=== PATIENT | male | born 1965 | race Caucasian/White ===

== ENCOUNTER 2022-08-02 16:12 | Emergency (ER) | payer OTHER, SELFPAY ==
[2022-08-02 16:13] VITALS: BP 148/88; PULSE 64; RESP 18; TEMP 36.4; O2SAT 100; BMI 26.6
--- NOTE | 2022-08-02 16:31 | EKG12_ITS ---
Test Reason : AB LABS Blood Pressure : / mmHG Vent. Rate : 057 BPM Atrial Rate : 057 BPM P-R Int : 202 ms QRS Dur : 094 ms QT Int : 408 ms P-R-T Axes : 052 023 029 degrees QTc Int : 397 ms Sinus bradycardia Otherwise normal ECG Confirmed by ARELY AZAR, BRYCE ([id number]), general expeditor CLAIRE VIVAR ([id number]) on 08/03/2022 9:40:42 AM Referred By: Confirmed By:BRYCE MCGEE MD
--- NOTE | 2022-08-02 16:35 | NURSING ---
NO OLD EKGS
--- NOTE | 2022-08-02 17:17 | ED.RN ---
PT AKTERIN DUBOSE AT THIS RN B/C THE HAS NOT BEEN IN THE ROOM YET. PT YANI.
[2022-08-02 17:31] LABS: Absolute Lymphocyte Count 0.95 X10^3/uL (0.83-4.51); Absolute Neutrophil Count 2.4 X10^3/uL (2.0-7.7); Basophil# 0.02 X10^3/uL; Basophil% 0.5 % (0-1); Eosinophil# 0.22 X10^3/uL; Eosinophils% 5.4 % (0-5); Hematocrit 37.1 % (40-54); Hemoglobin 13.4 g/dL (13.0-16.5); Lymphocyte # 0.95 X10^3/ul (0.83-4.51); Lymphocyte % 23.3 % (19-41); Mean Corp Hgb Conc 36.1 g/dL (32-36); Mean Corpuscular Hgb 31.7 pg (27.0-32.0); Mean Corpuscular Volume 87.7 fL (80-94); Mean Platelet Vol. 9.2 fl (6.2-12.0); Monocyte# 0.47 X10^3/uL; Monocyte% 11.5 % (0-10); NRBC Flagged by Analyzer 0 % (0-5); Neutrophil # 2.41 X10^3/uL (2.7-7.7); Neutrophil % 59.1 % (47-70); Platelet Count 168 K/mm3 (150-450); RBC Distribution Width CV 11.3 % (11.6-14.6); RBC Distribution Width SD 36.3 fl (35.1-43.9); Red Blood Count 4.23 M/mm3 (4.6-6.2); White Blood Count 4.1 K/mm3 (4.4-11.0)
--- NOTE | 2022-08-02 17:32 | ED.RN ---
PT RUDE TO REGISTRATION GIRL, GIVING HER A HARD TIME AND BEING SHORT WITH HER WHEN SHE ASKED HIM QUESTIONS.
[2022-08-02 17:55] LABS: ALB/GLOB Ratio 1.1 RATIO (0.9-2.4); AST(SGOT) 21 U/L (15-37); Alanine Aminotransfer ALT/SGPT 24 U/L (16-61); Albumin, Serum 3.8 g/dL (3.2-5.0); Alkaline Phosphatase 98 U/L (45-117); Anion Gap 8 (5-15); BUN 12 mg/dL (7-18); BUN/Creat Ratio 14.2 RATIO (10-20); Calcium,Total 9.2 mg/dL (8.5-10.1); Chloride 89 mmol/L (98-107); Creatinine, Serum 0.85 mg/dL (0.70-1.30); EST Glomerular Filtration Rate 100 mL/min (>60); Est Glom Filt Rate - Afr Amer 121 mL/min (>60); Estimated Creatinine Clearance 98.19 ml/min; Globulin 3.5 g/dL (2.2-4.2); Glucose 92 mg/dL (74-106); Potassium 3.8 mmol/L (3.5-5.1); Protein, Total 7.3 g/dL (6.4-8.2); Sodium Level 123 mmol/L (136-145); Troponin-I HS 5 pg/mL (3.0-78.0)
--- NOTE | 2022-08-02 18:01 | EDS_ITS ---
HPI History of Present Illness Chief Complaint: Abn Labs Narrative Narrative: 56-year-old male presenting with low sodium. He states he does not have any symptoms of low sodium. He states he feels well. Reportedly had blood work on an outpatient basis that showed his sodium was 118. He reports that he does not eat a lot of salt. He also states he eats pretty healthy. 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 The patient states his equilibrium has been off for years because he had a tumor at 1 point but there is nothing new today. He is not lightheaded or vertiginous. He is ambulatory. He states he feels well PFSH PFSH Medical History no medical history Allergy/AdvReac Type Severity Reaction Status Date / Time No Known Allergies Allergy Verified 08/02/22 16:14 Social History Smoking Status: Current every day smoker tobacco type: cigarettes ROS ROS ED Constitutional Constitutional ED: Denies chills, fever(s) or sweats Eyes Eyes: Denies blurry vision or change in vision ENT ENT ED: Denies ear pain or sore throat Cardiovascular Cardiovascular: Denies chest pain, palpitations or racing heartbeat Respiratory/Chest Respiratory/Chest: Denies cough, dyspnea or sputum Gastrointestinal Gastrointestinal: Denies abdominal pain, constipation, diarrhea, nausea or vomiting Genitourinary Genitourinary ED: Denies dysuria, hematuria or urinary frequency Musculoskeletal Musculoskeletal: Denies arthralgias, myalgias or neck pain Integumentary Denies abscess, Abrasions or rash Neurologic Neurologic: Denies headache(s), paresthesias or weakness Psychiatric Psychiatric: Denies anxiety, depression, suicidal ideation or suicidal thoughts Endocrine Endocrinology: Denies polydipsia or polyuria EXAM Physical Exam Const Vital Signs: 08/02/22 16:13 08/02/22 16:30 08/02/22 18:49 Temperature 97.6 F L Temperature Source Temporal Pulse Rate 64 59 L Respiratory Rate 18 14 Respiratory Effort Normal Non-Labored Respiratory Pattern Normal Blood Pressure 148/88 H 155/90 H Blood Pressure Mean 108 Pulse Ox 100 97 Oxygen Delivery Method Room Air Positive well nourished General Appearance ED: NAD; Negative for pallor HEENT Reports moist mucous membranes Eyes PERRL and EOMs intact bilaterally General Eye ED: Negative for pale conjunctiva or scleral icterus Chest Wall inspection of chest normal Resp normal respiratory effort and clear to auscultation bilaterally Auscultation: Negative for rales, rhonchi or wheezes Cardio regular rate and regular rhythm GI normal to inspection, nondistended, normoactive bowel sounds Back/Spine no CVA tenderness Neuro oriented x3 and CN's II-XII intact bilaterally Sensorium / Orientation: alert Psych mental status grossly normal Skin no rashes or lesions noted and no wounds General Skin Exam: Negative for jaundice or pallor MDM MDM MDM Narrative Medical decision making narrative: Patient presenting with a sodium of 118. Today's lab work was repeated and his CBC shows a low white blood cell count of 4.1. Hemoglobin 13.4, hematocrit 37.1, platelets 168. Liver function testing is normal. EKG shows a normal sinus rhythm with a ventricular rate of 57 bpm without sign of ischemic change on my interpretation. High-sensitivity troponin is 5. Unction appears to be normal. His sodium is low at 123 but increased since his previous blood work. He tells me he does not have any symptoms and states he does not want to stay in the hospital. Discussed with Dr. Huizar who is on-call for Dr. Alvarez. He said he would have the patient follow-up as an outpatient for repeat lab work. He recommended increasing his salt in his diet. Patient was amenable to this. He is discharged home in stable condition. Impression: 1. Hyponatremia Lab Data Labs: Laboratory Results - last 24 hr 08/02/22 08/02/22 08/02/22 17:20 17:20 18:10 WBC 4.1 L RBC 4.23 L Hgb 13.4 Hct 37.1 L MCV 87.7 MCH 31.7 MCHC 36.1 H RDW Std Deviation 36.3 RDW Coeff of Yocasta 11.3 L Plt Count 168 MPV 9.2 Immature Gran % (Auto) 0.200 Neut % (Auto) 59.1 Lymph % (Auto) 23.3 [place] % (Auto) 11.5 H Eos % (Auto) 5.4 H Baso % (Auto) 0.5 Absolute Neuts (auto) 2.4 Absolute Lymphs (auto) 0.95 Nucleated RBC % 0 Sodium 123 L Potassium 3.8 Chloride 89 L Carbon Dioxide 26.0 Anion Gap 8 BUN 12 Creatinine 0.85 Estim Creat Clear Calc 98.19 Est GFR (MDRD) Af Amer 121 Est GFR (MDRD) Non-Af 100 BUN/Creatinine Ratio 14.2 Glucose 92 Calcium 9.2 Total Bilirubin 0.90 AST 21 ALT 24 Alkaline Phosphatase 98 Troponin I High Sens 5 Total Protein 7.3 Albumin 3.8 Globulin 3.5 Albumin/Globulin Ratio 1.1 Urine Color Yellow Urine Clarity Clear Urine pH 7.0 Ur Specific [place] 1.010 Urine Protein Negative Urine Glucose (UA) Normal Urine Ketones Negative Urine Occult Blood Negative Urine Nitrite Negative Urine Bilirubin Negative Urine Urobilinogen Normal Ur Leukocyte Esterase Negative Urine RBC 0 SEEN Urine WBC 0 SEEN Ur Squamous Epith Cells 0 SEEN Urine Bacteria 0 SEEN Urine Mucus 0 SEEN Discharge Plan Triage Chief Complaint: Abn Labs ED Provider: Adonis Zee Dx/Rx/DC Orders Clinical Impression: Cerebral salt-wasting syndrome, Chronic hyponatremia Instructions: ED Hyponatremia Primary Care Provider: Yanick Alvarez Referrals: Yanick Alvarez MD [Primary Care Provider] - Disposition Disposition: Home, Self Care
[2022-08-02 18:17] LABS: Bacteria 0 SEEN /hpf (None Seen); Mucous, Urine 0 SEEN /hpf (<or=2+); Red Blood Cells-Urine 0 SEEN /hpf (0-5); Squamous Epithelial Cells - UA 0 SEEN /hpf (0-5); White Blood Cells 0 SEEN /hpf (0-5)
[2022-08-02 18:21] LABS: Color, Urine Yellow (Yellow); Glucose, Dipstick Normal (Normal); Ketone-Dipstick Negative (Negative); Leukocyte Esterase-Dipstick Negative /ul (Negative); Nitrite-Dipstick Negative (Negative); Occult Blood-Urine Negative /ul (Negative); Protein-Dipstick Negative (Negative); Urine Bilirubin Dipstick Negative (Negative); Urine Clarity Clear (Clear); Urine Urobilinogen Normal (Normal)
--- NOTE | 2022-08-02 18:21 | ED.RN ---
PT CALLED OUT STATING HE HAD TO GO TO THE RESTROOM. MEDIC WENT IN AND INFORMED PT THAT WE NEEDED A URINE SAMPLE. PT GAVE THE MEDIC A HARD WHY DO YOU NEED THAT KNOW, WHY DIDNT YOU TELL ME THAT WHEN I GOT HERE?
[2022-08-02 18:49] VITALS: BP 155/90; PULSE 59; RESP 14; O2SAT 97
== END 2022-08-02 18:54 | disposition home or self-care (01) ==
PROVIDERS: Emergency Provider Student in an Organized Health Care Education/Training Program; PCP Family Medicine; Visit Provider Student in an Organized Health Care Education/Training Program
DX: E87.1 Hypo-osmolality and hyponatremia (principal); F17.210 Nicotine dependence, cigarettes, uncomplicated
CPT/HCPCS: 80053; 81001; 84484; 85025; 93005; 99284; A4216

== ENCOUNTER 2024-07-22 14:02 | Emergency (ER) | payer OTHER, SELFPAY ==
[2024-07-22 14:02] VITALS: BP 133/82; PULSE 72; RESP 16; TEMP 36.3; O2SAT 99; BMI 25.9
--- NOTE | 2024-07-22 14:14 | EDS_ITS ---
HPI History of Present Illness Chief Complaint: Headache Informant: patient Onset/Context/Timing Onset: Days (4) Context: Gradual Timing: Continuous Quality -Headache: Positive for Similar Prior Headaches Location: Diffuse Worsened by: Nothing Relieved by: Nothing Associated Symptoms/Injury Associated Symptoms: Positive for Nausea, Vomiting, Blurred Vision and Photophobia; Negative for Fever, Sore Throat, Sinus Pressure, Numbness, Tingling, Preceding Aura or Visual Loss Narrative Narrative: Patient presents with migraine headache that has been constant for the past 4 days. Patient states that it is gradually gotten worse. Patient states it is sharp. Patient states it is diffuse across his entire head. Patient states nothing makes it worse and nothing makes it better. Patient admits to some blurry vision and photophobia. Patient also admits to some dizziness. Patient states he had an episode of nausea and vomiting a couple days ago. Patient denies any fevers or chills. Prior similar symptoms: Yes PFSH PFSH Medical History (Updated 07/22/24 @ 17:[address] Julian Garcia DO) Migraine headache Hypertension Allergy/AdvReac Type Severity Reaction Status Date / Time No Known Allergies Allergy Verified 07/22/24 14:02 Surgical History (Updated 07/22/24 @ 15:[address] Julian Garcia DO) History of facial surgery Social History Smoking Status: Current every day smoker tobacco type: cigarettes ROS ROS ED Constitutional Constitutional ED: Denies chills or fever(s) Eyes Eyes: Reports blurry vision; Denies change in vision ENT ENT ED: Denies rhinorrhea or sore throat Cardiovascular Cardiovascular: Denies chest pain or palpitations Respiratory/Chest Respiratory/Chest: Denies cough or dyspnea Gastrointestinal Gastrointestinal: Reports nausea and vomiting Genitourinary Genitourinary ED: Denies dysuria or hematuria Musculoskeletal Musculoskeletal: Denies back pain or neck pain Integumentary Denies abscess or rash Neurologic Neurologic: Reports headache(s); Denies weakness Allergic/Immunologic Allergic/Immunologic ED: Denies mouth swelling or urticaria EXAM Physical Exam Const Vital Signs: 07/22/24 14:02 07/22/24 16:02 Temperature 97.4 F L Temperature Source Temporal Pulse Rate 72 78 Respiratory Rate 16 19 H Blood Pressure 133/82 H 108/92 H Blood Pressure Mean 99 97 Pulse Ox 99 98 Oxygen Delivery Method Room Air Room Air Positive well nourished and well developed General Appearance ED: well developed and NAD HEENT Reports moist mucous membranes atraumatic Neck supple and no JVD Resp normal respiratory effort and clear to auscultation bilaterally Cardio regular rate and regular rhythm GI non-tender and non-distended Palpation: soft Extremity normal to inspection and full ROM Neuro oriented x3 and no sensory deficits noted Neuro Narrative: There is right facial weakness that includes the forehead. (Patient states that this is due to his cholesteatoma surgery and is chronic.) Conrado Coma Scale: document GCS findings Spontaneous Obeys Commands Oriented 15 Sensorium / Orientation: awake and alert Speech: speech normal Motor Exam: strength 5/5 throughout Psych mental status grossly normal MDM MDM MDM Narrative Medical decision making narrative: Differential diagnose includes migraine headache, tension headache, and intracranial bleeding. CT scan of the brain will be obtained to assess for intracranial bleeding. History & Record Review Additional record(s) reviewed:: Prior labs Radiography Diagnostic Testing: Clinical Impression(s) from Imaging Studies Brain CT 07/22/24 15:04 IMPRESSION: No acute intracranial finding. Reading Location: [facility] CT scan of the brain was obtained. There is no acute intracranial abnormality. This was interpreted by the radiologist and was also independently reviewed by myself. Treatment and Re-Evaluation Narrative: Patient was given IV fluids, Reglan, and Benadryl. Patient was feeling better on reevaluation. Patient was given injection of Toradol. Patient was advised of his findings. Patient was instructed to rest in a dark quiet room. Patient was instructed to follow-up with his primary care physician in 5 to 7 days. Patient understood and was agreeable with the plan. All questions were answered. Discharge Plan Triage Chief Complaint: Headache ED Provider: Julian Garcia Dx/Rx/DC Orders Clinical Impression: Migraine headache, Tobacco use Instructions: ED, Migraine (Classical) Primary Care Provider: Yanick Alvarez Referrals: Yanick Alvarez MD [Primary Care Provider] - 3-5 Days Print Language: Bulgarian Disposition Disposition: Home, Self Care
--- NOTE | 2024-07-22 15:04 | CT_ITS ---
EXAM: BRAIN/HEAD WITHOUT CONTRAST CLINICAL HISTORY: 58 y/o M with PAIN. COMPARISON: None. TECHNIQUE: Routine CT imaging of the head without IV contrast. Additional multiplanar reformats were obtained. Dose reduction techniques were used including intermediate exposure control (AEC),iterative reconstruction technique, and/or mA and/or KV dose adjustments based on patient's size. FINDINGS: Visualization is significantly limited by streak artifact from right eyelid weight. Prior right pterional craniotomy and surgical resection of the right skull base. The ventricles and subarachnoid spaces are normal for patient age. 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 Patchy supratentorial white matter hypodensities. The parsons-white matter interfaces are otherwise grossly maintained. No large intracranial hemorrhage or herniation. Prior FESS. Mild mucosal thickening of the right maxillary sinus. The visualized paranasal sinuses and mastoids are otherwise unremarkable. No depressed skull fractures are identified. CT/Brain/Head without Contrast IMPRESSION: No acute intracranial finding. Reading Location: [id number]
[2024-07-22] MEDS: 0.9% Normal Saline (1000mL) 1,000 ML 999 ML IV (15:12)
[2024-07-22] MEDS: Metoclopramide 10 MG/2 ML Vial IV (15:12)
[2024-07-22] MEDS: DiphenhydrAMINE 50 MG/ML Syringe 25 MG IV (15:12)
[2024-07-22 16:02] VITALS: BP 108/92; PULSE 78; RESP 19; O2SAT 98
[2024-07-22] MEDS: Ketorolac 15 MG/ML Vial IV (17:05)
[2024-07-22 17:12] VITALS: BP 140/71; PULSE 77; RESP 19; TEMP 36.6; O2SAT 97
== END 2024-07-22 17:30 | disposition home or self-care (01) ==
PROVIDERS: Emergency Provider Emergency Medicine; PCP Family Medicine; Visit Provider Emergency Medicine
DX: G43.909 Migraine, unspecified, not intractable, without status migrainosus (principal); I10 Essential (primary) hypertension; F17.210 Nicotine dependence, cigarettes, uncomplicated
CPT/HCPCS: 70450; 96361; 96374; 96375; 99282; A4216

== ENCOUNTER 2024-08-10 20:05 | Emergency (ER) | payer SELFPAY ==
[2024-08-10 20:06] VITALS: BP 166/79; PULSE 136; RESP 20; TEMP 37.8; O2SAT 97; BMI 23.9
--- NOTE | 2024-08-10 20:27 | CT_ITS ---
EXAM: BRAIN/HEAD WITHOUT CONTRAST CLINICAL HISTORY: 58 y/o M with ALOC W/ BRAIN TUMOR HX. COMPARISON: CT head 07/22/2024. TECHNIQUE: Routine CT imaging of the head without IV contrast. Additional multiplanar reformats were obtained. Dose reduction techniques were used including intermediate exposure control (AEC),iterative reconstruction technique, and/or mA and/or KV dose adjustments based on patient's size. FINDINGS: Visualization is significantly limited by streak artifact from right eyelid weight. Prior right pterional craniotomy and surgical resection of the right skull base. Since prior examination, there is increased size/conspicuity of a low-density lesion within the right temporal lobe subjacent to the prior craniotomy site. Additional increased size/conspicuity of a low-density lesion within the right cerebellar hemisphere. The ventricles and subarachnoid spaces are normal for patient age. 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 Moderate patchy supratentorial white matter hypodensities. The parsons-white matter interfaces are otherwise grossly maintained. No large intracranial hemorrhage or herniation. Prior FESS. Mild mucosal thickening of the right maxillary sinus. The visualized paranasal sinuses and mastoids are otherwise well-aerated. No acute calvarial fracture or scalp hematoma. CT/Brain/Head without Contrast IMPRESSION: 1. No acute intracranial hemorrhage or herniation. 2. Increased size/conspicuity of low-density lesions within the right temporal lobe and right cerebellar hemisphere, most compatible with gliosis/postoperative changes. 3. Prior right pterional craniotomy and surgical resection of the right skull b ase. Reading Location: [id number]
--- NOTE | 2024-08-10 20:28 | EKG12_ITS ---
Test Reason : DYSRHYTHMIA Blood Pressure : */* mmHG Vent. Rate : 106 BPM Atrial Rate : 106 BPM P-R Int : 188 ms QRS Dur : 100 ms QT Int : 348 ms P-R-T Axes : 17 32 57 degrees QTcB Int : 462 ms Sinus tachycardia Otherwise normal ECG Confirmed by ARELY AZAR, BRYCE ([id number]), associate editor CLAIRE VIVAR ([id number]) on 08/13/2024 7:39:41 AM Referred By: Confirmed By: BRYCE MCGEE MD
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
[2024-08-10 20:50] LABS: Absolute Lymphocyte Count 0.72 X10^3/uL (0.83-4.51); Absolute Neutrophil Count 9.8 X10^3/uL (2.0-7.7); Basophil# 0.01 X10^3/uL; Basophil% 0.1 % (0-1); Eosinophil# 0.02 X10^3/uL; Eosinophils% 0.2 % (0-5); Hematocrit 33.5 % (40-54); Hemoglobin 11.9 g/dL (13.0-16.5); Lymphocyte # 0.72 X10^3/ul (0.83-4.51); Lymphocyte % 6.4 % (19-41); Mean Corp Hgb Conc 35.5 g/dL (32-36); Mean Corpuscular Hgb 31.8 pg (27.0-32.0); Mean Corpuscular Volume 89.6 fL (80-94); Mean Platelet Vol. 8.9 fl (6.2-12.0); Monocyte# 0.62 X10^3/uL; Monocyte% 5.5 % (0-10); NRBC Flagged by Analyzer 0 % (0-5); Neutrophil # 9.78 X10^3/uL (2.7-7.7); Neutrophil % 87.4 % (47-70); Platelet Count 203 K/mm3 (150-450); RBC Distribution Width CV 11.3 % (11.6-14.6); RBC Distribution Width SD 36.5 fl (35.1-43.9); Red Blood Count 3.74 M/mm3 (4.6-6.2); White Blood Count 11.2 K/mm3 (4.4-11.0)
[2024-08-10] MEDS: 0.9% Normal Saline (1000mL) 1,000 ML 999 ML IV (20:56)
[2024-08-10] MEDS: Acetaminophen 650 MG Suppository RC (20:56)
[2024-08-10] MEDS: Lorazepam 2 MG/ML WCH Syringe 1 MG IV ×2 (21:04→22:40)
--- NOTE | 2024-08-10 21:05 | RAD_ITS ---
PROCEDURE: CHEST 1 VIEW (PORTABLE) 08/10/2024 REASON FOR EXAM: FEVER TECHNIQUE: Frontal view of the chest. COMPARISON: None. FINDINGS: Hardware: None. Heart: The heart size is normal. Lungs: No focal consolidation, pleural effusion or pneumothorax. Bones: The bones are unremarkable. RAD/Chest 1 View (Portable) IMPRESSION: Negative Chest. Reading Location: [id number]
[2024-08-10 21:09] VITALS: BP 179/95; PULSE 106; RESP 30; O2SAT 98
[2024-08-10 21:10] LABS: International Normalized Ratio 1.2; Partial Thromboplast Time 23.4 Seconds (24.1-36.2); Prothrombin Time (Protime)PT. 14.9 SECONDS (11.7-14.9)
[2024-08-10 21:15] LABS: AST(SGOT) 21 U/L (<=37); Alanine Aminotransfer ALT/SGPT 20 U/L (<=46); Albumin, Serum 3.6 g/dL (3.5-5.0); Alkaline Phosphatase 82 U/L (40-129); Anion Gap 16 (5-15); BUN 14 mg/dL (4-19); BUN/Creat Ratio 16.2 RATIO (10-20); Calcium,Total 9.5 mg/dL (7.6-11.0); Carbon Dioxide 17.6 mmol/L (21.0-32.0); Chloride 88 mmol/L (98-108); Creatinine, Serum 0.84 mg/dL (0.70-1.20); EST Glomerular Filtration Rate 102 (>60); Estimated Creatinine Clearance 97.03 ml/min (50-250); Globulin 3.6 g/dL (2.2-4.2); Glucose 124 mg/dL (70-99); Potassium 4.4 mmol/L (3.3-5.1); Protein, Total 7.2 g/dL (5.9-8.4); Sodium Level 122 mmol/L (133-145); Total Bilirubin 0.65 mg/dL (0.00-1.30)
--- OUTSIDE RECORDS SUMMARY | 2024-08-10 21:49 | XMS RPT_ITS | CCD ---
Author Organization [facility] Care Team Providers Care Spd Tech Name Role Phone Yanick Sky MD Primary Care Provider [phone] Yanick Sky MD Primary Care Provider [phone] Bertha SAHU.Sobia RODRIGUEZ Unavailable Tosha De Leon PA-C Unavailable Dr. Yanick Sky MD Primary Care Provider Dr. Julian Garcia DO Emergency Provider Yanick Sky MD Primary Care Provider [phone] Julian Garcia Attending Unavailable Yanick Sky Primary Care Unavailable YANICK SKY Primary Care Unavailable YANICK SKY Referring Unavailable YANICK SKY Primary Care Unavailable YANICK SKY Referring Unavailable YANICK SKY Primary Care Unavailable SELF Referring Unavailable YANICK SKY Attending Unavailable YANICK SKY Primary Care Unavailable MECHE ZHAO Referring Unavailable YANICK SKY Primary Care Unavailable YANICK SKY Primary Care Unavailable GAIL CORONADO Attending Unavailable Bertha SAHU.Sobia RODRIGUEZ Unavailable Tosha De Leon PA-C Unavailable [phone] TIKI VERDUZCO Admitting Unavailable STEVE MCLEOD Attending Unavailable YANICK SKY Primary Care Unavailable PARIS DALTON Consulting Unavailable GAIL CORONADO Referring Unavailable Allergies Allergy Classification Reported Allergen(s) Allergy Type Date of Onset Reaction(s) Facility (20 sources) hydroCHLOROthiazide / Triamterene; Translations: [TRIAMTERENE-HYDROCHLOR OTHIAZID] Drug Allergy 08-09-19 23 Other: See Comments Work Phone: Medications Current Medications Medication Drug Class(es) Dates Sig (Normalized) Sig (Original) acetaminophen 325 mg / HYDROcodone bitartrate 5 mg oral tablet (1 source) Opioid Agonist Start: 09-17-2021 End: 09-22-2021 take 1 tablet by mouth every eight hours as needed for pain HYDROcodone-acetami nophen (NORCO) 5-325 mg per tablet Indications: Postoperative pain Take 1 tablet by mouth every 8 hours as needed for pain for up to 5 days. 15 tablet 0 09/17/2021 09/22/2021 Active Comment on above: Take 1 tablet by david th every 8 hours as needed for pain for up to 5 days. atorvastatin 20 mg oral tablet (20 sources) HMG-CoA Reductase Inhibitor Start: 07-06-2021 End: 05-01-2024 take 1 tablet by mouth once daily at bedtime for hyperlipidemia atorvastatin (LIPITOR) 20 mg tablet Take 1 tablet by mouth daily at bedtime. For cholesterol. 30 tablet 5 05/02/2024 Active Comment on above: Take 1 tablet by david th daily at bedtime. For cholesterol. methocarbamol 500 mg oral tablet (1 source) Muscle Relaxant Start: 03-12-2024 End: 03-15-2024 take 1 tablet by mouth every six hours as needed methocarbamol (ROBAXIN) 500 mg tablet Take 1 tablet by mouth every 6 hours as needed (Pain) for up to 3 days. 12 tablet 03/12/2024 03/15/2024 Active omeprazole 20 mg delayed release oral tablet (6 sources) Proton Pump Inhibitor Start: 05-01-2024 take 1 tablet by mouth every other day as needed Omeprazole Magnesium (PRILOSEC OTC) 20 mg tablet Take 1 tablet by mouth every other day. As needed 05/01/2024 Active predniSONE 10 mg oral tablet (1 source) Start: 03-12-2024 End: 03-21-2024 predniSONE (DELTASONE) 10 mg tablet Take 4 tabs daily for 3 days, then 2 tabs daily for 3 days, then 1 tab daily for 3 days with food. 21 tablet 03/12/2024 03/21/2024 Active Completed/Discontinued Medications Medication Drug Class(es) Dates Sig (Normalized) Sig (Original) amLODIPine 10 mg oral tablet (17 sources) Dihydropyridine Calcium Channel Saundra Start: 1 End: 2 take 1 tablet by mouth once daily amLODIPine (NORVASC) 10 mg tablet Take 1 tablet by mouth once daily. 30 tablet 5 12/03/2021 Active Comment on above: Take 1 tablet by david th once daily. doxazosin 1 mg oral tablet (19 sources) alpha-Adrenergic Saundra Start: 3 End: 5 take 1 tablet by mouth once daily, then take 1 tablet by mouth once daily doxazosin (CARDURA) 1 mg tablet Take 1 tablet by mouth once daily. Take one tab a day 05/01/2024 08/08/2024 Discontinued Comment on above: Take one tab a day f or a week then go to taking two a day. hydroCHLOROthiazide 25 mg / triamterene 37.5 mg oral tablet (10 sources) Potassium-sparing Diuretic, Thiazide Diuretic Start: 2 End: 3 take 1 tablet by mouth once daily triamterene-hydro CHLOROthiazide (MAXZIDE-25MG) 37.5-25 mg per tablet Indications: Essential hypertension Take 1 tablet by mouth once daily. 30 tablet 5 05/11/2022 08/08/2022 Discontinued (Changing Therapy/Dosage Form) Comment on above: Take 1 tablet by david th once daily. iv contrast (will be provided with radiology test) (1 source) Start: 3 End: 3 inject 1 dose intravenously once iv contrast (will be provided with radiology test) Indications: Cerebral salt-wasting syndrome , Cholesteatoma of right middle ear , Balance problems MRI Brain Inject, intravenously, once for 1 dose.No IV access, insert saline lock prior to beginning of sedation, infusion, injection of imaging exam.Discontinue saline lock post exam. If Pt. has a central line or IVAD, may access for administration according to line specific nursing protocol.Once exam is complete flush line and de-access according to line specific nursing protocol in the MR contrast administration guidelines link 1 Each 0 09/06/2022 09/07/2022 Comment on above: MRI Brain Inject, in travenously, once for 1 dose.No IV access, insert saline lock prior to beginning of sedation, infusion, injection of imaging exam.Discontinue saline lock post exam. If Pt. has a central line or IVAD, may access for administration according to line specific nursing protocol.Once exam is complete flush line and de-access according to line specific nursing protocol in the MR contrast administration guidelines link lisinopril 40 mg oral tablet (20 sources) Angiotensin Converting Enzyme Inhibitor Start: End: take 1 tablet by mouth twice daily lisinopril (ZESTRIL) 40 mg tablet Take 1 tablet by mouth two times a day. 180 tablet 1 05/01/2024 08/08/2024 Discontinued Start: 08-17-2021 take 1 tablet by david th twice daily lisinopril (ZESTRIL, PRINIVIL) 40 mg tablet Indications: Essential hypertension Take 1 tablet by mouth twice daily. 180 tablet 1 08/17/2021 Active Start: 11-17-2020 End: 06-02-2021 take 1 tablet by mouth twice daily lisinopril (ZESTRIL, PRINIVIL) 40 mg tablet Indications: Essential hypertension Take 1 tablet by mouth twice daily. 180 tablet 1 06/02/2021 Active Comment on above: Take 1 tablet by david th twice daily. Take 1 tablet by david th two times a day. metoprolol tartrate 100 mg oral tablet (20 sources) beta-Adrenergic Saundra Start: 01-12-2022 End: 08-08-2024 take 2 tablets by mouth twice daily metoprolol tartrate, short acting, (LOPRESSOR) 100 mg tablet Indications: Essential hypertension Take 2 tablets by mouth two times a day. 360 tablet 1 05/17/2024 08/08/2024 Discontinued Start: 11-17-2020 End: 07-27-2021 take 2 tablets by mouth twice daily metoprolol tartrate, short acting, (LOPRESSOR) 100 mg tablet Indications: Essential hypertension Take 2 tablets by mouth twice daily. 360 tablet 1 07/28/2021 Active Comment on above: Take 2 tablets by mo uth twice daily. Take 2 tablets by mo uth two times a day. sildenafil 100 mg oral tablet (20 sources) Phosphodiesterase 5 Inhibitor Start: 021 End: 025 sildenafil (VIAGRA) 100 mg tablet Indications: Erectile dysfunction, unspecified erectile dysfunction type Take 1/2 to 1 tab as need. Max of 100 mg in 24 hrs. 12 tablet 3 05/17/2024 9123-9, 2777-1, 70297-1, 3084-1, 45500-6 ####[facility]ORATORYCLIA [id number] [place] [address] [place] PHOSPHATIDYLETHANOL (PETH)on 08-02-2024 EER PETH See Note Normal [facility] Comment on above: Order Comment: Speci men Type: BLOOD SPECIMENOrdering Facility: [facility] Address: [address] [place] [address] Result Comment: Auth orized individuals can access the [employer] Enhanced Reportwith an [employer] Connect account using the following link.Your local lab can assist you in obtaining the patientreport if you don't have a Connect account.[email or web address] Performed By: #### P ETH ####[facility]OR[facility]IESCLIA [id number] [place] [address] PETH 16:0/18.2 (PLPETH) 17 ng/mL Normal [facility] Comment on above: Order Comment: Speci men Type: BLOOD SPECIMENOrdering Facility: [facility] Address: [address] [place] [address] Result Comment: Refe rence ranges are not well established. Performed By: #### P ETH ####[facility]ORATORIESCLIA [id number] [place] [address] PETH 16:0/18:1 (POPETH) 62 ng/mL Normal [facility] Comment on above: Order Comment: Speci men Type: BLOOD SPECIMENOrdering Facility: [facility] Address: [address] [place] [address] Result Comment: PEth 16:0/18:1 (POPEth)Less than 10 ng/mL............Not detectedLess than 20 ng/mL............Abstinence or light chxjbdfmlfyheigycx20 - 200 ng/mL................Moderate alcohol consumptionGreater than 200 ng/mL........Heavy alcohol consumption or chronicalcohol use(Reference: Michelle Shields and Emil Lozano 2018 J. Forensic Sci) Performed By: #### P ETH ####[facility] [employer]IA [id number] [place] [address] PETH INTERPRETATION See Comment Normal [facility] Comment on above: Order Comment: Speci men Type: BLOOD SPECIMENOrdering Facility: [facility] Address: [address] [place] [address] [place] [address] Result Comment: Phos phatidylethanol (PEth) is a group of phospholipids formed inthe presence of ethanol, phospholipase D and phosphatidylcholine.PEth is known to be a direct alcohol biomarker. The predominantPEth homologues are PEth 16:0/18:1 (POPEth) and PEth 16:0/18:2(PLPEth), which account for 37-46% and 26-28% of the total PEthhomologues, respectively. PEth is incorporated into thephospholipid membrane of red blood cells and has a generalhalf-life of 4-10 days and a window of detection of 2-4 weeks.However, the window of detection is longer in individuals whochronically or excessively consume alcohol. The limit ofquantification is 10 ng/mL. Serial monitoring of PEth may behelpful in monitoring alcohol abstinence over time. PEth resultsshould be interpreted in the context of the patient's clinical andbehavioral history.Patients with advanced liver disease may have falsely elevatedPEth concentrations (Fidelina CLAROS et al 2018, Alcoholism Clinical &Experimental Research).This test was developed and its performance characteristicsdetermined by [employer]. It has not been cleared orapproved by the U.S. Food and Drug Administration. This test wasperformed in a CLIA-certified laboratory and is intended forclinical purposes.Performed By: [facility] [place], [place] [address]Pmhowhfutf Director: Rodríguez Pride MD, PhDCLIA Number: [id number] Performed By: #### P ETH ####MOTetrageneticsIA [id number] [place] [address] Phosphate SerPl-mCncon 08-02 Phosphate [Mass/Vol] 3.7 mg/dL Normal 2.7-4.8 [facility] Comment on above: Order Comment: Ankur blancas Type: BLOOD SPECIMENOrdering Facility: [facility] Address: [address] [place] [address] Performed By: #### 1 9123-9, 2777-1, 83426-4, 3084-1, 50316-5 ####[facility]ATORYCLIA [id number] [place] [address] [facility] [place] Procalcitonin SerPl-mCncon 0 08-02-2024 Procalcitonin [Mass/Vol] 0.07 ng/mL Normal <0.09 [facility] Comment on above: Order Comment: Ankur blancas Type: BLOOD SPECIMENOrdering Facility: [facility] Address: [address] [place] [address] Result Comment: For a guided interpretation of test results, please visit the Change in Procalcitonin Calculator, [email or web address]. Performed By: #### 1 9123-9, 2777-1, 52934-9, 3084-1, 05862-0 ####[facility]ORATORYCLIA [id number] [place] [address] [place] Urate SerPl-mCncon 5 Urate [Mass/Vol] 2.7 mg/dL Low 4.0-8.1 [facility] Comment on above: Order Comment: Ankur blancas Type: BLOOD SPECIMENOrdering Facility: [facility] Address: [address] [place] [address] Performed By: #### 1 9123-9, 2777-1, 05054-3, 3084-1, 98294-6 ####[facility]ORATORYCLIA [id number] [place] [address] [place] XR CHEST 1V FRONTAL PORTon 0 08-02-2024 XR CHEST 1V FRONTAL PORT Normal [facility] Bacteria Bld Culton 08-02-19 25 Bacteria identified Cx Nom (Bld) CULTURE, BLOOD: No growth 5 days Normal [facility] Comment on above: Performed By: #### 6 00-7 ####[facility] LABCLIA [id number] [address] [place] Bacteria identified Cx Nom (Bld) ORGANISM ID: 1 Staphylococcus capitis Probable contaminant. Susceptibility testing will not be performed. Call lab within 72 hours to initiate workup if clinically indicated. GRAM STAIN: Gram positive cocci in clusters Abnormal [facility] Comment on above: Performed By: #### I DBCGP, 600-7 ####[facility] LABCLIA [id number] [address] [place] [address] [place] CASE MANAGEMon 08-01-2024 CASE MANAGEM Normal [facility] CBC panel Auto (Bld)on 08-01 Erythrocyte distribution width (RBC) [Ratio] 11.0 % Low 11.5-15.0 [facility] Comment on above: Order Comment: Speci men Type: BLOOD SPECIMENOrdering Facility: [facility] Address: [address] [place] [address] Performed By: #### 5 8410-2 ####[facility]ORATORYCLIA [id number] [address] STATES [facility] Hematocrit (Bld) [Volume fraction] 34.9 % Low 39.0-51.0 [facility] Comment on above: Order Comment: Speci men Type: BLOOD SPECIMENOrdering Facility: [facility] Address: [address] [place] [address] Performed By: #### 5 8410-2 ####[facility]ORATORYCLIA [id number] [place] [address] [place] Hemoglobin (Bld) [Mass/Vol] 12.6 g/dL Low 13.0-17.0 [facility] Comment on above: Order Comment: Speci men Type: BLOOD SPECIMENOrdering Facility: [facility] Address: [address] [place] [address] Performed By: #### 5 8410-2 ####[facility]ORATORYCLIA [id number] [place] [id number] [place] MCH (RBC) [Entitic mass] 32.0 pg Normal 26.0-34.0 [facility] Comment on above: Order Comment: Speci men Type: BLOOD SPECIMENOrdering Facility: [facility] Address: [address] [place] [address] Performed By: #### 5 8410-2 ####[facility]ORATORYCLIA [id number] [address] MCHC (RBC) [Mass/Vol] 36.1 g/dL High 30.5-36.0 [facility] Comment on above: Order Comment: Speci men Type: BLOOD SPECIMENOrdering Facility: [facility] Address: [address] [place] [address] Performed By: #### 5 8410-2 ####[facility]ORATORYCLIA [id number] [address] [place] [facility] MCV (RBC) [Entitic vol] 88.6 fL Normal 80.0-100.0 [facility] Comment on above: Order Comment: Speci men Type: BLOOD SPECIMENOrdering Facility: [facility] Address: [address] [place] [address] Performed By: #### 5 8410-2 ####[facility]ORATORYCLIA [id number] [address] Nucleated RBC (Bld) [#/Vol] 10*3/uL Normal <0.01 [facility] Comment on above: Order Comment: Speci men Type: BLOOD SPECIMENOrdering Facility: [facility] Address: [address] [place] [address] Performed By: #### 5 8410-2 ####[facility]ORATORYCLIA [id number] [address] Platelet mean volume (Bld) [Entitic vol] 8.5 fL Low 9.0-12.7 [facility] Comment on above: Order Comment: Speci men Type: BLOOD SPECIMENOrdering Facility: [facility] Address: [address] [place] [address] Performed By: #### 5 8410-2 ####[facility]ORATORYCLIA [id number] [address] OF [place] Platelets (Bld) [#/Vol] 327 10*3/uL Normal 150-400 [facility] Comment on above: Order Comment: Speci men Type: BLOOD SPECIMENOrdering Facility: [facility] Address: [address] [place] [address] Performed By: #### 5 8410-2 ####[facility]ORATORYCLIA [id number] [place] [id number] [place] RBC (Bld) [#/Vol] 3.94 10*6/uL Low 4.20-6.00 [facility] Comment on above: Order Comment: Speci men Type: BLOOD SPECIMENOrdering Facility: [facility] Address: [address] [place] [address] Performed By: #### 5 8410-2 ####[facility]ORATORYCLIA [id number] [address] OF [place] WBC (Bld) [#/Vol] 11.34 10*3/uL High 3.70-11.00 [facility] Comment on above: Order Comment: Speci men Type: BLOOD SPECIMENOrdering Facility: [facility] Address: [address] [place] [address] Performed By: #### 5 8410-2 ####[facility]ORATORYCLIA [id number] [place] [id number] [facility] [place] CONSULTon 08-01-2024 CONSULT Normal [facility] CONSULT PROGon 08-01-2024 CONSULT PROG Normal [facility] CONSULT PROG Normal [facility] Comprehensive metabolic 2000 panelon 08-01-2024 Albumin [Mass/Vol] 4.2 g/dL Normal 3.9-4.9 [facility] Comment on above: Order Comment: Speci men Type: BLOOD SPECIMENOrdering Facility: [facility] Address: [address] [place] [address] Performed By: #### 2 4323-8, 2777-1, 60336-3 ####[facility]ORATORYCLIA [id number] [place] [id number] [place] ALP [Catalytic activity/Vol] 79 U/L Normal 38-113 [facility] Comment on above: Order Comment: Speci men Type: BLOOD SPECIMENOrdering Facility: [facility] Address: [address] [place] [address] Performed By: #### 2 4323-8, 2776-02, ####[facility] LABORATORYCLIA [id number] [place] [address] [facility] [place] ALT [Catalytic activity/Vol] 13 U/L Normal 10-54 [facility] Comment on above: Order Comment: Speci men Type: BLOOD SPECIMENOrdering Facility: [facility] Address: [address] [place] [address] Performed By: #### 2 4323-8, 2776-02, ####[facility] LABORATORYCLIA [id number] [place] [address] [place] Anion gap [Moles/Vol] 16 mmol/L High 8-15 [facility] Comment on above: Order Comment: Speci men Type: BLOOD SPECIMENOrdering Facility: [facility] Address: [address] [place] [address] Performed By: #### 2 4323-8, 2776-02, ####[facility] LABORATORYCLIA [id number] [address] [place] AST [Catalytic activity/Vol] 16 U/L Normal 14-40 [facility] Comment on above: Order Comment: Speci men Type: BLOOD SPECIMENOrdering Facility: [facility] Address: [address] [place] [address] Performed By: #### 2 4323-8, 2776-02, ####[facility] LABORATORYCLIA [id number] [place] [address] [place] Bilirubin [Mass/Vol] 0.6 mg/dL Normal 0.2-1.3 [facility] Comment on above: Order Comment: Speci men Type: BLOOD SPECIMENOrdering Facility: [facility] Address: [address] [place] [address] Performed By: #### 2 4323-8, 2776-02, ####[facility] LABORATORYCLIA [id number] [place] [address] [place] Calcium [Mass/Vol] 9.4 mg/dL Normal 8.5-10.2 [facility] Comment on above: Order Comment: Speci men Type: BLOOD SPECIMENOrdering Facility: [facility] Address: [address] [place] [address] Performed By: #### 2 4323-8, 2777, ####[facility] LABORATORYCLIA [id number] [place] [id number] [place] Chloride [Moles/Vol] 86 mmol/L Low 98-107 [facility] Comment on above: Order Comment: Speci men Type: BLOOD SPECIMENOrdering Facility: [facility] Address: [address] [place] [address] Performed By: #### 2 4323-8, 2776-02, ####[facility] LABORATORYCLIA [id number] [place] [address] [place] CO2 [Moles/Vol] 22 mmol/L Normal 22-30 [facility] Comment on above: Order Comment: Speci men Type: BLOOD SPECIMENOrdering Facility: [facility] Address: [address] [place] [address] Performed By: #### 2 4323-8, 2776-02, ####[facility] LABORATORYCLIA [id number] [place] [id number] [place] Creatinine [Mass/Vol] 0.65 mg/dL Low 0.73-1.22 [facility] Comment on above: Order Comment: Speci men Type: BLOOD SPECIMENOrdering Facility: [facility] Address: [address] [place] [address] Performed By: #### 2 4323-8, 2776-02, ####[facility]ORATORYCLIA [id number] [address] [place] Creatinine and Glomerular filtration rate.predicted panel (S/P/Bld) 110 mL/min/1.73m??? Normal >=60 [facility] Comment on above: Order Comment: Speci men Type: BLOOD SPECIMENOrdering Facility: [facility] Address: [address] [place] [id number] Result Comment: Lola mated Glomerular Filtration Rate (eGFR) is calculated using the 2020 CKD-EPI creatinine equation. This equation utilizes serum creatinine, sex, and age as parameters. The creatinine assay has traceable calibration to isotope dilution-mass spectrometry. Refer to KDIGO guidelines for clinical interpretation. In patients with unstable renal function, e.g. those with acute kidney injury, the eGFR may not accurately reflect actual GFR. Performed By: #### 2 4323-8, 27708-27, ####[facility]ORATORYCLIA [id number] [place] [address] [place] Glucose [Mass/Vol] 113 mg/dL High 74-99 [facility] Comment on above: Order Comment: Ankur blancas Type: BLOOD SPECIMENOrdering Facility: [facility] Address: [address] [place] [address] Result Comment: The [place] Diabetes [employer] (ADA) provides guidance for cutoff values for fasting glucose and random glucose. The ADA defines fasting as no caloric intake for at least 8 hours. Fasting plasma glucose results between 100 to 125 mg/dL indicate increased risk for diabetes (prediabetes).Fasting plasma glucose results greater than or equal to 126 mg/dL meet the criteria for diagnosis of diabetes. In the absence of unequivocal hyperglycemia, results should be confirmed by repeat testing. In a patient with classic symptoms of hyperglycemia or hyperglycemic crisis, random plasma glucose results greater than or equal to 200 mg/dL meet the criteria for diagnosis of diabetes.Reference: Standards of Medical Care in Diabetes 2016, [place] [employer]. Diabetes Care. 2016.39(Suppl 1). Performed By: #### 2 4323-8, 27708-27, ####[facility] LABORATORYCLIA [id number] [place] [address] [place] Potassium [Moles/Vol] 3.9 mmol/L Normal 3.7-5.1 [facility] Comment on above: Order Comment: Ankur blancas Type: BLOOD SPECIMENOrdering Facility: [facility] Address: [address] [place] [id number] Performed By: #### 2 4323-8, 2776-02, ####[facility] LABORATORYCLIA [id number] [place] [address] [place] Protein [Mass/Vol] 7.8 g/dL Normal 6.3-8.0 [facility] Comment on above: Order Comment: Speci men Type: BLOOD SPECIMENOrdering Facility: [facility] Address: [address] [place] [address] Performed By: #### 2 4323-8, 2776-02, ####[facility] LABORATORYCLIA [id number] [place] [address] [place] Sodium [Moles/Vol] 124 mmol/L Low 136-144 [facility] Comment on above: Order Comment: Speci men Type: BLOOD SPECIMENOrdering Facility: [facility] Address: [address] [place] [address] Performed By: #### 2 4323-8, 2776-02, ####[facility] LABORATORYCLIA [id number] [place] [address] [place] Urea nitrogen [Mass/Vol] 15 mg/dL Normal 9-24 [facility] Comment on above: Order Comment: Speci men Type: BLOOD SPECIMENOrdering Facility: [facility] Address: [address] [place] [address] Performed By: #### 2 4323-8, 2776-02, ####[facility] LABORATORYCLIA [id number] [place] [address] [place] GRAM POSITIVE ORGANISM ID BY MICROARRAY (VERIGENE)on 08-01-2024 GRAM POSITIVE ORGANISM ID BY MICROARRAY (VERIGENE) Abnormal [facility] Comment on above: Performed By: #### I DBCGP, 600-7 ####[facility] LABCLIA [id number] [place] [address] [place] Magnesium SerPl-mCncon 08-01 Magnesium [Mass/Vol] 1.5 mg/dL Low 1.7-2.3 [facility] Comment on above: Order Comment: Speci men Type: BLOOD SPECIMENOrdering Facility: [facility] Address: [address] [place] [address] Performed By: #### 2 4323-8, 2776-02, ####[facility] LABORATORYCLIA [id number] [place] [address] [place] [facility] [place] NURSING PROGon 08-01-2024 NURSING PROG Normal [facility] Phosphate SerPl-mCncon 08-01 Phosphate [Mass/Vol] 2.8 mg/dL Normal 2.7-4.8 [facility] Comment on above: Order Comment: Speci men Type: BLOOD SPECIMENOrdering Facility: [facility] Address: [address] [place] [address] Performed By: #### 2 4323-8, 2777, ####[facility] LABORATORYCLIA [id number] [address] [place] THERAPY NTon 08-01-2024 THERAPY NT Normal [facility] TOXICOLOGY SCREEN, ROUTINE U RINEon 08-01-2024 Amphetamines Confirm (U) [Mass/Vol] Negative Normal Negative [facility] Comment on above: Order Comment: Speci men Type: URINE SPECIMENOrdering Facility: [facility] Address: [address] [place] [address] Result Comment: Cuto ff threshold at 1000 ng/mL. Performed By: #### U TOX2, 36452-0 ####[facility] LABORATORYCLIA [id number] [place] [address] [place] BARBITURATES, URINE Negative Normal Negative [facility] Comment on above: Order Comment: Speci men Type: URINE SPECIMENOrdering Facility: [facility] Address: [address] [place] [address] Result Comment: Cuto ff threshold at 200 ng/mL. Performed By: #### U TOX2, 33712-3 ####[facility] LABORATORYCLIA [id number] [place] [address] [place] BENZODIAZEPINES, UR Negative Normal Negative [facility] Comment on above: Order Comment: Speci men Type: URINE SPECIMENOrdering Facility: [facility] Address: [address] [place] [address] Result Comment: Cuto ff threshold at 200 ng/mL. Performed By: #### U TOX2, 88347-2 ####[facility] LABORATORYCLIA [id number] [place] [address] [place] Cannabinoids Screen Ql (U) Positive Abnormal Negative [facility] Comment on above: Order Comment: Speci men Type: URINE SPECIMENOrdering Facility: [facility] Address: [address] [place] [address] Result Comment: Cuto ff threshold at 50 ng/mL. Performed By: #### U TOX2, 17804-9 ####[facility] LABORATORYCLIA [id number] [place] [address] [place] Cocaine Ql (U) Negative Normal Negative [facility] Comment on above: Order Comment: Speci men Type: URINE SPECIMENOrdering Facility: [facility] Address: [address] [place] [address] Result Comment: Cuto ff threshold at 300 ng/mL. Performed By: #### U TOX2, 99338-7 ####[facility] LABORATORYCLIA [id number] [place] [address] [place] Ethanol (U) [Mass/Vol] <11 Normal <11 [facility] Comment on above: Order Comment: Speci men Type: URINE SPECIMENOrdering Facility: [facility] Address: [address] [place] [address] Performed By: #### U TOX2, 05111-7 ####[facility] LABORATORYCLIA [id number] [place] [address] [place] Opiates Screen Ql (U) Negative Normal Negative [facility] Comment on above: Order Comment: Speci men Type: URINE SPECIMENOrdering Facility: [facility] Address: [address] [place] [address] Result Comment: Cuto ff threshold at 300 ng/mL. Performed By: #### U TOX2, 43174-7 ####[facility] LABORATORYCLIA [id number] [place] [address] [place] oxyCODONE cutoff Screen (U) [Mass/Vol] Negative Normal Negative [facility] Comment on above: Order Comment: Speci men Type: URINE SPECIMENOrdering Facility: [facility] Address: [address] [place] [address] Result Comment: Cuto ff threshold at 100 ng/mL. Performed By: #### U TOX2, 73734-1 ####[facility] LABORATORYCLIA [id number] [address] Phencyclidine Ql (U) Negative Normal Negative [facility] Comment on above: Order Comment: Speci men Type: URINE SPECIMENOrdering Facility: [facility] Address: [address] [place] [address] Result Comment: Cuto ff threshold at 25 ng/mL. Performed By: #### U TOX2, 58350-7 ####[facility] LABORATORYCLIA [id number] [address] Urinalysis complete panel (U )on 08-01-2024 Bacteria LM.HPF (Urine sed) [#/Area] Many Abnormal None Seen [facility] Comment on above: Order Comment: Speci men Type: URINE SPECIMENOrdering Facility: [facility] Address: [address] [place] [address] Performed By: #### U TOX2, 91147-7 ####[facility] LABORATORYCLIA [id number] [address] Bilirubin Ql (U) Negative Normal Negative [facility] Comment on above: Order Comment: Speci men Type: URINE SPECIMENOrdering Facility: [facility] Address: [address] [place] [address] Performed By: #### U TOX2, 31905-6 ####[facility] LABORATORYCLIA [id number] [address] [place] Clarity (Unsp spec) Slightly Cloudy Abnormal Clear [facility] Comment on above: Order Comment: Speci men Type: URINE SPECIMENOrdering Facility: [facility] Address: [address] [place] [address] Performed By: #### U TOX2, 40749-3 ####[facility] LABORATORYCLIA [id number] [address] [place] Color (U) Yellow Normal Yellow [facility] Comment on above: Order Comment: Speci men Type: URINE SPECIMENOrdering Facility: [facility] Address: [address] [place] [address] Performed By: #### U TOX2, 05245-3 ####[facility] LABORATORYCLIA [id number] [address] [place] Glucose Test strip (U) [Mass/Vol] Negative Normal Negative [facility] Comment on above: Order Comment: Speci men Type: URINE SPECIMENOrdering Facility: [facility] Address: [address] [place] [address] Performed By: #### U TOX2, 87858-9 ####[facility] LABORATORYCLIA [id number] [place] [address] [place] Hemoglobin Ql (U) Negative Normal Negative [facility] Comment on above: Order Comment: Speci men Type: URINE SPECIMENOrdering Facility: [facility] Address: [address] [place] [address] Performed By: #### U TOX2, 35732-0 ####[facility] LABORATORYCLIA [id number] [place] [address] [place] Ketones Ql (U) Trace Abnormal Negative [facility] Comment on above: Order Comment: Speci men Type: URINE SPECIMENOrdering Facility: [facility] Address: [address] [place] [address] Performed By: #### U TOX2, 67197-5 ####[facility] LABORATORYCLIA [id number] [place] [address] [facility] Leukocyte esterase Test strip Ql (U) Negative Normal Negative [facility] Comment on above: Order Comment: Speci men Type: URINE SPECIMENOrdering Facility: [facility] Address: [address] [place] [address] Performed By: #### U TOX2, 59632-9 ####[facility] LABORATORYCLIA [id number] [place] [address] [place] Nitrite Ql (U) Negative Normal Negative [facility] Comment on above: Order Comment: Speci men Type: URINE SPECIMENOrdering Facility: [facility] Address: [address] [place] [address] Performed By: #### U TOX2, ####[facility] LABORATORYCLIA [id number] [place] [address] [place] pH (U) 7.0 [pH] Normal 5.0-8.0 [facility] Comment on above: Order Comment: Speci men Type: URINE SPECIMENOrdering Facility: [facility] Address: [address] [place] [address] Performed By: #### U TOX2, ####[facility] LABORATORYCLIA [id number] [place] [address] [place] Protein (U) [Mass/Vol] 1+ Abnormal Negative [facility] Comment on above: Order Comment: Speci men Type: URINE SPECIMENOrdering Facility: [facility] Address: [address] [place] [address] Performed By: #### U TOX2, ####[facility] LABORATORYCLIA [id number] [place] [address] [place] RBC LM.HPF (Urine sed) [#/Area] 0-3 /HPF Normal 0-3 /HPF [facility] Comment on above: Order Comment: Speci men Type: URINE SPECIMENOrdering Facility: [facility] Address: [address] [place] [address] Performed By: #### U TOX2, ####[facility] LABORATORYCLIA [id number] [place] [address] [place] Specific gravity (U) [Rel density] 1.015 Normal 1.005-1.030 [facility] Comment on above: Order Comment: Speci men Type: URINE SPECIMENOrdering Facility: [facility] Address: [address] [place] [address] Performed By: #### U TOX2, 33434-6 ####[facility] LABORATORYCLIA [id number] [place] [address] [place] Urobilinogen Ql (U) 4.0 EU/dL Abnormal 0.2-1.0 EU/dL [facility] Comment on above: Order Comment: Speci men Type: URINE SPECIMENOrdering Facility: [facility] Address: [address] [place] [address] Performed By: #### U TOX2, 98567-1 ####[facility] LABORATORYCLIA [id number] [place] [address] [place] WBC LM.HPF (Urine sed) [#/Area] 0-5 /HPF Normal 0-5 /HPF [facility] Comment on above: Order Comment: Speci men Type: URINE SPECIMENOrdering Facility: [facility] Address: [address] [place] [address] Performed By: #### U TOX2, 24576-9 ####[facility] LABORATORYCLIA [id number] [place] [address] [place] [facility] [place] Basic metabolic 2000 panelon 07-31-2024 Anion gap [Moles/Vol] 14 mmol/L Normal 8-15 [facility] Comment on above: Order Comment: Speci men Type: BLOOD SPECIMENOrdering Facility: [facility] Address: [address] [place] [address] Performed By: #### 2 4321-2 ####[facility] LABORATORYCLIA [id number] [place] [address] [place] Calcium [Mass/Vol] 9.8 mg/dL Normal 8.5-10.2 [facility] Comment on above: Order Comment: Speci men Type: BLOOD SPECIMENOrdering Facility: [facility] Address: [address] [place] [address] Performed By: #### 2 4321-2 ####[facility] LABORATORYCLIA [id number] [place] [address] [place] Chloride [Moles/Vol] 89 mmol/L Low 98-107 [facility] Comment on above: Order Comment: Speci men Type: BLOOD SPECIMENOrdering Facility: [facility] Address: [address] [place] [address] Performed By: #### 2 4321-2 ####[facility] LABORATORYCLIA [id number] [place] [address] [place] CO2 [Moles/Vol] 25 mmol/L Normal 22-30 [facility] Comment on above: Order Comment: Ankur magalis Type: BLOOD SPECIMENOrdering Facility: [facility] Address: [address] [place] [address] Performed By: #### 2 4321-2 ####[facility] LABORATORYCLIA [id number] [place] [address] [place] Creatinine [Mass/Vol] 0.74 mg/dL Normal 0.73-1.22 [facility] Comment on above: Order Comment: Ankur magalis Type: BLOOD SPECIMENOrdering Facility: [facility] Address: [address] [place] [address] Performed By: #### 2 4321-2 ####[facility] LABORATORYCLIA [id number] [address] Creatinine and Glomerular filtration rate.predicted panel (S/P/Bld) 106 mL/min/1.73m??? Normal >=60 [facility] Comment on above: Order Comment: Ankur magalis Type: BLOOD SPECIMENOrdering Facility: [facility] Address: [address] [place] [address] Result Comment: Lola mated Glomerular Filtration Rate (eGFR) is calculated using the 2020 CKD-EPI creatinine equation. This equation utilizes serum creatinine, sex, and age as parameters. The creatinine assay has traceable calibration to isotope dilution-mass spectrometry. Refer to KDIGO guidelines for clinical interpretation. In patients with unstable renal function, e.g. those with acute kidney injury, the eGFR may not accurately reflect actual GFR. Performed By: #### 2 4321-2 ####[facility] LABORATORYCLIA [id number] [place] [address] [place] Glucose [Mass/Vol] 117 mg/dL High 74-99 [facility] Comment on above: Order Comment: Ankur blancas Type: BLOOD SPECIMENOrdering Facility: [facility] Address: [address] [place] [address] Result Comment: The [place] Diabetes [employer] (ADA) provides guidance for cutoff values for fasting glucose and random glucose. The ADA defines fasting as no caloric intake for at least 8 hours. Fasting plasma glucose results between 100 to 125 mg/dL indicate increased risk for diabetes (prediabetes).Fasting plasma glucose results greater than or equal to 126 mg/dL meet the criteria for diagnosis of diabetes. In the absence of unequivocal hyperglycemia, results should be confirmed by repeat testing. In a patient with classic symptoms of hyperglycemia or hyperglycemic crisis, random plasma glucose results greater than or equal to 200 mg/dL meet the criteria for diagnosis of diabetes.Reference: Standards of Medical Care in Diabetes 2016, [place] [employer]. Diabetes Care. 2016.39(Suppl 1). Performed By: #### 2 4321-2 ####[facility] LABORATORYCLIA [id number] [address] [place] Potassium [Moles/Vol] 3.8 mmol/L Normal 3.7-5.1 [facility] Comment on above: Order Comment: Speci magalis Type: BLOOD SPECIMENOrdering Facility: [facility] Address: [address] [place] [address] Performed By: #### 2 4321-2 ####[facility] LABORATORYCLIA [id number] [address] [place] [facility] Sodium [Moles/Vol] 128 mmol/L Low 136-144 [facility] Comment on above: Order Comment: Speci men Type: BLOOD SPECIMENOrdering Facility: [facility] Address: [address] [place] [address] Performed By: #### 2 4321-2 ####[facility] LABORATORYCLIA [id number] [address] [place] [facility] Urea nitrogen [Mass/Vol] 27 mg/dL High 9-24 [facility] Comment on above: Order Comment: Speci men Type: BLOOD SPECIMENOrdering Facility: [facility] Address: [address] [place] [address] Performed By: #### 2 4321-2 ####[facility] LABORATORYCLIA [id number] [place] [id number] [place] CASE MANAGEMon 07-31-2024 CASE MANAGEM Normal [facility] CBC W Auto Differential pane l (Bld)on 07-31-2024 Basophils (Bld) [#/Vol] 10*3/uL Normal <0.11 [facility] Comment on above: Order Comment: Speci men Type: BLOOD SPECIMENOrdering Facility: [facility] Address: [address] [place] [address] Performed By: #### 5 7021-8 ####[facility] LABORATORYCLIA [id number] [place] [address] [place] Basophils/100 WBC (Bld) 0.2 % Normal [facility] Comment on above: Order Comment: Speci men Type: BLOOD SPECIMENOrdering Facility: [facility] Address: [address] [place] [address] Performed By: #### 5 7021-8 ####[facility] LABORATORYCLIA [id number] [place] [address] [place] Differential cell count method Nom (Bld) Auto Normal [facility] Comment on above: Order Comment: Speci men Type: BLOOD SPECIMENOrdering Facility: [facility] Address: [address] [place] [address] Performed By: #### 5 7021-8 ####[facility] LABORATORYCLIA [id number] [place] [address] [place] Eosinophils (Bld) [#/Vol] 10*3/uL Normal <0.46 [facility] Comment on above: Order Comment: Speci men Type: BLOOD SPECIMENOrdering Facility: [facility] Address: [address] [place] [address] Performed By: #### 5 7021-8 ####[facility] LABORATORYCLIA [id number] [place] [address] [place] Eosinophils/100 WBC (Bld) 0.2 % Normal [facility] Comment on above: Order Comment: Speci men Type: BLOOD SPECIMENOrdering Facility: [facility] Address: [address] [place] [address] Performed By: #### 5 7021-8 ####[facility] LABORATORYCLIA [id number] [place] [address] [place] Erythrocyte distribution width (RBC) [Ratio] 11.1 % Low 11.5-15.0 [facility] Comment on above: Order Comment: Speci men Type: BLOOD SPECIMENOrdering Facility: [facility] Address: [address] [place] [address] Performed By: #### 5 7021-8 ####[facility] LABORATORYCLIA [id number] [place] [address] [place] Hematocrit (Bld) [Volume fraction] 33.5 % Low 39.0-51.0 [facility] Comment on above: Order Comment: Speci men Type: BLOOD SPECIMENOrdering Facility: [facility] Address: [address] [place] [address] Performed By: #### 5 7021-8 ####[facility] LABORATORYCLIA [id number] [place] [address] [place] Hemoglobin (Bld) [Mass/Vol] 12.0 g/dL Low 13.0-17.0 [facility] Comment on above: Order Comment: Speci men Type: BLOOD SPECIMENOrdering Facility: [facility] Address: [address] [place] [address] Performed By: #### 5 7021-8 ####[facility] LABORATORYCLIA [id number] [place] [address] [place] Immature granulocytes (Bld) [#/Vol] 0.06 10*3/uL Normal <0.10 [facility] Comment on above: Order Comment: Speci men Type: BLOOD SPECIMENOrdering Facility: [facility] Address: [address] [place] [address] [place] [address] Performed By: #### 5 7021-8 ####[facility] LABORATORYCLIA [id number] [place] [address] [place] Immature granulocytes/100 WBC (Bld) 0.7 % Normal [facility] Comment on above: Order Comment: Speci men Type: BLOOD SPECIMENOrdering Facility: [facility] Address: [address] [place] [address] [place] [address] Performed By: #### 5 7021-8 ####[facility] LABORATORYCLIA [id number] [place] [address] [place] Lymphocytes (Bld) [#/Vol] 0.74 10*3/uL Low 1.00-4.00 [facility] Comment on above: Order Comment: Speci men Type: BLOOD SPECIMENOrdering Facility: [facility] Address: [address] [place] [address] Performed By: #### 5 7021-8 ####[facility] LABORATORYCLIA [id number] [address] Lymphocytes/100 WBC (Bld) 8.1 % Normal [facility] Comment on above: Order Comment: Speci men Type: BLOOD SPECIMENOrdering Facility: [facility] Address: [address] [place] [address] Performed By: #### 5 7021-8 ####[facility] LABORATORYCLIA [id number] [address] MCH (RBC) [Entitic mass] 32.1 pg Normal 26.0-34.0 [facility] Comment on above: Order Comment: Speci men Type: BLOOD SPECIMENOrdering Facility: [facility] Address: [address] [place] [address] Performed By: #### 5 7021-8 ####[facility] LABORATORYCLIA [id number] [address] [place] [facility] MCHC (RBC) [Mass/Vol] 35.8 g/dL Normal 30.5-36.0 [facility] Comment on above: Order Comment: Speci men Type: BLOOD SPECIMENOrdering Facility: [facility] Address: [address] [place] [address] Performed By: #### 5 7021-8 ####[facility] LABORATORYCLIA [id number] [address] MCV (RBC) [Entitic vol] 89.6 fL Normal 80.0-100.0 [facility] Comment on above: Order Comment: Speci men Type: BLOOD SPECIMENOrdering Facility: [facility] Address: [address] [place] [address] Performed By: #### 5 7021-8 ####[facility] LABORATORYCLIA [id number] [address] Monocytes (Bld) [#/Vol] 0.64 10*3/uL Normal <0.87 [facility] Comment on above: Order Comment: Speci men Type: BLOOD SPECIMENOrdering Facility: [facility] Address: [address] [place] [address] Performed By: #### 5 7021-8 ####[facility] LABORATORYCLIA [id number] [address] [place] Monocytes/100 WBC (Bld) 7.0 % Normal [facility] Comment on above: Order Comment: Speci men Type: BLOOD SPECIMENOrdering Facility: [facility] Address: [address] [place] [address] Performed By: #### 5 7021-8 ####[facility] LABORATORYCLIA [id number] [place] [address] [place] Neutrophils (Bld) [#/Vol] 7.66 10*3/uL High 1.45-7.50 [facility] Comment on above: Order Comment: Speci men Type: BLOOD SPECIMENOrdering Facility: [facility] Address: [address] [place] [address] Performed By: #### 5 7021-8 ####[facility] LABORATORYCLIA [id number] [address] [place] Neutrophils/100 WBC (Bld) 83.8 % Normal [facility] Comment on above: Order Comment: Speci men Type: BLOOD SPECIMENOrdering Facility: [facility] Address: [address] [place] [address] Performed By: #### 5 7021-8 ####[facility] LABORATORYCLIA [id number] [place] [address] [place] Nucleated RBC (Bld) [#/Vol] 10*3/uL Normal <0.01 [facility] Comment on above: Order Comment: Speci men Type: BLOOD SPECIMENOrdering Facility: [facility] Address: [address] [place] [address] Performed By: #### 5 7021-8 ####[facility] LABORATORYCLIA [id number] [place] [address] [place] Nucleated RBC/100 WBC (Bld) [Ratio] 0.0 /100 WBC Normal [facility] Comment on above: Order Comment: Speci men Type: BLOOD SPECIMENOrdering Facility: [facility] Address: [facility] [place] [address] Performed By: #### 5 7021-8 ####[facility] LABORATORYCLIA [id number] [place] [address] [place] Platelet mean volume (Bld) [Entitic vol] 8.5 fL Low 9.0-12.7 [facility] Comment on above: Order Comment: Speci men Type: BLOOD SPECIMENOrdering Facility: [facility] Address: [address] [place] [address] [place] [address] Performed By: #### 5 7021-8 ####[facility] LABORATORYCLIA [id number] [place] [address] [place] Platelets (Bld) [#/Vol] 277 10*3/uL Normal 150-400 [facility] Comment on above: Order Comment: Speci men Type: BLOOD SPECIMENOrdering Facility: [facility] Address: [address] [place] [address] [place] [address] Performed By: #### 5 7021-8 ####[facility] LABORATORYCLIA [id number] [place] [address] [place] RBC (Bld) [#/Vol] 3.74 10*6/uL Low 4.20-6.00 [facility] Comment on above: Order Comment: Speci men Type: BLOOD SPECIMENOrdering Facility: [facility] Address: [address] [place] [address] [place] [address] Performed By: #### 5 7021-8 ####[facility] LABORATORYCLIA [id number] [place] [id number] [place] WBC (Bld) [#/Vol] 9.14 10*3/uL Normal 3.70-11.00 [facility] Comment on above: Order Comment: Speci men Type: BLOOD SPECIMENOrdering Facility: [facility] Address: [address] [place] [address] [place] [address] Performed By: #### 5 7021-8 ####[facility] LABORATORYCLIA [id number] [address] [place] CONSULT PROGon 07-31-2024 CONSULT PROG Normal [facility] CONSULT PROG Normal [facility] Comprehensive metabolic 2000 panelon 07-31-2024 Albumin [Mass/Vol] 3.7 g/dL Low 3.9-4.9 [facility] Comment on above: Order Comment: Speci men Type: BLOOD SPECIMENOrdering Facility: [facility] Address: [address] [place] [address] Performed By: #### 2 4323-8, 82949-0, 2776- ####[facility] LABORATORYCLIA [id number] [place] [address] [place] ALP [Catalytic activity/Vol] 68 U/L Normal 38-113 [facility] Comment on above: Order Comment: Speci men Type: BLOOD SPECIMENOrdering Facility: [facility] Address: [address] [place] [address] Performed By: #### 2 4323-8, , 2776-02 ####[facility]ENTINE LABORATORYCLIA [id number] [address] STATES OF [facility] ALT [Catalytic activity/Vol] 13 U/L Normal 10-54 [facility] Comment on above: Order Comment: Speci men Type: BLOOD SPECIMENOrdering Facility: [facility] Address: [address] [place] [address] Performed By: #### 2 4323-8, , 2776-02 ####VALENTINE LABORATORYCLIA [id number] [address] Anion gap [Moles/Vol] 11 mmol/L Normal 8-15 [facility] Comment on above: Order Comment: Speci men Type: BLOOD SPECIMENOrdering Facility: [facility] Address: [address] [place], [place] [id number] Performed By: #### 2 4323-8, , 2776- ####VALENTINE LABORATORYCLIA [id number] [address] OF [place] AST [Catalytic activity/Vol] 36 U/L Normal 14-40 [facility] Comment on above: Order Comment: Speci men Type: BLOOD SPECIMENOrdering Facility: [facility] Address: [address] [place] [id number] Performed By: #### 2 4323-8, , 2776-02 ####VALENTINE LABORATORYCLIA [id number] [place] [address] [place] Bilirubin [Mass/Vol] 0.4 mg/dL Normal 0.2-1.3 [facility] Comment on above: Order Comment: Speci men Type: BLOOD SPECIMENOrdering Facility: [facility] Address: [address] [place] [address] Performed By: #### 2 4323-8, , 2776-02 ####VALENTINE LABORATORYCLIA [id number] [place] [address] [place] Calcium [Mass/Vol] 9.0 mg/dL Normal 8.5-10.2 [facility] Comment on above: Order Comment: Speci men Type: BLOOD SPECIMENOrdering Facility: [facility] Address: [facility] [place] [address] Performed By: #### 2 4322-8, , 2776-02 ####VALENTINE LABORATORYCLIA [id number] [place] [address] [place] Chloride [Moles/Vol] 88 mmol/L Low 98-107 [facility] Comment on above: Order Comment: Speci men Type: BLOOD SPECIMENOrdering Facility: [facility] Address: [facility] [place] [address] Performed By: #### 2 432-8, , 2776-02 ####VALENTINE LABORATORYCLIA [id number] [place] [address] [place] CO2 [Moles/Vol] 26 mmol/L Normal 22-30 [facility] Comment on above: Order Comment: Speci men Type: BLOOD SPECIMENOrdering Facility: [facility] Address: [facility] [place] [address] Performed By: #### 2 4323-8, , 2776-02 ####VALENTINE LABORATORYCLIA [id number] [place] [address] [place] Creatinine [Mass/Vol] 0.66 mg/dL Low 0.73-1.22 [facility] Comment on above: Order Comment: Ankur blancas Type: BLOOD SPECIMENOrdering Facility: [facility] Address: [address] [place] [address] Performed By: #### 2 4323-8, 14202-8, 2776-02 ####VALENTINE LABORATORYCLIA [id number] [place] [address] [place] Creatinine and Glomerular filtration rate.predicted panel (S/P/Bld) 109 mL/min/1.73m??? Normal >=60 [facility] Comment on above: Order Comment: Ankur blancas Type: BLOOD SPECIMENOrdering Facility: [facility] Address: [address] [place] [address] Result Comment: Loal mated Glomerular Filtration Rate (eGFR) is calculated using the 2020 CKD-EPI creatinine equation. This equation utilizes serum creatinine, sex, and age as parameters. The creatinine assay has traceable calibration to isotope dilution-mass spectrometry. Refer to KDIGO guidelines for clinical interpretation. In patients with unstable renal function, e.g. those with acute kidney injury, the eGFR may not accurately reflect actual GFR. Performed By: #### 2 4323-8, , 2776-02 ####VALENTINE LABORATORYCLIA [id number] [place] [id number] [place] Glucose [Mass/Vol] 114 mg/dL High 74-99 [facility] Comment on above: Order Comment: Ankur blancas Type: BLOOD SPECIMENOrdering Facility: [facility] Address: [address] [place] [address] Result Comment: The [place] Diabetes [employer] (ADA) provides guidance for cutoff values for fasting glucose and random glucose. The ADA defines fasting as no caloric intake for at least 8 hours. Fasting plasma glucose results between 100 to 125 mg/dL indicate increased risk for diabetes (prediabetes).Fasting plasma glucose results greater than or equal to 126 mg/dL meet the criteria for diagnosis of diabetes. In the absence of unequivocal hyperglycemia, results should be confirmed by repeat testing. In a patient with classic symptoms of hyperglycemia or hyperglycemic crisis, random plasma glucose results greater than or equal to 200 mg/dL meet the criteria for diagnosis of diabetes.Reference: Standards of Medical Care in Diabetes 2016, [place] [employer]. Diabetes Care. 2016.39(Suppl 1). Performed By: #### 2 4323-8, , 2776-02 ####VALENTINE LABORATORYCLIA [id number] [place] [address] [place] Potassium [Moles/Vol] 3.9 mmol/L Normal 3.7-5.1 [facility] Comment on above: Order Comment: Speci men Type: BLOOD SPECIMENOrdering Facility: [facility] Address: [address] [place] [address] Performed By: #### 2 4323-8, , 2776-02 ####VALENTINE LABORATORYCLIA [id number] [place] [address] [place] Protein [Mass/Vol] 6.7 g/dL Normal 6.3-8.0 [facility] Comment on above: Order Comment: Speci men Type: BLOOD SPECIMENOrdering Facility: [facility] Address: [address] [place] [address] Performed By: #### 2 4323-8, , 2776-02 ####VALENTINE LABORATORYCLIA [id number] [place] [address] [place] Sodium [Moles/Vol] 125 mmol/L Low 136-144 [facility] Comment on above: Order Comment: Speci men Type: BLOOD SPECIMENOrdering Facility: [facility] Address: [address] [place] [address] Performed By: #### 2 4323-8, , 2776-02 ####VALENTINE LABORATORYCLIA [id number] [place] [id number] [place] Urea nitrogen [Mass/Vol] 13 mg/dL Normal 9-24 [facility] Comment on above: Order Comment: Speci men Type: BLOOD SPECIMENOrdering Facility: [facility] Address: [address] [place] [address] Performed By: #### 2 4323-8, , 2776- ####VALENTINE LABORATORYCLIA [id number] [place] [address] [facility] [place] Magnesium SerPl-ncon 07-31 Magnesium [Mass/Vol] 1.8 mg/dL Normal 1.7-2.3 [facility] Comment on above: Order Comment: Speci men Type: BLOOD SPECIMENOrdering Facility: [facility] Address: [facility] [address] [place] [id number] Performed By: #### 2 4323-8, 62286-3, 2776-02 ####[facility] LABORATORYCLIA [id number] [place] [address] [facility] [place] NURSING PROGon 07-31-2024 NURSING PROG [facility] Phosphate SerPl-ncon 07-31 Phosphate [Mass/Vol] 3.3 mg/dL Normal 2.7-4.8 [facility] Comment on above: Order Comment: Speci men Type: BLOOD SPECIMENOrdering Facility: [facility] Address: [address] [place], [place] [address] [place] [id number] Performed By: #### 2 4323-8, 95279-6, 2776-02 ####FRANKLIN LABORATORYCLIA [id number] [place] [address] [place] THERAPY NTon 07-31-2024 THERAPY NT Normal [facility] Bas Metab 2000 Pnl SerPlon 0 07-30-2024 Anion gap [Moles/Vol] 11 mmol/L Normal 8-15 [facility] Comment on above: Order Comment: Speci men Type: BLOOD SPECIMENOrdering Facility: [facility] Address: [facility] [place] [address] Performed By: #### 2 4321-2, 93817-6, 2776-, ####FRANKLIN LABORATORYCLIA [id number] [place] [id number] [place] Calcium [Mass/Vol] 9.1 mg/dL Normal 8.5-10.2 [facility] Comment on above: Order Comment: Speci men Type: BLOOD SPECIMENOrdering Facility: [facility] Address: [facility] [place] [address] Performed By: #### 2 4321-2, 65325-8, 2776-1, 17826-4 ####VALENTINE LABORATORYCLIA [id number] [place] [address] [place] Chloride [Moles/Vol] 90 mmol/L Low 98-107 [facility] Comment on above: Order Comment: Speci men Type: BLOOD SPECIMENOrdering Facility: [facility] Address: [address] [place] [address] Performed By: #### 2 4321-2, 15283-1, 2776-1, 26946-9 ####FRANKLIN LABORATORYCLIA [id number] [place] [id number] [place] CO2 [Moles/Vol] 25 mmol/L Normal 22-30 [facility] Comment on above: Order Comment: Ankur blancas Type: BLOOD SPECIMENOrdering Facility: [facility] Address: [address] [place] [address] Performed By: #### 2 4321-2, 25077-4, 2776-1, ####FRANKLIN LABORATORYCLIA [id number] [place] [address] [place] Creatinine [Mass/Vol] 0.72 mg/dL Low 0.73-1.22 [facility] Comment on above: Order Comment: Speci men Type: BLOOD SPECIMENOrdering Facility: [facility] Address: [address] [place] [address] Performed By: #### 2 4321-2, 72160-2, 277-1, 22587-3 ####FRANKLIN LABORATORYCLIA [id number] [place] [id number] [facility] Creatinine and Glomerular filtration rate.predicted panel (S/P/Bld) 107 mL/min/1.73m??? Normal >=60 [facility] Comment on above: Order Comment: Cedrici men Type: BLOOD SPECIMENOrdering Facility: [facility] Address: [address] [place] [address] Result Comment: Lola mated Glomerular Filtration Rate (eGFR) is calculated using the 2020 CKD-EPI creatinine equation. This equation utilizes serum creatinine, sex, and age as parameters. The creatinine assay has traceable calibration to isotope dilution-mass spectrometry. Refer to KDIGO guidelines for clinical interpretation. In patients with unstable renal function, e.g. those with acute kidney injury, the eGFR may not accurately reflect actual GFR.Estimated Glomerular Filtration Rate (eGFR) is calculated using the 202 CKD-EPI creatinine equation. This equation utilizes serum creatinine, sex, and age as parameters. The creatinine assay has traceable calibration to isotope dilution-mass spectrometry. Refer to KDIGO guidelines for clinical interpretation. In patients with unstable renal function, e.g. those with acute kidney injury, the eGFR may not accurately reflect actual GFR. Performed By: #### 2 4321-2, 38548-6, 2777-1, 25629-0 ####FRANKLIN LABORATORYCLIA [id number] [address] Result Comment: Lola mated Glomerular Filtration Rate (eGFR) is calculated using the 2020 CKD-EPI creatinine equation. This equation utilizes serum creatinine, sex, and age as parameters. The creatinine assay has traceable calibration to isotope dilution-mass spectrometry. Refer to KDIGO guidelines for clinical interpretation. In patients with unstable renal function, e.g. those with acute kidney injury, the eGFR may not accurately reflect actual GFR. Glucose [Mass/Vol] 105 mg/dL High 74-99 [facility] Comment on above: Order Comment: Ankur blancas Type: BLOOD SPECIMENOrdering Facility: [facility] Address: [address] [place] [id number] Result Comment: The [place] Diabetes [employer] (ADA) provides guidance for cutoff values for fasting glucose and random glucose. The ADA defines fasting as no caloric intake for at least 8 hours. Fasting plasma glucose results between 100 to 125 mg/dL indicate increased risk for diabetes (prediabetes).Fasting plasma glucose results greater than or equal to 126 mg/dL meet the criteria for diagnosis of diabetes. In the absence of unequivocal hyperglycemia, results should be confirmed by repeat testing. In a patient with classic symptoms of hyperglycemia or hyperglycemic crisis, random plasma glucose results greater than or equal to 200 mg/dL meet the criteria for diagnosis of diabetes.Reference: Standards of Medical Care in Diabetes 2016, [place] [employer]. Diabetes Care. 2016.39(Suppl 1). Performed By: #### 2 4321-2, 33511-0, 2777-1, 42156-5 ####VALENTINE LABORATORYCLIA [id number] [place] [address] [place] Potassium [Moles/Vol] 4.1 mmol/L Normal 3.7-5.1 [facility] Comment on above: Order Comment: Speci men Type: BLOOD SPECIMENOrdering Facility: [facility] Address: [address] [place] [address] Performed By: #### 2 4321-2, 60319-6, 2777-1, 45741-1 ####VALENTINE LABORATORYCLIA [id number] [place] [id number] [place] Sodium [Moles/Vol] 126 mmol/L Low 136-144 [facility] Comment on above: Order Comment: Speci men Type: BLOOD SPECIMENOrdering Facility: [facility] Address: [address] [place] [address] Performed By: #### 2 4321-2, 95136-0, 2777-1, 68042-6 ####VALENTINE LABORATORYCLIA [id number] [place] [address] [place] Urea nitrogen [Mass/Vol] 17 mg/dL Normal 9-24 [facility] Comment on above: Order Comment: Speci men Type: BLOOD SPECIMENOrdering Facility: [facility] Address: [address] [place] [address] Performed By: #### 2 4321-2, 65012-5, 277-1, 07009-7 ####VALENTINE LABORATORYCLIA [id number] [place] [id number] [place] Basic metabolic 2000 panelon 07-30-2024 Anion gap [Moles/Vol] 9 mmol/L Normal 8-15 [facility] Comment on above: Order Comment: Speci men Type: BLOOD SPECIMENOrdering Facility: [facility] Address: [address] [place] [address] Performed By: #### 2 4321-2 ####VALENTINE LABORATORYCLIA [id number] [place] [address] [place] Calcium [Mass/Vol] 9.1 mg/dL Normal 8.5-10.2 [facility] Comment on above: Order Comment: Speci men Type: BLOOD SPECIMENOrdering Facility: [facility] Address: [address] [place] [address] Performed By: #### 2 4321-2 ####VALENTINE LABORATORYCLIA [id number] [place] [address] [place] [facility] Chloride [Moles/Vol] 91 mmol/L Low 98-107 [facility] Comment on above: Order Comment: Speci men Type: BLOOD SPECIMENOrdering Facility: [facility] Address: [address] [place] [address] Performed By: #### 2 4321-2 ####VALENTINE LABORATORYCLIA [id number] [place] [address] [place] CO2 [Moles/Vol] 26 mmol/L Normal 22-30 [facility] Comment on above: Order Comment: Speci men Type: BLOOD SPECIMENOrdering Facility: [facility] Address: [address] [place] [address] Performed By: #### 2 4321-2 ####VALENTINE LABORATORYCLIA [id number] [address] [place] Creatinine [Mass/Vol] 0.76 mg/dL Normal 0.73-1.22 [facility] Comment on above: Order Comment: Speci men Type: BLOOD SPECIMENOrdering Facility: [facility] Address: [address] [place] [address] Performed By: #### 2 4321-2 ####VALENTINE LABORATORYCLIA [id number] [address] Creatinine and Glomerular filtration rate.predicted panel (S/P/Bld) 105 mL/min/1.73m??? Normal >=60 [facility] Comment on above: Order Comment: Speci men Type: BLOOD SPECIMENOrdering Facility: [facility] Address: [address] [place] [address] Result Comment: Lola mated Glomerular Filtration Rate (eGFR) is calculated using the 2020 CKD-EPI creatinine equation. This equation utilizes serum creatinine, sex, and age as parameters. The creatinine assay has traceable calibration to isotope dilution-mass spectrometry. Refer to KDIGO guidelines for clinical interpretation. In patients with unstable renal function, e.g. those with acute kidney injury, the eGFR may not accurately reflect actual GFR. Performed By: #### 2 4321-2 ####VALENTINE LABORATORYCLIA [id number] [place] [id number] [place] Glucose [Mass/Vol] 104 mg/dL High 74-99 [facility] Comment on above: Order Comment: Ankur blancas Type: BLOOD SPECIMENOrdering Facility: [facility] Address: [address] [place] [address] Result Comment: The [place] Diabetes Association (ADA) provides guidance for cutoff values for fasting glucose and random glucose. The ADA defines fasting as no caloric intake for at least 8 hours. Fasting plasma glucose results between 100 to 125 mg/dL indicate increased risk for diabetes (prediabetes).Fasting plasma glucose results greater than or equal to 126 mg/dL meet the criteria for diagnosis of diabetes. In the absence of unequivocal hyperglycemia, results should be confirmed by repeat testing. In a patient with classic symptoms of hyperglycemia or hyperglycemic crisis, random plasma glucose results greater than or equal to 200 mg/dL meet the criteria for diagnosis of diabetes.Reference: Standards of Medical Care in Diabetes 2016, [place] [employer]. Diabetes Care. 2016.39(Suppl 1). Performed By: #### 2 4321-2 ####FRANKLIN LABORATORYCLIA [id number] [place] [id number] [place] Potassium [Moles/Vol] 4.1 mmol/L Normal 3.7-5.1 [facility] Comment on above: Order Comment: Ankur blancas Type: BLOOD SPECIMENOrdering Facility: [facility] Address: [address] [place] [address] Performed By: #### 2 4321-2 ####FRANKLIN LABORATORYCLIA [id number] [place] [id number] [place] Sodium [Moles/Vol] 126 mmol/L Low 136-144 [facility] Comment on above: Order Comment: Ankur blancas Type: BLOOD SPECIMENOrdering Facility: [facility] Address: [address] [place] [address] Performed By: #### 2 4321-2 ####VALENTINE LABORATORYCLIA [id number] [place] [id number] [place] Urea nitrogen [Mass/Vol] 17 mg/dL Normal 9-24 [facility] Comment on above: Order Comment: Speci men Type: BLOOD SPECIMENOrdering Facility: [facility] Address: [address] [place] [address] Performed By: #### 2 4321-2 ####VALENTINE LABORATORYCLIA [id number] [place] [address] [place] Anion gap [Moles/Vol] 11 mmol/L Normal 8-15 [facility] Comment on above: Order Comment: Speci men Type: BLOOD SPECIMENOrdering Facility: [facility] Address: [address] [place] [address] Performed By: #### 2 4321-2 ####VALENTIEN LABORATORYCLIA [id number] [place] [address] [place] Calcium [Mass/Vol] 9.1 mg/dL Normal 8.5-10.2 [facility] Comment on above: Order Comment: Speci men Type: BLOOD SPECIMENOrdering Facility: [facility] Address: [address] [place] [address] Performed By: #### 2 4321-2 ####VALENTINE LABORATORYCLIA [id number] [place] [address] [place] Chloride [Moles/Vol] 90 mmol/L Low 98-107 [facility] Comment on above: Order Comment: Speci men Type: BLOOD SPECIMENOrdering Facility: [facility] Address: [address] [place] [address] Performed By: #### 2 4321-2 ####VALENTINE LABORATORYCLIA [id number] [place] [address] [place] CO2 [Moles/Vol] 25 mmol/L Normal 22-30 [facility] Comment on above: Order Comment: Speci men Type: BLOOD SPECIMENOrdering Facility: [facility] Address: [address] [place] [address] Performed By: #### 2 4321-2 ####VALENTINE LABORATORYCLIA [id number] [place] [address] [place] Creatinine [Mass/Vol] 0.75 mg/dL Normal 0.73-1.22 [facility] Comment on above: Order Comment: Ankur blancas Type: BLOOD SPECIMENOrdering Facility: [facility] Address: [address] [place] [address] Performed By: #### 2 4321-2 ####VALENTINE LABORATORYCLIA [id number] [place] [address] [place] Creatinine and Glomerular filtration rate.predicted panel (S/P/Bld) 105 mL/min/1.73m??? Normal >=60 [facility] Comment on above: Order Comment: Ankur magalis Type: BLOOD SPECIMENOrdering Facility: [facility] Address: [address] [place] [address] Result Comment: Lola mated Glomerular Filtration Rate (eGFR) is calculated using the 2020 CKD-EPI creatinine equation. This equation utilizes serum creatinine, sex, and age as parameters. The creatinine assay has traceable calibration to isotope dilution-mass spectrometry. Refer to KDIGO guidelines for clinical interpretation. In patients with unstable renal function, e.g. those with acute kidney injury, the eGFR may not accurately reflect actual GFR. Performed By: #### 2 4321-2 ####FRANKLIN LABORATORYCLIA [id number] [place] [address] [place] Glucose [Mass/Vol] 112 mg/dL High 74-99 [facility] Comment on above: Order Comment: Cedrictimothy blancas Type: BLOOD SPECIMENOrdering Facility: [facility] Address: [address] [place] [address] Result Comment: The [place] Diabetes [employer] (ADA) provides guidance for cutoff values for fasting glucose and random glucose. The ADA defines fasting as no caloric intake for at least 8 hours. Fasting plasma glucose results between 100 to 125 mg/dL indicate increased risk for diabetes (prediabetes).Fasting plasma glucose results greater than or equal to 126 mg/dL meet the criteria for diagnosis of diabetes. In the absence of unequivocal hyperglycemia, results should be confirmed by repeat testing. In a patient with classic symptoms of hyperglycemia or hyperglycemic crisis, random plasma glucose results greater than or equal to 200 mg/dL meet the criteria for diagnosis of diabetes.Reference: Standards of Medical Care in Diabetes 2016, [place] [employer]. Diabetes Care. 2016.39(Suppl 1). Performed By: #### 2 4321-2 ####VALENTINE LABORATORYCLIA [id number] [place] [address] [place] Potassium [Moles/Vol] 4.0 mmol/L Normal 3.7-5.1 [facility] Comment on above: Order Comment: Speci men Type: BLOOD SPECIMENOrdering Facility: [facility] Address: [address] [place] [address] Performed By: #### 2 4321-2 ####VALENTINE LABORATORYCLIA [id number] [place] [address] [place] Sodium [Moles/Vol] 126 mmol/L Low 136-144 [facility] Comment on above: Order Comment: Speci men Type: BLOOD SPECIMENOrdering Facility: [facility] Address: [address] [place] [address] Performed By: #### 2 4321-2 ####VALENTINE LABORATORYCLIA [id number] [place] [address] [place] Urea nitrogen [Mass/Vol] 17 mg/dL Normal 9-24 [facility] Comment on above: Order Comment: Speci men Type: BLOOD SPECIMENOrdering Facility: [facility] Address: [address] [place] [address] Performed By: #### 2 4321-2 ####VALENTINE LABORATORYCLIA [id number] [address] [place] Anion gap [Moles/Vol] 10 mmol/L Normal 8-15 [facility] Comment on above: Order Comment: Speci men Type: BLOOD SPECIMENOrdering Facility: [facility] Address: [address] [place] [address] Performed By: #### 2 4321-2 ####VALENTINE LABORATORYCLIA [id number] [place] [address] [place] Calcium [Mass/Vol] 9.2 mg/dL Normal 8.5-10.2 [facility] Comment on above: Order Comment: Speci men Type: BLOOD SPECIMENOrdering Facility: [facility] Address: [address] [place] [address] Performed By: #### 2 4321-2 ####VALENTINE LABORATORYCLIA [id number] [address] [place] [facility] Chloride [Moles/Vol] 88 mmol/L Low 98-107 [facility] Comment on above: Order Comment: Spectimothy blancas Type: BLOOD SPECIMENOrdering Facility: [facility] Address: [address] [place] [address] Performed By: #### 2 4321-2 ####VALENTINE LABORATORYCLIA [id number] [place] [address] [place] CO2 [Moles/Vol] 26 mmol/L Normal 22-30 [facility] Comment on above: Order Comment: Speci men Type: BLOOD SPECIMENOrdering Facility: [facility] Address: [address] [place] [address] Performed By: #### 2 4321-2 ####VALENTINE LABORATORYCLIA [id number] [address] Creatinine [Mass/Vol] 0.74 mg/dL Normal 0.73-1.22 [facility] Comment on above: Order Comment: Speci men Type: BLOOD SPECIMENOrdering Facility: [facility] Address: [address] [place] [address] Performed By: #### 2 4321-2 ####VALENTINE LABORATORYCLIA [id number] [address] Creatinine and Glomerular filtration rate.predicted panel (S/P/Bld) 106 mL/min/1.73m??? Normal >=60 [facility] Comment on above: Order Comment: Ankur blancas Type: BLOOD SPECIMENOrdering Facility: [facility] Address: [address] [place] [address] Result Comment: Lola mated Glomerular Filtration Rate (eGFR) is calculated using the 2020 CKD-EPI creatinine equation. This equation utilizes serum creatinine, sex, and age as parameters. The creatinine assay has traceable calibration to isotope dilution-mass spectrometry. Refer to KDIGO guidelines for clinical interpretation. In patients with unstable renal function, e.g. those with acute kidney injury, the eGFR may not accurately reflect actual GFR. Performed By: #### 2 4321-2 ####VALENTINE LABORATORYCLIA [id number] [place] [address] [place] Glucose [Mass/Vol] 105 mg/dL High 74-99 [facility] Comment on above: Order Comment: Ankur blancas Type: BLOOD SPECIMENOrdering Facility: [facility] Address: [address] [place] [address] Result Comment: The [place] [employer] (ADA) provides guidance for cutoff values for fasting glucose and random glucose. The ADA defines fasting as no caloric intake for at least 8 hours. Fasting plasma glucose results between 100 to 125 mg/dL indicate increased risk for diabetes (prediabetes).Fasting plasma glucose results greater than or equal to 126 mg/dL meet the criteria for diagnosis of diabetes. In the absence of unequivocal hyperglycemia, results should be confirmed by repeat testing. In a patient with classic symptoms of hyperglycemia or hyperglycemic crisis, random plasma glucose results greater than or equal to 200 mg/dL meet the criteria for diagnosis of diabetes.Reference: Standards of Medical Care in Diabetes 2016, [place] [employer]. Diabetes Care. 2016.39(Suppl 1). Performed By: #### 2 4321-2 ####VALENTINE LABORATORYCLIA [id number] [place] [address] [place] Potassium [Moles/Vol] 3.9 mmol/L Normal 3.7-5.1 [facility] Comment on above: Order Comment: Ankur blancas Type: BLOOD SPECIMENOrdering Facility: [facility] Address: [address] [place] [address] Performed By: #### 2 4321-2 ####VALENTINE LABORATORYCLIA [id number] [place] [id number] [place] Sodium [Moles/Vol] 124 mmol/L Low 136-144 [facility] Comment on above: Order Comment: Ankur blancas Type: BLOOD SPECIMENOrdering Facility: [facility] Address: [address] [place] [address] Performed By: #### 2 4321-2 ####VALENTINE LABORATORYCLIA [id number] [place] [address] [place] Urea nitrogen [Mass/Vol] 19 mg/dL Normal 9-24 [facility] Comment on above: Order Comment: Cedrici men Type: BLOOD SPECIMENOrdering Facility: [facility] Address: [address] [place] [address] Performed By: #### 2 4321-2 ####VALENTINE LABORATORYCLIA [id number] [address] CBC panel Auto (Bld)on 07-30 Erythrocyte distribution width (RBC) [Ratio] 11.3 % Low 11.5-15.0 [facility] Comment on above: Order Comment: Speci men Type: BLOOD SPECIMENOrdering Facility: [facility] Address: [address] [place] [address] Performed By: #### 5 8410-2 ####VALENTINE LABORATORYCLIA [id number] [address] Hematocrit (Bld) [Volume fraction] 34.6 % Low 39.0-51.0 [facility] Comment on above: Order Comment: Speci men Type: BLOOD SPECIMENOrdering Facility: [facility] Address: [address] [place] [address] Performed By: #### 5 8410-2 ####VALENTINE LABORATORYCLIA [id number] [address] Hemoglobin (Bld) [Mass/Vol] 12.2 g/dL Low 13.0-17.0 [facility] Comment on above: Order Comment: Speci men Type: BLOOD SPECIMENOrdering Facility: [facility] Address: [address] [place] [address] Performed By: #### 5 8410-2 ####VALENTINE LABORATORYCLIA [id number] [address] MCH (RBC) [Entitic mass] 32.0 pg Normal 26.0-34.0 [facility] Comment on above: Order Comment: Speci men Type: BLOOD SPECIMENOrdering Facility: [facility] Address: [address] [place] [address] Performed By: #### 5 8410-2 ####VALENTINE LABORATORYCLIA [id number] [address] MCHC (RBC) [Mass/Vol] 35.3 g/dL Normal 30.5-36.0 [facility] Comment on above: Order Comment: Speci men Type: BLOOD SPECIMENOrdering Facility: [facility] Address: [address] [place] [address] Performed By: #### 5 8410-2 ####VALENTINE LABORATORYCLIA [id number] [address] [place] MCV (RBC) [Entitic vol] 90.8 fL Normal 80.0-100.0 [facility] Comment on above: Order Comment: Speci men Type: BLOOD SPECIMENOrdering Facility: [facility] Address: [address] [place] [address] Performed By: #### 5 8410-2 ####VALENTINE LABORATORYCLIA [id number] [address] Nucleated RBC (Bld) [#/Vol] 10*3/uL Normal <0.01 [facility] Comment on above: Order Comment: Speci men Type: BLOOD SPECIMENOrdering Facility: [facility] Address: [address] [place] [address] Performed By: #### 5 8410-2 ####VALENTINE LABORATORYCLIA [id number] [address] [place] Platelet mean volume (Bld) [Entitic vol] 8.6 fL Low 9.0-12.7 [facility] Comment on above: Order Comment: Speci men Type: BLOOD SPECIMENOrdering Facility: [facility] Address: [address] [place] [address] Performed By: #### 5 8410-2 ####VALENTINE LABORATORYCLIA [id number] [address] [place] Platelets (Bld) [#/Vol] 269 10*3/uL Normal 150-400 [facility] Comment on above: Order Comment: Speci men Type: BLOOD SPECIMENOrdering Facility: [facility] Address: [address] [place] [address] Performed By: #### 5 8410-2 ####VALENTINE LABORATORYCLIA [id number] [address] [place] RBC (Bld) [#/Vol] 3.81 10*6/uL Low 4.20-6.00 [facility] Comment on above: Order Comment: Speci men Type: BLOOD SPECIMENOrdering Facility: [facility] Address: [address] [place] [address] Performed By: #### 5 8410-2 ####VALENTINE LABORATORYCLIA [id number] [place] [address] [place] WBC (Bld) [#/Vol] 8.52 10*3/uL Normal 3.70-11.00 [facility] Comment on above: Order Comment: Speci men Type: BLOOD SPECIMENOrdering Facility: [facility] Address: [address] [place] [address] Performed By: #### 5 8410-2 ####VALENTINE LABORATORYCLIA [id number] [address] CONSULT PROGon 07-30-2024 CONSULT PROG Normal [facility] Comprehensive metabolic 2000 panelon 07-30-2024 Albumin [Mass/Vol] 3.5 g/dL Low 3.9-4.9 [facility] Comment on above: Order Comment: Speci men Type: BLOOD SPECIMENOrdering Facility: [facility] Address: [address] [place] [address] Performed By: #### 2 4321-2, 66119-2, 2777-1, 91143-9 ####VALENTINE LABORATORYCLIA [id number] [place] [address] [place] ALP [Catalytic activity/Vol] 66 U/L Normal 38-113 [facility] Comment on above: Order Comment: Speci men Type: BLOOD SPECIMENOrdering Facility: [facility] Address: [address] [place] [address] Performed By: #### 2 4321-2, 84742-3, 2777-1, 87302-9 ####VALENTINE LABORATORYCLIA [id number] [address] ALT [Catalytic activity/Vol] 13 U/L Normal 10-54 [facility] Comment on above: Order Comment: Speci men Type: BLOOD SPECIMENOrdering Facility: [facility] Address: [address] [place] [address] Performed By: #### 2 4321-2, 47490-1, 2776-1, ####VALENTINE LABORATORYCLIA [id number] [address] [place] AST [Catalytic activity/Vol] 11 U/L Low 14-40 [facility] Comment on above: Order Comment: Speci men Type: BLOOD SPECIMENOrdering Facility: [facility] Address: [address] [place] [address] Performed By: #### 2 4321-2, 81324-8, 2776-1, ####VALENTINE LABORATORYCLIA [id number] [place] [address] [place] Bilirubin [Mass/Vol] 0.4 mg/dL Normal 0.2-1.3 [facility] Comment on above: Order Comment: Speci men Type: BLOOD SPECIMENOrdering Facility: [facility] Address: [address] [place], [place] [id number] Performed By: #### 2 4321-2, 94400-1, 2776-1, ####VALENTINE LABORATORYCLIA [id number] [address] [place] Protein [Mass/Vol] 6.7 g/dL Normal 6.3-8.0 [facility] Comment on above: Order Comment: Speci men Type: BLOOD SPECIMENOrdering Facility: [facility] Address: [address] [place] [address] Performed By: #### 2 4321-2, 54407-9, 277-1, 78168-8 ####VALENTINE LABORATORYCLIA [id number] [place] [id number] [place] Magnesium SerPl-mCncon 07-30 Magnesium [Mass/Vol] 2.0 mg/dL Normal 1.7-2.3 [facility] Comment on above: Order Comment: Speci men Type: BLOOD SPECIMENOrdering Facility: [facility] Address: [address] [place] [address] Performed By: #### 2 4321-2, 32774-7, 2777-1, 51196-6 ####VALENTINE LABORATORYCLIA [id number] [place] [address] [place] Phosphate SerPl-mCncon 07-30 Phosphate [Mass/Vol] 4.4 mg/dL Normal 2.7-4.8 [facility] Comment on above: Order Comment: Speci men Type: BLOOD SPECIMENOrdering Facility: [facility] Address: [address] [place] [address] Performed By: #### 2 4321-2, 67607-1, 2777-1, 49885-9 ####VALENTINE LABORATORYCLIA [id number] [place] [address] [place] Basic metabolic 2000 panelon 07-29-2024 Anion gap [Moles/Vol] 11 mmol/L Normal 8-15 [facility] Comment on above: Order Comment: Speci men Type: BLOOD SPECIMENOrdering Facility: [facility] Address: [address] [place] [address] Performed By: #### 2 4321-2 ####VALENTINE LABORATORYCLIA [id number] [place] [address] [place] Calcium [Mass/Vol] 9.0 mg/dL Normal 8.5-10.2 [facility] Comment on above: Order Comment: Speci men Type: BLOOD SPECIMENOrdering Facility: [facility] Address: [address] [place] [address] Performed By: #### 2 4321-2 ####VALENTINE LABORATORYCLIA [id number] [place] [id number] [place] Chloride [Moles/Vol] 87 mmol/L Low 98-107 [facility] Comment on above: Order Comment: Speci men Type: BLOOD SPECIMENOrdering Facility: [facility] Address: [address] [place] [address] Performed By: #### 2 4321-2 ####VALENTINE LABORATORYCLIA [id number] [place] [address] [place] CO2 [Moles/Vol] 24 mmol/L Normal 22-30 [facility] Comment on above: Order Comment: Ankur blancas Type: BLOOD SPECIMENOrdering Facility: [facility] Address: [address] [place] [address] Performed By: #### 2 4321-2 ####VALENTINE LABORATORYCLIA [id number] [address] [place] [facility] Creatinine [Mass/Vol] 0.75 mg/dL Normal 0.73-1.22 [facility] Comment on above: Order Comment: Ankur blancas Type: BLOOD SPECIMENOrdering Facility: [facility] Address: [address] [place] [address] Performed By: #### 2 4321-2 ####FRANKLIN LABORATORYCLIA [id number] [address] Creatinine and Glomerular filtration rate.predicted panel (S/P/Bld) 105 mL/min/1.73m??? Normal >=60 [facility] Comment on above: Order Comment: Ankur blancas Type: BLOOD SPECIMENOrdering Facility: [facility] Address: [address] [place] [address] Result Comment: Lola mated Glomerular Filtration Rate (eGFR) is calculated using the 2020 CKD-EPI creatinine equation. This equation utilizes serum creatinine, sex, and age as parameters. The creatinine assay has traceable calibration to isotope dilution-mass spectrometry. Refer to KDIGO guidelines for clinical interpretation. In patients with unstable renal function, e.g. those with acute kidney injury, the eGFR may not accurately reflect actual GFR. Performed By: #### 2 4321-2 ####VALENTINE LABORATORYCLIA [id number] [address] [place] Glucose [Mass/Vol] 140 mg/dL High 74-99 [facility] Comment on above: Order Comment: Cedrictimothy blancas Type: BLOOD SPECIMENOrdering Facility: [facility] Address: [address] [place] [address] Result Comment: The [place] Diabetes [employer] (ADA) provides guidance for cutoff values for fasting glucose and random glucose. The ADA defines fasting as no caloric intake for at least 8 hours. Fasting plasma glucose results between 100 to 125 mg/dL indicate increased risk for diabetes (prediabetes).Fasting plasma glucose results greater than or equal to 126 mg/dL meet the criteria for diagnosis of diabetes. In the absence of unequivocal hyperglycemia, results should be confirmed by repeat testing. In a patient with classic symptoms of hyperglycemia or hyperglycemic crisis, random plasma glucose results greater than or equal to 200 mg/dL meet the criteria for diagnosis of diabetes.Reference: Standards of Medical Care in Diabetes 2016, [place] [employer]. Diabetes Care. 2016.39(Suppl 1). Performed By: #### 2 4321-2 ####VALENTINE LABORATORYCLIA [id number] [place] [address] [place] Potassium [Moles/Vol] 3.8 mmol/L Normal 3.7-5.1 [facility] Comment on above: Order Comment: Ankur blancas Type: BLOOD SPECIMENOrdering Facility: [facility] Address: [address] [place] [address] Performed By: #### 2 1-2 ####VALENTINE LABORATORYCLIA [id number] [place] [address] [place] Sodium [Moles/Vol] 122 mmol/L Low 136-144 [facility] Comment on above: Order Comment: Ankur blancas Type: BLOOD SPECIMENOrdering Facility: [facility] Address: [address] [place] [address] Performed By: #### 2 1-2 ####VALENTINE LABORATORYCLIA [id number] [place] [address] [place] Urea nitrogen [Mass/Vol] 23 mg/dL Normal 9-24 [facility] Comment on above: Order Comment: Ankur blancas Type: BLOOD SPECIMENOrdering Facility: [facility] Address: [address] [place] [address] Performed By: #### 2 4321-2 ####VALENTINE LABORATORYCLIA [id number] [place] [address] [place] Anion gap [Moles/Vol] 12 mmol/L Normal 8-15 [facility] Comment on above: Order Comment: Ankur blancas Type: BLOOD SPECIMENOrdering Facility: [facility] Address: [address] [place] [address] Performed By: #### 2 4321-2 ####VALENTINE LABORATORYCLIA [id number] [place] [address] [place] Calcium [Mass/Vol] 9.4 mg/dL Normal 8.5-10.2 [facility] Comment on above: Order Comment: Speci men Type: BLOOD SPECIMENOrdering Facility: [facility] Address: [address] [place] [address] Performed By: #### 2 4321-2 ####VALENTINE LABORATORYCLIA [id number] [place] [address] [place] Chloride [Moles/Vol] 87 mmol/L Low 98-107 [facility] Comment on above: Order Comment: Speci men Type: BLOOD SPECIMENOrdering Facility: [facility] Address: [address] [place] [address] Performed By: #### 2 4321-2 ####VALENTINE LABORATORYCLIA [id number] [place] [address] [place] CO2 [Moles/Vol] 23 mmol/L Normal 22-30 [facility] Comment on above: Order Comment: Speci men Type: BLOOD SPECIMENOrdering Facility: [facility] Address: [address] [place] [address] Performed By: #### 2 4321-2 ####VALENTINE LABORATORYCLIA [id number] [place] [address] [place] Creatinine [Mass/Vol] 0.76 mg/dL Normal 0.73-1.22 [facility] Comment on above: Order Comment: Speci men Type: BLOOD SPECIMENOrdering Facility: [facility] Address: [address] [place] [address] Performed By: #### 2 4321-2 ####VALENTINE LABORATORYCLIA [id number] [place] [address] [place] [facility] [place] Creatinine and Glomerular filtration rate.predicted panel (S/P/Bld) 105 mL/min/1.73m??? Normal >=60 [facility] Comment on above: Order Comment: Speci men Type: BLOOD SPECIMENOrdering Facility: [facility] Address: [address] [place] [address] Result Comment: Lola mated Glomerular Filtration Rate (eGFR) is calculated using the 2020 CKD-EPI creatinine equation. This equation utilizes serum creatinine, sex, and age as parameters. The creatinine assay has traceable calibration to isotope dilution-mass spectrometry. Refer to KDIGO guidelines for clinical interpretation. In patients with unstable renal function, e.g. those with acute kidney injury, the eGFR may not accurately reflect actual GFR. Performed By: #### 2 4321-2 ####FRANKLIN LABORATORYCLIA [id number] [place] [id number] [place] Glucose [Mass/Vol] 138 mg/dL High 74-99 [facility] Comment on above: Order Comment: Ankur lbancas Type: BLOOD SPECIMENOrdering Facility: [facility] Address: [address] [place] [id number] Result Comment: The [place] Diabetes [employer] (ADA) provides guidance for cutoff values for fasting glucose and random glucose. The ADA defines fasting as no caloric intake for at least 8 hours. Fasting plasma glucose results between 100 to 125 mg/dL indicate increased risk for diabetes (prediabetes).Fasting plasma glucose results greater than or equal to 126 mg/dL meet the criteria for diagnosis of diabetes. In the absence of unequivocal hyperglycemia, results should be confirmed by repeat testing. In a patient with classic symptoms of hyperglycemia or hyperglycemic crisis, random plasma glucose results greater than or equal to 200 mg/dL meet the criteria for diagnosis of diabetes.Reference: Standards of Medical Care in Diabetes 2016, [place] [employer]. Diabetes Care. 2016.39(Suppl 1). Performed By: #### 2 4321-2 ####FRANKLIN LABORATORYCLIA [id number] [place] [id number] [place] Potassium [Moles/Vol] 4.0 mmol/L Normal 3.7-5.1 [facility] Comment on above: Order Comment: Ankur blancas Type: BLOOD SPECIMENOrdering Facility: [facility] Address: [address] [place] [address] Performed By: #### 2 4321-2 ####VALENTINE LABORATORYCLIA [id number] [place] [address] [place] Sodium [Moles/Vol] 122 mmol/L Low 136-144 [facility] Comment on above: Order Comment: Speci men Type: BLOOD SPECIMENOrdering Facility: [facility] Address: [address] [place] [address] Performed By: #### 2 4321-2 ####VALENTINE LABORATORYCLIA [id number] [place] [address] [place] Urea nitrogen [Mass/Vol] 24 mg/dL Normal 9-24 [facility] Comment on above: Order Comment: Speci men Type: BLOOD SPECIMENOrdering Facility: [facility] Address: [address] [place] [address] Performed By: #### 2 4321-2 ####VALENTINE LABORATORYCLIA [id number] [place] [address] [place] Anion gap [Moles/Vol] 13 mmol/L Normal 8-15 [facility] Comment on above: Order Comment: Speci men Type: BLOOD SPECIMENOrdering Facility: [facility] Address: [address] [place] [address] Performed By: #### 2 4321-2 ####VALENTINE LABORATORYCLIA [id number] [place] [address] [place] Calcium [Mass/Vol] 8.7 mg/dL Normal 8.5-10.2 [facility] Comment on above: Order Comment: Speci men Type: BLOOD SPECIMENOrdering Facility: [facility] Address: [address] [place] [address] Performed By: #### 2 4321-2 ####VALENTINE LABORATORYCLIA [id number] [place] [address] [place] Chloride [Moles/Vol] 87 mmol/L Low 98-107 [facility] Comment on above: Order Comment: Speci men Type: BLOOD SPECIMENOrdering Facility: [facility] Address: [address] [place] [address] Performed By: #### 2 4321-2 ####VALENTINE LABORATORYCLIA [id number] [place] [address] [place] CO2 [Moles/Vol] 22 mmol/L Normal 22-30 [facility] Comment on above: Order Comment: Speci men Type: BLOOD SPECIMENOrdering Facility: [facility] Address: [address] [place] [address] Performed By: #### 2 4321-2 ####VALENTINE LABORATORYCLIA [id number] [place] [id number] [place] Creatinine [Mass/Vol] 0.74 mg/dL Normal 0.73-1.22 [facility] Comment on above: Order Comment: Ankur [facility] Type: BLOOD SPECIMENOrdering Facility: [facility] Address: [address] [place] [address] Performed By: #### 2 4321-2 ####VALENTINE LABORATORYCLIA [id number] [address] Creatinine and Glomerular filtration rate.predicted panel (S/P/Bld) 106 mL/min/1.73m??? Normal >=60 [facility] Comment on above: Order Comment: Ankur blancas Type: BLOOD SPECIMENOrdering Facility: [facility] Address: [address] [place] [address] Result Comment: Lola mated Glomerular Filtration Rate (eGFR) is calculated using the 2020 CKD-EPI creatinine equation. This equation utilizes serum creatinine, sex, and age as parameters. The creatinine assay has traceable calibration to isotope dilution-mass spectrometry. Refer to KDIGO guidelines for clinical interpretation. In patients with unstable renal function, e.g. those with acute kidney injury, the eGFR may not accurately reflect actual GFR. Performed By: #### 2 4321-2 ####VALENTINE LABORATORYCLIA [id number] [address] [place] Glucose [Mass/Vol] 119 mg/dL High 74-99 [facility] Comment on above: Order Comment: Ankur blancas Type: BLOOD SPECIMENOrdering Facility: [facility] Address: [address] [place] [address] Result Comment: The [place] [employer] (ADA) provides guidance for cutoff values for fasting glucose and random glucose. The ADA defines fasting as no caloric intake for at least 8 hours. Fasting plasma glucose results between 100 to 125 mg/dL indicate increased risk for diabetes (prediabetes).Fasting plasma glucose results greater than or equal to 126 mg/dL meet the criteria for diagnosis of diabetes. In the absence of unequivocal hyperglycemia, results should be confirmed by repeat testing. In a patient with classic symptoms of hyperglycemia or hyperglycemic crisis, random plasma glucose results greater than or equal to 200 mg/dL meet the criteria for diagnosis of diabetes.Reference: Standards of Medical Care in Diabetes 2016, [place] [employer]. Diabetes Care. 2016.39(Suppl 1). Performed By: #### 2 4321-2 ####VALENTINE LABORATORYCLIA [id number] [place] [address] [place] Potassium [Moles/Vol] 4.1 mmol/L Normal 3.7-5.1 [facility] Comment on above: Order Comment: Ankur blancas Type: BLOOD SPECIMENOrdering Facility: [facility] Address: [address] [place] [address] Performed By: #### 2 4321-2 ####VALENTINE LABORATORYCLIA [id number] [place] [address] [place] Sodium [Moles/Vol] 122 mmol/L Low 136-144 [facility] Comment on above: Order Comment: Ankur blancas Type: BLOOD SPECIMENOrdering Facility: [facility] Address: [address] [place] [address] Performed By: #### 2 4321-2 ####[facility] LABORATORYCLIA [id number] [place] [address] [place] Urea nitrogen [Mass/Vol] 28 mg/dL High 9-24 [facility] Comment on above: Order Comment: Ankur blancas Type: BLOOD SPECIMENOrdering Facility: [facility] Address: [address] [place] [address] Performed By: #### 2 4321-2 ####VALENTINE LABORATORYCLIA [id number] [place] [address] [place] Anion gap [Moles/Vol] 12 mmol/L Normal 8-15 [facility] Comment on above: Order Comment: Ankur blancas Type: BLOOD SPECIMENOrdering Facility: [facility] Address: [address] [place] [address] Performed By: #### 2 4321-2 ####VALENTINE LABORATORYCLIA [id number] [place] [address] [place] Calcium [Mass/Vol] 9.0 mg/dL Normal 8.5-10.2 [facility] Comment on above: Order Comment: Speci men Type: BLOOD SPECIMENOrdering Facility: [facility] Address: [address] [place] [address] Performed By: #### 2 4321-2 ####VALENTINE LABORATORYCLIA [id number] [place] [address] [place] [facility] [place] Chloride [Moles/Vol] 85 mmol/L Low 98-107 [facility] Comment on above: Order Comment: Speci men Type: BLOOD SPECIMENOrdering Facility: [facility] Address: [address] [place] [address] Performed By: #### 2 4321-2 ####VALENTINE LABORATORYCLIA [id number] [place] [address] [place] CO2 [Moles/Vol] 24 mmol/L Normal 22-30 [facility] Comment on above: Order Comment: Speci men Type: BLOOD SPECIMENOrdering Facility: [facility] Address: [address] [place] [address] Performed By: #### 2 4321-2 ####VALENTINE LABORATORYCLIA [id number] [place] [address] [place] Creatinine [Mass/Vol] 0.70 mg/dL Low 0.73-1.22 [facility] Comment on above: Order Comment: Speci men Type: BLOOD SPECIMENOrdering Facility: [facility] Address: [address] [place] [address] Performed By: #### 2 4321-2 ####VALENTINE LABORATORYCLIA [id number] [address] Creatinine and Glomerular filtration rate.predicted panel (S/P/Bld) 107 mL/min/1.73m??? Normal >=60 [facility] Comment on above: Order Comment: Speci men Type: BLOOD SPECIMENOrdering Facility: [facility] Address: [address] [place] [address] Result Comment: Lola mated Glomerular Filtration Rate (eGFR) is calculated using the 2020 CKD-EPI creatinine equation. This equation utilizes serum creatinine, sex, and age as parameters. The creatinine assay has traceable calibration to isotope dilution-mass spectrometry. Refer to KDIGO guidelines for clinical interpretation. In patients with unstable renal function, e.g. those with acute kidney injury, the eGFR may not accurately reflect actual GFR. Performed By: #### 2 4321-2 ####VALENTINE LABORATORYCLIA [id number] [place] [address] [place] Glucose [Mass/Vol] 115 mg/dL High 74-99 [facility] Comment on above: Order Comment: Ankur blancas Type: BLOOD SPECIMENOrdering Facility: [facility] Address: [address] [place] [address] Result Comment: The [place] Diabetes [employer] (ADA) provides guidance for cutoff values for fasting glucose and random glucose. The ADA defines fasting as no caloric intake for at least 8 hours. Fasting plasma glucose results between 100 to 125 mg/dL indicate increased risk for diabetes (prediabetes).Fasting plasma glucose results greater than or equal to 126 mg/dL meet the criteria for diagnosis of diabetes. In the absence of unequivocal hyperglycemia, results should be confirmed by repeat testing. In a patient with classic symptoms of hyperglycemia or hyperglycemic crisis, random plasma glucose results greater than or equal to 200 mg/dL meet the criteria for diagnosis of diabetes.Reference: Standards of Medical Care in Diabetes 2016, [place] [employer]. Diabetes Care. 2016.39(Suppl 1). Performed By: #### 2 4321-2 ####[facility] LABORATORYCLIA [id number] [place] [address] [place] Potassium [Moles/Vol] 3.7 mmol/L Normal 3.7-5.1 [facility] Comment on above: Order Comment: Ankur blancas Type: BLOOD SPECIMENOrdering Facility: [facility] Address: [address] [place] [address] Performed By: #### 2 4321-2 ####VALENTINE LABORATORYCLIA [id number] [place] [id number] [place] Sodium [Moles/Vol] 121 mmol/L Low 136-144 [facility] Comment on above: Order Comment: Ankur blancas Type: BLOOD SPECIMENOrdering Facility: [facility] Address: [address] [place] [address] Performed By: #### 2 4321-2 ####VALENTINE LABORATORYCLIA [id number] [place] [address] [place] Urea nitrogen [Mass/Vol] 32 mg/dL High 9-24 [facility] Comment on above: Order Comment: Speci men Type: BLOOD SPECIMENOrdering Facility: [facility] Address: [address] [place] [address] Performed By: #### 2 4321-2 ####VALENTINE LABORATORYCLIA [id number] [address] [place] CASE MANAGEMon 07-29-2024 CASE MANAGEM Normal [facility] CBC panel Auto (Bld)on 07-29 Erythrocyte distribution width (RBC) [Ratio] 11.1 % Low 11.5-15.0 [facility] Comment on above: Order Comment: Speci men Type: BLOOD SPECIMENOrdering Facility: [facility] Address: [address] [place] [address] Performed By: #### 5 8410-2 ####VALENTINE LABORATORYCLIA [id number] [address] [place] Hematocrit (Bld) [Volume fraction] 34.3 % Low 39.0-51.0 [facility] Comment on above: Order Comment: Speci men Type: BLOOD SPECIMENOrdering Facility: [facility] Address: [address] [place] [address] Performed By: #### 5 8410-2 ####VALENTINE LABORATORYCLIA [id number] [place] [address] [place] Hemoglobin (Bld) [Mass/Vol] 12.4 g/dL Low 13.0-17.0 [facility] Comment on above: Order Comment: Speci men Type: BLOOD SPECIMENOrdering Facility: [facility] Address: [address] [place] [address] Performed By: #### 5 8410-2 ####VALENTINE LABORATORYCLIA [id number] [place] [address] [place] MCH (RBC) [Entitic mass] 32.1 pg Normal 26.0-34.0 [facility] Comment on above: Order Comment: Speci men Type: BLOOD SPECIMENOrdering Facility: [facility] Address: [address] [place] [address] Performed By: #### 5 8410-2 ####VALENTINE LABORATORYCLIA [id number] [address] MCHC (RBC) [Mass/Vol] 36.2 g/dL High 30.5-36.0 [facility] Comment on above: Order Comment: Speci men Type: BLOOD SPECIMENOrdering Facility: [facility] Address: [address] [place] [address] Performed By: #### 5 8410-2 ####VALENTINE LABORATORYCLIA [id number] [address] MCV (RBC) [Entitic vol] 88.9 fL Normal 80.0-100.0 [facility] Comment on above: Order Comment: Speci men Type: BLOOD SPECIMENOrdering Facility: [facility] Address: [address] [place] [address] Performed By: #### 5 8410-2 ####VALENTINE LABORATORYCLIA [id number] [address] Nucleated RBC (Bld) [#/Vol] 10*3/uL Normal <0.01 [facility] Comment on above: Order Comment: Speci men Type: BLOOD SPECIMENOrdering Facility: [facility] Address: [address] [place] [address] Performed By: #### 5 8410-2 ####VALENTINE LABORATORYCLIA [id number] [address] Platelet mean volume (Bld) [Entitic vol] 8.6 fL Low 9.0-12.7 [facility] Comment on above: Order Comment: Speci men Type: BLOOD SPECIMENOrdering Facility: [facility] Address: [address] [place] [address] Performed By: #### 5 8410-2 ####VALENTINE LABORATORYCLIA [id number] [address] Platelets (Bld) [#/Vol] 303 10*3/uL Normal 150-400 [facility] Comment on above: Order Comment: Speci men Type: BLOOD SPECIMENOrdering Facility: [facility] Address: [address] [place] [address] Performed By: #### 5 8410-2 ####VALENTINE LABORATORYCLIA [id number] [address] [facility] RBC (Bld) [#/Vol] 3.86 10*6/uL Low 4.20-6.00 [facility] Comment on above: Order Comment: Speci men Type: BLOOD SPECIMENOrdering Facility: [facility] Address: [address] [place] [address] Performed By: #### 5 8410-2 ####FRANKLIN LABORATORYCLIA [id number] [address] WBC (Bld) [#/Vol] 9.15 10*3/uL Normal 3.70-11.00 [facility] Comment on above: Order Comment: Speci men Type: BLOOD SPECIMENOrdering Facility: [facility] Address: [address] [place] [address] Performed By: #### 5 8410-2 ####FRANKLIN LABORATORYCLIA [id number] [address] CONSULT PROGon 07-29-2024 CONSULT PROG Normal [facility] Comprehensive metabolic 2000 panelon 07-29-2024 Albumin [Mass/Vol] 3.7 g/dL Low 3.9-4.9 [facility] Comment on above: Order Comment: Speci men Type: BLOOD SPECIMENOrdering Facility: [facility] Address: [address] [place] [address] Performed By: #### 2 4323-8, 77149-6, 2777-1 ####FRANKLIN LABORATORYCLIA [id number] [address] ALP [Catalytic activity/Vol] 65 U/L Normal 38-113 [facility] Comment on above: Order Comment: Speci men Type: BLOOD SPECIMENOrdering Facility: [facility] Address: [address] [place] [address] Performed By: #### 2 4323-8, 99732-6, 2776-02 ####VALENTINE LABORATORYCLIA [id number] [place] [address] [place] ALT [Catalytic activity/Vol] 15 U/L Normal 10-54 [facility] Comment on above: Order Comment: Speci men Type: BLOOD SPECIMENOrdering Facility: [facility] Address: [address] [place] [address] Performed By: #### 2 4323-8, , 2776-02 ####VALENTINE LABORATORYCLIA [id number] [place] [address] [place] Anion gap [Moles/Vol] 13 mmol/L Normal 8-15 [facility] Comment on above: Order Comment: Speci men Type: BLOOD SPECIMENOrdering Facility: [facility] Address: [address] [place] [address] Performed By: #### 2 4323-8, , 2776-02 ####VALENTINE LABORATORYCLIA [id number] [address] [place] AST [Catalytic activity/Vol] 14 U/L Normal 14-40 [facility] Comment on above: Order Comment: Speci men Type: BLOOD SPECIMENOrdering Facility: [facility] Address: [address] [place] [address] Performed By: #### 2 4323-8, , 2776-02 ####VALENTINE LABORATORYCLIA [id number] [place] [id number] [place] Bilirubin [Mass/Vol] 0.4 mg/dL Normal 0.2-1.3 [facility] Comment on above: Order Comment: Speci men Type: BLOOD SPECIMENOrdering Facility: [facility] Address: [address] [place] [address] Performed By: #### 2 4323-8, , 2776-02 ####VALENTINE LABORATORYCLIA [id number] [place] [address] [place] Calcium [Mass/Vol] 9.1 mg/dL Normal 8.5-10.2 [facility] Comment on above: Order Comment: Speci men Type: BLOOD SPECIMENOrdering Facility: [facility] Address: [address] [place] [address] Performed By: #### 2 4323-8, 50963-8, 2776-02 ####VALENTINE LABORATORYCLIA [id number] [place] [address] [place] Chloride [Moles/Vol] 85 mmol/L Low 98-107 [facility] Comment on above: Order Comment: Speci men Type: BLOOD SPECIMENOrdering Facility: [facility] Address: [address] [place] [address] Performed By: #### 2 4323-8, , 2776-02 ####VALENTINE LABORATORYCLIA [id number] [place] [address] [place] CO2 [Moles/Vol] 23 mmol/L Normal 22-30 [facility] Comment on above: Order Comment: Speci men Type: BLOOD SPECIMENOrdering Facility: [facility] Address: [address] [place] [address] Performed By: #### 2 4323-8, , 2776-02 ####VALENTINE LABORATORYCLIA [id number] [place] [address] [place] Creatinine [Mass/Vol] 0.79 mg/dL Normal 0.73-1.22 [facility] Comment on above: Order Comment: Speci men Type: BLOOD SPECIMENOrdering Facility: [facility] Address: [address] [place] [address] Performed By: #### 2 4323-8, , 2776-02 ####VALENTINE LABORATORYCLIA [id number] [place] [id number] [place] Creatinine and Glomerular filtration rate.predicted panel (S/P/Bld) 104 mL/min/1.73m??? Normal >=60 [facility] Comment on above: Order Comment: Speci men Type: BLOOD SPECIMENOrdering Facility: [facility] Address: [address] [place] [address] Result Comment: Lola mated Glomerular Filtration Rate (eGFR) is calculated using the 2020 CKD-EPI creatinine equation. This equation utilizes serum creatinine, sex, and age as parameters. The creatinine assay has traceable calibration to isotope dilution-mass spectrometry. Refer to KDIGO guidelines for clinical interpretation. In patients with unstable renal function, e.g. those with acute kidney injury, the eGFR may not accurately reflect actual GFR. Performed By: #### 2 4323-8, , 2776-02 ####FRANKLIN LABORATORYCLIA [id number] [place] [address] [place] Glucose [Mass/Vol] 100 mg/dL High 74-99 [facility] Comment on above: Order Comment: Ankur blancas Type: BLOOD SPECIMENOrdering Facility: [facility] Address: [address] [place] [address] Result Comment: The [place] Diabetes [employer] (ADA) provides guidance for cutoff values for fasting glucose and random glucose. The ADA defines fasting as no caloric intake for at least 8 hours. Fasting plasma glucose results between 100 to 125 mg/dL indicate increased risk for diabetes (prediabetes).Fasting plasma glucose results greater than or equal to 126 mg/dL meet the criteria for diagnosis of diabetes. In the absence of unequivocal hyperglycemia, results should be confirmed by repeat testing. In a patient with classic symptoms of hyperglycemia or hyperglycemic crisis, random plasma glucose results greater than or equal to 200 mg/dL meet the criteria for diagnosis of diabetes.Reference: Standards of Medical Care in Diabetes 2016, [place] [employer]. Diabetes Care. 2016.39(Suppl 1). Performed By: #### 2 4323-8, , 2776-02 ####FRANKLIN LABORATORYCLIA [id number] [place] [address] [place] Potassium [Moles/Vol] 3.8 mmol/L Normal 3.7-5.1 [facility] Comment on above: Order Comment: Cedric magalis Type: BLOOD SPECIMENOrdering Facility: [facility] Address: [address] [place] [address] Performed By: #### 2 4323-8, , 2776-02 ####FRANKLIN LABORATORYCLIA [id number] [place] [address] [place] Protein [Mass/Vol] 6.8 g/dL Normal 6.3-8.0 [facility] Comment on above: Order Comment: Speci men Type: BLOOD SPECIMENOrdering Facility: [facility] Address: [address] [place] [address] Performed By: #### 2 4323-8, 56253-4, 2776-02 ####VALENTINE LABORATORYCLIA [id number] [place] [address] [place] Sodium [Moles/Vol] 121 mmol/L Low 136-144 [facility] Comment on above: Order Comment: Speci men Type: BLOOD SPECIMENOrdering Facility: [facility] Address: [address] [place] [address] Performed By: #### 2 4323-8, , 2776-02 ####VALENTINE LABORATORYCLIA [id number] [place] [address] [place] Urea nitrogen [Mass/Vol] 42 mg/dL High 9-24 [facility] Comment on above: Order Comment: Speci men Type: BLOOD SPECIMENOrdering Facility: [facility] Address: [address] [place] [address] Performed By: #### 2 4323-8, , 2776-02 ####VALENTINE LABORATORYCLIA [id number] [place] [id number] [place] Magnesium SerPl-mCncon 07-29 Magnesium [Mass/Vol] 2.0 mg/dL Normal 1.7-2.3 [facility] Comment on above: Order Comment: Speci men Type: BLOOD SPECIMENOrdering Facility: [facility] Address: [address] [place] [address] Performed By: #### 2 4323-8, 75688-6, 2776-02 ####VALENTINE LABORATORYCLIA [id number] [place] [address] [place] NUTRITIONon 07-29-2024 NUTRITION Normal [facility] Phosphate SerPl-mCncon 07-29 Phosphate [Mass/Vol] 3.9 mg/dL Normal 2.7-4.8 [facility] Comment on above: Order Comment: Speci men Type: BLOOD SPECIMENOrdering Facility: [facility] Address: [facility] [place] [address] Performed By: #### 2 4323-8, 37382-9, 2777-1 ####VALENTINE LABORATORYCLIA [id number] [place] [address] [place] Basic metabolic 2000 panelon 07-28-2024 Anion gap [Moles/Vol] 10 mmol/L Normal 8-15 [facility] Comment on above: Order Comment: Speci men Type: BLOOD SPECIMENOrdering Facility: [facility] Address: [address] [place] [address] Performed By: #### 2 4321-2 ####VALENTINE LABORATORYCLIA [id number] [place] [address] [place] Calcium [Mass/Vol] 8.5 mg/dL Normal 8.5-10.2 [facility] Comment on above: Order Comment: Speci men Type: BLOOD SPECIMENOrdering Facility: [facility] Address: [address] [place] [address] Performed By: #### 2 4321-2 ####VALENTINE LABORATORYCLIA [id number] [place] [address] [place] Chloride [Moles/Vol] 85 mmol/L Low 98-107 [facility] Comment on above: Order Comment: Speci men Type: BLOOD SPECIMENOrdering Facility: [facility] Address: [address] [place] [address] Performed By: #### 2 4321-2 ####VALENTINE LABORATORYCLIA [id number] [place] [address] [place] CO2 [Moles/Vol] 24 mmol/L Normal 22-30 [facility] Comment on above: Order Comment: Speci men Type: BLOOD SPECIMENOrdering Facility: [facility] Address: [address] [place] [address] Performed By: #### 2 4321-2 ####VALENTINE LABORATORYCLIA [id number] [place] [address] [place] Creatinine [Mass/Vol] 0.68 mg/dL Low 0.73-1.22 [facility] Comment on above: Order Comment: Speci men Type: BLOOD SPECIMENOrdering Facility: [facility] Address: [address] [place] [address] Performed By: #### 2 4321-2 ####VALENTINE LABORATORYCLIA [id number] [address] Creatinine and Glomerular filtration rate.predicted panel (S/P/Bld) 108 mL/min/1.73m??? Normal >=60 [facility] Comment on above: Order Comment: Ankur blancas Type: BLOOD SPECIMENOrdering Facility: [facility] Address: [address] [place] [address] Result Comment: Lola mated Glomerular Filtration Rate (eGFR) is calculated using the 2020 CKD-EPI creatinine equation. This equation utilizes serum creatinine, sex, and age as parameters. The creatinine assay has traceable calibration to isotope dilution-mass spectrometry. Refer to KDIGO guidelines for clinical interpretation. In patients with unstable renal function, e.g. those with acute kidney injury, the eGFR may not accurately reflect actual GFR. Performed By: #### 2 4321-2 ####VALENTINE LABORATORYCLIA [id number] [place] [address] [place] Glucose [Mass/Vol] 112 mg/dL High 74-99 [facility] Comment on above: Order Comment: Ankur blancas Type: BLOOD SPECIMENOrdering Facility: [facility] Address: [address] [place] [address] Result Comment: The [place] Diabetes [employer] (ADA) provides guidance for cutoff values for fasting glucose and random glucose. The ADA defines fasting as no caloric intake for at least 8 hours. Fasting plasma glucose results between 100 to 125 mg/dL indicate increased risk for diabetes (prediabetes).Fasting plasma glucose results greater than or equal to 126 mg/dL meet the criteria for diagnosis of diabetes. In the absence of unequivocal hyperglycemia, results should be confirmed by repeat testing. In a patient with classic symptoms of hyperglycemia or hyperglycemic crisis, random plasma glucose results greater than or equal to 200 mg/dL meet the criteria for diagnosis of diabetes.Reference: Standards of Medical Care in Diabetes 2016, [place] [employer]. Diabetes Care. 2016.39(Suppl 1). Performed By: #### 2 4321-2 ####VALENTINE LABORATORYCLIA [id number] [place] [address] [place] Potassium [Moles/Vol] 4.1 mmol/L Normal 3.7-5.1 [facility] Comment on above: Order Comment: Speci men Type: BLOOD SPECIMENOrdering Facility: [facility] Address: [address] [place] [address] Performed By: #### 2 4321-2 ####VALENTINE LABORATORYCLIA [id number] [place] [address] [place] Sodium [Moles/Vol] 119 mmol/L Low 136-144 [facility] Comment on above: Order Comment: Speci men Type: BLOOD SPECIMENOrdering Facility: [facility] Address: [address] [place] [address] Performed By: #### 2 4321-2 ####VALENTINE LABORATORYCLIA [id number] [place] [address] [place] Urea nitrogen [Mass/Vol] 28 mg/dL High 9-24 [facility] Comment on above: Order Comment: Speci men Type: BLOOD SPECIMENOrdering Facility: [facility] Address: [address] [place] [address] Performed By: #### 2 4321-2 ####VALENTINE LABORATORYCLIA [id number] [place] [address] [place] Anion gap [Moles/Vol] 12 mmol/L Normal 8-15 [facility] Comment on above: Order Comment: Speci men Type: BLOOD SPECIMENOrdering Facility: [facility] Address: [address] [place] [address] Performed By: #### 2 4321-2 ####VALENTINE LABORATORYCLIA [id number] [place] [address] [place] Calcium [Mass/Vol] 8.5 mg/dL Normal 8.5-10.2 [facility] Comment on above: Order Comment: Speci men Type: BLOOD SPECIMENOrdering Facility: [facility] Address: [address] [place] [address] Performed By: #### 2 4321-2 ####VALENTINE LABORATORYCLIA [id number] [place] [address] [place] Chloride [Moles/Vol] 85 mmol/L Low 98-107 [facility] Comment on above: Order Comment: Ankur blancas Type: BLOOD SPECIMENOrdering Facility: [facility] Address: [address] [place] [address] Performed By: #### 2 4321-2 ####VALENTINE LABORATORYCLIA [id number] [place] [id number] [place] CO2 [Moles/Vol] 23 mmol/L Normal 22-30 [facility] Comment on above: Order Comment: Ankur men Type: BLOOD SPECIMENOrdering Facility: [facility] Address: [address] [place] [address] Performed By: #### 2 4321-2 ####VALENTINE LABORATORYCLIA [id number] [address] [place] Creatinine [Mass/Vol] 0.69 mg/dL Low 0.73-1.22 [facility] Comment on above: Order Comment: Ankur magalis Type: BLOOD SPECIMENOrdering Facility: [facility] Address: [address] [place] [address] Performed By: #### 2 4321-2 ####VALENTINE LABORATORYCLIA [id number] [address] Creatinine and Glomerular filtration rate.predicted panel (S/P/Bld) 108 mL/min/1.73m??? Normal >=60 [facility] Comment on above: Order Comment: Ankur magalis Type: BLOOD SPECIMENOrdering Facility: [facility] Address: [address] [place] [address] Result Comment: Lola mated Glomerular Filtration Rate (eGFR) is calculated using the 2020 CKD-EPI creatinine equation. This equation utilizes serum creatinine, sex, and age as parameters. The creatinine assay has traceable calibration to isotope dilution-mass spectrometry. Refer to KDIGO guidelines for clinical interpretation. In patients with unstable renal function, e.g. those with acute kidney injury, the eGFR may not accurately reflect actual GFR. Performed By: #### 2 4321-2 ####[facility] LABORATORYCLIA [id number] [place] [id number] [place] Glucose [Mass/Vol] 116 mg/dL High 74-99 [facility] Comment on above: Order Comment: Ankur blancas Type: BLOOD SPECIMENOrdering Facility: [facility] Address: [address] [place], [place] [id number] Result Comment: The [place] Diabetes [employer] (ADA) provides guidance for cutoff values for fasting glucose and random glucose. The ADA defines fasting as no caloric intake for at least 8 hours. Fasting plasma glucose results between 100 to 125 mg/dL indicate increased risk for diabetes (prediabetes).Fasting plasma glucose results greater than or equal to 126 mg/dL meet the criteria for diagnosis of diabetes. In the absence of unequivocal hyperglycemia, results should be confirmed by repeat testing. In a patient with classic symptoms of hyperglycemia or hyperglycemic crisis, random plasma glucose results greater than or equal to 200 mg/dL meet the criteria for diagnosis of diabetes.Reference: Standards of Medical Care in Diabetes 2016, [place] [employer]. Diabetes Care. 2016.39(Suppl 1). Performed By: #### 2 4321-2 ####[facility] LABORATORYCLIA [id number] [place] [address] [place] Potassium [Moles/Vol] 3.8 mmol/L Normal 3.7-5.1 [facility] Comment on above: Order Comment: Ankur blancas Type: BLOOD SPECIMENOrdering Facility: [facility] Address: [address] [place] [address] Performed By: #### 2 4321-2 ####[facility] LABORATORYCLIA [id number] [place] [address] [place] Sodium [Moles/Vol] 120 mmol/L Low 136-144 [facility] Comment on above: Order Comment: Ankur men Type: BLOOD SPECIMENOrdering Facility: [facility] Address: [address] [place] [address] Performed By: #### 2 4321-2 ####[facility] LABORATORYCLIA [id number] [place] [address] [place] Urea nitrogen [Mass/Vol] 39 mg/dL High 9-24 [facility] Comment on above: Order Comment: Cedrici men Type: BLOOD SPECIMENOrdering Facility: [facility] Address: [address], [place] [address] Performed By: #### 2 4321-2 ####VALENTINE LABORATORYCLIA [id number] [place] [address] [place] Anion gap [Moles/Vol] 14 mmol/L Normal 8-15 [facility] Comment on above: Order Comment: Speci men Type: BLOOD SPECIMENOrdering Facility: [facility] Address: [address] [place] [address] Performed By: #### 2 4321-2, , 2776-02 ####VAL[facility] LABORATORYCLIA [id number] [place] [address] [place] Calcium [Mass/Vol] 8.5 mg/dL Normal 8.5-10.2 [facility] Comment on above: Order Comment: Speci men Type: BLOOD SPECIMENOrdering Facility: [facility] Address: [facility] [place] [address] Performed By: #### 2 4321-2, , 2776-02 ####VALENTINE LABORATORYCLIA [id number] [place] [address] [place] Chloride [Moles/Vol] 85 mmol/L Low 98-107 [facility] Comment on above: Order Comment: Speci men Type: BLOOD SPECIMENOrdering Facility: [facility] Address: [facility] [place] [address] Performed By: #### 2 4321-2, , 2776-02 ####[facility] LABORATORYCLIA [id number] [place] [address] [place] CO2 [Moles/Vol] 21 mmol/L Low 22-30 [facility] Comment on above: Order Comment: Speci men Type: BLOOD SPECIMENOrdering Facility: [facility] Address: [address] [place] [address] Performed By: #### 2 4321-2, , 2776-02 ####VAL[facility]INE LABORATORYCLIA [id number] [place] [address] [place] Creatinine [Mass/Vol] 0.70 mg/dL Low 0.73-1.22 [facility] Comment on above: Order Comment: Speci men Type: BLOOD SPECIMENOrdering Facility: [facility] Address: [address] [place] [address] Performed By: #### 2 4321-2, , 2776-02 ####MEME LABORATORYCLIA [id number] [place] [address] [place] Creatinine and Glomerular filtration rate.predicted panel (S/P/Bld) 107 mL/min/1.73m??? Normal >=60 [facility] Comment on above: Order Comment: Ankur blancas Type: BLOOD SPECIMENOrdering Facility: [facility] Address: [address] [place] [address] Result Comment: Lola mated Glomerular Filtration Rate (eGFR) is calculated using the 2020 CKD-EPI creatinine equation. This equation utilizes serum creatinine, sex, and age as parameters. The creatinine assay has traceable calibration to isotope dilution-mass spectrometry. Refer to KDIGO guidelines for clinical interpretation. In patients with unstable renal function, e.g. those with acute kidney injury, the eGFR may not accurately reflect actual GFR. Performed By: #### 2 4321-2, 34795-6, 2776-02 ####[facility] LABORATORYCLIA [id number] [place] [id number] [place] Glucose [Mass/Vol] 103 mg/dL High 74-99 [facility] Comment on above: Order Comment: Ankur blancas Type: BLOOD SPECIMENOrdering Facility: [facility] Address: [address] [place] [address] Result Comment: The [place] Diabetes [employer] (ADA) provides guidance for cutoff values for fasting glucose and random glucose. The ADA defines fasting as no caloric intake for at least 8 hours. Fasting plasma glucose results between 100 to 125 mg/dL indicate increased risk for diabetes (prediabetes).Fasting plasma glucose results greater than or equal to 126 mg/dL meet the criteria for diagnosis of diabetes. In the absence of unequivocal hyperglycemia, results should be confirmed by repeat testing. In a patient with classic symptoms of hyperglycemia or hyperglycemic crisis, random plasma glucose results greater than or equal to 200 mg/dL meet the criteria for diagnosis of diabetes.Reference: Standards of Medical Care in Diabetes 2016, [place] [employer]. Diabetes Care. 2016.39(Suppl 1). Performed By: #### 2 4321-2, , 2776-02 ####VAL[facility]INE LABORATORYCLIA [id number] [place] [address] [place] Potassium [Moles/Vol] 4.0 mmol/L Normal 3.7-5.1 [facility] Comment on above: Order Comment: Speci men Type: BLOOD SPECIMENOrdering Facility: [facility] Address: [address] [place] [address] Performed By: #### 2 4321-2, , 2776-02 ####VAL[facility]INE LABORATORYCLIA [id number] [address] [place] Sodium [Moles/Vol] 120 mmol/L Low 136-144 [facility] Comment on above: Order Comment: Speci men Type: BLOOD SPECIMENOrdering Facility: [facility] Address: [address] [place] [address] Performed By: #### 2 4321-2, , 2776-02 ####[facility] LABORATORYCLIA [id number] [address] STATES OF [facility] Urea nitrogen [Mass/Vol] 14 mg/dL Normal 9-24 [facility] Comment on above: Order Comment: Speci men Type: BLOOD SPECIMENOrdering Facility: [facility] Address: [address] [place] [address] Performed By: #### 2 4321-2, , 2776-02 ####[facility] LABORATORYCLIA [id number] [address] STATES OF [facility] CBC panel Auto (Bld)on 07-28 Erythrocyte distribution width (RBC) [Ratio] 10.9 % Low 11.5-15.0 [facility] Comment on above: Order Comment: Speci men Type: BLOOD SPECIMENOrdering Facility: [facility] Address: [address] [place] [address] Performed By: #### 5 8410-2 ####VAL[facility]INE LABORATORYCLIA [id number] [address] Hematocrit (Bld) [Volume fraction] 32.4 % Low 39.0-51.0 [facility] Comment on above: Order Comment: Speci men Type: BLOOD SPECIMENOrdering Facility: [facility] Address: [address] [place] [address] Performed By: #### 5 8410-2 ####[facility]INE LABORATORYCLIA [id number] [address] [place] Hemoglobin (Bld) [Mass/Vol] 11.8 g/dL Low 13.0-17.0 [facility] Comment on above: Order Comment: Speci men Type: BLOOD SPECIMENOrdering Facility: [facility] Address: [address] [place] [address] Performed By: #### 5 8410-2 ####[facility] LABORATORYCLIA [id number] [address] MCH (RBC) [Entitic mass] 32.2 pg Normal 26.0-34.0 [facility] Comment on above: Order Comment: Speci men Type: BLOOD SPECIMENOrdering Facility: [facility] Address: [address] [place] [address] Performed By: #### 5 8410-2 ####[facility] LABORATORYCLIA [id number] [address] MCHC (RBC) [Mass/Vol] 36.4 g/dL High 30.5-36.0 [facility] Comment on above: Order Comment: Speci men Type: BLOOD SPECIMENOrdering Facility: [facility] Address: [address] [place] [address] Performed By: #### 5 8410-2 ####[facility] LABORATORYCLIA [id number] [address] MCV (RBC) [Entitic vol] 88.5 fL Normal 80.0-100.0 [facility] Comment on above: Order Comment: Speci men Type: BLOOD SPECIMENOrdering Facility: [facility] Address: [address] [place] [address] Performed By: #### 5 8410-2 ####VAL[facility]INE LABORATORYCLIA [id number] [address] [place] Nucleated RBC (Bld) [#/Vol] 10*3/uL Normal <0.01 [facility] Comment on above: Order Comment: Speci men Type: BLOOD SPECIMENOrdering Facility: [facility] Address: [address] [place] [address] Performed By: #### 5 8410-2 ####VAL[facility]INE LABORATORYCLIA [id number] [place] [address] [place] Platelet mean volume (Bld) [Entitic vol] 8.7 fL Low 9.0-12.7 [facility] Comment on above: Order Comment: Speci men Type: BLOOD SPECIMENOrdering Facility: [facility] Address: [address] [place] [address] Performed By: #### 5 8410-2 ####[facility] LABORATORYCLIA [id number] [address] [place] Platelets (Bld) [#/Vol] 269 10*3/uL Normal 150-400 [facility] Comment on above: Order Comment: Speci men Type: BLOOD SPECIMENOrdering Facility: [facility] Address: [address] [place] [address] Performed By: #### 5 8410-2 ####VAL[facility]INE LABORATORYCLIA [id number] [address] [place] RBC (Bld) [#/Vol] 3.66 10*6/uL Low 4.20-6.00 [facility] Comment on above: Order Comment: Speci men Type: BLOOD SPECIMENOrdering Facility: [facility] Address: [address] [place] [address] Performed By: #### 5 8410-2 ####VAL[facility]INE LABORATORYCLIA [id number] [address] [place] WBC (Bld) [#/Vol] 8.89 10*3/uL Normal 3.70-11.00 [facility] Comment on above: Order Comment: Speci men Type: BLOOD SPECIMENOrdering Facility: [facility] Address: [address] [place] [address] Performed By: #### 5 8410-2 ####[facility] LABORATORYCLIA [id number] [place] [address] [place] CONSULT PROGon 07-28-2024 CONSULT PROG Normal [facility] Magnesium SerPl-mCncon 07-28 Magnesium [Mass/Vol] 1.7 mg/dL Normal 1.7-2.3 [facility] Comment on above: Order Comment: Speci men Type: BLOOD SPECIMENOrdering Facility: [facility] Address: [address] [place] [address] Performed By: #### 2 4321-2, 76972-2, 2777-1 ####[facility] LABORATORYCLIA [id number] [place] [address] [place] Phosphate SerPl-mCncon 07-28 Phosphate [Mass/Vol] 3.6 mg/dL Normal 2.7-4.8 [facility] Comment on above: Order Comment: Speci men Type: BLOOD SPECIMENOrdering Facility: [facility] Address: [address] [place] [address] Performed By: #### 2 4321-2, 21188-1, 2777-1 ####[facility] LABORATORYCLIA [id number] [place] [address] [place] Sodium SerPl-sCncon 07-29-19 25 Sodium [Moles/Vol] 120 mmol/L Low 136-144 [facility] Comment on above: Order Comment: Speci men Type: BLOOD SPECIMENOrdering Facility: [facility] Address: [address] [place], [place] [address] Performed By: #### 2 951-2 ####[facility] LABORATORYCLIA [id number] [place] [id number] [place] 25(OH)D3 SerPl-mCncon 2024 25-hydroxyvitamin D3 [Mass/Vol] 27.2 ng/mL Low 31.0-80.0 [facility] Comment on above: Order Comment: Speci men Type: BLOOD SPECIMENOrdering Facility: [facility] Address: [address] [place] [address] Performed By: #### 1 989-3 ####[facility] LABCLIA [id number] [address] [address] [place] Basic metabolic 2000 panelon 07-27-2024 Anion gap [Moles/Vol] 13 mmol/L Normal 8-15 [facility] Comment on above: Order Comment: Speci men Type: BLOOD SPECIMENOrdering Facility: [facility] Address: [address] [place] [address] Performed By: #### 2 4321-2 ####VAL[facility] LABORATORYCLIA [id number] [place] [address] [place] Calcium [Mass/Vol] 8.4 mg/dL Low 8.5-10.2 [facility] Comment on above: Order Comment: Speci men Type: BLOOD SPECIMENOrdering Facility: [facility] Address: [address] [place] [address] Performed By: #### 2 4321-2 ####VAL[facility] LABORATORYCLIA [id number] [place] [address] [place] Chloride [Moles/Vol] 85 mmol/L Low 98-107 [facility] Comment on above: Order Comment: Speci men Type: BLOOD SPECIMENOrdering Facility: [facility] Address: [address] [place] [address] Performed By: #### 2 4321-2 ####VAL[facility] LABORATORYCLIA [id number] [place] [address] [place] CO2 [Moles/Vol] 23 mmol/L Normal 22-30 [facility] Comment on above: Order Comment: Speci men Type: BLOOD SPECIMENOrdering Facility: [facility] Address: [address] [place] [address] Performed By: #### 2 4321-2 ####VAL[facility] LABORATORYCLIA [id number] [place] [address] [place] Creatinine [Mass/Vol] 0.72 mg/dL Low 0.73-1.22 [facility] Comment on above: Order Comment: Speci men Type: BLOOD SPECIMENOrdering Facility: [facility] Address: [address] [place] [address] Performed By: #### 2 4321-2 ####[facility] LABORATORYCLIA [id number] [place] [address] [place] Creatinine and Glomerular filtration rate.predicted panel (S/P/Bld) 107 mL/min/1.73m??? Normal >=60 [facility] Comment on above: Order Comment: Ankur blancas Type: BLOOD SPECIMENOrdering Facility: [facility] Address: [address] [place] [address] Result Comment: Lola mated Glomerular Filtration Rate (eGFR) is calculated using the 2020 CKD-EPI creatinine equation. This equation utilizes serum creatinine, sex, and age as parameters. The creatinine assay has traceable calibration to isotope dilution-mass spectrometry. Refer to KDIGO guidelines for clinical interpretation. In patients with unstable renal function, e.g. those with acute kidney injury, the eGFR may not accurately reflect actual GFR. Performed By: #### 2 4321-2 ####[facility] LABORATORYCLIA [id number] [place] [id number] [place] Glucose [Mass/Vol] 124 mg/dL High 74-99 [facility] Comment on above: Order Comment: Ankur blancas Type: BLOOD SPECIMENOrdering Facility: [facility] Address: [address] [place] [address] Result Comment: The [place] Diabetes [employer] (ADA) provides guidance for cutoff values for fasting glucose and random glucose. The ADA defines fasting as no caloric intake for at least 8 hours. Fasting plasma glucose results between 100 to 125 mg/dL indicate increased risk for diabetes (prediabetes).Fasting plasma glucose results greater than or equal to 126 mg/dL meet the criteria for diagnosis of diabetes. In the absence of unequivocal hyperglycemia, results should be confirmed by repeat testing. In a patient with classic symptoms of hyperglycemia or hyperglycemic crisis, random plasma glucose results greater than or equal to 200 mg/dL meet the criteria for diagnosis of diabetes.Reference: Standards of Medical Care in Diabetes 2016, [place] [employer]. Diabetes Care. 2016.39(Suppl 1). Performed By: #### 2 4321-2 ####[facility] LABORATORYCLIA [id number] [place] [address] [place] Potassium [Moles/Vol] 3.7 mmol/L Normal 3.7-5.1 [facility] Comment on above: Order Comment: Speci men Type: BLOOD SPECIMENOrdering Facility: [facility] Address: [address] [place] [address] Performed By: #### 2 4321-2 ####VAL[facility]INE LABORATORYCLIA [id number] [place] [address] [place] Sodium [Moles/Vol] 121 mmol/L Low 136-144 [facility] Comment on above: Order Comment: Speci men Type: BLOOD SPECIMENOrdering Facility: [facility] Address: [address] [place] [address] Performed By: #### 2 4321-2 ####VAL[facility]INE LABORATORYCLIA [id number] [place] [address] [place] Urea nitrogen [Mass/Vol] 15 mg/dL Normal 9-24 [facility] Comment on above: Order Comment: Speci men Type: BLOOD SPECIMENOrdering Facility: [facility] Address: [address] [place] [address] Performed By: #### 2 4321-2 ####VAL[facility]INE LABORATORYCLIA [id number] [place] [address] [place] Anion gap [Moles/Vol] 13 mmol/L Normal 8-15 [facility] Comment on above: Order Comment: Speci men Type: BLOOD SPECIMENOrdering Facility: [facility] Address: [address] [place] [address] Performed By: #### 2 4321-2 ####VALENTINE LABORATORYCLIA [id number] [place] [address] [place] Calcium [Mass/Vol] 8.8 mg/dL Normal 8.5-10.2 [facility] Comment on above: Order Comment: Speci men Type: BLOOD SPECIMENOrdering Facility: [facility] Address: [address] [place] [address] Performed By: #### 2 4321-2 ####VAL[facility]INE LABORATORYCLIA [id number] [place] [address] [place] Chloride [Moles/Vol] 85 mmol/L Low 98-107 [facility] Comment on above: Order Comment: Speci men Type: BLOOD SPECIMENOrdering Facility: [facility] Address: [address] [place] [address] Performed By: #### 2 4321-2 ####VALENTINE LABORATORYCLIA [id number] [place] [address] [place] CO2 [Moles/Vol] 23 mmol/L Normal 22-30 [facility] Comment on above: Order Comment: Speci men Type: BLOOD SPECIMENOrdering Facility: [facility] Address: [address] [place] [address] Performed By: #### 2 4321-2 ####VALENTINE LABORATORYCLIA [id number] [address] STATES OF [facility] Creatinine [Mass/Vol] 0.74 mg/dL Normal 0.73-1.22 [facility] Comment on above: Order Comment: Speci men Type: BLOOD SPECIMENOrdering Facility: [facility] Address: [address] [place] [address] Performed By: #### 2 4321-2 ####VAL[facility]INE LABORATORYCLIA [id number] [address] Creatinine and Glomerular filtration rate.predicted panel (S/P/Bld) 106 mL/min/1.73m??? Normal >=60 [facility] Comment on above: Order Comment: Speci men Type: BLOOD SPECIMENOrdering Facility: [facility] Address: [address] [place] [address] Result Comment: Lola mated Glomerular Filtration Rate (eGFR) is calculated using the 2020 CKD-EPI creatinine equation. This equation utilizes serum creatinine, sex, and age as parameters. The creatinine assay has traceable calibration to isotope dilution-mass spectrometry. Refer to KDIGO guidelines for clinical interpretation. In patients with unstable renal function, e.g. those with acute kidney injury, the eGFR may not accurately reflect actual GFR. Performed By: #### 2 4321-2 ####VALENTINE LABORATORYCLIA [id number] [address] [place] Glucose [Mass/Vol] 121 mg/dL High 74-99 [facility] Comment on above: Order Comment: Speci men Type: BLOOD SPECIMENOrdering Facility: [facility] Address: [address] [place] [address] Result Comment: The [place] Diabetes [employer] (ADA) provides guidance for cutoff values for fasting glucose and random glucose. The ADA defines fasting as no caloric intake for at least 8 hours. Fasting plasma glucose results between 100 to 125 mg/dL indicate increased risk for diabetes (prediabetes).Fasting plasma glucose results greater than or equal to 126 mg/dL meet the criteria for diagnosis of diabetes. In the absence of unequivocal hyperglycemia, results should be confirmed by repeat testing. In a patient with classic symptoms of hyperglycemia or hyperglycemic crisis, random plasma glucose results greater than or equal to 200 mg/dL meet the criteria for diagnosis of diabetes.Reference: Standards of Medical Care in Diabetes 2016, [place] [employer]. Diabetes Care. 2016.39(Suppl 1). Performed By: #### 2 4321-2 ####VALENTINE LABORATORYCLIA [id number] [place] [address] [place] Potassium [Moles/Vol] 4.1 mmol/L Normal 3.7-5.1 [facility] Comment on above: Order Comment: Speci men Type: BLOOD SPECIMENOrdering Facility: [facility] Address: [address] [place] [address] Performed By: #### 2 4321-2 ####VALENTINE LABORATORYCLIA [id number] [place] [address] [place] Sodium [Moles/Vol] 121 mmol/L Low 136-144 [facility] Comment on above: Order Comment: Speci men Type: BLOOD SPECIMENOrdering Facility: [facility] Address: [address] [place] [address] Performed By: #### 2 4321-2 ####VAL[facility]INE LABORATORYCLIA [id number] [place] [address] [place] Urea nitrogen [Mass/Vol] 15 mg/dL Normal 9-24 [facility] Comment on above: Order Comment: Speci men Type: BLOOD SPECIMENOrdering Facility: [facility] Address: [address] [place] [address] Performed By: #### 2 4321-2 ####VAL[facility]INE LABORATORYCLIA [id number] [place] [address] [place] Anion gap [Moles/Vol] 10 mmol/L Normal 8-15 [facility] Comment on above: Order Comment: Speci men Type: BLOOD SPECIMENOrdering Facility: [facility] Address: [address] [place] [address] Performed By: #### 2 4321-2 ####VAL[facility] LABORATORYCLIA [id number] [place] [address] [place] Calcium [Mass/Vol] 8.7 mg/dL Normal 8.5-10.2 [facility] Comment on above: Order Comment: Speci men Type: BLOOD SPECIMENOrdering Facility: [facility] Address: [address] [place] [address] Performed By: #### 2 4321-2 ####[facility] LABORATORYCLIA [id number] [place] [address] [place] Chloride [Moles/Vol] 86 mmol/L Low 98-107 [facility] Comment on above: Order Comment: Speci men Type: BLOOD SPECIMENOrdering Facility: [facility] Address: [address] [place] [address] Performed By: #### 2 4321-2 ####VALENTNIE LABORATORYCLIA [id number] [place] [address] [place] CO2 [Moles/Vol] 25 mmol/L Normal 22-30 [facility] Comment on above: Order Comment: Speci men Type: BLOOD SPECIMENOrdering Facility: [facility] Address: [address] [place] [address] Performed By: #### 2 4321-2 ####VALENTINE LABORATORYCLIA [id number] [place] [address] [place] Creatinine [Mass/Vol] 0.75 mg/dL Normal 0.73-1.22 [facility] Comment on above: Order Comment: Speci men Type: BLOOD SPECIMENOrdering Facility: [facility] Address: [address] [place] [address] Performed By: #### 2 4321-2 ####VALENTINE LABORATORYCLIA [id number] [place] [address] [place] Creatinine and Glomerular filtration rate.predicted panel (S/P/Bld) 105 mL/min/1.73m??? Normal >=60 [facility] Comment on above: Order Comment: Ankur blancas Type: BLOOD SPECIMENOrdering Facility: [facility] Address: [address] [place] [address] Result Comment: Lola mated Glomerular Filtration Rate (eGFR) is calculated using the 2020 CKD-EPI creatinine equation. This equation utilizes serum creatinine, sex, and age as parameters. The creatinine assay has traceable calibration to isotope dilution-mass spectrometry. Refer to KDIGO guidelines for clinical interpretation. In patients with unstable renal function, e.g. those with acute kidney injury, the eGFR may not accurately reflect actual GFR. Performed By: #### 2 4321-2 ####[facility] LABORATORYCLIA [id number] [place] [address] [place] Glucose [Mass/Vol] 104 mg/dL High 74-99 [facility] Comment on above: Order Comment: Ankur blancas Type: BLOOD SPECIMENOrdering Facility: [facility] Address: [address] [place] [address] Result Comment: The [place] Diabetes [employer] (ADA) provides guidance for cutoff values for fasting glucose and random glucose. The ADA defines fasting as no caloric intake for at least 8 hours. Fasting plasma glucose results between 100 to 125 mg/dL indicate increased risk for diabetes (prediabetes).Fasting plasma glucose results greater than or equal to 126 mg/dL meet the criteria for diagnosis of diabetes. In the absence of unequivocal hyperglycemia, results should be confirmed by repeat testing. In a patient with classic symptoms of hyperglycemia or hyperglycemic crisis, random plasma glucose results greater than or equal to 200 mg/dL meet the criteria for diagnosis of diabetes.Reference: Standards of Medical Care in Diabetes 2016, [place] [employer]. Diabetes Care. 2016.39(Suppl 1). Performed By: #### 2 4321-2 ####[facility] LABORATORYCLIA [id number] [place] [id number] [place] Potassium [Moles/Vol] 3.8 mmol/L Normal 3.7-5.1 [facility] Comment on above: Order Comment: Ankur blancas Type: BLOOD SPECIMENOrdering Facility: [facility] Address: [address] [place] [address] Performed By: #### 2 4321-2 ####[facility] LABORATORYCLIA [id number] [place] [address] [place] Sodium [Moles/Vol] 121 mmol/L Low 136-144 [facility] Comment on above: Order Comment: Speci men Type: BLOOD SPECIMENOrdering Facility: [facility] Address: [address] [place] [address] Performed By: #### 2 4321-2 ####[facility] LABORATORYCLIA [id number] [place] [address] [place] Urea nitrogen [Mass/Vol] 16 mg/dL Normal 9-24 [facility] Comment on above: Order Comment: Speci men Type: BLOOD SPECIMENOrdering Facility: [facility] Address: [address] [place] [address] Performed By: #### 2 4321-2 ####[facility] LABORATORYCLIA [id number] [place] [address] [place] Calcium [Mass/Vol] 9.2 mg/dL Normal 8.5-10.2 [facility] Comment on above: Order Comment: Speci men Type: BLOOD SPECIMENOrdering Facility: [facility] Address: [address] [place] [address] Performed By: #### 2 4321-2 ####[facility] LABORATORYCLIA [id number] [place] [address] [place] Chloride [Moles/Vol] 83 mmol/L Low 98-107 [facility] Comment on above: Order Comment: Speci men Type: BLOOD SPECIMENOrdering Facility: [facility] Address: [address] [place] [address] Performed By: #### 2 4321-2 ####[facility] LABORATORYCLIA [id number] [place] [address] [place] CO2 [Moles/Vol] 24 mmol/L Normal 22-30 [facility] Comment on above: Order Comment: Speci men Type: BLOOD SPECIMENOrdering Facility: [facility] Address: [address] [place] [address] Performed By: #### 2 4321-2 ####[facility] LABORATORYCLIA [id number] [place] [id number] [place] Glucose [Mass/Vol] 108 mg/dL High 74-99 [facility] Comment on above: Order Comment: Ankur blancas Type: BLOOD SPECIMENOrdering Facility: [facility] Address: [address] [place] [address] Result Comment: The [place] Diabetes [employer] (ADA) provides guidance for cutoff values for fasting glucose and random glucose. The ADA defines fasting as no caloric intake for at least 8 hours. Fasting plasma glucose results between 100 to 125 mg/dL indicate increased risk for diabetes (prediabetes).Fasting plasma glucose results greater than or equal to 126 mg/dL meet the criteria for diagnosis of diabetes. In the absence of unequivocal hyperglycemia, results should be confirmed by repeat testing. In a patient with classic symptoms of hyperglycemia or hyperglycemic crisis, random plasma glucose results greater than or equal to 200 mg/dL meet the criteria for diagnosis of diabetes.Reference: Standards of Medical Care in Diabetes 2016, [place] [employer]. Diabetes Care. 2016.39(Suppl 1). Performed By: #### 2 4321-2 ####[facility] LABORATORYCLIA [id number] [place] [id number] [place] Potassium [Moles/Vol] 4.0 mmol/L Normal 3.7-5.1 [facility] Comment on above: Order Comment: Ankur blancas Type: BLOOD SPECIMENOrdering Facility: [facility] Address: [address] [place] [address] Performed By: #### 2 4321-2 ####[facility] LABORATORYCLIA [id number] [place] [id number] [place] Sodium [Moles/Vol] 120 mmol/L Low 136-144 [facility] Comment on above: Order Comment: Ankur blancas Type: BLOOD SPECIMENOrdering Facility: [facility] Address: [address] [place] [address] Performed By: #### 2 4321-2 ####[facility] LABORATORYCLIA [id number] [place] [id number] [place] Urea nitrogen [Mass/Vol] 14 mg/dL Normal 9-24 [facility] Comment on above: Order Comment: Speci men Type: BLOOD SPECIMENOrdering Facility: [facility] Address: [address] [place] [address] Performed By: #### 2 4321-2 ####[facility] LABORATORYCLIA [id number] [address] CBC panel Auto (Bld)on 07-27 Erythrocyte distribution width (RBC) [Ratio] 11.0 % Low 11.5-15.0 [facility] Comment on above: Order Comment: Speci men Type: BLOOD SPECIMENOrdering Facility: [facility] Address: [address] [place] [address] Performed By: #### 5 8410-2 ####[facility] LABORATORYCLIA [id number] [address] Hematocrit (Bld) [Volume fraction] 34.2 % Low 39.0-51.0 [facility] Comment on above: Order Comment: Speci men Type: BLOOD SPECIMENOrdering Facility: [facility] Address: [address] [place] [address] Performed By: #### 5 8410-2 ####[facility] LABORATORYCLIA [id number] [address] [place] Hemoglobin (Bld) [Mass/Vol] 12.5 g/dL Low 13.0-17.0 [facility] Comment on above: Order Comment: Speci men Type: BLOOD SPECIMENOrdering Facility: [facility] Address: [address] [place] [address] Performed By: #### 5 8410-2 ####[facility] LABORATORYCLIA [id number] [address] MCH (RBC) [Entitic mass] 32.0 pg Normal 26.0-34.0 [facility] Comment on above: Order Comment: Speci men Type: BLOOD SPECIMENOrdering Facility: [facility] Address: [address] [place] [address] Performed By: #### 5 8410-2 ####[facility] LABORATORYCLIA [id number] [address] [place] MCHC (RBC) [Mass/Vol] 36.5 g/dL High 30.5-36.0 [facility] Comment on above: Order Comment: Speci men Type: BLOOD SPECIMENOrdering Facility: [facility] Address: [address] [place] [address] Performed By: #### 5 8410-2 ####[facility] LABORATORYCLIA [id number] [address] MCV (RBC) [Entitic vol] 87.5 fL Normal 80.0-100.0 [facility] Comment on above: Order Comment: Speci men Type: BLOOD SPECIMENOrdering Facility: [facility] Address: [address] [place] [address] Performed By: #### 5 8410-2 ####[facility] LABORATORYCLIA [id number] [address] Nucleated RBC (Bld) [#/Vol] 10*3/uL Normal <0.01 [facility] Comment on above: Order Comment: Speci men Type: BLOOD SPECIMENOrdering Facility: [facility] Address: [address] [place] [address] Performed By: #### 5 8410-2 ####[facility] LABORATORYCLIA [id number] [address] Platelet mean volume (Bld) [Entitic vol] 8.8 fL Low 9.0-12.7 [facility] Comment on above: Order Comment: Speci men Type: BLOOD SPECIMENOrdering Facility: [facility] Address: [address] [place] [address] Performed By: #### 5 8410-2 ####[facility] LABORATORYCLIA [id number] [address] Platelets (Bld) [#/Vol] 298 10*3/uL Normal 150-400 [facility] Comment on above: Order Comment: Speci men Type: BLOOD SPECIMENOrdering Facility: [facility] Address: [address] [place] [address] Performed By: #### 5 8410-2 ####[facility] LABORATORYCLIA [id number] [place] [address] [place] RBC (Bld) [#/Vol] 3.91 10*6/uL Low 4.20-6.00 [facility] Comment on above: Order Comment: Speci men Type: BLOOD SPECIMENOrdering Facility: [facility] Address: [address] [place] [address] Performed By: #### 5 8410-2 ####[facility] LABORATORYCLIA [id number] [place] [id number] [place] WBC (Bld) [#/Vol] 9.09 10*3/uL Normal 3.70-11.00 [facility] Comment on above: Order Comment: Speci men Type: BLOOD SPECIMENOrdering Facility: [facility] Address: [address] [place] [address] Performed By: #### 5 8410-2 ####[facility] LABORATORYCLIA [id number] [address] OF [facility] CONSULT PROGon 07-27-2024 CONSULT PROG Normal [facility] Magnesium SerPl-mCncon 07-27 Magnesium [Mass/Vol] 1.9 mg/dL Normal 1.7-2.3 [facility] Comment on above: Order Comment: Speci men Type: BLOOD SPECIMENOrdering Facility: [facility] Address: [address] [place] [address] Performed By: #### 1 9123-9, 2777-1 ####[facility] LABORATORYCLIA [id number] [place] [address] [place] Osmolality Uron 07-27-2024 Osmolality (U) [Osmolality] 354 mosm/kg Normal 50-1200 [facility] Comment on above: Order Comment: Speci men Type: URINE SPECIMENOrdering Facility: [facility] Address: [address] [place] [address] Performed By: #### 2 695-5 ####[facility] LABCLIA [id number] [place] [address] [place] Phosphate SerPl-mCncon 07-27 Phosphate [Mass/Vol] 2.2 mg/dL Low 2.7-4.8 [facility] Comment on above: Order Comment: Speci men Type: BLOOD SPECIMENOrdering Facility: [facility] Address: [address] [place] [address] Performed By: #### 1 9123-9, 2777-1 ####[facility] LABORATORYCLIA [id number] [address] OF [place] URINALYSIS, REFLEX MICROSCOP ICon 07-27-2024 Bilirubin Ql (U) Negative Normal Negative [facility] Comment on above: Order Comment: Speci men Type: URINE SPECIMENOrdering Facility: [facility] Address: [address] [place] [address] Performed By: #### L [id number] ####[facility] LABORATORYCLIA [id number] [address] Clarity (Unsp spec) Clear Normal Clear [facility] Comment on above: Order Comment: Speci men Type: URINE SPECIMENOrdering Facility: [facility] Address: [address] [place] [address] Performed By: #### L [id number] ####[facility] LABORATORYCLIA [id number] [address] Color (U) Yellow Normal Yellow [facility] Comment on above: Order Comment: Speci men Type: URINE SPECIMENOrdering Facility: [facility] Address: [address] [place] [address] Performed By: #### L [id number] ####[facility] LABORATORYCLIA [id number] [address] Glucose Test strip (U) [Mass/Vol] Negative Normal Negative [facility] Comment on above: Order Comment: Speci men Type: URINE SPECIMENOrdering Facility: [facility] Address: [address] [place] [address] Performed By: #### L [id number] ####[facility] LABORATORYCLIA [id number] [address] OF [place] Hemoglobin Ql (U) Negative Normal Negative [facility] Comment on above: Order Comment: Speci men Type: URINE SPECIMENOrdering Facility: [facility] Address: [address] [place] [address] Performed By: #### L [id number] ####[facility] LABORATORYCLIA [id number] [address] Ketones Ql (U) Negative Normal Negative [facility] Comment on above: Order Comment: Speci men Type: URINE SPECIMENOrdering Facility: [facility] Address: [address] [place] [address] Performed By: #### L [id number] ####[facility] LABORATORYCLIA [id number] [address] [place] Leukocyte esterase Test strip Ql (U) Negative Normal Negative [facility] Comment on above: Order Comment: Speci men Type: URINE SPECIMENOrdering Facility: [facility] Address: [address] [place] [address] Performed By: #### L [id number] ####[facility] LABORATORYCLIA [id number] [place] [address] [place] Nitrite Ql (U) Negative Normal Negative [facility] Comment on above: Order Comment: Speci men Type: URINE SPECIMENOrdering Facility: [facility] Address: [address] [place] [address] Performed By: #### L [id number] ####[facility] LABORATORYCLIA [id number] [address] [place] pH (U) 7.5 [pH] Normal 5.0-8.0 [facility] Comment on above: Order Comment: Speci men Type: URINE SPECIMENOrdering Facility: [facility] Address: [address] [place] [address] Performed By: #### L [id number] ####[facility] LABORATORYCLIA [id number] [address] Protein (U) [Mass/Vol] Negative Normal Negative [facility] Comment on above: Order Comment: Speci men Type: URINE SPECIMENOrdering Facility: [facility] Address: [address] [place] [address] Performed By: #### L [id number] ####[facility] LABORATORYCLIA [id number] [address] [place] Specific gravity (U) [Rel density] 1.010 Normal 1.005-1.030 [facility] Comment on above: Order Comment: Speci men Type: URINE SPECIMENOrdering Facility: [facility] Address: [address] [place] [address] Performed By: #### L [id number] ####[facility] LABORATORYCLIA [id number] [place] [id number] [place] Urobilinogen Ql (U) 0.2 EU/dL Normal 0.2-1.0 EU/dL [facility] Comment on above: Order Comment: Speci men Type: URINE SPECIMENOrdering Facility: [facility] Address: [address] [place] [address] Performed By: #### L [id number] ####[facility] LABORATORYCLIA [id number] [place] [id number] [place] ALLIED HEALTHon 07-26-2024 ALLIED HEALTH Normal [facility] Basic metabolic 2000 panelon 07-26-2024 Anion gap [Moles/Vol] 11 mmol/L Normal 8-15 [facility] Comment on above: Order Comment: Speci men Type: BLOOD SPECIMENOrdering Facility: [facility] Address: [address] [place] [address] Performed By: #### 2 4321-2 ####[facility] LABORATORYCLIA [id number] [place] [address] [place] Calcium [Mass/Vol] 8.8 mg/dL Normal 8.5-10.2 [facility] Comment on above: Order Comment: Speci men Type: BLOOD SPECIMENOrdering Facility: [facility] Address: [address] [place] [address] Performed By: #### 2 4321-2 ####[facility] LABORATORYCLIA [id number] [place] [address] [place] Chloride [Moles/Vol] 82 mmol/L Low 98-107 [facility] Comment on above: Order Comment: Speci men Type: BLOOD SPECIMENOrdering Facility: [facility] Address: [address] [place] [address] Performed By: #### 2 4321-2 ####[facility] LABORATORYCLIA [id number] [place] [id number] [place] CO2 [Moles/Vol] 24 mmol/L Normal 22-30 [facility] Comment on above: Order Comment: Ankur blancas Type: BLOOD SPECIMENOrdering Facility: [facility] Address: [address] [place] [address] Performed By: #### 2 4321-2 ####[facility] LABORATORYCLIA [id number] [address] STATES OF [facility] Creatinine [Mass/Vol] 0.67 mg/dL Low 0.73-1.22 [facility] Comment on above: Order Comment: Ankur blancas Type: BLOOD SPECIMENOrdering Facility: [facility] Address: [address] [place] [address] Performed By: #### 2 4321-2 ####[facility] LABORATORYCLIA [id number] [address] Creatinine and Glomerular filtration rate.predicted panel (S/P/Bld) 109 mL/min/1.73m??? Normal >=60 [facility] Comment on above: Order Comment: Ankur blancas Type: BLOOD SPECIMENOrdering Facility: [facility] Address: [address] [place] [address] Result Comment: Lola mated Glomerular Filtration Rate (eGFR) is calculated using the 2020 CKD-EPI creatinine equation. This equation utilizes serum creatinine, sex, and age as parameters. The creatinine assay has traceable calibration to isotope dilution-mass spectrometry. Refer to KDIGO guidelines for clinical interpretation. In patients with unstable renal function, e.g. those with acute kidney injury, the eGFR may not accurately reflect actual GFR. Performed By: #### 2 4321-2 ####[facility] LABORATORYCLIA [id number] [address] STATES OF [facility] Glucose [Mass/Vol] 115 mg/dL High 74-99 [facility] Comment on above: Order Comment: Ankur blancas Type: BLOOD SPECIMENOrdering Facility: [facility] Address: [address] [place] [address] Result Comment: The [place] [employer] (ADA) provides guidance for cutoff values for fasting glucose and random glucose. The ADA defines fasting as no caloric intake for at least 8 hours. Fasting plasma glucose results between 100 to 125 mg/dL indicate increased risk for diabetes (prediabetes).Fasting plasma glucose results greater than or equal to 126 mg/dL meet the criteria for diagnosis of diabetes. In the absence of unequivocal hyperglycemia, results should be confirmed by repeat testing. In a patient with classic symptoms of hyperglycemia or hyperglycemic crisis, random plasma glucose results greater than or equal to 200 mg/dL meet the criteria for diagnosis of diabetes.Reference: Standards of Medical Care in Diabetes 2016, [place] [employer]. Diabetes Care. 2016.39(Suppl 1). Performed By: #### 2 4321-2 ####[facility] LABORATORYCLIA [id number] [place] [address] [place] Potassium [Moles/Vol] 4.0 mmol/L Normal 3.7-5.1 [facility] Comment on above: Order Comment: Ankur blancas Type: BLOOD SPECIMENOrdering Facility: [facility] Address: [address] [place] [address] Performed By: #### 2 4321-2 ####[facility] LABORATORYCLIA [id number] [place] [address] [place] Sodium [Moles/Vol] 117 mmol/L Low 136-144 [facility] Comment on above: Order Comment: Ankur blancas Type: BLOOD SPECIMENOrdering Facility: [facility] Address: [address] [place] [address] Performed By: #### 2 4321-2 ####[facility] LABORATORYCLIA [id number] [place] [address] [place] Urea nitrogen [Mass/Vol] 13 mg/dL Normal 9-24 [facility] Comment on above: Order Comment: Ankur blancas Type: BLOOD SPECIMENOrdering Facility: [facility] Address: [address] [place] [address] Performed By: #### 2 4321-2 ####[facility] LABORATORYCLIA [id number] [place] [address] [place] Anion gap [Moles/Vol] 13 mmol/L Normal 8-15 [facility] Comment on above: Order Comment: Speci men Type: BLOOD SPECIMENOrdering Facility: [facility] Address: [address] [facility] [place] [place] [address] Performed By: #### 2 4321-2 ####[facility] LABORATORYCLIA [id number] [place] [address] [place] Calcium [Mass/Vol] 8.7 mg/dL Normal 8.5-10.2 [facility] Comment on above: Order Comment: Speci men Type: BLOOD SPECIMENOrdering Facility: [facility] Address: [address] [place] [address] Performed By: #### 2 4321-2 ####[facility] LABORATORYCLIA [id number] [place] [address] [place] Chloride [Moles/Vol] 82 mmol/L Low 98-107 [facility] Comment on above: Order Comment: Speci men Type: BLOOD SPECIMENOrdering Facility: [facility] Address: [address] [place] [address] Performed By: #### 2 4321-2 ####[facility] LABORATORYCLIA [id number] [place] [address] [place] CO2 [Moles/Vol] 25 mmol/L Normal 22-30 [facility] Comment on above: Order Comment: Speci men Type: BLOOD SPECIMENOrdering Facility: [facility] Address: [address] [place] [address] Performed By: #### 2 4321-2 ####[facility] LABORATORYCLIA [id number] [place] [address] [place] Creatinine [Mass/Vol] 0.75 mg/dL Normal 0.73-1.22 [facility] Comment on above: Order Comment: Speci men Type: BLOOD SPECIMENOrdering Facility: [facility] Address: [address] [place] [address] Performed By: #### 2 4321-2 ####[facility] LABORATORYCLIA [id number] [place] [address] [place] Creatinine and Glomerular filtration rate.predicted panel (S/P/Bld) 105 mL/min/1.73m??? Normal >=60 [facility] Comment on above: Order Comment: Ankur blancas Type: BLOOD SPECIMENOrdering Facility: [facility] Address: [address] [place] [address] Result Comment: Lola mated Glomerular Filtration Rate (eGFR) is calculated using the 2020 CKD-EPI creatinine equation. This equation utilizes serum creatinine, sex, and age as parameters. The creatinine assay has traceable calibration to isotope dilution-mass spectrometry. Refer to KDIGO guidelines for clinical interpretation. In patients with unstable renal function, e.g. those with acute kidney injury, the eGFR may not accurately reflect actual GFR. Performed By: #### 2 4321-2 ####[facility] LABORATORYCLIA [id number] [place] [address] [place] Glucose [Mass/Vol] 105 mg/dL High 74-99 [facility] Comment on above: Order Comment: Ankur [facility] Type: BLOOD SPECIMENOrdering Facility: [facility] Address: [address] [place] [address] Result Comment: The [place] [employer] (ADA) provides guidance for cutoff values for fasting glucose and random glucose. The ADA defines fasting as no caloric intake for at least 8 hours. Fasting plasma glucose results between 100 to 125 mg/dL indicate increased risk for diabetes (prediabetes).Fasting plasma glucose results greater than or equal to 126 mg/dL meet the criteria for diagnosis of diabetes. In the absence of unequivocal hyperglycemia, results should be confirmed by repeat testing. In a patient with classic symptoms of hyperglycemia or hyperglycemic crisis, random plasma glucose results greater than or equal to 200 mg/dL meet the criteria for diagnosis of diabetes.Reference: Standards of Medical Care in Diabetes 2016, [place] [employer]. Diabetes Care. 2016.39(Suppl 1). Performed By: #### 2 4321-2 ####[facility] LABORATORYCLIA [id number] [place] [address] [place] Potassium [Moles/Vol] 3.7 mmol/L Normal 3.7-5.1 [facility] Comment on above: Order Comment: [facility] Type: BLOOD SPECIMENOrdering Facility: [facility] Address: [address] [place] [id number] Performed By: #### 2 4321-2 ####VAL[facility]INE LABORATORYCLIA [id number] [place] [address] [place] Sodium [Moles/Vol] 120 mmol/L Low 136-144 [facility] Comment on above: Order Comment: Speci men Type: BLOOD SPECIMENOrdering Facility: [facility] Address: [address] [place] [address] Performed By: #### 2 4321-2 ####[facility] LABORATORYCLIA [id number] [place] [address] [place] Urea nitrogen [Mass/Vol] 14 mg/dL Normal 9-24 [facility] Comment on above: Order Comment: Speci men Type: BLOOD SPECIMENOrdering Facility: [facility] Address: [address] [place] [address] Performed By: #### 2 4321-2 ####VALENTINE LABORATORYCLIA [id number] [place] [address] [place] Anion gap [Moles/Vol] 11 mmol/L Normal 8-15 [facility] Comment on above: Order Comment: Speci men Type: BLOOD SPECIMENOrdering Facility: [facility] Address: [address] [place] [address] Performed By: #### 2 4321-2 ####VALENTINE LABORATORYCLIA [id number] [place] [address] [place] Calcium [Mass/Vol] 8.4 mg/dL Low 8.5-10.2 [facility] Comment on above: Order Comment: Speci men Type: BLOOD SPECIMENOrdering Facility: [facility] Address: [address] [place] [address] Performed By: #### 2 4321-2 ####VALENTINE LABORATORYCLIA [id number] [place] [address] [place] Chloride [Moles/Vol] 80 mmol/L Low 98-107 [facility] Comment on above: Order Comment: Speci men Type: BLOOD SPECIMENOrdering Facility: [facility] Address: [address] [place] [address] Performed By: #### 2 4321-2 ####VALENTINE LABORATORYCLIA [id number] [address] CO2 [Moles/Vol] 25 mmol/L Normal 22-30 [facility] Comment on above: Order Comment: Ankur blancas Type: BLOOD SPECIMENOrdering Facility: [facility] Address: [address] [place] [address] Performed By: #### 2 4321-2 ####VALENTINE LABORATORYCLIA [id number] [address] [place] Creatinine [Mass/Vol] 0.68 mg/dL Low 0.73-1.22 [facility] Comment on above: Order Comment: Ankur magalis Type: BLOOD SPECIMENOrdering Facility: [facility] Address: [address] [place] [address] Performed By: #### 2 4321-2 ####VALENTINE LABORATORYCLIA [id number] [address] Creatinine and Glomerular filtration rate.predicted panel (S/P/Bld) 108 mL/min/1.73m??? Normal >=60 [facility] Comment on above: Order Comment: Ankur blancas Type: BLOOD SPECIMENOrdering Facility: [facility] Address: [address] [place] [address] Result Comment: Lola mated Glomerular Filtration Rate (eGFR) is calculated using the 2020 CKD-EPI creatinine equation. This equation utilizes serum creatinine, sex, and age as parameters. The creatinine assay has traceable calibration to isotope dilution-mass spectrometry. Refer to KDIGO guidelines for clinical interpretation. In patients with unstable renal function, e.g. those with acute kidney injury, the eGFR may not accurately reflect actual GFR. Performed By: #### 2 4321-2 ####VALENTINE LABORATORYCLIA [id number] [address] [place] Glucose [Mass/Vol] 123 mg/dL High 74-99 [facility] Comment on above: Order Comment: Ankur magalis Type: BLOOD SPECIMENOrdering Facility: [facility] Address: [address] [place] [address] Result Comment: The [place] Diabetes [employer] (ADA) provides guidance for cutoff values for fasting glucose and random glucose. The ADA defines fasting as no caloric intake for at least 8 hours. Fasting plasma glucose results between 100 to 125 mg/dL indicate increased risk for diabetes (prediabetes).Fasting plasma glucose results greater than or equal to 126 mg/dL meet the criteria for diagnosis of diabetes. In the absence of unequivocal hyperglycemia, results should be confirmed by repeat testing. In a patient with classic symptoms of hyperglycemia or hyperglycemic crisis, random plasma glucose results greater than or equal to 200 mg/dL meet the criteria for diagnosis of diabetes.Reference: Standards of Medical Care in Diabetes 2016, [place] [employer]. Diabetes Care. 2016.39(Suppl 1). Performed By: #### 2 4321-2 ####VALENTINE LABORATORYCLIA [id number] [place] [address] [place] Potassium [Moles/Vol] 3.8 mmol/L Normal 3.7-5.1 [facility] Comment on above: Order Comment: Ankur blancas Type: BLOOD SPECIMENOrdering Facility: [facility] Address: [address] [place] [address] Performed By: #### 2 4321-2 ####VALENTINE LABORATORYCLIA [id number] [place] [address] [place] Sodium [Moles/Vol] 116 mmol/L Low 136-144 [facility] Comment on above: Order Comment: Ankur blancas Type: BLOOD SPECIMENOrdering Facility: [facility] Address: [address] [place] [address] Performed By: #### 2 4321-2 ####VALENTINE LABORATORYCLIA [id number] [place] [address] [place] Urea nitrogen [Mass/Vol] 13 mg/dL Normal 9-24 [facility] Comment on above: Order Comment: Cedrici men Type: BLOOD SPECIMENOrdering Facility: [facility] Address: [address] [place] [address] Performed By: #### 2 4321-2 ####VALENTINE LABORATORYCLIA [id number] [address] [place] Anion gap [Moles/Vol] 13 mmol/L Normal 8-15 [facility] Comment on above: Order Comment: Cedrici men Type: BLOOD SPECIMENOrdering Facility: [facility] Address: [address] [place] [address] Performed By: #### 1 9123-9, 2771, 61700-4 ####VALENTINE LABORATORYCLIA [id number] [place] [address] [place] Calcium [Mass/Vol] 8.3 mg/dL Low 8.5-10.2 [facility] Comment on above: Order Comment: Speci men Type: BLOOD SPECIMENOrdering Facility: [facility] Address: [facility] [place] [address] Performed By: #### 1 9123-9, 27708-27, 56831-5 ####VALENTINE LABORATORYCLIA [id number] [place] [address] [place] Chloride [Moles/Vol] 84 mmol/L Low 98-107 [facility] Comment on above: Order Comment: Speci men Type: BLOOD SPECIMENOrdering Facility: [facility] Address: [facility] [place] [address] Performed By: #### 1 9123-9, 27708-27, 92687-0 ####VALENTINE LABORATORYCLIA [id number] [place] [address] [place] CO2 [Moles/Vol] 22 mmol/L Normal 22-30 [facility] Comment on above: Order Comment: Speci men Type: BLOOD SPECIMENOrdering Facility: [facility] Address: [facility] [place] [address] Performed By: #### 1 9123-9, 27708-27, 35505-3 ####VALENTINE LABORATORYCLIA [id number] [place] [address] [place] Creatinine [Mass/Vol] 0.75 mg/dL Normal 0.73-1.22 [facility] Comment on above: Order Comment: Speci men Type: BLOOD SPECIMENOrdering Facility: [facility] Address: [facility] [place] [address] Performed By: #### 1 9123-9, 27708-27, 99124-1 ####VALENTINE LABORATORYCLIA [id number] [place] [address] [place] Creatinine and Glomerular filtration rate.predicted panel (S/P/Bld) 105 mL/min/1.73m??? Normal >=60 [facility] Comment on above: Order Comment: Ankur blancas Type: BLOOD SPECIMENOrdering Facility: [facility] Address: [address] [place] [address] Result Comment: Lola mated Glomerular Filtration Rate (eGFR) is calculated using the 2020 CKD-EPI creatinine equation. This equation utilizes serum creatinine, sex, and age as parameters. The creatinine assay has traceable calibration to isotope dilution-mass spectrometry. Refer to KDIGO guidelines for clinical interpretation. In patients with unstable renal function, e.g. those with acute kidney injury, the eGFR may not accurately reflect actual GFR. Performed By: #### 1 9123-9, 2777-1, 18919-1 ####[facility] LABORATORYCLIA [id number] [place] [address] [place] Glucose [Mass/Vol] 111 mg/dL High 74-99 [facility] Comment on above: Order Comment: Ankur blancas Type: BLOOD SPECIMENOrdering Facility: [facility] Address: [address] [place] [address] Result Comment: The [place] Diabetes [employer] (ADA) provides guidance for cutoff values for fasting glucose and random glucose. The ADA defines fasting as no caloric intake for at least 8 hours. Fasting plasma glucose results between 100 to 125 mg/dL indicate increased risk for diabetes (prediabetes).Fasting plasma glucose results greater than or equal to 126 mg/dL meet the criteria for diagnosis of diabetes. In the absence of unequivocal hyperglycemia, results should be confirmed by repeat testing. In a patient with classic symptoms of hyperglycemia or hyperglycemic crisis, random plasma glucose results greater than or equal to 200 mg/dL meet the criteria for diagnosis of diabetes.Reference: Standards of Medical Care in Diabetes 2016, [place] [employer]. Diabetes Care. 2016.39(Suppl 1). Performed By: #### 1 9123-9, 2777-1, 71525-9 ####FRANKLIN LABORATORYCLIA [id number] [place] [address] [place] Potassium [Moles/Vol] 3.8 mmol/L Normal 3.7-5.1 [facility] Comment on above: Order Comment: Ankur blancas Type: BLOOD SPECIMENOrdering Facility: [facility] Address: [address] [place] [address] Performed By: #### 1 9123-9, 2777-1, 53121-7 ####VALENTINE LABORATORYCLIA [id number] [place] [address] [place] Sodium [Moles/Vol] 119 mmol/L Low 136-144 [facility] Comment on above: Order Comment: Speci men Type: BLOOD SPECIMENOrdering Facility: [facility] Address: [address] [place] [address] Performed By: #### 1 9123-9, 2777-, 73328-7 ####VALENTINE LABORATORYCLIA [id number] [place] [address] [place] Urea nitrogen [Mass/Vol] 14 mg/dL Normal 9-24 [facility] Comment on above: Order Comment: Speci men Type: BLOOD SPECIMENOrdering Facility: [facility] Address: [address] [place] [address] Performed By: #### 1 9123-9, 2777, 29812-6 ####VAL[facility]INE LABORATORYCLIA [id number] [address] [place] CASE MANAGEMon 07-26-2024 CASE MANAGEM Normal [facility] CBC panel Auto (Bld)on 07-26 Erythrocyte distribution width (RBC) [Ratio] 11.1 % Low 11.5-15.0 [facility] Comment on above: Order Comment: Speci men Type: BLOOD SPECIMENOrdering Facility: [facility] Address: [address] [place] [address] Performed By: #### 5 8410-2 ####VALENTINE LABORATORYCLIA [id number] [address] [place] Hematocrit (Bld) [Volume fraction] 33.3 % Low 39.0-51.0 [facility] Comment on above: Order Comment: Speci men Type: BLOOD SPECIMENOrdering Facility: [facility] Address: [address] [place] [address] Performed By: #### 5 8410-2 ####VALENTINE LABORATORYCLIA [id number] [address] Hemoglobin (Bld) [Mass/Vol] 11.9 g/dL Low 13.0-17.0 [facility] Comment on above: Order Comment: Speci men Type: BLOOD SPECIMENOrdering Facility: [facility] Address: [address] [place] [address] Performed By: #### 5 8410-2 ####VALENTINE LABORATORYCLIA [id number] [address] MCH (RBC) [Entitic mass] 31.6 pg Normal 26.0-34.0 [facility] Comment on above: Order Comment: Speci men Type: BLOOD SPECIMENOrdering Facility: [facility] Address: [address] [place] [address] Performed By: #### 5 8410-2 ####VALENTINE LABORATORYCLIA [id number] [address] MCHC (RBC) [Mass/Vol] 35.7 g/dL Normal 30.5-36.0 [facility] Comment on above: Order Comment: Speci men Type: BLOOD SPECIMENOrdering Facility: [facility] Address: [address] [place] [address] Performed By: #### 5 8410-2 ####VALENTINE LABORATORYCLIA [id number] [address] MCV (RBC) [Entitic vol] 88.3 fL Normal 80.0-100.0 [facility] Comment on above: Order Comment: Speci men Type: BLOOD SPECIMENOrdering Facility: [facility] Address: [address] [place] [address] Performed By: #### 5 8410-2 ####VALENTINE LABORATORYCLIA [id number] [address] Nucleated RBC (Bld) [#/Vol] 10*3/uL Normal <0.01 [facility] Comment on above: Order Comment: Speci men Type: BLOOD SPECIMENOrdering Facility: [facility] Address: [address] [place] [address] Performed By: #### 5 8410-2 ####VALENTINE LABORATORYCLIA [id number] [place] [address] [place] Platelet mean volume (Bld) [Entitic vol] 8.8 fL Low 9.0-12.7 [facility] Comment on above: Order Comment: Speci men Type: BLOOD SPECIMENOrdering Facility: [facility] Address: [address] [place] [address] Performed By: #### 5 8410-2 ####FRANKLIN LABORATORYCLIA [id number] [place] [address] [place] Platelets (Bld) [#/Vol] 240 10*3/uL Normal 150-400 [facility] Comment on above: Order Comment: Speci men Type: BLOOD SPECIMENOrdering Facility: [facility] Address: [address] [place] [address] Performed By: #### 5 8410-2 ####FRANKLIN LABORATORYCLIA [id number] [place] [address] [place] RBC (Bld) [#/Vol] 3.77 10*6/uL Low 4.20-6.00 [facility] Comment on above: Order Comment: Speci men Type: BLOOD SPECIMENOrdering Facility: [facility] Address: [address] [place] [address] Performed By: #### 5 8410-2 ####FRANKLIN LABORATORYCLIA [id number] [place] [address] [place] WBC (Bld) [#/Vol] 10.29 10*3/uL Normal 3.70-11.00 [facility] Comment on above: Order Comment: Speci men Type: BLOOD SPECIMENOrdering Facility: [facility] Address: [address] [place] [address] Performed By: #### 5 8410-2 ####FRANKLIN LABORATORYCLIA [id number] [address] [place] CONSULT PROGon 07-26-2024 CONSULT PROG [facility] CT ABD/PEL WO IVCONon 2024 CT ABD/PEL WO IVCON Normal [facility] CT CHEST WO IVCONon 07-27-19 CT CHEST WO IVCON Normal [facility] Magnesium SerPl-mCncon 07-26 Magnesium [Mass/Vol] 1.7 mg/dL Normal 1.7-2.3 [facility] Comment on above: Order Comment: Speci men Type: BLOOD SPECIMENOrdering Facility: [facility] Address: [address] [place] [address] Performed By: #### 1 9123-9, 2777-1, 41940-3 ####FRANKLIN LABORATORYCLIA [id number] [place] [address] [place] Phosphate SerPl-mCncon 07-26 Phosphate [Mass/Vol] 2.6 mg/dL Low 2.7-4.8 [facility] Comment on above: Order Comment: Speci men Type: BLOOD SPECIMENOrdering Facility: [facility] Address: [address] [place] [address] Performed By: #### 1 9123-9, 2777-1, 14477-7 ####FRANKLIN LABORATORYCLIA [id number] [place] [id number] [place] ALLIED HEALTHon 07-25-2024 ALLIED HEALTH Normal [facility] Basic metabolic 2000 panelon 07-25-2024 Anion gap [Moles/Vol] 11 mmol/L Normal 8-15 [facility] Comment on above: Order Comment: Speci men Type: BLOOD SPECIMENOrdering Facility: [facility] Address: [address] [place] [address] Performed By: #### 2 4321-2 ####FRANKLIN LABORATORYCLIA [id number] [place] [address] [place] Calcium [Mass/Vol] 8.6 mg/dL Normal 8.5-10.2 [facility] Comment on above: Order Comment: Speci men Type: BLOOD SPECIMENOrdering Facility: [facility] Address: [address] [place] [address] Performed By: #### 2 4321-2 ####FRANKLIN LABORATORYCLIA [id number] [place] [address] [place] Chloride [Moles/Vol] 87 mmol/L Low 98-107 [facility] Comment on above: Order Comment: Speci men Type: BLOOD SPECIMENOrdering Facility: [facility] Address: [address] [place] [address] Performed By: #### 2 4321-2 ####VALENTINE LABORATORYCLIA [id number] [place] [address] [place] CO2 [Moles/Vol] 24 mmol/L Normal 22-30 [facility] Comment on above: Order Comment: Speci men Type: BLOOD SPECIMENOrdering Facility: [facility] Address: [address] [place] [address] Performed By: #### 2 4321-2 ####VALENTINE LABORATORYCLIA [id number] [place] [address] [place] Creatinine [Mass/Vol] 0.76 mg/dL Normal 0.73-1.22 [facility] Comment on above: Order Comment: Speci men Type: BLOOD SPECIMENOrdering Facility: [facility] Address: [address] [place] [address] Performed By: #### 2 4321-2 ####VALENTINE LABORATORYCLIA [id number] [address] [place] Creatinine and Glomerular filtration rate.predicted panel (S/P/Bld) 105 mL/min/1.73m??? Normal >=60 [facility] Comment on above: Order Comment: Speci magalis Type: BLOOD SPECIMENOrdering Facility: [facility] Address: [address] [place] [address] Result Comment: Lola mated Glomerular Filtration Rate (eGFR) is calculated using the 2020 CKD-EPI creatinine equation. This equation utilizes serum creatinine, sex, and age as parameters. The creatinine assay has traceable calibration to isotope dilution-mass spectrometry. Refer to KDIGO guidelines for clinical interpretation. In patients with unstable renal function, e.g. those with acute kidney injury, the eGFR may not accurately reflect actual GFR. Performed By: #### 2 4321-2 ####VALENTINE LABORATORYCLIA [id number] [place] [id number] [place] Glucose [Mass/Vol] 113 mg/dL High 74-99 [facility] Comment on above: Order Comment: Ankur magalis Type: BLOOD SPECIMENOrdering Facility: [facility] Address: [address] [place] [address] Result Comment: The [place] [employer] (ADA) provides guidance for cutoff values for fasting glucose and random glucose. The ADA defines fasting as no caloric intake for at least 8 hours. Fasting plasma glucose results between 100 to 125 mg/dL indicate increased risk for diabetes (prediabetes).Fasting plasma glucose results greater than or equal to 126 mg/dL meet the criteria for diagnosis of diabetes. In the absence of unequivocal hyperglycemia, results should be confirmed by repeat testing. In a patient with classic symptoms of hyperglycemia or hyperglycemic crisis, random plasma glucose results greater than or equal to 200 mg/dL meet the criteria for diagnosis of diabetes.Reference: Standards of Medical Care in Diabetes 2016, [place] [employer]. Diabetes Care. 2016.39(Suppl 1). Performed By: #### 2 4321-2 ####VALENTINE LABORATORYCLIA [id number] [place] [address] [place] Potassium [Moles/Vol] 3.8 mmol/L Normal 3.7-5.1 [facility] Comment on above: Order Comment: Ankur [facility] Type: BLOOD SPECIMENOrdering Facility: [facility] Address: [address] [place] [address] Performed By: #### 2 4321-2 ####VALENTINE LABORATORYCLIA [id number] [place] [address] [place] Sodium [Moles/Vol] 122 mmol/L Low 136-144 [facility] Comment on above: Order Comment: Ankur men Type: BLOOD SPECIMENOrdering Facility: [facility] Address: [address] [place] [id number] Performed By: #### 2 4321-2 ####VALENTINE LABORATORYCLIA [id number] [place] [address] [place] Urea nitrogen [Mass/Vol] 16 mg/dL Normal 9-24 [facility] Comment on above: Order Comment: Ankur magalis Type: BLOOD SPECIMENOrdering Facility: [facility] Address: [address] [place] [id number] Performed By: #### 2 4321-2 ####VALENTINE LABORATORYCLIA [id number] [place] [address] [place] Anion gap [Moles/Vol] 15 mmol/L Normal 8-15 [facility] Comment on above: Order Comment: Speci men Type: BLOOD SPECIMENOrdering Facility: [facility] Address: [address] [place] [address] Performed By: #### 2 4321-2 ####VALENTINE LABORATORYCLIA [id number] [place] [address] [place] Calcium [Mass/Vol] 8.6 mg/dL Normal 8.5-10.2 [facility] Comment on above: Order Comment: Speci men Type: BLOOD SPECIMENOrdering Facility: [facility] Address: [address] [place] [address] Performed By: #### 2 4321-2 ####VALENTINE LABORATORYCLIA [id number] [place] [address] [place] Chloride [Moles/Vol] 86 mmol/L Low 98-107 [facility] Comment on above: Order Comment: Speci men Type: BLOOD SPECIMENOrdering Facility: [facility] Address: [address] [place] [address] Performed By: #### 2 4321-2 ####VALENTINE LABORATORYCLIA [id number] [place] [address] [place] CO2 [Moles/Vol] 20 mmol/L Low 22-30 [facility] Comment on above: Order Comment: Speci men Type: BLOOD SPECIMENOrdering Facility: [facility] Address: [address] [place] [address] Performed By: #### 2 4321-2 ####VALENTINE LABORATORYCLIA [id number] [place] [address] [place] Creatinine [Mass/Vol] 0.74 mg/dL Normal 0.73-1.22 [facility] Comment on above: Order Comment: Speci men Type: BLOOD SPECIMENOrdering Facility: [facility] Address: [address] [place] [address] Performed By: #### 2 4321-2 ####VALENTINE LABORATORYCLIA [id number] [place] [id number] [place] Creatinine and Glomerular filtration rate.predicted panel (S/P/Bld) 106 mL/min/1.73m??? Normal >=60 [facility] Comment on above: Order Comment: Ankur blancas Type: BLOOD SPECIMENOrdering Facility: [facility] Address: [address] [place] [address] Result Comment: Lola mated Glomerular Filtration Rate (eGFR) is calculated using the 2020 CKD-EPI creatinine equation. This equation utilizes serum creatinine, sex, and age as parameters. The creatinine assay has traceable calibration to isotope dilution-mass spectrometry. Refer to KDIGO guidelines for clinical interpretation. In patients with unstable renal function, e.g. those with acute kidney injury, the eGFR may not accurately reflect actual GFR. Performed By: #### 2 4321-2 ####VALENTINE LABORATORYCLIA [id number] [place] [address] [place] Glucose [Mass/Vol] 93 mg/dL Normal 74-99 [facility] Comment on above: Order Comment: Ankur blancas Type: BLOOD SPECIMENOrdering Facility: [facility] Address: [address] [place] [address] Result Comment: The [place] Diabetes [employer] (ADA) provides guidance for cutoff values for fasting glucose and random glucose. The ADA defines fasting as no caloric intake for at least 8 hours. Fasting plasma glucose results between 100 to 125 mg/dL indicate increased risk for diabetes (prediabetes).Fasting plasma glucose results greater than or equal to 126 mg/dL meet the criteria for diagnosis of diabetes. In the absence of unequivocal hyperglycemia, results should be confirmed by repeat testing. In a patient with classic symptoms of hyperglycemia or hyperglycemic crisis, random plasma glucose results greater than or equal to 200 mg/dL meet the criteria for diagnosis of diabetes.Reference: Standards of Medical Care in Diabetes 2016, [place] [employer]. Diabetes Care. 2016.39(Suppl 1). Performed By: #### 2 4321-2 ####FRANKLIN LABORATORYCLIA [id number] [place] [id number] [place] Potassium [Moles/Vol] 3.8 mmol/L Normal 3.7-5.1 [facility] Comment on above: Order Comment: Ankur blancas Type: BLOOD SPECIMENOrdering Facility: [facility] Address: [address] [place] [address] Performed By: #### 2 4321-2 ####[facility] LABORATORYCLIA [id number] [place] [address] [place] Sodium [Moles/Vol] 121 mmol/L Low 136-144 [facility] Comment on above: Order Comment: Speci men Type: BLOOD SPECIMENOrdering Facility: [facility] Address: [address] [place] [address] Performed By: #### 2 4321-2 ####[facility] LABORATORYCLIA [id number] [place] [address] [place] Urea nitrogen [Mass/Vol] 14 mg/dL Normal 9-24 [facility] Comment on above: Order Comment: Speci men Type: BLOOD SPECIMENOrdering Facility: [facility] Address: [address] [place] [address] Performed By: #### 2 4321-2 ####VALENTINE LABORATORYCLIA [id number] [place] [address] [place] Anion gap [Moles/Vol] 13 mmol/L Normal 8-15 [facility] Comment on above: Order Comment: Speci men Type: BLOOD SPECIMENOrdering Facility: [facility] Address: [address] [place] [address] Performed By: #### 2 4321-2 ####VALENTINE LABORATORYCLIA [id number] [place] [address] [place] Calcium [Mass/Vol] 8.2 mg/dL Low 8.5-10.2 [facility] Comment on above: Order Comment: Speci men Type: BLOOD SPECIMENOrdering Facility: [facility] Address: [address] [place] [address] Performed By: #### 2 4321-2 ####VALENTINE LABORATORYCLIA [id number] [place] [address] [place] Chloride [Moles/Vol] 87 mmol/L Low 98-107 [facility] Comment on above: Order Comment: Speci men Type: BLOOD SPECIMENOrdering Facility: [facility] Address: [address] [place] [address] Performed By: #### 2 4321-2 ####VALENTINE LABORATORYCLIA [id number] [place] [id number] [place] CO2 [Moles/Vol] 20 mmol/L Low 22-30 [facility] Comment on above: Order Comment: Speci men Type: BLOOD SPECIMENOrdering Facility: [facility] Address: [address] [place] [address] Performed By: #### 2 4321-2 ####VALENTINE LABORATORYCLIA [id number] [address] STATES OF [facility] Creatinine [Mass/Vol] 0.65 mg/dL Low 0.73-1.22 [facility] Comment on above: Order Comment: Cedrici men Type: BLOOD SPECIMENOrdering Facility: [facility] Address: [address] [place] [address] Performed By: #### 2 4321-2 ####VALENTINE LABORATORYCLIA [id number] [address] Creatinine and Glomerular filtration rate.predicted panel (S/P/Bld) 110 mL/min/1.73m??? Normal >=60 [facility] Comment on above: Order Comment: Ankur blancas Type: BLOOD SPECIMENOrdering Facility: [facility] Address: [address] [place] [address] Result Comment: Lola mated Glomerular Filtration Rate (eGFR) is calculated using the 2020 CKD-EPI creatinine equation. This equation utilizes serum creatinine, sex, and age as parameters. The creatinine assay has traceable calibration to isotope dilution-mass spectrometry. Refer to KDIGO guidelines for clinical interpretation. In patients with unstable renal function, e.g. those with acute kidney injury, the eGFR may not accurately reflect actual GFR. Performed By: #### 2 4321-2 ####VALENTINE LABORATORYCLIA [id number] [address] STATES [facility] Glucose [Mass/Vol] 113 mg/dL High 74-99 [facility] Comment on above: Order Comment: Cedrici men Type: BLOOD SPECIMENOrdering Facility: [facility] Address: [address] [place] [address] Result Comment: The [place] Diabetes [employer] (ADA) provides guidance for cutoff values for fasting glucose and random glucose. The ADA defines fasting as no caloric intake for at least 8 hours. Fasting plasma glucose results between 100 to 125 mg/dL indicate increased risk for diabetes (prediabetes).Fasting plasma glucose results greater than or equal to 126 mg/dL meet the criteria for diagnosis of diabetes. In the absence of unequivocal hyperglycemia, results should be confirmed by repeat testing. In a patient with classic symptoms of hyperglycemia or hyperglycemic crisis, random plasma glucose results greater than or equal to 200 mg/dL meet the criteria for diagnosis of diabetes.Reference: Standards of Medical Care in Diabetes 2016, [place] [employer]. Diabetes Care. 2016.39(Suppl 1). Performed By: #### 2 4321-2 ####VALENTINE LABORATORYCLIA [id number] [place] [address] [place] Potassium [Moles/Vol] 3.9 mmol/L Normal 3.7-5.1 [facility] Comment on above: Order Comment: Ankur blancas Type: BLOOD SPECIMENOrdering Facility: [facility] Address: [address] [place] [address] Performed By: #### 2 4321-2 ####VALENTINE LABORATORYCLIA [id number] [place] [address] [place] Sodium [Moles/Vol] 120 mmol/L Low 136-144 [facility] Comment on above: Order Comment: Ankur blancas Type: BLOOD SPECIMENOrdering Facility: [facility] Address: [address] [place] [address] Performed By: #### 2 4321-2 ####VALENTINE LABORATORYCLIA [id number] [place] [address] [place] Urea nitrogen [Mass/Vol] 14 mg/dL Normal 9-24 [facility] Comment on above: Order Comment: Ankur blancas Type: BLOOD SPECIMENOrdering Facility: [facility] Address: [address] [place] [address] Performed By: #### 2 4321-2 ####VALENTINE LABORATORYCLIA [id number] [place] [address] [place] Anion gap [Moles/Vol] 13 mmol/L Normal 8-15 [facility] Comment on above: Order Comment: Speci men Type: BLOOD SPECIMENOrdering Facility: [facility] Address: [address] [place] [address] Performed By: #### 1 9123-9, 2776-02, 87109-4 ####VALENTINE LABORATORYCLIA [id number] [place] [address] [place] Calcium [Mass/Vol] 8.5 mg/dL Normal 8.5-10.2 [facility] Comment on above: Order Comment: Speci men Type: BLOOD SPECIMENOrdering Facility: [facility] Address: [facility] [place] [address] Performed By: #### 1 9123-9, 2776-02, ####VALENTINE LABORATORYCLIA [id number] [place] [address] [place] Chloride [Moles/Vol] 85 mmol/L Low 98-107 [facility] Comment on above: Order Comment: Speci men Type: BLOOD SPECIMENOrdering Facility: [facility] Address: [address] [place] [address] Performed By: #### 1 9123-9, 2776-02, ####VALENTINE LABORATORYCLIA [id number] [place] [address] [place] CO2 [Moles/Vol] 20 mmol/L Low 22-30 [facility] Comment on above: Order Comment: Speci men Type: BLOOD SPECIMENOrdering Facility: [facility] Address: [address] [place] [address] Performed By: #### 1 9123-9, 2776-02, 42471-8 ####VALENTINE LABORATORYCLIA [id number] [place] [address] [place] Creatinine [Mass/Vol] 0.70 mg/dL Low 0.73-1.22 [facility] Comment on above: Order Comment: Speci men Type: BLOOD SPECIMENOrdering Facility: [facility] Address: [address] [place] [address] Performed By: #### 1 9123-9, 2776-02, 36975-5 ####VALENTINE LABORATORYCLIA [id number] [place] [address] [place] Creatinine and Glomerular filtration rate.predicted panel (S/P/Bld) 107 mL/min/1.73m??? Normal >=60 [facility] Comment on above: Order Comment: Ankur blancas Type: BLOOD SPECIMENOrdering Facility: [facility] Address: [address] [place] [address] Result Comment: Lola mated Glomerular Filtration Rate (eGFR) is calculated using the 2020 CKD-EPI creatinine equation. This equation utilizes serum creatinine, sex, and age as parameters. The creatinine assay has traceable calibration to isotope dilution-mass spectrometry. Refer to KDIGO guidelines for clinical interpretation. In patients with unstable renal function, e.g. those with acute kidney injury, the eGFR may not accurately reflect actual GFR. Performed By: #### 1 9123-9, 2777-1, 42831-4 ####[facility] LABORATORYCLIA [id number] [place] [id number] [place] Glucose [Mass/Vol] 125 mg/dL High 74-99 [facility] Comment on above: Order Comment: Ankur blancas Type: BLOOD SPECIMENOrdering Facility: [facility] Address: [address] [place] [address] Result Comment: The [place] Diabetes [employer] (ADA) provides guidance for cutoff values for fasting glucose and random glucose. The ADA defines fasting as no caloric intake for at least 8 hours. Fasting plasma glucose results between 100 to 125 mg/dL indicate increased risk for diabetes (prediabetes).Fasting plasma glucose results greater than or equal to 126 mg/dL meet the criteria for diagnosis of diabetes. In the absence of unequivocal hyperglycemia, results should be confirmed by repeat testing. In a patient with classic symptoms of hyperglycemia or hyperglycemic crisis, random plasma glucose results greater than or equal to 200 mg/dL meet the criteria for diagnosis of diabetes.Reference: Standards of Medical Care in Diabetes 2016, [place] [employer]. Diabetes Care. 2016.39(Suppl 1). Performed By: #### 1 9123-9, 2777-1, 57076-5 ####[facility]ANK[facility] LABORATORYCLIA [id number] [place] [address] [place] Potassium [Moles/Vol] 3.8 mmol/L Normal 3.7-5.1 [facility] Comment on above: Order Comment: Speci men Type: BLOOD SPECIMENOrdering Facility: [facility] Address: [address] [facility] [place] [id number] Performed By: #### 1 9123-9, 2777-1, 05427-9 ####VAL[facility]INE LABORATORYCLIA [id number] [address] [place] Sodium [Moles/Vol] 118 mmol/L Low 136-144 [facility] Comment on above: Order Comment: Speci men Type: BLOOD SPECIMENOrdering Facility: [facility] Address: [address] [place] [address] Performed By: #### 1 9123-9, 2777-1, 85966-6 ####VAL[facility]INE LABORATORYCLIA [id number] [address] [place] Urea nitrogen [Mass/Vol] 13 mg/dL Normal 9-24 [facility] Comment on above: Order Comment: Speci men Type: BLOOD SPECIMENOrdering Facility: [facility] Address: [address] [place] [address] Performed By: #### 1 9123-9, 2777, 34332-2 ####VAL[facility]INE LABORATORYCLIA [id number] [address] [place] CASE MANAGEMon 07-25-2024 CASE MANAGEM Normal [facility] CBC panel Auto (Bld)on 07-25 Erythrocyte distribution width (RBC) [Ratio] 11.1 % Low 11.5-15.0 [facility] Comment on above: Order Comment: Speci men Type: BLOOD SPECIMENOrdering Facility: [facility] Address: [address] [place] [address] Performed By: #### 5 8410-2, WAMMDaisy ####VAL[facility]INE LABORATORYCLIA [id number] [address] Hematocrit (Bld) [Volume fraction] 34.1 % Low 39.0-51.0 [facility] Comment on above: Order Comment: Speci men Type: BLOOD SPECIMENOrdering Facility: [facility] Address: [address] [place] [address] Performed By: #### 5 8410-2, WAMMR ####VAL[facility]INE LABORATORYCLIA [id number] [address] Hemoglobin (Bld) [Mass/Vol] 12.6 g/dL Low 13.0-17.0 [facility] Comment on above: Order Comment: Speci men Type: BLOOD SPECIMENOrdering Facility: [facility] Address: [address] [place] [address] Performed By: #### 5 8410-2, WAMMR ####VALENTINE LABORATORYCLIA [id number] [address] MCH (RBC) [Entitic mass] 32.6 pg Normal 26.0-34.0 [facility] Comment on above: Order Comment: Speci men Type: BLOOD SPECIMENOrdering Facility: [facility] Address: [address] [place] [address] Performed By: #### 5 8410-2, WAMMR ####VAL[facility] LABORATORYCLIA [id number] [address] MCHC (RBC) [Mass/Vol] 37.4 g/dL High 30.5-36.0 [facility] Comment on above: Order Comment: Speci men Type: BLOOD SPECIMENOrdering Facility: [facility] Address: [address] [place] [address] Performed By: #### 5 8410-2, WAMMR ####VAL[facility]INE LABORATORYCLIA [id number] [address] MCV (RBC) [Entitic vol] 87.7 fL Normal 80.0-100.0 [facility] Comment on above: Order Comment: Speci men Type: BLOOD SPECIMENOrdering Facility: [facility] Address: [address] [place] [address] Performed By: #### 5 8410-2, WAMMR ####VALENTINE LABORATORYCLIA [id number] [address] Nucleated RBC (Bld) [#/Vol] 10*3/uL Normal <0.01 [facility] Comment on above: Order Comment: Speci men Type: BLOOD SPECIMENOrdering Facility: [facility] Address: [address] [place] [address] Performed By: #### 5 8410-2, WATIFFANYR ####VALENTINE LABORATORYCLIA [id number] [place] [address] [place] Platelet mean volume (Bld) [Entitic vol] 8.7 fL Low 9.0-12.7 [facility] Comment on above: Order Comment: Speci men Type: BLOOD SPECIMENOrdering Facility: [facility] Address: [address] [place] [address] Performed By: #### 5 8410-2, WAMMR ####VALENTINE LABORATORYCLIA [id number] [place] [address] [place] Platelets (Bld) [#/Vol] 227 10*3/uL Normal 150-400 [facility] Comment on above: Order Comment: Speci men Type: BLOOD SPECIMENOrdering Facility: [facility] Address: [address] [place] [address] Result Comment: No c lot detected. Performed By: #### 5 8410-2, WAMMR ####VALENTINE LABORATORYCLIA [id number] [place] [address] [place] RBC (Bld) [#/Vol] 3.89 10*6/uL Low 4.20-6.00 [facility] Comment on above: Order Comment: Speci men Type: BLOOD SPECIMENOrdering Facility: [facility] Address: [address] [place] [address] Performed By: #### 5 8410-2, WAMMR ####VALENTINE LABORATORYCLIA [id number] [place] [address] [place] WBC (Bld) [#/Vol] 10.75 10*3/uL Normal 3.70-11.00 [facility] Comment on above: Order Comment: Speci men Type: BLOOD SPECIMENOrdering Facility: [facility] Address: [address] [place] [address] Performed By: #### 5 8410-2, WAMMR ####[facility]ANKLIN LABORATORYCLIA [id number] [address] [place] CONSULT PROGon 07-25-2024 CONSULT PROG [facility] CONSULT PROG [facility] MORPH WAM REFLEXon Platelets Estimate (Bld) [#/Vol] Adequate Normal [facility] Comment on above: Order Comment: Speci men Type: BLOOD SPECIMENOrdering Facility: [facility] Address: [address] [place] [address] Performed By: #### 5 8410-2, WAMMR ####FRANKLIN LABORATORYCLIA [id number] [address] RED CELL MORPH Reviewed: unremarkable [facility] Comment on above: Order Comment: Speci men Type: BLOOD SPECIMENOrdering Facility: [facility] Address: [address] [place] [address] Performed By: #### 5 8410-2, WAMMR ####FRANK[facility] LABORATORYCLIA [id number] [place] [address] [place] MRI BRAIN WO/W IVCONon 07-25 MRI BRAIN WO/W IVCON Normal [facility] Magnesium SerPl-mCncon 07-25 Magnesium [Mass/Vol] 1.9 mg/dL Normal 1.7-2.3 [facility] Comment on above: Order Comment: Speci men Type: BLOOD SPECIMENOrdering Facility: [facility] Address: [address] [place], [place] [address] Performed By: #### 1 9123-9, 2777-1, 53981-9 ####FRANKLIN LABORATORYCLIA [id number] [address] [place] Osmolality Uron 07-25-2024 Osmolality (U) [Osmolality] 191 mosm/kg Normal 50-1200 [facility] Comment on above: Order Comment: Speci men Type: URINE SPECIMENOrdering Facility: [facility] Address: [address] [place] [address] Performed By: #### 2 695-5 ####[facility] LABCLIA [id number] [address] [place] [address] [place] Osmolality (U) [Osmolality] 422 mosm/kg Normal 50-1200 [facility] Comment on above: Order Comment: Speci men Type: URINE SPECIMENOrdering Facility: [facility] Address: [address] [place] [address] Performed By: #### 3 5678-2, 2694-5 ####[facility] LABCLIA [id number] [address] [place] [address] [address] [place] Phosphate SerPl-mCncon 07-25 Phosphate [Mass/Vol] 2.2 mg/dL Low 2.7-4.8 [facility] Comment on above: Order Comment: Speci men Type: BLOOD SPECIMENOrdering Facility: [facility] Address: [address] [place] [address] Performed By: #### 1 9123-9, 2777-1, 99148-1 ####FRANKLIN LABORATORYCLIA [id number] [place] [address] [place] Sodium ?Tm Ur-sCncon 025 Sodium Unsp time (U) [Moles/Vol] 144 mmol/L Normal 14-216 [facility] Comment on above: Order Comment: Speci men Type: URINE SPECIMENOrdering Facility: [facility] Address: [address] [place] [address] Performed By: #### 3 5678-2, 2694-5 ####[facility] LABCLIA [id number] [address] [address] [place] Basic metabolic 2000 panelon 07-24-2024 Anion gap [Moles/Vol] 14 mmol/L Normal 8-15 [facility] Comment on above: Order Comment: Speci men Type: BLOOD SPECIMENOrdering Facility: [facility] Address: [address] [place] [address] Performed By: #### 2 4321-2 ####FRANKLIN LABORATORYCLIA [id number] [place] [address] [place] Calcium [Mass/Vol] 8.3 mg/dL Low 8.5-10.2 [facility] Comment on above: Order Comment: Speci men Type: BLOOD SPECIMENOrdering Facility: [facility] Address: [address] [place] [address] Performed By: #### 2 4321-2 ####VALENTINE LABORATORYCLIA [id number] [place] [address] [place] Chloride [Moles/Vol] 84 mmol/L Low 98-107 [facility] Comment on above: Order Comment: Speci men Type: BLOOD SPECIMENOrdering Facility: [facility] Address: [address] [place] [address] Performed By: #### 2 4321-2 ####VALENTINE LABORATORYCLIA [id number] [place] [address] [place] CO2 [Moles/Vol] 21 mmol/L Low 22-30 [facility] Comment on above: Order Comment: Speci men Type: BLOOD SPECIMENOrdering Facility: [facility] Address: [address] [place] [address] Performed By: #### 2 4321-2 ####VAL[facility]INE LABORATORYCLIA [id number] [place] [address] [place] Creatinine [Mass/Vol] 0.74 mg/dL Normal 0.73-1.22 [facility] Comment on above: Order Comment: Speci men Type: BLOOD SPECIMENOrdering Facility: [facility] Address: [address] [place] [address] Performed By: #### 2 4321-2 ####VALENTINE LABORATORYCLIA [id number] [place] [address] [place] Creatinine and Glomerular filtration rate.predicted panel (S/P/Bld) 106 mL/min/1.73m??? Normal >=60 [facility] Comment on above: Order Comment: Speci men Type: BLOOD SPECIMENOrdering Facility: [facility] Address: [address] [place] [address] Result Comment: Lola mated Glomerular Filtration Rate (eGFR) is calculated using the 2020 CKD-EPI creatinine equation. This equation utilizes serum creatinine, sex, and age as parameters. The creatinine assay has traceable calibration to isotope dilution-mass spectrometry. Refer to KDIGO guidelines for clinical interpretation. In patients with unstable renal function, e.g. those with acute kidney injury, the eGFR may not accurately reflect actual GFR. Performed By: #### 2 4321-2 ####VALENTINE LABORATORYCLIA [id number] [place] [address] [place] Glucose [Mass/Vol] 134 mg/dL High 74-99 [facility] Comment on above: Order Comment: Ankur blancas Type: BLOOD SPECIMENOrdering Facility: [facility] Address: [address] [place] [address] Result Comment: The [place] Diabetes [employer] (ADA) provides guidance for cutoff values for fasting glucose and random glucose. The ADA defines fasting as no caloric intake for at least 8 hours. Fasting plasma glucose results between 100 to 125 mg/dL indicate increased risk for diabetes (prediabetes).Fasting plasma glucose results greater than or equal to 126 mg/dL meet the criteria for diagnosis of diabetes. In the absence of unequivocal hyperglycemia, results should be confirmed by repeat testing. In a patient with classic symptoms of hyperglycemia or hyperglycemic crisis, random plasma glucose results greater than or equal to 200 mg/dL meet the criteria for diagnosis of diabetes.Reference: Standards of Medical Care in Diabetes 2016, [place] [employer]. Diabetes Care. 2016.39(Suppl 1). Performed By: #### 2 4321-2 ####VALENTINE LABORATORYCLIA [id number] [place] [id number] [place] Potassium [Moles/Vol] 3.9 mmol/L Normal 3.7-5.1 [facility] Comment on above: Order Comment: Ankur blancas Type: BLOOD SPECIMENOrdering Facility: [facility] Address: [address] [place] [address] Performed By: #### 2 4321-2 ####VALENTINE LABORATORYCLIA [id number] [place] [address] [place] Sodium [Moles/Vol] 119 mmol/L Low 136-144 [facility] Comment on above: Order Comment: Ankur blancas Type: BLOOD SPECIMENOrdering Facility: [facility] Address: [address] [place] [address] Performed By: #### 2 4321-2 ####VALENTINE LABORATORYCLIA [id number] [place] [address] [place] Urea nitrogen [Mass/Vol] 14 mg/dL Normal 9-24 [facility] Comment on above: Order Comment: Speci men Type: BLOOD SPECIMENOrdering Facility: [facility] Address: [address] [place] [address] Performed By: #### 2 4321-2 ####VAL[facility]INE LABORATORYCLIA [id number] [place] [address] [place] Anion gap [Moles/Vol] 13 mmol/L Normal 8-15 [facility] Comment on above: Order Comment: Speci men Type: BLOOD SPECIMENOrdering Facility: [facility] Address: [address] [place] [address] Performed By: #### 2 4321-2 ####VAL[facility]INE LABORATORYCLIA [id number] [place] [address] [place] Calcium [Mass/Vol] 8.7 mg/dL Normal 8.5-10.2 [facility] Comment on above: Order Comment: Speci men Type: BLOOD SPECIMENOrdering Facility: [facility] Address: [address] [place] [address] Performed By: #### 2 4321-2 ####VAL[facility]INE LABORATORYCLIA [id number] [place] [address] [place] Chloride [Moles/Vol] 84 mmol/L Low 98-107 [facility] Comment on above: Order Comment: Speci men Type: BLOOD SPECIMENOrdering Facility: [facility] Address: [address] [place] [address] Performed By: #### 2 4321-2 ####VALENTINE LABORATORYCLIA [id number] [place] [address] [place] CO2 [Moles/Vol] 23 mmol/L Normal 22-30 [facility] Comment on above: Order Comment: Speci men Type: BLOOD SPECIMENOrdering Facility: [facility] Address: [address] [place] [address] Performed By: #### 2 4321-2 ####VAL[facility]INE LABORATORYCLIA [id number] [place] [address] [place] Creatinine [Mass/Vol] 0.79 mg/dL Normal 0.73-1.22 [facility] Comment on above: Order Comment: Ankur blancas Type: BLOOD SPECIMENOrdering Facility: [facility] Address: [address] [place] [address] Performed By: #### 2 4321-2 ####VAL[facility]INE LABORATORYCLIA [id number] [address] Creatinine and Glomerular filtration rate.predicted panel (S/P/Bld) 104 mL/min/1.73m??? Normal >=60 [facility] Comment on above: Order Comment: Ankur blancas Type: BLOOD SPECIMENOrdering Facility: [facility] Address: [address] [place] [address] Result Comment: Lola mated Glomerular Filtration Rate (eGFR) is calculated using the 2020 CKD-EPI creatinine equation. This equation utilizes serum creatinine, sex, and age as parameters. The creatinine assay has traceable calibration to isotope dilution-mass spectrometry. Refer to KDIGO guidelines for clinical interpretation. In patients with unstable renal function, e.g. those with acute kidney injury, the eGFR may not accurately reflect actual GFR. Performed By: #### 2 4321-2 ####[facility] LABORATORYCLIA [id number] [address] [place] Glucose [Mass/Vol] 108 mg/dL High 74-99 [facility] Comment on above: Order Comment: Ankur blancas Type: BLOOD SPECIMENOrdering Facility: [facility] Address: [address] [place] [address] Result Comment: The [place] Diabetes [employer] (ADA) provides guidance for cutoff values for fasting glucose and random glucose. The ADA defines fasting as no caloric intake for at least 8 hours. Fasting plasma glucose results between 100 to 125 mg/dL indicate increased risk for diabetes (prediabetes).Fasting plasma glucose results greater than or equal to 126 mg/dL meet the criteria for diagnosis of diabetes. In the absence of unequivocal hyperglycemia, results should be confirmed by repeat testing. In a patient with classic symptoms of hyperglycemia or hyperglycemic crisis, random plasma glucose results greater than or equal to 200 mg/dL meet the criteria for diagnosis of diabetes.Reference: Standards of Medical Care in Diabetes 2016, [place] [employer]. Diabetes Care. 2016.39(Suppl 1). Performed By: #### 2 4321-2 ####[facility] LABORATORYCLIA [id number] [place] [address] [place] Potassium [Moles/Vol] 3.9 mmol/L Normal 3.7-5.1 [facility] Comment on above: Order Comment: Speci men Type: BLOOD SPECIMENOrdering Facility: [facility] Address: [address] [place] [address] Performed By: #### 2 4321-2 ####VLAENTINE LABORATORYCLIA [id number] [place] [address] [place] Sodium [Moles/Vol] 120 mmol/L Low 136-144 [facility] Comment on above: Order Comment: Speci men Type: BLOOD SPECIMENOrdering Facility: [facility] Address: [address] [place] [address] Performed By: #### 2 4321-2 ####VAL[facility] LABORATORYCLIA [id number] [place] [address] [place] Urea nitrogen [Mass/Vol] 14 mg/dL Normal 9-24 [facility] Comment on above: Order Comment: Speci men Type: BLOOD SPECIMENOrdering Facility: [facility] Address: [address] [place] [address] Performed By: #### 2 4321-2 ####VAL[facility]INE LABORATORYCLIA [id number] [place] [address] [place] Anion gap [Moles/Vol] 14 mmol/L Normal 8-15 [facility] Comment on above: Order Comment: Speci men Type: BLOOD SPECIMENOrdering Facility: [facility] Address: [address] [place] [address] Performed By: #### 2 4321-2 ####VALENTINE LABORATORYCLIA [id number] [place] [address] [place] Calcium [Mass/Vol] 9.3 mg/dL Normal 8.5-10.2 [facility] Comment on above: Order Comment: Speci men Type: BLOOD SPECIMENOrdering Facility: [facility] Address: [address] [place] [address] Performed By: #### 2 4321-2 ####VALENTINE LABORATORYCLIA [id number] [address] [place] [facility] Chloride [Moles/Vol] 81 mmol/L Low 98-107 [facility] Comment on above: Order Comment: Speci men Type: BLOOD SPECIMENOrdering Facility: [facility] Address: [address] [place] [address] Performed By: #### 2 4321-2 ####VALENTINE LABORATORYCLIA [id number] [place] [address] [place] CO2 [Moles/Vol] 23 mmol/L Normal 22-30 [facility] Comment on above: Order Comment: Speci men Type: BLOOD SPECIMENOrdering Facility: [facility] Address: [address] [place] [address] Performed By: #### 2 4321-2 ####VALENTINE LABORATORYCLIA [id number] [address] [place] Creatinine [Mass/Vol] 0.72 mg/dL Low 0.73-1.22 [facility] Comment on above: Order Comment: Speci men Type: BLOOD SPECIMENOrdering Facility: [facility] Address: [address] [place] [address] Performed By: #### 2 4321-2 ####VALENTINE LABORATORYCLIA [id number] [address] Creatinine and Glomerular filtration rate.predicted panel (S/P/Bld) 107 mL/min/1.73m??? Normal >=60 [facility] Comment on above: Order Comment: Speci men Type: BLOOD SPECIMENOrdering Facility: [facility] Address: [address] [place] [address] Result Comment: Lola mated Glomerular Filtration Rate (eGFR) is calculated using the 2020 CKD-EPI creatinine equation. This equation utilizes serum creatinine, sex, and age as parameters. The creatinine assay has traceable calibration to isotope dilution-mass spectrometry. Refer to KDIGO guidelines for clinical interpretation. In patients with unstable renal function, e.g. those with acute kidney injury, the eGFR may not accurately reflect actual GFR. Performed By: #### 2 4321-2 ####[facility] LABORATORYCLIA [id number] [place] [id number] [place] Glucose [Mass/Vol] 121 mg/dL High 74-99 [facility] Comment on above: Order Comment: Ankur blancas Type: BLOOD SPECIMENOrdering Facility: [facility] Address: [address] [place] [address] Result Comment: The [place] Diabetes [employer] (ADA) provides guidance for cutoff values for fasting glucose and random glucose. The ADA defines fasting as no caloric intake for at least 8 hours. Fasting plasma glucose results between 100 to 125 mg/dL indicate increased risk for diabetes (prediabetes).Fasting plasma glucose results greater than or equal to 126 mg/dL meet the criteria for diagnosis of diabetes. In the absence of unequivocal hyperglycemia, results should be confirmed by repeat testing. In a patient with classic symptoms of hyperglycemia or hyperglycemic crisis, random plasma glucose results greater than or equal to 200 mg/dL meet the criteria for diagnosis of diabetes.Reference: Standards of Medical Care in Diabetes 2016, [place] [employer]. Diabetes Care. 2016.39(Suppl 1). Performed By: #### 2 4321-2 ####[facility] LABORATORYCLIA [id number] [place] [id number] [place] Potassium [Moles/Vol] 4.5 mmol/L Normal 3.7-5.1 [facility] Comment on above: Order Comment: Ankur blancas Type: BLOOD SPECIMENOrdering Facility: [facility] Address: [address] [place] [address] Performed By: #### 2 4321-2 ####FRANKLIN LABORATORYCLIA [id number] [place] [id number] [place] Sodium [Moles/Vol] 118 mmol/L Low 136-144 [facility] Comment on above: Order Comment: Ankur blancas Type: BLOOD SPECIMENOrdering Facility: [facility] Address: [address] [place] [address] Performed By: #### 2 4321-2 ####FRANK[facility] LABORATORYCLIA [id number] [place] [id number] [place] Urea nitrogen [Mass/Vol] 15 mg/dL Normal 9-24 [facility] Comment on above: Order Comment: Speci men Type: BLOOD SPECIMENOrdering Facility: [facility] Address: [address] [place] [address] Performed By: #### 2 4321-2 ####VALENTINE LABORATORYCLIA [id number] [address] [place] CASE MGT INIT ASSESon 2024 [facility] ASSOhio[facility] CBC panel Auto (Bld)on 07-24 Erythrocyte distribution width (RBC) [Ratio] 10.8 % Low 11.5-15.0 [facility] Comment on above: Order Comment: Speci men Type: BLOOD SPECIMENOrdering Facility: [facility] Address: [address] [place] [address] Performed By: #### 5 8410-2 ####VAL[facility]INE LABORATORYCLIA [id number] [address] [place] Hematocrit (Bld) [Volume fraction] 33.3 % Low 39.0-51.0 [facility] Comment on above: Order Comment: Speci men Type: BLOOD SPECIMENOrdering Facility: [facility] Address: [address] [place] [address] Performed By: #### 5 8410-2 ####VAL[facility]INE LABORATORYCLIA [id number] [address] [place] Hemoglobin (Bld) [Mass/Vol] 12.1 g/dL Low 13.0-17.0 [facility] Comment on above: Order Comment: Speci men Type: BLOOD SPECIMENOrdering Facility: [facility] Address: [address] [place] [address] Performed By: #### 5 8410-2 ####VAL[facility]INE LABORATORYCLIA [id number] [address] MCH (RBC) [Entitic mass] 31.8 pg Normal 26.0-34.0 [facility] Comment on above: Order Comment: Speci men Type: BLOOD SPECIMENOrdering Facility: [facility] Address: [address] [place] [address] Performed By: #### 5 8410-2 ####VAL[facility] LABORATORYCLIA [id number] [address] [place] MCHC (RBC) [Mass/Vol] 36.3 g/dL High 30.5-36.0 [facility] Comment on above: Order Comment: Speci men Type: BLOOD SPECIMENOrdering Facility: [facility] Address: [address] [place] [address] Performed By: #### 5 8410-2 ####VAL[facility] LABORATORYCLIA [id number] [place] [address] [place] MCV (RBC) [Entitic vol] 87.6 fL Normal 80.0-100.0 [facility] Comment on above: Order Comment: Speci men Type: BLOOD SPECIMENOrdering Facility: [facility] Address: [address] [place] [address] Performed By: #### 5 8410-2 ####VAL[facility]INE LABORATORYCLIA [id number] [address] [place] Nucleated RBC (Bld) [#/Vol] 10*3/uL Normal <0.01 [facility] Comment on above: Order Comment: Speci men Type: BLOOD SPECIMENOrdering Facility: [facility] Address: [address] [place] [address] Performed By: #### 5 8410-2 ####VAL[facility]INE LABORATORYCLIA [id number] [place] [address] [place] Platelet mean volume (Bld) [Entitic vol] 8.9 fL Low 9.0-12.7 [facility] Comment on above: Order Comment: Speci men Type: BLOOD SPECIMENOrdering Facility: [facility] Address: [address] [place] [address] Performed By: #### 5 8410-2 ####VALENTINE LABORATORYCLIA [id number] [place] [address] [place] [facility] [place] Platelets (Bld) [#/Vol] 218 10*3/uL Normal 150-400 [facility] Comment on above: Order Comment: Speci men Type: BLOOD SPECIMENOrdering Facility: [facility] Address: [address] [place], [place] [address] Performed By: #### 5 8410-2 ####VALENTINE LABORATORYCLIA [id number] [address] OF [facility] RBC (Bld) [#/Vol] 3.80 10*6/uL Low 4.20-6.00 [facility] Comment on above: Order Comment: Speci men Type: BLOOD SPECIMENOrdering Facility: [facility] Address: [address] [place] [address] Performed By: #### 5 8410-2 ####VALENTINE LABORATORYCLIA [id number] [address] [place] WBC (Bld) [#/Vol] 10.09 10*3/uL Normal 3.70-11.00 [facility] Comment on above: Order Comment: Speci men Type: BLOOD SPECIMENOrdering Facility: [facility] Address: [address] [place] [address] Performed By: #### 5 8410-2 ####VALENTINE LABORATORYCLIA [id number] [address] OF [facility] CONSULTon 07-24-2024 CONSULT Normal [facility] CONSULT Normal [facility] Comprehensive metabolic 2000 panelon 07-24-2024 Albumin [Mass/Vol] 3.7 g/dL Low 3.9-4.9 [facility] Comment on above: Order Comment: Speci men Type: BLOOD SPECIMENOrdering Facility: [facility] Address: [address] [place] [address] Performed By: #### 1 9123-9, 79932-3 ####VALENTINE LABORATORYCLIA [id number] [place] [id number] [facility] ALP [Catalytic activity/Vol] 67 U/L Normal 38-113 [facility] Comment on above: Order Comment: Speci men Type: BLOOD SPECIMENOrdering Facility: [facility] Address: [address] [place] [address] Performed By: #### 1 9123-9, 07219-0 ####VAL[facility]INE LABORATORYCLIA [id number] [place] [address] [place] ALT [Catalytic activity/Vol] 9 U/L Low 10-54 [facility] Comment on above: Order Comment: Speci men Type: BLOOD SPECIMENOrdering Facility: [facility] Address: [address] [place] [address] [place] [address] Performed By: #### 1 9123-9, 65090-9 ####VALENTINE LABORATORYCLIA [id number] [place] [address] [place] Anion gap [Moles/Vol] 14 mmol/L Normal 8-15 [facility] Comment on above: Order Comment: Speci men Type: BLOOD SPECIMENOrdering Facility: [facility] Address: [address] [place] [address] Performed By: #### 1 9123-9, 55675-9 ####VALENTINE LABORATORYCLIA [id number] [place] [address] [place] AST [Catalytic activity/Vol] 11 U/L Low 14-40 [facility] Comment on above: Order Comment: Speci men Type: BLOOD SPECIMENOrdering Facility: [facility] Address: [address] [place] [address] Performed By: #### 1 9123-9, ####VAL[facility]INE LABORATORYCLIA [id number] [place] [address] [place] Bilirubin [Mass/Vol] 0.7 mg/dL Normal 0.2-1.3 [facility] Comment on above: Order Comment: Speci men Type: BLOOD SPECIMENOrdering Facility: [facility] Address: [address] [place] [address] Performed By: #### 1 9123-9, 19208-9 ####VALENTINE LABORATORYCLIA [id number] [place] [address] [place] Calcium [Mass/Vol] 8.8 mg/dL Normal 8.5-10.2 [facility] Comment on above: Order Comment: Speci men Type: BLOOD SPECIMENOrdering Facility: [facility] Address: [address] [place] [address] Performed By: #### 1 9123-9, 00973-0 ####VALENTINE LABORATORYCLIA [id number] [place] [address] [place] Chloride [Moles/Vol] 81 mmol/L Low 98-107 [facility] Comment on above: Order Comment: Spectimothy men Type: BLOOD SPECIMENOrdering Facility: [facility] Address: [address] [place] [address] Performed By: #### 1 9123-9, 17953-4 ####VALENTINE LABORATORYCLIA [id number] [place] [id number] [place] CO2 [Moles/Vol] 22 mmol/L Normal 22-30 [facility] Comment on above: Order Comment: Ankur blancas Type: BLOOD SPECIMENOrdering Facility: [facility] Address: [address] [place] [address] Performed By: #### 1 239, ####FR[facility] LABORATORYCLIA [id number] [place] [address] [place] Creatinine [Mass/Vol] 0.74 mg/dL Normal 0.73-1.22 [facility] Comment on above: Order Comment: Ankur [facility] Type: BLOOD SPECIMENOrdering Facility: [facility] Address: [address] [place] [address] Performed By: #### 1 239, ####FRANKLIN LABORATORYCLIA [id number] [address] [place] Creatinine and Glomerular filtration rate.predicted panel (S/P/Bld) 106 mL/min/1.73m??? Normal >=60 [facility] Comment on above: Order Comment: Ankur blancas Type: BLOOD SPECIMENOrdering Facility: [facility] Address: [address] [place] [address] Result Comment: Lola mated Glomerular Filtration Rate (eGFR) is calculated using the 2020 CKD-EPI creatinine equation. This equation utilizes serum creatinine, sex, and age as parameters. The creatinine assay has traceable calibration to isotope dilution-mass spectrometry. Refer to KDIGO guidelines for clinical interpretation. In patients with unstable renal function, e.g. those with acute kidney injury, the eGFR may not accurately reflect actual GFR. Performed By: #### 1 9123-9, ####VALENTINE LABORATORYCLIA [id number] [place] [address] [place] Glucose [Mass/Vol] 122 mg/dL High 74-99 [facility] Comment on above: Order Comment: Ankur blancas Type: BLOOD SPECIMENOrdering Facility: [facility] Address: [address] [place] [address] Result Comment: The [place] Diabetes [employer] (ADA) provides guidance for cutoff values for fasting glucose and random glucose. The ADA defines fasting as no caloric intake for at least 8 hours. Fasting plasma glucose results between 100 to 125 mg/dL indicate increased risk for diabetes (prediabetes).Fasting plasma glucose results greater than or equal to 126 mg/dL meet the criteria for diagnosis of diabetes. In the absence of unequivocal hyperglycemia, results should be confirmed by repeat testing. In a patient with classic symptoms of hyperglycemia or hyperglycemic crisis, random plasma glucose results greater than or equal to 200 mg/dL meet the criteria for diagnosis of diabetes.Reference: Standards of Medical Care in Diabetes 2016, [place] [employer]. Diabetes Care. 2016.39(Suppl 1). Performed By: #### 1 91239, ####FRANKLIN LABORATORYCLIA [id number] [place] [address] [place] Potassium [Moles/Vol] 4.0 mmol/L Normal 3.7-5.1 [facility] Comment on above: Order Comment: Ankur blancas Type: BLOOD SPECIMENOrdering Facility: [facility] Address: [address] [place] [address] Performed By: #### 1 9, ####VALENTINE LABORATORYCLIA [id number] [place] [id number] [place] Protein [Mass/Vol] 6.9 g/dL Normal 6.3-8.0 [facility] Comment on above: Order Comment: Ankur blancas Type: BLOOD SPECIMENOrdering Facility: [facility] Address: [address] [place] [address] Performed By: #### 1 91239, ####VALENTINE LABORATORYCLIA [id number] [place] [address] [place] Sodium [Moles/Vol] 117 mmol/L Low 136-144 [facility] Comment on above: Order Comment: Speci men Type: BLOOD SPECIMENOrdering Facility: [facility] Address: [address] [place] [address] Performed By: #### 1 9123-9, 11739-6 ####VALENTINE LABORATORYCLIA [id number] [place] [address] [place] Urea nitrogen [Mass/Vol] 14 mg/dL Normal 9-24 [facility] Comment on above: Order Comment: Speci men Type: BLOOD SPECIMENOrdering Facility: [facility] Address: [address] [place] [address] Performed By: #### 1 9123-9, ####VALENTINE LABORATORYCLIA [id number] [place] [address] [place] Cortis SerPl-mCncon 07-25-19 Cortisol [Mass/Vol] 35.1 ug/dL High 4.8-19.5 [facility] Comment on above: Order Comment: Speci men Type: BLOOD SPECIMENOrdering Facility: [facility] Address: [address] [place] [address] Result Comment: Prov ided reference range is from 6-10 AM sample collection time.Cortisol Reference Range: 6-10 AM = 4.8-19.5 ug/dL, 4-8 PM = 2.5-11.9 ug/dL Performed By: #### 2 143-6 ####[facility] LABCLIA [id number] [place] [address] [place] Magnesium SerPl-mCncon 07-24 Magnesium [Mass/Vol] 1.3 mg/dL Low 1.7-2.3 [facility] Comment on above: Order Comment: Speci men Type: BLOOD SPECIMENOrdering Facility: [facility] Address: [address] [place] [address] Performed By: #### 1 9123-9, 49583-0 ####VALENTINE LABORATORYCLIA [id number] [place] [address] [place] Osmolality SerPlon Osmolality [Osmolality] 246 mosm/kg Low 275-300 [facility] Comment on above: Order Comment: Speci men Type: BLOOD SPECIMENOrdering Facility: [facility] Address: [address] [place] [address] Performed By: #### 2 692-2 ####[facility] LABCLIA [id number] [place] [id number] [place] Osmolality [Osmolality] 248 mosm/kg Low 275-300 [facility] Comment on above: Order Comment: Speci men Type: BLOOD SPECIMENOrdering Facility: [facility] Address: [address] [place] [address] Performed By: #### 2 692-2 ####[facility] LABCLIA [id number] [place] [address] [place] Osmolality Uron 07-24-2024 Osmolality (U) [Osmolality] 746 mosm/kg Normal 50-1200 [facility] Comment on above: Order Comment: Speci men Type: URINE SPECIMENOrdering Facility: [facility] Address: [address] [place] [address] Performed By: #### 2 695-5 ####[facility] LABCLIA [id number] [place] [address] [place] Osmolality (U) [Osmolality] 739 mosm/kg Normal 50-1200 [facility] Comment on above: Order Comment: Speci men Type: URINE SPECIMENOrdering Facility: [facility] Address: [address] [place], [place] [address] Performed By: #### 2 695-5 ####[facility] LABCLIA [id number] [place] [id number] [place] Sodium ?Tm Ur-sCncon 025 Sodium Unsp time (U) [Moles/Vol] 119 mmol/L Normal 14-216 [facility] Comment on above: Order Comment: Speci men Type: URINE SPECIMENOrdering Facility: [facility] Address: [address] [place] [address] Performed By: #### 3 5678-2 ####[facility] LABCLIA [id number] [address] [place] [facility] Sodium Unsp time (U) [Moles/Vol] 128 mmol/L Normal 14-216 [facility] Comment on above: Order Comment: Speci men Type: URINE SPECIMENOrdering Facility: [facility] Address: [address] [place] [address] Performed By: #### 3 5678-2 ####[facility] LABCLIA [id number] [place] [address] [place] TSH SerPl-aCncon 07-24-2024 TSH Qn 0.498 m[IU]/L Normal 0.270-4.200 [facility] Comment on above: Order Comment: Speci men Type: BLOOD SPECIMENOrdering Facility: [facility] Address: [address] [place] [address] Performed By: #### 3 016-3, 3084-1 ####[facility] LABORATORYCLIA [id number] [address] URINALYSIS, REFLEX MICROSCOP ICon 07-24-2024 Bilirubin Ql (U) Negative Normal Negative [facility] Comment on above: Order Comment: Speci men Type: URINE SPECIMENOrdering Facility: [facility] Address: [address] [place] [address] Performed By: #### L [id number] ####VAL[facility]INE LABORATORYCLIA [id number] [address] [place] Clarity (Unsp spec) Clear Normal Clear [facility] Comment on above: Order Comment: Speci men Type: URINE SPECIMENOrdering Facility: [facility] Address: [address] [place] [address] Performed By: #### L [id number] ####VAL[facility]INE LABORATORYCLIA [id number] [address] Color (U) Yellow Normal Yellow [facility] Comment on above: Order Comment: Speci men Type: URINE SPECIMENOrdering Facility: [facility] Address: [address] [place] [address] Performed By: #### L [id number] ####[facility] LABORATORYCLIA [id number] [address] Epithelial cells LM.HPF (Urine sed) [#/Area] Few Normal [facility] Comment on above: Order Comment: Speci men Type: URINE SPECIMENOrdering Facility: [facility] Address: [address] [place] [address] Performed By: #### L [id number] ####[facility] LABORATORYCLIA [id number] [address] Glucose Test strip (U) [Mass/Vol] Trace Abnormal Negative [facility] Comment on above: Order Comment: Speci men Type: URINE SPECIMENOrdering Facility: [facility] Address: [address] [place] [address] Performed By: #### L [id number] ####VAL[facility] LABORATORYCLIA [id number] [address] [place] Hemoglobin Ql (U) Negative Normal Negative [facility] Comment on above: Order Comment: Speci men Type: URINE SPECIMENOrdering Facility: [facility] Address: [address] [place] [address] Performed By: #### L [id number] ####[facility] LABORATORYCLIA [id number] [address] Ketones Ql (U) Trace Abnormal Negative [facility] Comment on above: Order Comment: Speci men Type: URINE SPECIMENOrdering Facility: [facility] Address: [address] [place] [address] Performed By: #### L [id number] ####[facility] LABORATORYCLIA [id number] [address] Leukocyte esterase Test strip Ql (U) Negative Normal Negative [facility] Comment on above: Order Comment: Speci men Type: URINE SPECIMENOrdering Facility: [facility] Address: [address] [place] [address] Performed By: #### L [id number] ####[facility] LABORATORYCLIA [id number] [place] [address] [place] Nitrite Ql (U) Negative Normal Negative [facility] Comment on above: Order Comment: Speci men Type: URINE SPECIMENOrdering Facility: [facility] Address: [address] [place] [address] Performed By: #### L [id number] ####[facility] LABORATORYCLIA [id number] [place] [address] [place] pH (U) 6.5 [pH] Normal 5.0-8.0 [facility] Comment on above: Order Comment: Speci men Type: URINE SPECIMENOrdering Facility: [facility] Address: [address] [place] [address] Performed By: #### L [id number] ####[facility] LABORATORYCLIA [id number] [address] [place] Protein (U) [Mass/Vol] Trace Abnormal Negative [facility] Comment on above: Order Comment: Speci men Type: URINE SPECIMENOrdering Facility: [facility] Address: [address] [place] [address] Performed By: #### L [id number] ####[facility] LABORATORYCLIA [id number] [address] [place] RBC LM.HPF (Urine sed) [#/Area] 0-3 /HPF Normal 0-3 /HPF [facility] Comment on above: Order Comment: Speci men Type: URINE SPECIMENOrdering Facility: [facility] Address: [address] [place] [address] Performed By: #### L [id number] ####[facility] LABORATORYCLIA [id number] [address] [place] Specific gravity (U) [Rel density] 1.020 Normal 1.005-1.030 [facility] Comment on above: Order Comment: Speci men Type: URINE SPECIMENOrdering Facility: [facility] Address: [address] [place] [address] Performed By: #### L [id number] ####[facility]INE LABORATORYCLIA [id number] [address] [place] Urobilinogen Ql (U) 2.0 EU/dL Abnormal 0.2-1.0 EU/dL [facility] Comment on above: Order Comment: Speci men Type: URINE SPECIMENOrdering Facility: [facility] Address: [address] [place] [address] Performed By: #### L [id number] ####[facility] LABORATORYCLIA [id number] [address] WBC LM.HPF (Urine sed) [#/Area] 0-5 /HPF Normal 0-5 /HPF [facility] Comment on above: Order Comment: Speci men Type: URINE SPECIMENOrdering Facility: [facility] Address: [address] [place] [address] Performed By: #### L [id number] ####[facility] LABORATORYCLIA [id number] [address] [place] Urate SerPl-mCncon Urate [Mass/Vol] 2.5 mg/dL Low 4.0-8.1 [facility] Comment on above: Order Comment: Speci men Type: BLOOD SPECIMENOrdering Facility: [facility] Address: [address] [place] [address] Performed By: #### 3 016-3, 3084-1 ####FRANKLIN LABORATORYCLIA [id number] [address] OF [place] ALLIED HEALTHon 07-23-2024 ALLIED HEALTH HNO ID: [id number] Author: DINORAH VALLE RT(R) Service: Radiology Author Type: [employer] Trainer Type: Allied Health Filed: 07/23/2024 15:02 Note Text: Radiology Service Progress Note DATE OF SERVICE: July 23, 2024 TIME: 3:01 PM PATIENT IDENTITY VERIFICATION COMPLETED USING TWO (2) STANDARD IDENTIFIERS: Name and Date of confirmed by patient verbally. FALL SCREENING: Has the patient had 2 falls in the last year or 1 fall with injury or currently using an Ambulatory Assistive Device (Walker, Cane, Wheelchair, Crutches, etc.)? Emergency Room Patient: Screened in ED PATIENT GENDER DATA: Assigned male at PATIENT RELEVANT IMPLANT DATA REVIEWED: Yes PATIENT PRESENTS WITH AN IMPLANTABLE OR ATTACHED SLATE ROOFER: No ALLERGIES: Reviewed and unchanged CONTRAST ALLERGY: NO. EXAM: CT -CONTRAST INDUCED NEPHROPATHY RISK FACTORS: Not applicable CREATININE: Creatinine Date Value Ref Range Status 07/23/2024 0.95 0.73 - 1.22 mg/dL Final 05/01/2024 0.97 0.73 - 1.22 mg/dL Final 08/05/2023 0.85 0.73 - 1.22 mg/dL Final Estimated Glomerular Filtration Rate Date Value Ref Range Status 07/23/2024 93 >=60 mL/min/1.73m? Final Comment: Estimated Glomerular Filtration Rate (eGFR) is calculated using the 2020 CKD-EPI creatinine equation. This equation utilizes serum creatinine, sex, and age as parameters. The creatinine assay has traceable calibration to isotope dilution-mass spectrometry. Refer to KDIGO guidelines for clinical interpretation. In patients with unstable renal function, e.g. those with acute kidney injury, the eGFR may not accurately reflect actual GFR. eGFR- Date Value Ref Range Status 04/16/2021 >60 Final P.O.C.T. RESULTS: POC done: Yes, See Lab Tab July 23, 2024 TREATMENT: N/A PERIPHERAL IV DATA: Inpatient - refer to LDA documentation RADIOLOGY DEPARTMENT: CT; Exam(s) Completed: Brain , CTA Brain , and CTA Neck SIGNATURE: RT Candida(R) PATIENT NAME: Katarina García DATE: July 23, 2024 TIME: 3:[address] [facility] Basic metabolic 2000 panelon 07-23-2024 Anion gap [Moles/Vol] 14 mmol/L Normal 8-15 [facility] Comment on above: Order Comment: Ankur blancas Type: BLOOD SPECIMENOrdering Facility: [facility] Address: [address] [place] [address] Performed By: #### 2 4321-2 ####FRANKLIN LABORATORYCLIA [id number] [place] [address] [place] Calcium [Mass/Vol] 8.9 mg/dL Normal 8.5-10.2 [facility] Comment on above: Order Comment: Ankur blancas Type: BLOOD SPECIMENOrdering Facility: [facility] Address: [address] [place] [address] Performed By: #### 2 4321-2 ####[facility] LABORATORYCLIA [id number] [place] [address] [place] Chloride [Moles/Vol] 83 mmol/L Low 98-107 [facility] Comment on above: Order Comment: Speci men Type: BLOOD SPECIMENOrdering Facility: [facility] Address: [address] [place] [address] Performed By: #### 2 4321-2 ####VAL[facility]INE LABORATORYCLIA [id number] [place] [id number] [place] CO2 [Moles/Vol] 23 mmol/L Normal 22-30 [facility] Comment on above: Order Comment: Speci men Type: BLOOD SPECIMENOrdering Facility: [facility] Address: [address] [place] [address] Performed By: #### 2 4321-2 ####[facility]INE LABORATORYCLIA [id number] [place] [address] [place] Creatinine [Mass/Vol] 0.83 mg/dL Normal 0.73-1.22 [facility] Comment on above: Order Comment: Speci men Type: BLOOD SPECIMENOrdering Facility: [facility] Address: [address] [place] [address] Performed By: #### 2 4321-2 ####[facility]INE LABORATORYCLIA [id number] [address] Creatinine and Glomerular filtration rate.predicted panel (S/P/Bld) 102 mL/min/1.73m??? Normal >=60 [facility] Comment on above: Order Comment: Speci men Type: BLOOD SPECIMENOrdering Facility: [facility] Address: [address] [place] [address] Result Comment: Lola mated Glomerular Filtration Rate (eGFR) is calculated using the 2020 CKD-EPI creatinine equation. This equation utilizes serum creatinine, sex, and age as parameters. The creatinine assay has traceable calibration to isotope dilution-mass spectrometry. Refer to KDIGO guidelines for clinical interpretation. In patients with unstable renal function, e.g. those with acute kidney injury, the eGFR may not accurately reflect actual GFR. Performed By: #### 2 4321-2 ####VAL[facility]INE LABORATORYCLIA [id number] [place] [address] [place] Glucose [Mass/Vol] 118 mg/dL High 74-99 [facility] Comment on above: Order Comment: Ankur blancas Type: BLOOD SPECIMENOrdering Facility: [facility] Address: [address] [place] [address] Result Comment: The [place] Diabetes [employer] (ADA) provides guidance for cutoff values for fasting glucose and random glucose. The ADA defines fasting as no caloric intake for at least 8 hours. Fasting plasma glucose results between 100 to 125 mg/dL indicate increased risk for diabetes (prediabetes).Fasting plasma glucose results greater than or equal to 126 mg/dL meet the criteria for diagnosis of diabetes. In the absence of unequivocal hyperglycemia, results should be confirmed by repeat testing. In a patient with classic symptoms of hyperglycemia or hyperglycemic crisis, random plasma glucose results greater than or equal to 200 mg/dL meet the criteria for diagnosis of diabetes.Reference: Standards of Medical Care in Diabetes 2016, [place] [employer]. Diabetes Care. 2016.39(Suppl 1). Performed By: #### 2 4321-2 ####VAL[facility]INE LABORATORYCLIA [id number] [place] [address] [place] Potassium [Moles/Vol] 4.4 mmol/L Normal 3.7-5.1 [facility] Comment on above: Order Comment: Ankur blancas Type: BLOOD SPECIMENOrdering Facility: [facility] Address: [address] [place] [address] Performed By: #### 2 4321-2 ####VAL[facility]INE LABORATORYCLIA [id number] [place] [id number] [place] Sodium [Moles/Vol] 120 mmol/L Low 136-144 [facility] Comment on above: Order Comment: Ankur blancas Type: BLOOD SPECIMENOrdering Facility: [facility] Address: [address] [place] [address] Performed By: #### 2 4321-2 ####VAL[facility]INE LABORATORYCLIA [id number] [place] [address] [place] Urea nitrogen [Mass/Vol] 13 mg/dL Normal 9-24 [facility] Comment on above: Order Comment: Speci men Type: BLOOD SPECIMENOrdering Facility: [facility] Address: [address] [place] [address] Performed By: #### 2 4321-2 ####FRANKLIN LABORATORYCLIA [id number] [place] [address] [place] Anion gap [Moles/Vol] 13 mmol/L Normal 8-15 [facility] Comment on above: Order Comment: Speci men Type: BLOOD SPECIMEN [facility] Address: [address] [place] [address] Performed By: #### 2 4321-2 #### [facility] CLIA [id number] [address] [place] [address] [place] Calcium [Mass/Vol] 9.6 mg/dL Normal 8.5-10.2 [facility] Comment on above: Order Comment: Speci men Type: BLOOD SPECIMEN [facility] Address: [address] [place] [address] Performed By: #### 2 4321-2 #### [facility] CLIA [id number] [address] [place] [address] [place] Chloride [Moles/Vol] 86 mmol/L Low 98-107 [facility] Comment on above: Order Comment: Speci men Type: BLOOD SPECIMEN [facility] Address: [address] [place] [address] Performed By: #### 2 4321-2 #### [facility] CLIA [id number] [address] [place] [address] [place] CO2 [Moles/Vol] 23 mmol/L Normal 22-30 [facility] Comment on above: Order Comment: Speci men Type: BLOOD SPECIMEN [facility] Address: [address] [place] [address] Performed By: #### 2 4321-2 #### [facility] CLIA [id number] [address] [place] [address] [place] Creatinine [Mass/Vol] 0.95 mg/dL Normal 0.73-1.22 [facility] Comment on above: Order Comment: Ankur blancas Type: BLOOD SPECIMEN [facility] Address: [address] [place] [address] Performed By: #### 2 4321-2 #### [facility] CLIA [id number] [address] [place] [address] [facility] Creatinine and Glomerular filtration rate.predicted panel (S/P/Bld) 93 mL/min/1.73m??? Normal >=60 [facility] Comment on above: Order Comment: Ankur blancas Type: BLOOD SPECIMEN [facility] Address: [address] [place] [address] Result Comment: Lola mated Glomerular Filtration Rate (eGFR) is calculated using the 2020 CKD-EPI creatinine equation. This equation utilizes serum creatinine, sex, and age as parameters. The creatinine assay has traceable calibration to isotope dilution-mass spectrometry. Refer to KDIGO guidelines for clinical interpretation. In patients with unstable renal function, e.g. those with acute kidney injury, the eGFR may not accurately reflect actual GFR. Performed By: #### 2 4321-2 #### [facility] CLIA [id number] [address] [place], [place] [address] [place] Glucose [Mass/Vol] 129 mg/dL High 74-99 [facility] Comment on above: Order Comment: Ankur blancas Type: BLOOD SPECIMEN [facility] Address: [address] [place] [address] Result Comment: The [place] Diabetes Association (ADA) provides guidance for cutoff values for fasting glucose and random glucose. The ADA defines fasting as no caloric intake for at least 8 hours. Fasting plasma glucose results between 100 to 125 mg/dL indicate increased risk for diabetes (prediabetes). Fasting plasma glucose results greater than or equal to 126 mg/dL meet the criteria for diagnosis of diabetes. In the absence of unequivocal hyperglycemia, results should be confirmed by repeat testing. In a patient with classic symptoms of hyperglycemia or hyperglycemic crisis, random plasma glucose results greater than or equal to 200 mg/dL meet the criteria for diagnosis of diabetes. Reference: Standards of Medical Care in Diabetes 2016, [place] [employer]. Diabetes Care. 2016.39(Suppl 1). Performed By: #### 2 4321-2 #### [facility] CLIA [id number] [address] [place] [address] [place] Potassium [Moles/Vol] 4.2 mmol/L Normal 3.7-5.1 [facility] Comment on above: Order Comment: Speci men Type: BLOOD SPECIMEN [facility] Address: [address] [place] [address] Performed By: #### 2 4321-2 #### [facility] CLIA [id number] [address] [place] [address] [place] Sodium [Moles/Vol] 122 mmol/L Low 136-144 [facility] Comment on above: Order Comment: Speci men Type: BLOOD SPECIMEN [facility] Address: [address] [place] [address] Performed By: #### 2 4321-2 #### [facility] CLIA [id number] [address] [place] [address] [place] Urea nitrogen [Mass/Vol] 18 mg/dL Normal 9-24 [facility] Comment on above: Order Comment: Speci men Type: BLOOD SPECIMEN [facility] Address: [address] [place] [address] Performed By: #### 2 4321-2 #### [facility] CLIA [id number] [address] [place] [address] [place] CBC W Auto Differential pane l (Bld)on 07-23-2024 Basophils (Bld) [#/Vol] 10*3/uL Normal <0.11 [facility] Comment on above: Order Comment: Speci men Type: BLOOD SPECIMEN [facility] Address: [address] [place] [address] Performed By: #### 5 7021-8 #### [facility] CLIA [id number] [address] [place] [address] [place] OF [facility] Basophils/100 WBC (Bld) 0.0 % Normal [facility] Comment on above: Order Comment: Speci men Type: BLOOD SPECIMEN [facility] Address: [address] [place] [address] Performed By: #### 5 7021-8 #### [facility] CLIA [id number] [address] [place] [address] [facility] OF [place] Differential cell count method Nom (Bld) Auto Normal [facility] Comment on above: Order Comment: Speci men Type: BLOOD SPECIMEN [facility] Address: [address] [place] [address] Performed By: #### 5 7021-8 #### [facility] CLIA [id number] [address] [place] Eosinophils (Bld) [#/Vol] 10*3/uL Normal <0.46 [facility] Comment on above: Order Comment: Speci men Type: BLOOD SPECIMEN [facility] Address: [address] [place] [address] Performed By: #### 5 7021-8 #### [facility] CLIA [id number] [address] Eosinophils/100 WBC (Bld) 0.0 % Normal [facility] Comment on above: Order Comment: Speci men Type: BLOOD SPECIMEN [facility] Address: [address] [place] [address] Performed By: #### 5 7021-8 #### [facility] CLIA [id number] [address] [place] [address] [facility] OF [place] Erythrocyte distribution width (RBC) [Ratio] 11.5 % Normal 11.5-15.0 [facility] Comment on above: Order Comment: Speci men Type: BLOOD SPECIMEN [facility] Address: [address] [place] [address] Performed By: #### 5 7021-8 #### [facility] CLIA [id number] [address] [place] [address] [place] Hematocrit (Bld) [Volume fraction] 37.6 % Low 39.0-51.0 [facility] Comment on above: Order Comment: Speci men Type: BLOOD SPECIMEN [facility] Address: [address] [place] [address] Performed By: #### 5 7021-8 #### [facility] CLIA [id number] [address] [place] [address] [place] Hemoglobin (Bld) [Mass/Vol] 13.0 g/dL Normal 13.0-17.0 [facility] Comment on above: Order Comment: Speci men Type: BLOOD SPECIMEN [facility] Address: [address] [place] [address] Performed By: #### 5 7021-8 #### [facility] CLIA [id number] [address] [place] [address] [place] Immature granulocytes (Bld) [#/Vol] 10*3/uL Normal <0.10 [facility] Comment on above: Order Comment: Speci men Type: BLOOD SPECIMEN [facility] Address: [address] [place] [address] Performed By: #### 5 7021-8 #### [facility] CLIA [id number] [address] [place] [address] [place] Immature granulocytes/100 WBC (Bld) 0.3 % Normal [facility] Comment on above: Order Comment: Speci men Type: BLOOD SPECIMEN [facility] Address: [address] [place] [address] Performed By: #### 5 7021-8 #### [facility] CLIA [id number] [address] [place] [address] [place] Lymphocytes (Bld) [#/Vol] 0.54 10*3/uL Low 1.00-4.00 [facility] Comment on above: Order Comment: Speci men Type: BLOOD SPECIMEN [facility] Address: [address] [place] [address] Performed By: #### 5 7021-8 #### [facility] CLIA [id number] [address] [place], [place] [address] [place] [address] STATES [facility] Lymphocytes/100 WBC (Bld) 6.8 % Normal [facility] Comment on above: Order Comment: Speci men Type: BLOOD SPECIMEN [facility] Address: [address] [place] [address] Performed By: #### 5 7021-8 #### [facility] CLIA [id number] [address] [place] [address] [place] MCH (RBC) [Entitic mass] 31.9 pg Normal 26.0-34.0 [facility] Comment on above: Order Comment: Speci men Type: BLOOD SPECIMEN [facility] Address: [address] [place] [address] Performed By: #### 5 7021-8 #### [facility] CLIA [id number] [address] [place], [place] [address] [place] [address] [place] MCHC (RBC) [Mass/Vol] 34.6 g/dL Normal 30.5-36.0 [facility] Comment on above: Order Comment: Speci men Type: BLOOD SPECIMEN [facility] Address: [address] [place] [address] Performed By: #### 5 7021-8 #### [facility] CLIA [id number] [address] [place] [address] [place] MCV (RBC) [Entitic vol] 92.4 fL Normal 80.0-100.0 [facility] Comment on above: Order Comment: Speci men Type: BLOOD SPECIMEN [facility] Address: [address] [place] [address] Performed By: #### 5 7021-8 #### [facility] CLIA [id number] [address] [place] [address] [place] Monocytes (Bld) [#/Vol] 0.62 10*3/uL Normal <0.87 [facility] Comment on above: Order Comment: Speci men Type: BLOOD SPECIMEN [facility] Address: [address] [place] [address] Performed By: #### 5 7021-8 #### [facility] CLIA [id number] [address] [place] [address] [place] Monocytes/100 WBC (Bld) 7.8 % Normal [facility] Comment on above: Order Comment: Speci men Type: BLOOD SPECIMEN [facility] Address: [address] [place] [address] Performed By: #### 5 7021-8 #### [facility] CLIA [id number] [address] [place] [address] [place] Neutrophils (Bld) [#/Vol] 6.73 10*3/uL Normal 1.45-7.50 [facility] Comment on above: Order Comment: Speci men Type: BLOOD SPECIMEN [facility] Address: [address] [place] [address] Performed By: #### 5 7021-8 #### [facility] CLIA [id number] [address] [place] [address] [place] Neutrophils/100 WBC (Bld) 85.1 % Normal [facility] Comment on above: Order Comment: Speci men Type: BLOOD SPECIMEN [facility] Address: [address] [place] [address] Performed By: #### 5 7021-8 #### [facility] CLIA [id number] [address] [place] [address] [place] Nucleated RBC (Bld) [#/Vol] Normal [facility] Comment on above: Order Comment: Speci men Type: BLOOD SPECIMEN [facility] Address: [address] [place] [address] Performed By: #### 5 7021-8 #### [facility] CLIA [id number] [address] [place] [address] [place] Nucleated RBC/100 WBC (Bld) [Ratio] Normal [facility] Comment on above: Order Comment: Speci men Type: BLOOD SPECIMEN [facility] Address: [address] [place] [address] Performed By: #### 5 7021-8 #### [facility] CLIA [id number] [address] [place] [address] [place] Platelet mean volume (Bld) [Entitic vol] 8.8 fL Low 9.0-12.7 [facility] Comment on above: Order Comment: Speci men Type: BLOOD SPECIMEN [facility] Address: [address] [place] [address] Performed By: #### 5 7021-8 #### [facility] CLIA [id number] [address] [place] [address] [place] Platelets (Bld) [#/Vol] 234 10*3/uL Normal 150-400 [facility] Comment on above: Order Comment: Speci men Type: BLOOD SPECIMEN [facility] Address: [address] [place] [address] Performed By: #### 5 7021-8 #### [facility] CLIA [id number] [address] [place] [address] [place] RBC (Bld) [#/Vol] 4.07 10*6/uL Low 4.20-6.00 [facility] Comment on above: Order Comment: Speci men Type: BLOOD SPECIMEN [facility] Address: [address] [place] [address] Performed By: #### 5 7021-8 #### [facility] CLIA [id number] [address] [place] [address] [place] WBC (Bld) [#/Vol] 7.91 10*3/uL Normal 3.70-11.00 [facility] Comment on above: Order Comment: Speci men Type: BLOOD SPECIMEN [facility] Address: [address] [place] [address] [place] [address] Performed By: #### 5 7021-8 #### [facility] [place] [id number] [address] [place] [address] [facility] Rajinder 07-23-2024 CNPN Telephone (FAMPWS) EULOGIOKATARINA Daisy ([id number]) 1965 M Date Time Provider Department 07/23/[address] [facility] During your visit today, we recorded the following information about you: Kenna Cowart 07/23/2024 8:19 AM Signed Patient called to report that he was examined at [facility] [facility] early [facility] for migraine headache. Patient requested same day appointment, no availability for ER follow up with PCP dyad. Patient reports still experiencing a significant headache and is wanting to know if he can be seen sooner or have medication sent to pharmacy today to help with the pain. He reports being unable to perform daily activities or eat due to the pain. Please contact patient to advise on plan of care. Erika Fletcher LPN 07/23/2024 10:38 AM Signed Patient calling said he is still having severe migraine headache, effecting his vision, asking if any pain medication he can take for this. Aware ER follow up appt is scheduled for tomorrow with Tosha FREIRE at 720 am. Advised if pain that severe would need to go to ER for evaluation. He said [facility] did not really do anything for him, advised [facility] or [facility] are [facility] facilities. Tosha De Leon PA-C 07/23/2024 11:08 AM Addendum Agree with going to [facility] if severe. I cannot advise on medication at this time as I have not seen him and haven't seen ER report yet to review what was already done. Clare Beltran LPN 07/23/2024 11:22 AM Signed Spoke with pt and notified him of Tosha's message. Pt advises that he is going to go to [facility]. Clare Beltran LPN Allergies As of Date: 07/23/2024 Noted Allergy Reaction MAXZIDE (TRIAMTERENE-HYDROCHLOROT*0 08/08/2022 14 - Other: See Comments Comments: Low sodium Date Reviewed: 05/01/2024 Reviewed by: Yanick Sky MD - Fully Assessed Reason for Visit: ER F/U [41] Medication Request [138] Prescriptions as of 07/23/2024 - metoprolol tartrate, short acting, (LOPRESSOR) 100 mg tablet Take 2 tablets by mouth two times a day. - sildenafil (VIAGRA) 100 mg tablet Take 1/2 to 1 tab as need. Max of 100 mg in 24 hrs. - atorvastatin (LIPITOR) 20 mg tablet Take 1 tablet by mouth daily at bedtime. For cholesterol. - lisinopril (ZESTRIL) 40 mg tablet Take 1 tablet by mouth two times a day. - spironolactone (ALDACTONE) 50 mg tablet Take 1 tablet by mouth two times a day. - doxazosin (CARDURA) 1 mg tablet Take 1 tablet by mouth once daily. Take one tab a day - Omeprazole Magnesium (PRILOSEC OTC) 20 mg tablet Take 1 tablet by mouth every other day. 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] 06/09/2014 Gastroesophageal reflux disease without esophag*03/18/2015 Migraine without aura and without status migrai*03/18/2015 Chest pain [R07.9] 12/30/2016 07/26/2023 Acute recurrent pansinusitis [J01.41] 12/30/2016 Smoker [F17.200] 11/22/2017 Well adult exam [Z00.00] 11/22/2017 Essential hypertension [I10] 05/01/2013 Screening for prostate cancer [Z12.5] 08/12/2019 Coronary artery disease due to lipid rich plaqu*07/06/2021 Encounter for screening for diabetes mellitus [*07/26/2023 Medication management [Z79.899] 05/01/2024 Encounter Status:Closed by CLARE BELTRAN on 07/23/[address] [facility] [address] BRAIN WO IVCONon 07-24-19 CT BRAIN WO IVCON * * *Final Report* * * * * * SEE BOTTOM OF REPORT FOR ADDENDED TEXT * * * DATE OF EXAM: Jul 23 2024 2:59PM [facility] 0504 - CT BRAIN WO IVCON / PROCEDURE REASON: Headache, sudden, severe * * * * Physician Interpretation * * * * * * * * * * * * ORIGINAL REPORT * * * * * * * * EXAMINATION: CT BRAIN WO IVCON, CTA NECK W IVCON, CTA HEAD W IVCON CLINICAL HISTORY: Status post clival and right petrous apex epidermoid resection 04/24/2024.. Severe headache. Status post right petrous bone cholesteatoma resection 2007. CSF leak, status post drain TECHNIQUE: Routine CT of the brain without IV contrast. Next, spiral high resolution axial images were obtained through the head, neck and superior mediastinum following bolus administration of intravenous contrast for CT angiography. The data was subsequently post-processed utilizing 3D multi-planar reconstructions, 3D maximum intensity projections, and a tissue segmentation algorithm at a separate workstation under physician supervision. MQ: CTABNPlus_3 CT Radiation dose: Integrated Dose-Length Product (DLP) for this visit = 2610.69 mGy*cm CT Dose Reduction Employed: Automated exposure control(AEC) and iterative recon COMPARISON: 05/31/2014 and 09/13/2022 MRI. RESULT: Post-operative change: Right frontal-temporal craniotomy with partial resection of the right mastoid bone and temporal bone cholesteatoma resection. Status post endoscopic clival and right petrous apex epidermoid resection 04/24/2024.. Acute change: No evidence of an acute infarct or other acute parenchymal process. Hemorrhage: No evidence of acute intracranial hemorrhage. ECASS hemorrhagic transformation score: Not Applicable Mass Lesion / Mass Effect: Low-density/soft tissue density within the surgical space from the resected right temporal bone, right side posterior fossa and clivus.. No significant positive mass effect. Chronic change: Chronic changes including postoperative encephalomalacia right lateral temporal lobe subjacent to craniotomy. Chronic lacunar infarct right frontal craig radiata. Parenchyma: There is no significant volume loss. Ventricles: The ventricles are within normal limits of size and configuration for age. Paranasal sinuses and skull base: See discussion above. Mild mucosal/fluid level changes right maxillary sinus. Soft tissue density within the residual right middle ear cavity and mastoid bone. Extensive artifact arising from right ocular surgical device. NECK: Soft tissues: The soft tissue planes are maintained throughout. No evidence of a soft tissue mass in the neck or superior mediastinum. No significant lymphadenopathy is seen. Spine: Alignment is normal. Mild/moderate degree of degenerative stenotic changes are present. Lung apices: The visualized lung apices are clear CT ARTERIOGRAM: Extracranial Circulation: Aortic Arch: There is a normal branching pattern from the aortic arch.. There is no significant stenosis in the proximal brachiocephalic vessels. Carotid Stenosis: Right Common: No significant stenosis. Right Internal Carotid Plaque: No significant plaque formation. Right Internal Carotid Stenosis (% by NASCET Criteria): 0 Severe stenosis origin right external carotid artery. Left Common: No significant stenosis. Left Internal Carotid Plaque: No significant plaque formation. Left Internal Carotid Stenosis (% by NASCET Criteria): 0 Cervical Vertebral Arteries: Patency: Bilateral Dominance: Codominant Intracranial Circulation: Spot Sign Presence: Not Applicable Spot Sign Number: Not Applicable Anterior Circulation: No CTA evidence of large vessel occlusion, flow-limiting stenosis or aneurysm Vertebrobasilar Circulation: No CTA evidence of large vessel occlusion, flow-limiting stenosis or aneurysm No evidence of dural venous sinus thrombosis IMPRESSION: 1. No CT evidence of acute intracranial hemorrhage 2. Unremarkable CTA head and neck. No CTA evidence a large vessel occlusion or vascular injury 3.Right frontal-temporal craniotomy with partial resection of the right mastoid bone and temporal bone cholesteatoma resection.Chronic changes including postoperative encephalomalacia right lateral temporal lobe subjacent to craniotomy Status post endoscopic clival and right petrous apex epidermoid resection 04/24/2024.. Mild mucosal/fluid level changes right maxillary sinus. Soft tissue density within the residual right middle ear cavity and mastoid bone. 4.Severe stenosis origin right external carotid artery 5. Low-density/soft tissue density occupying the surgical space within the clivus, petrous bone and right cerebellar pontine angle. Diagnostic consideration includes Postoperative granulation tissue; however, residual epidermoid tumor not totally excluded. Enhanced and nonenhanced MRI of brain would be the study of choice if clinically indicated * * * * * * * * ADDENDUM #1 (more content not included)... [facility] CTA HEAD W IVCONon 5 CTA HEAD W IVCON * * *Final Report* * * * * * SEE BOTTOM OF REPORT FOR ADDENDED TEXT * * * DATE OF EXAM: Jul 23 2024 2:59PM [facility] 0022 - CTA HEAD W IVCON / PROCEDURE REASON: Headache, sudden, severe * * * * Physician Interpretation * * * * * * * * * * * * ORIGINAL REPORT * * * * * * * * EXAMINATION: CT BRAIN WO IVCON, CTA NECK W IVCON, CTA HEAD W IVCON CLINICAL HISTORY: Status post clival and right petrous apex epidermoid resection 04/24/2024.. Severe headache. Status post right petrous bone cholesteatoma resection 2007. CSF leak, status post drain TECHNIQUE: Routine CT of the brain without IV contrast. Next, spiral high resolution axial images were obtained through the head, neck and superior mediastinum following bolus administration of intravenous contrast for CT angiography. The data was subsequently post-processed utilizing 3D multi-planar reconstructions, 3D maximum intensity projections, and a tissue segmentation algorithm at a separate workstation under physician supervision. MQ: CTABNPlus_3 CT Radiation dose: Integrated Dose-Length Product (DLP) for this visit = 2610.69 mGy*cm CT Dose Reduction Employed: Automated exposure control(AEC) and iterative recon COMPARISON: 05/31/2014 and 09/13/2022 MRI. RESULT: Post-operative change: Right frontal-temporal craniotomy with partial resection of the right mastoid bone and temporal bone cholesteatoma resection. Status post endoscopic clival and right petrous apex epidermoid resection 04/24/2024.. Acute change: No evidence of an acute infarct or other acute parenchymal process. Hemorrhage: No evidence of acute intracranial hemorrhage. ECASS hemorrhagic transformation score: Not Applicable Mass Lesion / Mass Effect: Low-density/soft tissue density within the surgical space from the resected right temporal bone, right side posterior fossa and clivus.. No significant positive mass effect. Chronic change: Chronic changes including postoperative encephalomalacia right lateral temporal lobe subjacent to craniotomy. Chronic lacunar infarct right frontal craig radiata. Parenchyma: There is no significant volume loss. Ventricles: The ventricles are within normal limits of size and configuration for age. Paranasal sinuses and skull base: See discussion above. Mild mucosal/fluid level changes right maxillary sinus. Soft tissue density within the residual right middle ear cavity and mastoid bone. Extensive artifact arising from right ocular surgical device. NECK: Soft tissues: The soft tissue planes are maintained throughout. No evidence of a soft tissue mass in the neck or superior mediastinum. No significant lymphadenopathy is seen. Spine: Alignment is normal. Mild/moderate degree of degenerative stenotic changes are present. Lung apices: The visualized lung apices are clear CT ARTERIOGRAM: Extracranial Circulation: Aortic Arch: There is a normal branching pattern from the aortic arch.. There is no significant stenosis in the proximal brachiocephalic vessels. Carotid Stenosis: Right Common: No significant stenosis. Right Internal Carotid Plaque: No significant plaque formation. Right Internal Carotid Stenosis (% by NASCET Criteria): 0 Severe stenosis origin right external carotid artery. Left Common: No significant stenosis. Left Internal Carotid Plaque: No significant plaque formation. Left Internal Carotid Stenosis (% by NASCET Criteria): 0 Cervical Vertebral Arteries: Patency: Bilateral Dominance: Codominant Intracranial Circulation: Spot Sign Presence: Not Applicable Spot Sign Number: Not Applicable Anterior Circulation: No CTA evidence of large vessel occlusion, flow-limiting stenosis or aneurysm Vertebrobasilar Circulation: No CTA evidence of large vessel occlusion, flow-limiting stenosis or aneurysm No evidence of dural venous sinus thrombosis IMPRESSION: 1. No CT evidence of acute intracranial hemorrhage 2. Unremarkable CTA head and neck. No CTA evidence a large vessel occlusion or vascular injury 3.Right frontal-temporal craniotomy with partial resection of the right mastoid bone and temporal bone cholesteatoma resection.Chronic changes including postoperative encephalomalacia right lateral temporal lobe subjacent to craniotomy Status post endoscopic clival and right petrous apex epidermoid resection 04/24/2024.. Mild mucosal/fluid level changes right maxillary sinus. Soft tissue density within the residual right middle ear cavity and mastoid bone. 4.Severe stenosis origin right external carotid artery 5. Low-density/soft tissue density occupying the surgical space within the clivus, petrous bone and right cerebellar pontine angle. Diagnostic consideration includes Postoperative granulation tissue; however, residual epidermoid tumor not totally excluded. Enhanced and nonenhanced MRI of brain would be the study of choice if clinically indicated * * * * * * * * ADDENDUM #1 * (more content not included)... Normal [facility] CTA NECK W IVCONon CTA NECK W IVCON * * *Final Report* * * * * * SEE BOTTOM OF REPORT FOR ADDENDED TEXT * * * DATE OF EXAM: Jul 23 2024 2:59PM [facility] 0024 - CTA NECK W IVCON / PROCEDURE REASON: Headache, sudden, severe * * * * Physician Interpretation * * * * * * * * * * * * ORIGINAL REPORT * * * * * * * * EXAMINATION: CT BRAIN WO IVCON, CTA NECK W IVCON, CTA HEAD W IVCON CLINICAL HISTORY: Status post clival and right petrous apex epidermoid resection 04/24/2024.. Severe headache. Status post right petrous bone cholesteatoma resection 2007. CSF leak, status post drain TECHNIQUE: Routine CT of the brain without IV contrast. Next, spiral high resolution axial images were obtained through the head, neck and superior mediastinum following bolus administration of intravenous contrast for CT angiography. The data was subsequently post-processed utilizing 3D multi-planar reconstructions, 3D maximum intensity projections, and a tissue segmentation algorithm at a separate workstation under physician supervision. MQ: CTABNPlus_3 CT Radiation dose: Integrated Dose-Length Product (DLP) for this visit = 2610.69 mGy*cm CT Dose Reduction Employed: Automated exposure control(AEC) and iterative recon COMPARISON: 05/31/2014 and 09/13/2022 MRI. RESULT: Post-operative change: Right frontal-temporal craniotomy with partial resection of the right mastoid bone and temporal bone cholesteatoma resection. Status post endoscopic clival and right petrous apex epidermoid resection 04/24/2024.. Acute change: No evidence of an acute infarct or other acute parenchymal process. Hemorrhage: No evidence of acute intracranial hemorrhage. ECASS hemorrhagic transformation score: Not Applicable Mass Lesion / Mass Effect: Low-density/soft tissue density within the surgical space from the resected right temporal bone, right side posterior fossa and clivus.. No significant positive mass effect. Chronic change: Chronic changes including postoperative encephalomalacia right lateral temporal lobe subjacent to craniotomy. Chronic lacunar infarct right frontal craig radiata. Parenchyma: There is no significant volume loss. Ventricles: The ventricles are within normal limits of size and configuration for age. Paranasal sinuses and skull base: See discussion above. Mild mucosal/fluid level changes right maxillary sinus. Soft tissue density within the residual right middle ear cavity and mastoid bone. Extensive artifact arising from right ocular surgical device. NECK: Soft tissues: The soft tissue planes are maintained throughout. No evidence of a soft tissue mass in the neck or superior mediastinum. No significant lymphadenopathy is seen. Spine: Alignment is normal. Mild/moderate degree of degenerative stenotic changes are present. Lung apices: The visualized lung apices are clear CT ARTERIOGRAM: Extracranial Circulation: Aortic Arch: There is a normal branching pattern from the aortic arch.. There is no significant stenosis in the proximal brachiocephalic vessels. Carotid Stenosis: Right Common: No significant stenosis. Right Internal Carotid Plaque: No significant plaque formation. Right Internal Carotid Stenosis (% by NASCET Criteria): 0 Severe stenosis origin right external carotid artery. Left Common: No significant stenosis. Left Internal Carotid Plaque: No significant plaque formation. Left Internal Carotid Stenosis (% by NASCET Criteria): 0 Cervical Vertebral Arteries: Patency: Bilateral Dominance: Codominant Intracranial Circulation: Spot Sign Presence: Not Applicable Spot Sign Number: Not Applicable Anterior Circulation: No CTA evidence of large vessel occlusion, flow-limiting stenosis or aneurysm Vertebrobasilar Circulation: No CTA evidence of large vessel occlusion, flow-limiting stenosis or aneurysm No evidence of dural venous sinus thrombosis IMPRESSION: 1. No CT evidence of acute intracranial hemorrhage 2. Unremarkable CTA head and neck. No CTA evidence a large vessel occlusion or vascular injury 3.Right frontal-temporal craniotomy with partial resection of the right mastoid bone and temporal bone cholesteatoma resection.Chronic changes including postoperative encephalomalacia right lateral temporal lobe subjacent to craniotomy Status post endoscopic clival and right petrous apex epidermoid resection 04/24/2024.. Mild mucosal/fluid level changes right maxillary sinus. Soft tissue density within the residual right middle ear cavity and mastoid bone. 4.Severe stenosis origin right external carotid artery 5. Low-density/soft tissue density occupying the surgical space within the clivus, petrous bone and right cerebellar pontine angle. Diagnostic consideration includes Postoperative granulation tissue; however, residual epidermoid tumor not totally excluded. Enhanced and nonenhanced MRI of brain would be the study of choice if clinically indicated * * * * * * * * ADDENDUM #1 * (more content not included)... [facility] ED NOTEon 07-23-2024 ED NOTE HNO ID: [id number] Author: TODD ELDER, RN Service: Nursing Author Type: Registered Nurse Type: ED Notes Filed: 07/23/2024 19:12 Note Text: Attempted to call report but no one was available. Will try again soon. [facility] ED NOTE HNO ID: [id number] Author: TODD ELDER, RN Service: Nursing Author Type: Registered Nurse Type: ED Notes Filed: 07/23/2024 19:21 Note Text: Report given to MABEL Kenyon [facility] ED NOTE HNO ID: [id number] Author: TODD ELDER, RN Service: Nursing Author Type: Registered Nurse Type: ED Notes Filed: 07/23/2024 19:16 Note Text: Left message with pt's GALEN James about transfer [facility] ED NOTE HNO ID: [id number] Author: TODD ELDER, RN Service: Nursing Author Type: Registered Nurse Type: ED Notes Filed: 07/23/2024 18:53 Note Text: [facility] arrives for transport [facility] ED NOTE HNO ID: [id number] Author: TODD ELDER, MABEL Service: Nursing Author Type: Registered Nurse Type: ED Notes Filed: 07/23/2024 17:49 Note Text: Attempted to call report but there was no answer. Will try again shortly [facility] ED NOTE HNO ID: [id number] Author: NINO YU, MABEL Service: Emergency Medicine Author Type: Registered Nurse Type: ED Notes Filed: 07/23/2024 17:43 Note Text: [facility] [id number] Report [phone] [facility] ETA 1840 [facility] ED NOTE HNO ID: [id number] Author: TODD ELDER, RN Service: Nursing Author Type: Registered Nurse Type: ED Notes Filed: 07/23/2024 12:11 Note Text: Pt reports he has had a severe migraine for two days, he went to [place] ED and had head CT and was told it was not abnormal. Migraine hasn't gone away so PCP told him to go back to ED [facility] ED PROV NOTEon 07-23-2024 ED PROV NOTE HNO ID: [id number] Author: GAIL CORONADO MD Service: Emergency Medicine Author Type: Physician Type: ED Provider Notes Filed: 07/23/2024 17:23 Note Text: ED Provider Note Patient Name: Katarina García : 1965 SERVICE DATE: 07/23/24 History Patient presents with: Headache Katarina García is a 58 year old male with history of migraines and previous brain surgery who presents with a frontal headache. Patient has not had similar episodes of headache in the past. Patient was exposed to nothing. - Symptoms began 3 days prior to arrival. Onset was sudden. - Severity: moderate - Timing: constant - Quality: Throbbing and pressure - Pain is exacerbated by bright lights, movement, and cough. - Pain is not exacerbated by palpation. - Symptoms are associated with nausea and vomiting. - Symptoms are not associated with chills and fever. - Improved by nothing. - Not improved by rest Patient states he does have a history of migraine headaches but has not had one in many years. He said 3 days ago he had a sudden onset of severe headache mostly in the frontal and bitemporal region nausea vomiting has not been able to eat much over the past 3 days. He went to another emergency department yesterday had CT imaging and reports he was given medication without relief. CT did not show any acute abnormalities. He had in the past brain surgery for cholesteatoma. He reports no numbness tingling or weakness no history of trauma. PAST MEDICAL HISTORY Diagnosis Date - Acute recurrent pansinusitis 12/30/2016 Bacterial vs. Viral - chronic problem since tumor resection. Treating with ceftriaxone/azithromycin. - Acute respiratory failure (HCC) 05/25/2014 Requiring intubation for airway protection - Cerebral salt-wasting syndrome 06/09/2014 resolved - Cholesteatoma of middle ear - Cholesteatoma of middle ear Right side. 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 - Gastroesophageal reflux disease without esophagitis 03/18/2015 - History of intraventricular hemorrhage 05/25/2014 - Hydrocephalus (HCC) 05/25/2014 - Intraventricular hemorrhage (HCC) 05/25/2014 - Left inguinal hernia 10/02/2012 - Medication management 05/01/2024 - Meningitis (HCC) 05/25/2014 - Migraine without aura and without status migrainosus, not intractable 03/18/2015 - 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 Consistent with pericarditis Echo normal /ED ekg had changes - probably lead reversal - new EKG on - showed no change 06-06-14. ESR 4 - trop and YOLA negative - Smoker 11/22/2017 Started at age 20 up to 1.5 PPD as of 10/2017 smokes 3/4 PPD - Well adult exam 11/22/2017 last done: 08/12/2019 PAST SURGICAL HISTORY Procedure Laterality Date - COLONOSCOPY FLX DX W/COLLJ SPEC WHEN PFRMD 01/18/2019 Colonoscopy - INGUINAL HERNIA REPAIR HX Left 09/09/2021 - LEFT HEART CATH,PERCUTANEOUS 03/2021 - OTOL FACIAL PALSY PANEL_*FL 2007 - PAST SURGICAL HISTORY OF 2007 right-sided subtemporal approach for subtotal resection of the right-sided petrous epidermoid - SINUS SURGERY HX 04/24/2014 excise petrous and clival tumor (epidermoid cyst) FAMILY HISTORY Problem Relation Age of Onset - Ischemic Heart Disease Mother - Diabetes Father - Colon Cancer Sister 50 - Hypertension Brother - Stroke Brother - Cancer Paternal Grandfather ?? type - Alzheimer's Disease No Family History - Breast Cancer No Family History - Prostate Cancer No Family History - Ovarian cancer No Family History - Hyperlipidemia No Family History - Kidney Disease No Family History - Seizures No Family History - Thyroid No Family History Social History Tobacco Use - Smoking status: Every Day Current packs/day: 0.50 Average packs/day: 0.5 packs/day for 22.0 years (11.0 ttl pk-yrs) Types: Cigarettes - Smokeless tobacco: Never - Tobacco comments: Last cigarette 02/09/2022 actively trying to quit Vaping Use - Vaping status: Never Used Substance and Sexual Activity - Alcohol use: Yes Alcohol/week: 12.0 standard drinks of alcohol Types: 12 Cans of Beer (12oz) per week Comment: sometimes less - Drug use: No - Sexual activity: Not on file ALLERGIES No Known Allergies Review of Systems Constitutional: Negative for chills and fever. HENT: Negative for congestion and sore throat. Eyes: Positive for photophobia. Negative for visual disturbance. Respiratory: Positive for cough. Negative for shortness of breath. Chroni (more content not included)... Normal [facility] HISTORY PHYSICALon HISTORY PHYSICAL Normal [facility] Brain/Head without Contrasto n 07-22-2024 Brain/Head without Contrast [facility] Imaging Services [address], [place] [address] Brain/Head without Contrast MR#: [id number] Acct: [id number] Name: ANDRA GARCÍA Rep #: [id number] : 1965 M 58 From: Samantha Oneal nd, MD PCP: Dr. Yanick Sky MD Status: REG ER Study: Brain/Head without Contrast Date of Exam: 06/28 08/21 Exam# [id number] Ordering Dr: Julian Garcia DO EXAM: BRAIN/HEAD WITHOUT CONTRAST CLINICAL HISTORY: 58 y/o M with PAIN. COMPARISON: None. TECHNIQUE: Routine CT imaging of the head without IV contrast. Additional multiplanar reformats were obtained. Dose reduction techniques were used including intermediate exposure control (AEC),iterative reconstruction technique, and/or mA and/or KV dose adjustments based on patient's size. FINDINGS: Visualization is significantly limited by streak artifact from right eyelid weight. Prior right pterional craniotomy and surgical resection of the right skull base. The ventricles and subarachnoid spaces are normal for patient age. 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 Patchy supratentorial white matter hypodensities. The parsons-white matter interfaces are otherwise grossly maintained. No large intracranial hemorrhage or herniation. Prior FESS. Mild mucosal thickening of the right maxillary sinus. The visualized paranasal sinuses and mastoids are otherwise unremarkable. No depressed skull fractures are identified. CT/Brain/Head without Contrast IMPRESSION: No acute intracranial finding. Reading Location: [id number] CC: Dr. Julian Garcia DO; Dr. Yanick Sky MD Interior Design Principal: Signed Normal [facility] Emergency Department Summary on 07-22-2024 Emergency Department Summary [facility] Medical Records Department [address] [place] [address] Emergency Department Summary 07/22/24 MR#: [id number] Acct: [id number] Name: ANDRA GARCÍA Rep #: [id number] : 1965 58 From: Julian Garcia DO PCP: Dr. Yanick Sky MD Status:DEP ER Location: ED HPI History of Present Illness Chief Complaint: Headache Informant: patient Onset/Context/Timing Onset: Days (4) Context: Gradual Timing: Continuous Quality -Headache: Positive for Similar Prior Headaches Location: Diffuse Worsened by: Nothing Relieved by: Nothing Associated Symptoms/Injury Associated Symptoms: Positive for Nausea, Vomiting, Blurred Vision and Photophobia; Negative for Fever, Sore Throat, Sinus Pressure, Numbness, Tingling, Preceding Aura or Visual Loss Narrative Narrative: Patient presents with migraine headache that has been constant for the past 4 days. Patient states that it is gradually gotten worse. Patient states it is sharp. Patient states it is diffuse across his entire head. Patient states nothing makes it worse and nothing makes it better. Patient admits to some blurry vision and photophobia. Patient also admits to some dizziness. Patient states he had an episode of nausea and vomiting a couple days ago. Patient denies any fevers or chills. Prior similar symptoms: Yes PFSH [facility] Medical History (Updated 07/22/24 @ 17:[address] Julian Garcia DO) Migraine headache Hypertension Allergy/AdvReac Type Severity Reaction Status Date / Time No Known Allergies Allergy Verified 07/22/24 14:02 Surgical History (Updated 07/22/24 @ 15:[address] Julian Garcia DO) History of facial surgery Social History Smoking Status: Current every day smoker tobacco type: cigarettes ROS ROS ED Constitutional Constitutional ED: Denies chills or fever(s) Eyes Eyes: Reports blurry vision; Denies change in vision ENT ENT ED: Denies rhinorrhea or sore throat Cardiovascular Cardiovascular: Denies chest pain or palpitations Respiratory/Chest Respiratory/Chest: Denies cough or dyspnea Gastrointestinal Gastrointestinal: Reports nausea and vomiting Genitourinary Genitourinary ED: Denies dysuria or hematuria Musculoskeletal Musculoskeletal: Denies back pain or neck pain Integumentary Denies abscess or rash Neurologic Neurologic: Reports headache(s); Denies weakness Allergic/Immunologic Allergic/Immunologic ED: Denies mouth swelling or urticaria EXAM Physical Exam Const Vital Signs: 07/22/24 14:02 07/22/24 16:02 Temperature 97.4 F L Temperature Source Temporal Pulse Rate 72 78 Respiratory Rate 16 19 H Blood Pressure 133/82 H 108/92 H Blood Pressure Mean 99 97 Pulse Ox 99 98 Oxygen Delivery Method Room Air Room Air Positive well nourished and well developed General Appearance ED: well developed and NAD HEENT Reports moist mucous membranes atraumatic Neck supple and no JVD Resp normal respiratory effort and clear to auscultation bilaterally Cardio regular rate and regular rhythm GI non-tender and non-distended Palpation: soft Extremity normal to inspection and full ROM Neuro oriented x3 and no sensory deficits noted Neuro Narrative: There is right facial weakness that includes the forehead. (Patient states that this is due to his cholesteatoma surgery and is chronic.) [place] Coma Scale: document GCS findings Spontaneous Obeys Commands Oriented 15 Sensorium / Orientation: awake and alert Speech: speech normal Motor Exam: strength 5/5 throughout Psych mental status grossly normal MDM MDM MDM Narrative Medical decision making narrative: Differential diagnose includes migraine headache, tension headache, and intracranial bleeding. CT scan of the brain will be obtained to assess for intracranial bleeding. History Record Review Additional record(s) reviewed:: Prior labs Radiography Diagnostic Testing: Clinical Impression(s) from Imaging Studies Brain CT 07/22/24 15:04 IMPRESSION: No acute intracranial finding. Reading Location: [facility] CT scan of the brain was obtained. There is no acute intracranial abnormality. This was interpreted by the radiologist and was also independently reviewed by myself. Treatment and Re-Evaluation Narrative: Patient was given IV fluids, Reglan, and Benadryl. Patient was feeling better on reevaluation. Patient was given injection of Toradol. Patient was advised of his findings. Patient was instructed to rest in a dark quiet room. Patient was instructed to follow-up with his primary care physician in 5 to 7 days. Patient understood and was agreeable with the plan. All questions were answered. Discharge Pl (more content not included)... [facility] Office Visit (FAMPWS ) KATARINA GARCÍA ([id number]) 1965 M Date Time Provider Department 05/01/24 2:20 PM YANICK SKY [facility] During your visit today, we recorded the following information about you: Pulse Respiration Blood pressure Weight 68/minute 16/minute 134/84 84.4 kg Yanick Sky MD 05/01/2024 4:22 PM Signed Chief Complaint Patient presents with: F/U 6 months HPI Katarinajose García is a 58 year old male who presents here today for 6 month follow up. Patient with hx of mild CAD, HTN, Smoker, Migraines, and those as below. Patient ran out of the Lipitor and salt tablets and decided he did not want to stay on them so he stopped them. He is aware that the Lipitor would be beneficial with his CAD. Has been drinking power aid zero to get more sodium in his diet. Still smoking. Past medical history, appointments, medications, allergies reviewed. Previous Medical History PAST MEDICAL HISTORY Diagnosis Date Acute recurrent pansinusitis 12/30/2016 Bacterial vs. Viral - chronic problem since tumor resection. Treating with ceftriaxone/azithromycin. 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 Consistent with pericarditis Echo normal /ED ekg had changes - probably lead reversal - new EKG on 12-30 showed no change 06-06-14. ESR 4 - trop and YOLA negative Smoker 11/22/2017 Started at age 20 up to 1.5 PPD as of 10/2017 smokes 3/4 PPD Well adult exam 11/22/2017 last done: 08/12/2019 Previous Surgical History PAST SURGICAL HISTORY Procedure Laterality Date COLONOSCOPY FLX DX W/COLLJ SPEC WHEN PFRMD 01/18/2019 Colonoscopy INGUINAL HERNIA REPAIR HX Left 09/09/2021 LEFT HEART CATH,PERCUTANEOUS 03/2021 OTOL FACIAL PALSY PANEL_*FL 2007 PAST SURGICAL HISTORY OF 2007 right-sided subtemporal approach for subtotal resection of the right-sided petrous epidermoid SINUS SURGERY HX 04/24/2014 excise petrous and clival tumor (epidermoid cyst) Family History FAMILY HISTORY Problem Relation Age of Onset Ischemic Heart Disease Mother Diabetes Father Colon Cancer Sister 50 Hypertension Brother Stroke Brother Cancer Paternal Grandfather ?? type Alzheimer's Disease No Family History Breast Cancer No Family History Prostate Cancer No Family History Ovarian cancer No Family History Hyperlipidemia No Family History Kidney Disease No Family History Seizures No Family History Thyroid No Family History Patient Allergies ALLERGIES Allergen Reactions Maxzide [Triamteren* Other: See Comments Low sodium Current Medications Current Outpatient Medications on File Prior to Visit Medication Sig doxazosin (CARDURA) 1 mg tablet Take one tab a day for a week then go to taking two a day. (Patient not taking: Reported on 03/12/2024) sildenafil (VIAGRA) 100 mg tablet Take 1/2 to 1 tab as need. Max of 100 mg in 24 hrs. metoprolol tartrate, short acting, (LOPRESSOR) 100 mg tablet Take 2 tablets by mouth two times a day. metoprolol tartrate, short acting, (LOPRESSOR) 100 mg tablet Take 2 tablets by mouth two times a day. atorvastatin (LIPITOR) 20 mg tablet Take 1 tablet by mouth daily at bedtime. For cholesterol. (Patient not taking: Reported on 03/12/2024) lisinopril (ZESTRIL) 40 mg tablet Take 1 tablet by mouth two times a day. spironolactone (ALDACTONE) 50 mg tablet Take 1 tablet by mouth two times a day. sodium chloride 1 gram tab Take 1 tablet by mouth two times a day. (Patient not taking: Reported on 03/12/2024) No current facility-administered medications on file prior to visit. Social History Social History Tobacco Use Smoking status: Every Day Current packs/day: 0.50 Average packs/day: 0.5 packs/day for 22.0 years (11.0 ttl pk-yrs) Types: Cigarettes Smokeless tobacco: Never Tobacco comments: Last cigarette 02/09/2022 actively trying to quit (more content not included)... Normal [facility] Comprehensive metabolic 2000 panelon 05-01-2024 Albumin [Mass/Vol] 4.3 g/dL 3.9 - 4.9 g/dL ALP [Catalytic activity/Vol] 79 U/L 38 - 113 U/L ALT With P-5'-P [Catalytic activity/Vol] 9 U/L Low 10 - 54 U/L Anion gap [Moles/Vol] 13 mmol/L 8 - 15 mmol/L AST With P-5'-P [Catalytic activity/Vol] 21 U/L 14 - 40 U/L Bilirubin [Mass/Vol] 0.6 mg/dL 0.2 - 1 .3 mg/dL Calcium [Mass/Vol] 9.6 mg/dL 8.5 - 10. 2 mg/dL Chloride [Moles/Vol] 96 mmol/L Low 98 - 10 7 mmol/L CO2 [Moles/Vol] 24 mmol/L 22 - 30 mmol/L Creatinine [Mass/Vol] 0.97 mg/dL 0.73 - 1.22 mg/dL GFR/1.73 sq M.predicted among non-blacks MDRD (S/P/Bld) [Vol rate/Area] 91 mL/min/{1.73_m2} - PINF Comment on above: Estimated Glomerular Filtration Rate (eGFR) is calculated using the 2020 CKD-EPI creatinine equation. This equation utilizes serum creatinine, sex, and age as parameters. The creatinine assay has traceable calibration to isotope dilution-mass spectrometry. Refer to KDIGO guidelines for clinical interpretation. In patients with unstable renal function, e.g. those with acute kidney injury, the eGFR may not accurately reflect actual GFR. Glucose [Mass/Vol] 92 mg/dL 74 - 99 mg/dL Comment on above: The [place] Diabete s Association (ADA) provides guidance for cutoff values for fasting glucose and random glucose. The ADA defines fasting as no caloric intake for at least 8 hours. Fasting plasma glucose results between 100 to 125 mg/dL indicate increased risk for diabetes (prediabetes). Fasting plasma glucose results greater than or equal to 126 mg/dL meet the criteria for diagnosis of diabetes. In the absence of unequivocal hyperglycemia, results should be confirmed by repeat testing. In a patient with classic symptoms of hyperglycemia or hyperglycemic crisis, random plasma glucose results greater than or equal to 200 mg/dL meet the criteria for diagnosis of diabetes. Reference: Standards of Medical Care in Diabetes 2016, [place] Diabetes Association. Diabetes Care. 2016.39(Suppl 1). Potassium [Moles/Vol] 4.5 mmol/L 3.7 - 5.1 mmol/L Protein [Mass/Vol] 6.9 g/dL 6.3 - 8.0 g/dL Sodium [Moles/Vol] 133 mmol/L Low 136 - 144 mmol/L Urea nitrogen [Mass/Vol] 13 mg/dL 9 - 24 mg/dL Albumin [Mass/Vol] 4.3 g/dL Normal 3.9-4.9 [facility] Comment on above: Order Comment: Speci men Type: BLOOD SPECIMEN Ordering Facility: [facility] Address: [address] [place] [address] Performed By: #### L IPNF, 94938-9 #### [facility] CLIA [id number] [address] [place] ALP [Catalytic activity/Vol] 79 U/L Normal 38-113 [facility] Comment on above: Order Comment: Speci men Type: BLOOD SPECIMEN Ordering Facility: [facility] Address: [address] [place] [address] Performed By: #### L IPNF, 40585-0 #### [facility] CLIA [id number] [address] [place] ALT With P-5'-P [Catalytic activity/Vol] 9 U/L Low 10-54 [facility] Comment on above: Order Comment: Speci men Type: BLOOD SPECIMEN Ordering Facility: [facility] Address: [address] [place] [address] Performed By: #### L IPNF, 78604-9 #### [facility] CLIA [id number] [address] [place] [facility] Anion gap [Moles/Vol] 13 mmol/L Normal 8-15 [facility] Comment on above: Order Comment: Speci men Type: BLOOD SPECIMEN Ordering Facility: [facility] Address: [address] [place] [address] Performed By: #### L IPNF, 06120-4 #### [facility] CLIA [id number] [address] [place] AST With P-5'-P [Catalytic activity/Vol] 21 U/L Normal 14-40 [facility] Comment on above: Order Comment: Speci men Type: BLOOD SPECIMEN Ordering Facility: [facility] Address: [address] [place] [address] Performed By: #### L IPNF, 65914-6 #### [facility] CLIA [id number] [address] [place] [address] [place] Bilirubin [Mass/Vol] 0.6 mg/dL Normal 0.2-1.3 [facility] Comment on above: Order Comment: Speci men Type: BLOOD SPECIMEN Ordering Facility: [facility] Address: [address] [place] [address] Performed By: #### L IPNF, #### [facility] CLIA [id number] [address] [place] [address] [place] Calcium [Mass/Vol] 9.6 mg/dL Normal 8.5-10.2 [facility] Comment on above: Order Comment: Speci men Type: BLOOD SPECIMEN Ordering Facility: [facility] Address: [address] [place] [address] Performed By: #### L IPNF, #### [facility] CLIA [id number] [address] [place] [address] [place] Chloride [Moles/Vol] 96 mmol/L Low 98-107 [facility] Comment on above: Order Comment: Speci men Type: BLOOD SPECIMEN Ordering Facility: [facility] Address: [address] [place] [address] Performed By: #### L IPNF, #### [facility] CLIA [id number] [address] [place] [address] [place] CO2 [Moles/Vol] 24 mmol/L Normal 22-30 [facility] Comment on above: Order Comment: Speci men Type: BLOOD SPECIMEN Ordering Facility: [facility] Address: [address] [place] [address] Performed By: #### L IPNF, #### [facility] CLIA [id number] [address] [place] [address] [place] Creatinine [Mass/Vol] 0.97 mg/dL Normal 0.73-1.22 [facility] Comment on above: Order Comment: Ankur blancas Type: BLOOD SPECIMEN Ordering Facility: [facility] Address: [address] [place] [address] Performed By: #### L IPNF, 13156-4 #### [employer] [facility] CLIA [id number] [address] [place] Creatinine and Glomerular filtration rate.predicted panel (S/P/Bld) 91 mL/min/1.73m??? Normal >=60 [facility] Comment on above: Order Comment: Ankur blancas Type: BLOOD SPECIMEN Ordering Facility: [facility] Address: [address] [place] [address] Result Comment: Lola mated Glomerular Filtration Rate (eGFR) is calculated using the 2020 CKD-EPI creatinine equation. This equation utilizes serum creatinine, sex, and age as parameters. The creatinine assay has traceable calibration to isotope dilution-mass spectrometry. Refer to KDIGO guidelines for clinical interpretation. In patients with unstable renal function, e.g. those with acute kidney injury, the eGFR may not accurately reflect actual GFR. Performed By: #### L IPNF, 77337-7 #### [employer] [facility] CLIA [id number] [address] [place] [address] [place] Glucose [Mass/Vol] 92 mg/dL Normal 74-99 [facility] Comment on above: Order Comment: Ankur blancas Type: BLOOD SPECIMEN Ordering Facility: [facility] Address: [address] [place] [address] Result Comment: The [place] Diabetes Association (ADA) provides guidance for cutoff values for fasting glucose and random glucose. The ADA defines fasting as no caloric intake for at least 8 hours. Fasting plasma glucose results between 100 to 125 mg/dL indicate increased risk for diabetes (prediabetes). Fasting plasma glucose results greater than or equal to 126 mg/dL meet the criteria for diagnosis of diabetes. In the absence of unequivocal hyperglycemia, results should be confirmed by repeat testing. In a patient with classic symptoms of hyperglycemia or hyperglycemic crisis, random plasma glucose results greater than or equal to 200 mg/dL meet the criteria for diagnosis of diabetes. Reference: Standards of Medical Care in Diabetes 2016, [place] Diabetes Association. Diabetes Care. 2016.39(Suppl 1). Performed By: #### L IPNF, 53940-0 #### [facility] CLIA [id number] [address] [place] [address] [place] Potassium [Moles/Vol] 4.5 mmol/L Normal 3.7-5.1 [facility] Comment on above: Order Comment: Speci men Type: BLOOD SPECIMEN Ordering Facility: [facility] Address: [address] [place] [address] Performed By: #### L IPNF, 30011-1 #### [facility] CLIA [id number] [address] [place] [address] [place] Protein [Mass/Vol] 6.9 g/dL Normal 6.3-8.0 [facility] Comment on above: Order Comment: Speci men Type: BLOOD SPECIMEN Ordering Facility: [facility] Address: [address] [place] [address] Performed By: #### L IPNF, 79938-3 #### [facility] CLIA [id number] [address] [place] [address] [place] Sodium [Moles/Vol] 133 mmol/L Low 136-144 [facility] Comment on above: Order Comment: Speci men Type: BLOOD SPECIMEN Ordering Facility: [facility] Address: [address] [place] [address] Performed By: #### L IPNF, 22411-2 #### [facility] CLIA [id number] [address] [place] [address] [place] Urea nitrogen [Mass/Vol] 13 mg/dL Normal 9-24 [facility] Comment on above: Order Comment: Speci men Type: BLOOD SPECIMEN Ordering Facility: [facility] Address: [address] [place] [address] Performed By: #### L IPNF, 22708-2 #### [facility] CLIA [id number] [address] [place] [address] [place] LIPID PANEL, NONFASTINGon Cholesterol [Mass/Vol] 192 mg/dL NINF - 200 mg/dL Comment on above: <200 mg/dL, Desirabl e 200-239 mg/dL, Borderline high >239 mg/dL, High HDL Cholesterol, Nonfasting 60 mg/dL 39 - PINF mg/dL Comment on above: 40-59 mg/dL, Accepta ble >59 mg/dL, High: Negative risk factor for coronary heart disease <40 mg/dL, Low: Positive risk factor for coronary heart disease LDL Cholesterol, Nonfasting 105 mg/dL High NINF - 100 mg/dL Comment on above: <100 mg/dL, Optimal 100-129 mg/dL, Near optimal/above optimal 130-159 mg/dL, Borderline high 160-189 mg/dL, High >189 mg/dL, Very high Secondary prevention optimal LDL Cholesterol levels are recommended to be < 70 mg/dL LDL/HDL Ratio, Nonfasting 1.75 mg/dL NINF - 2.54 mg/dL Comment on above: Reference: 1. National Cholesterol Education Program ATP III Guideline At-A-Glance Quick Desk Reference: National Heart, Lung, and Blood Johnson. National Institutes of Health. 2001: NIH Publication No. 01-3305. 2. An International Atherosclerosis Society position paper: global recommendations for the management of dyslipidemia: executive summary, Atherosclerosis. 2014: 232(2):410-413. Non HDL Cholesterol, Nonfasting 132 mg/dL High NINF - 130 mg/dL Comment on above: <130 mg/dL, Optimal 130-159 mg/dL, Near optimal/above optimal 160-189 mg/dL, Borderline high 190-219 mg/dL, High >219 mg/dL, Very high Secondary prevention optimal non HDL Cholesterol levels are recommended to be <100 mg/dL Total Chol/HDL Ratio, Nonfasting 3.2 mg/dL NINF - 5.10 mg/dL Triglycerides, Nonfasting 136 mg/dL NINF - 150 mg/dL Comment on above: <150 mg/dL, Normal 150-199 mg/dL, Borderline high 200-499 mg/dL, High >499 mg/dL, Very high VLDL Cholesterol, Nonfasting 27 mg/dL NINF - 30 mg/dL Cholesterol [Mass/Vol] 192 mg/dL Normal <200 Cl [facility] Comment on above: Order Comment: Speci men Type: BLOOD SPECIMEN Ordering Facility: [facility] Address: [address] [place] [address] Result Comment: <200 mg/dL, Desirable 200-239 mg/dL, Borderline high >239 mg/dL, High Performed By: #### L IPNF, 81776-7 #### [facility] CLIA [id number] [address] HDL CHOLESTEROL, NF 60 mg/dL Normal >39 [facility] Comment on above: Order Comment: Ankur magalis Type: BLOOD SPECIMEN Ordering Facility: [facility] Address: [address] [place] [address] Result Comment: 40-5 9 mg/dL, Acceptable >59 mg/dL, High: Negative risk factor for coronary heart disease <40 mg/dL, Low: Positive risk factor for coronary heart disease Performed By: #### L IPNF, 96638-0 #### [facility] CLIA [id number] [address] [address] STATES OF [facility] LDL CHOLESTEROL, NF 105 mg/dL High <100 [facility] Comment on above: Order Comment: Ankur [facility] Type: BLOOD SPECIMEN Ordering Facility: [facility] Address: [address] [place] [address] Result Comment: <100 mg/dL, Optimal 100-129 mg/dL, Near optimal/above optimal 130-159 mg/dL, Borderline high 160-189 mg/dL, High >189 mg/dL, Very high Secondary prevention optimal LDL Cholesterol levels are recommended to be < 70 mg/dL Performed By: #### L IPNF, 02883-6 #### [facility] CLIA [id number] [address] LDL/HDL RATIO, NF 1.75 mg/dL Normal <2.54 [facility] Comment on above: Order Comment: Ankur magalis Type: BLOOD SPECIMEN Ordering Facility: [facility] Address: [address] [place] [address] Result Comment: Refe rence: 1. National Cholesterol Education Program ATP III Guideline At-A-Glance Quick Desk Reference: National Heart, Lung, and Blood Johnson. National Institutes of Health. 2001: NIH Publication No. 01-3305. 2. An International Atherosclerosis Society position paper: global recommendations for the management of dyslipidemia: executive summary, Atherosclerosis. 2014: 232(2):410-413. Performed By: #### L IPNF, 59694-4 #### [facility] CLIA [id number] [address] OF [facility] NON HDL CHOL, NF 132 mg/dL High <130 [facility] Comment on above: Order Comment: Ankur blancas Type: BLOOD SPECIMEN Ordering Facility: [facility] Address: [address] [place] [address] Result Comment: <130 mg/dL, Optimal 130-159 mg/dL, Near optimal/above optimal 160-189 mg/dL, Borderline high 190-219 mg/dL, High >219 mg/dL, Very high Secondary prevention optimal non HDL Cholesterol levels are recommended to be <100 mg/dL Performed By: #### L IPNF, 64476-0 #### [facility] CLIA [id number] [address] T CHOL/HDL RATIO NF 3.20 mg/dL Normal <5.10 [facility] Comment on above: Order Comment: Ankur blancas Type: BLOOD SPECIMEN Ordering Facility: [facility] Address: [address] [place] [address] Performed By: #### L IPNF, 09520-1 #### [facility] CLIA [id number] [address] OF [facility] TRIGLYCERIDES, NF 136 mg/dL Normal <150 [facility] Comment on above: Order Comment: Ankur blancas Type: BLOOD SPECIMEN Ordering Facility: [facility] Address: [address] [place] [address] Result Comment: <150 mg/dL, Normal 150-199 mg/dL, Borderline high 200-499 mg/dL, High >499 mg/dL, Very high Performed By: #### L IPNF, 42235-7 #### [facility] CLIA [id number] [address] [place] [address] [place] VLDL CHOLESTEROL, NF 27 mg/dL Normal <30 [facility] Comment on above: Order Comment: Speci men Type: BLOOD SPECIMEN Ordering Facility: [facility] Address: [address] [place] [id number] Performed By: #### L IP, 97675-5 #### [facility] CLIA [id number] [address] STATES OF [facility] No Panel Informationon 05-01 Interpretation and review of laboratory results Abnormal [facility] CNPNon 04-10-2024 CNPN Telephone [facility] KATARINA GARCÍA ([id number]) 1965 M Date Time Provider Department 04/10/[address] [facility] During your visit today, we recorded the following information about you: Macrina Neal MA 04/10/2024 9:00 AM Signed Provider out ill. L/m patient needs rescheduled. MAC Magdaleno Roxanne, MA 04/15/2024 2:48 PM Signed Patient rescheduled. Macrina Neal MA Allergies As of Date: 04/10/2024 Noted Allergy Reaction MAXZIDE (TRIAMTERENE-HYDROCHLOROT*0 08/08/2022 14 - Other: See Comments Comments: Low sodium Date Reviewed: 03/12/2024 Reviewed by: Harriet Echavarria MA - Fully Assessed Reason for Visit: Appointment [186] Prescriptions as of 04/15/2024 - doxazosin (CARDURA) 1 mg tablet Take one tab a day for a week then go to taking two a day. - sildenafil (VIAGRA) 100 mg tablet Take 1/2 to 1 tab as need. Max of 100 mg in 24 hrs. - metoprolol tartrate, short acting, (LOPRESSOR) 100 mg tablet Take 2 tablets by mouth two times a day. - metoprolol tartrate, short acting, (LOPRESSOR) 100 mg tablet Take 2 tablets by mouth two times a day. - atorvastatin (LIPITOR) 20 mg tablet Take 1 tablet by mouth daily at bedtime. For cholesterol. - lisinopril (ZESTRIL) 40 mg tablet Take 1 tablet by mouth two times a day. - spironolactone (ALDACTONE) 50 mg tablet Take 1 tablet by mouth two times a day. - sodium chloride 1 gram tab Take 1 tablet by mouth two times a day. 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] 06/09/2014 Gastroesophageal reflux disease without esophag*03/18/2015 Migraine without aura and without status migrai*03/18/2015 Chest pain [R07.9] 12/30/2016 07/26/2023 Acute recurrent pansinusitis [J01.41] 12/30/2016 Smoker [F17.200] 11/22/2017 Well adult exam [Z00.00] 11/22/2017 Essential hypertension [I10] 05/01/2013 Screening for prostate cancer [Z12.5] 08/12/2019 Coronary artery disease due to lipid rich plaqu*07/06/2021 Encounter for screening for diabetes mellitus [*07/26/2023 Encounter Status:Closed by MACRINA NEAL on 04/15/24 [facility] Rafy 03-12-2024 CNOV Office Visit (UCWSTR ) KATARINA GARCÍA ([id number]) 1965 M Date Time Provider Department 03/12/24 12:30 PM MECHE ZHAO [facility] During your visit today, we recorded the following information about you: Temperature Pulse Respiration Blood pressure 97.5 degrees 72/minute 16/minute 108/66 Weight 83.4 kg Meche Zhao PA 03/12/2024 1:00 PM Signed This note was created using Terrajouleriter. Subjective Katarina García is a 58 year old male. HPI 58-year-old male presents for low back pain. Patient states that he slipped on ice on his stairs and fell about a week ago. He hit his low back on his stairs. He states that he has been having pain since then, but it has gotten more tight and worsened over the past few days. Pain is mainly in the mid low back and on the right side. No numbness or tingling in the legs. No pain radiating to legs. No loss of bowel or bladder function. No fevers. Patient does have history of broken T12 back in the 90s. No history of surgery on the back. No other complaint. Has taken Tylenol for symptoms with minimal improvement. Patient did not hit his head or lose consciousness with the fall. PAST MEDICAL HISTORY Diagnosis Date Acute recurrent pansinusitis 12/30/2016 Bacterial vs. Viral - chronic problem since tumor resection. Treating with ceftriaxone/azithromycin. 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 Consistent with pericarditis Echo normal /ED ekg had changes - probably lead reversal - new EKG on 12-30 showed no change 06-06-14. ESR 4 - trop and YOLA negative Smoker 11/22/2017 Started at age 20 up to 1.5 PPD as of 10/2017 smokes 3/4 PPD Well adult exam 11/22/2017 last done: 08/12/2019 PAST SURGICAL HISTORY Procedure Laterality Date COLONOSCOPY FLX DX W/COLLJ SPEC WHEN PFRMD 01/18/2019 Colonoscopy INGUINAL HERNIA REPAIR HX Left 09/09/2021 LEFT HEART CATH,PERCUTANEOUS 03/2021 OTOL FACIAL PALSY PANEL_*FL 2007 PAST SURGICAL HISTORY OF 2007 right-sided subtemporal approach for subtotal resection of the right-sided petrous epidermoid SINUS SURGERY HX 04/24/2014 excise petrous and clival tumor (epidermoid cyst) ALLERGIES Maxzide [Triamterene-Hydrochlorothi azid] MEDICATIONS sildenafil (VIAGRA) 100 mg tablet Take 1/2 to 1 tab as need. Max of 100 mg in 24 hrs. metoprolol tartrate, short acting, (LOPRESSOR) 100 mg tablet Take 2 tablets by mouth two times a day. metoprolol tartrate, short acting, (LOPRESSOR) 100 mg tablet Take 2 tablets by mouth two times a day. lisinopril (ZESTRIL) 40 mg tablet Take 1 tablet by mouth two times a day. spironolactone (ALDACTONE) 50 mg tablet Take 1 tablet by mouth two times a day. doxazosin (CARDURA) 1 mg tablet Take one tab a day for a week then go to taking two a day. (Patient not taking: Reported on 03/12/2024) atorvastatin (LIPITOR) 20 mg tablet Take 1 tablet by mouth daily at bedtime. For cholesterol. (Patient not taking: Reported on 03/12/2024) sodium chloride 1 gram tab Take 1 tablet by mouth two times a day. (Patient not taking: Reported on 03/12/2024) FAMILY HISTORY Problem Relation Age of Onset Ischemic Heart Disease Mother Diabetes Father Colon Cancer Sister 50 Hypertension Brother Stroke Brother Cancer Paternal Grandfather ?? type Alzheimer's Disease No Family History Breast Cancer No Family History Prostate Cancer No Family History Ovarian cancer No Family History Hyperlipidemia No Family History Kidney Disease No Family History Seizures No Family History Thyroid No Family History Social History Tobacco Use Smoking status: Every Day Current packs/day: 0.50 Average packs/day: 0.5 packs/day for 22.0 years (11.0 ttl pk-yrs) Types: Cigarettes Smokeless tobacco: Never Tobacco comments: Last cigarette 02/09/2022 actively trying to quit Vaping Use Vaping status (more content not included)... Normal [facility] XR LUMBAR 3V AP/LAT/L5-S1on 03-12-2024 XR LUMBAR 3V AP/LAT/L5-S1 * * *Final Report* * * DATE OF EXAM: Mar 12 2024 12:45PM WOX [id number] - XR LUMBAR 3V AP/LAT/L5-S1 / PROCEDURE REASON: multiple diagnoses * * * * Physician Interpretation * * * * Lumbar spine History: Acute midline low back pain without sciatica Fall, initial encounter Prior study: CT chest 12/31/2016 Findings: AP and lateral views were performed. Marked wedge compression deformity T12 vertebral body with narrowing of the T11-T12 disc spaces appear unchanged from previous CT of 2016. L2-L4 vertebral bodies and pedicles appear intact. Narrowing L1-2 disc space with 3 to 4 mm retrolisthesis. Other disc spaces maintained with anatomic alignment. Mild thoracolumbar curvature convex to the LEFT. Well-defined bone defect superior lateral iliac wing 1-4 cm in diameter Counting reference: Lumbosacral junction. For the purposes of this report, L4-5 is considered the level of the iliac crest and there are 5 lumbar-type vertebrae. Anatomic Variants: None. IMPRESSION: Stable wedge compression deformity T12 vertebral body with marked narrowing T11-T12 and T12-L1 disc spaces. Degenerative narrowing at L1-2 disc space with mild retrolisthesis. Bony defect RIGHT iliac wing suggestive of remote bone harvesting. Interior Design Principal: PSCB Transcribe Date/Time: Mar 12 2024 12:46P Dictated by : BRENDON TRIPLETT MD This examination was interpreted and the report reviewed and electronically signed by: BRENDON TRIPLETT MD on Mar 12 2024 12:51PM EST [id number] Normal [facility] XR Lumbar spine 3 Viewson IMPRESSION: Stable wedge compression deformity T12 vertebral body with marked narrowing T11-T12 and T12-L1 disc spaces. Degenerative narrowing at L1-2 disc space with mild retrolisthesis. Bony defect RIGHT iliac wing suggestive of remote bone harvesting. Interior Design Principal: PSCB Transcribe Date/Time: Mar 12 2024 12:46P Dictated by : BRENDON TRIPLETT MD This examination was interpreted and the report reviewed and electronically signed by: BRENDON TRIPLETT MD on Mar 12 2024 12:51PM EST DIVISION OF RADIOLOGY * * *Final Report* * * DATE OF EXAM: Mar 12 2024 12:45PM WOX [id number] - XR LUMBAR 3V AP/LAT/L5-S1 / PROCEDURE REASON: multiple diagnoses * * * * Physician Interpretation * * * * Lumbar spine History: Acute midline low back pain without sciatica Fall, initial encounter Prior study: CT chest 12/31/2016 Findings: AP and lateral views were performed. Marked wedge compression deformity T12 vertebral body with narrowing of the T11-T12 disc spaces appear unchanged from previous CT of 2017. L2-L4 vertebral bodies and pedicles appear intact. Narrowing L1-2 disc space with 3 to 4 mm retrolisthesis. Other disc spaces maintained with anatomic alignment. Mild thoracolumbar curvature convex to the LEFT. Well-defined bone defect superior lateral iliac wing 1-4 cm in diameter Counting reference: Lumbosacral junction. For the purposes of this report, L4-5 is considered the level of the iliac crest and there are 5 lumbar-type vertebrae. Anatomic Variants: None. DIVISION OF RADIOLOGY Provider, [facility] - 03/12/2024 * * *Final Report* * * DATE OF EXAM: Mar 12 2024 12:45PM WOX 5228 - XR LUMBAR 3V AP/LAT/L5-S1 / PROCEDURE REASON: multiple diagnoses * * * * Physician Interpretation * * * * Lumbar spine History: Acute midline low back pain without sciatica Fall, initial encounter Prior study: CT chest 12/31/2016 Findings: AP and lateral views were performed. Marked wedge compression deformity T12 vertebral body with narrowing of the T11-T12 disc spaces appear unchanged from previous CT of 2017. L2-L4 vertebral bodies and pedicles appear intact. Narrowing L1-2 disc space with 3 to 4 mm retrolisthesis. Other disc spaces maintained with anatomic alignment. Mild thoracolumbar curvature convex to the LEFT. Well-defined bone defect superior lateral iliac wing 1-4 cm in diameter Counting reference: Lumbosacral junction. For the purposes of this report, L4-5 is considered the level of the iliac crest and there are 5 lumbar-type vertebrae. Anatomic Variants: None. IMPRESSION IMPRESSION: Stable wedge compression deformity T12 vertebral body with marked narrowing T11-T12 and T12-L1 disc spaces. Degenerative narrowing at L1-2 disc space with mild retrolisthesis. Bony defect RIGHT iliac wing suggestive of remote bone harvesting. Interior Design Principal: JEFF Transcribe Date/Time: Mar 12 2024 12:46P Dictated by : BRENDON TRIPLETT MD This examination was interpreted and the report reviewed and electronically signed by: BRENDON TRIPLETT MD on Mar 12 2024 12:51PM EST Radiology Study observation (narrative) XR Lumbar spine 3 ViewsOrder ed By: [facility]cf Provider on 03-12-2024 CNPPamela 08-05-2023 CNPN Telephone ([facility]) KATARINA GARCÍA ([id number]) 1965 M Date Time Provider Department 08/05/23 YANICK SKY [facility] During your visit today, we recorded the following information about you: Yanick Sky MD 08/05/2023 11:38 PM Signed Let patient know his UA, lipid panel, blood sugar screen and prostate lab were all ok. His electrolyte panel was ok and his sodium is improved and almost back to normal. Continue the sodium tabs twice a day. Macrina Neal MA 08/07/2023 10:19 AM Signed Left message for patient to contact office. MAC Magdaleno Stephanie, RN 08/07/2023 10:29 AM Signed Patient notified of results and provider's instructions. Patient verbalizes understanding. Natalie Guzman RN Allergies As of Date: 08/05/2023 Noted Allergy Reaction MAXZIDE (TRIAMTERENE-HYDROCHLOROT*0 08/08/2022 14 - Other: See Comments Comments: Low sodium Date Reviewed: 07/26/2023 Reviewed by: Yanick Sky MD - Fully Assessed Reason for Visit: Results [95] Prescriptions as of 08/07/2023 - atorvastatin (LIPITOR) 20 mg tablet Take 1 tablet by mouth daily at bedtime. For cholesterol. - doxazosin (CARDURA) 1 mg tablet Take one tab a day for a week then go to taking two a day. - lisinopril (ZESTRIL) 40 mg tablet Take 1 tablet by mouth two times a day. - spironolactone (ALDACTONE) 50 mg tablet Take 1 tablet by mouth two times a day. - sodium chloride 1 gram tab Take 1 tablet by mouth two times a day. - metoprolol tartrate, short acting, (LOPRESSOR) 100 mg tablet Take 2 tablets by mouth two times a day. - sildenafil (VIAGRA) 100 mg tablet Take 1/2 to 1 tab as need. Max of 100 mg in 24 hrs. 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 01/12/2022 Erectile dysfunction [N52.9] 05/14/2014 Hydrocephalus (HCC) [G91.9] 05/25/2014 01/12/2022 History of intraventricular hemorrhage [Z86.79] 05/25/2014 Cerebral salt-wasting syndrome [E87.1] 06/09/2014 Gastroesophageal reflux disease without esophag*03/18/2015 Migraine without aura and without status migrai*03/18/2015 Chest pain [R07.9] 12/30/2016 07/26/2023 Acute recurrent pansinusitis [J01.41] 12/30/2016 Smoker [F17.200] 11/22/2017 Well adult exam [Z00.00] 11/22/2017 Essential hypertension [I10] 05/01/2013 Screening for prostate cancer [Z12.5] 08/12/2019 Coronary artery disease due to lipid rich plaqu*07/06/2021 Encounter for screening for diabetes mellitus [*07/26/2023 Encounter Status:Closed by NATALIE GUZMAN on 08/07/23 Normal [facility] Comprehensive metabolic 2000 panelon 08-05-2023 Albumin [Mass/Vol] 4.1 g/dL Normal 3.9-4.9 [facility] Comment on above: Order Comment: Speci men Type: BLOOD SPECIMEN Ordering Facility: [facility] Address: [address] [place] [address] Performed By: #### 2 4323-8, LIPNF #### [facility] CLIA [id number] [address] [place] [address] [place] ALP [Catalytic activity/Vol] 80 U/L Normal 38-113 [facility] Comment on above: Order Comment: Speci men Type: BLOOD SPECIMEN Ordering Facility: [facility] Address: [address] [place] [address] Performed By: #### 2 4323-8, LIPNF #### [facility] CLIA [id number] [address] [place] [address] [place] ALT [Catalytic activity/Vol] 11 U/L Normal 10-54 [facility] Comment on above: Order Comment: Speci men Type: BLOOD SPECIMEN Ordering Facility: [facility] Address: [address] [place] [address] Performed By: #### 2 4323-8, LIPNF #### [facility] CLIA [id number] [address] [place] [address] [place] Anion gap [Moles/Vol] 12 mmol/L Normal 8-15 [facility] Comment on above: Order Comment: Speci men Type: BLOOD SPECIMEN Ordering Facility: [facility] Address: [address] [place] [address] Performed By: #### 2 4323-8, LIPNF #### [facility] CLIA [id number] [address] [place] [address] [place] AST [Catalytic activity/Vol] 22 U/L Normal 14-40 [facility] Comment on above: Order Comment: Speci men Type: BLOOD SPECIMEN Ordering Facility: [facility] Address: [address] [place] [address] Performed By: #### 2 4323-8, LIPNF #### [facility] CLIA [id number] [address] [place] [address] [place] Bilirubin [Mass/Vol] 0.4 mg/dL Normal 0.2-1.3 [facility] Comment on above: Order Comment: Speci men Type: BLOOD SPECIMEN Ordering Facility: [facility] Address: [address] [place] [address] Performed By: #### 2 4323-8, LIPNF #### [facility] CLIA [id number] [address] [place] [address] [place] Calcium [Mass/Vol] 9.0 mg/dL Normal 8.5-10.2 [facility] Comment on above: Order Comment: Speci men Type: BLOOD SPECIMEN Ordering Facility: [facility] Address: [address] [place] [address] Performed By: #### 2 4323-8, LIPNF #### [facility] CLIA [id number] [address] [place] [address] [place] Chloride [Moles/Vol] 98 mmol/L Normal 98-107 [facility] Comment on above: Order Comment: Speci men Type: BLOOD SPECIMEN Ordering Facility: [facility] Address: [address] [place] [address] Performed By: #### 2 4323-8, LIPNF #### [facility] CLIA [id number] [address] [place] [address] [place] CO2 [Moles/Vol] 22 mmol/L Normal 22-30 [facility] Comment on above: Order Comment: Speci men Type: BLOOD SPECIMEN Ordering Facility: [facility] Address: [address] [place] [address] Performed By: #### 2 4323-8, LIPNF #### [facility] CLIA [id number] [address] [place] [address] [place] Creatinine [Mass/Vol] 0.85 mg/dL Normal 0.73-1.22 [facility] Comment on above: Order Comment: Speci men Type: BLOOD SPECIMEN Ordering Facility: [facility] Address: [address] [place] [address] Performed By: #### 2 4323-8, LIPNF #### [facility] IA [id number] [address] [place] [address] [place] Creatinine and Glomerular filtration rate.predicted panel (S/P/Bld) 102 mL/min/1.73m??? Normal >=60 [facility] Comment on above: Order Comment: Speci men Type: BLOOD SPECIMEN Ordering Facility: [facility] Address: [address] [place] [address] Result Comment: Lola mated Glomerular Filtration Rate (eGFR) is calculated using the 2020 CKD-EPI creatinine equation. This equation utilizes serum creatinine, sex, and age as parameters. The creatinine assay has traceable calibration to isotope dilution-mass spectrometry. Refer to KDIGO guidelines for clinical interpretation. In patients with unstable renal function, e.g. those with acute kidney injury, the eGFR may not accurately reflect actual GFR. Performed By: #### 2 4323-8, LIPNF #### [facility] CLIA [id number] [address] [place] [address] [place] Glucose [Mass/Vol] 130 mg/dL High 74-99 [facility] Comment on above: Order Comment: Speci men Type: BLOOD SPECIMEN Ordering Facility: [facility] Address: [address] [place] [address] Result Comment: The [place] Diabetes [employer] (ADA) provides guidance for cutoff values for fasting glucose and random glucose. The ADA defines fasting as no caloric intake for at least 8 hours. Fasting plasma glucose results between 100 to 125 mg/dL indicate increased risk for diabetes (prediabetes). Fasting plasma glucose results greater than or equal to 126 mg/dL meet the criteria for diagnosis of diabetes. In the absence of unequivocal hyperglycemia, results should be confirmed by repeat testing. In a patient with classic symptoms of hyperglycemia or hyperglycemic crisis, random plasma glucose results greater than or equal to 200 mg/dL meet the criteria for diagnosis of diabetes. Reference: Standards of Medical Care in Diabetes 2016, [place] [employer]. Diabetes Care. 2016.39(Suppl 1). Performed By: #### 2 4323-8, LIPNF #### [facility] CLIA [id number] [address] [place] [address] [place] Potassium [Moles/Vol] 4.1 mmol/L Normal 3.7-5.1 [facility] – [facility] Comment on above: Order Comment: Speci men Type: BLOOD SPECIMEN Ordering Facility: [facility] Address: [address] [place] [address] Performed By: #### 2 4323-8, LIPNF #### [facility] CLIA [id number] [address] [place] [address] [place] Protein [Mass/Vol] 6.3 g/dL Normal 6.3-8.0 [facility] Comment on above: Order Comment: Speci men Type: BLOOD SPECIMEN Ordering Facility: [facility] Address: [address] [place] [address] Performed By: #### 2 4323-8, LIPNF #### [facility] CLIA [id number] [address] [place] [address] [place] Sodium [Moles/Vol] 132 mmol/L Low 136-144 [facility] Comment on above: Order Comment: Speci men Type: BLOOD SPECIMEN Ordering Facility: [facility] Address: [address] [place] [address] Performed By: #### 2 4323-8, LIPNF #### [facility] CLIA [id number] [address] [place] [address] [place] Urea nitrogen [Mass/Vol] 11 mg/dL Normal 9-24 [facility] Comment on above: Order Comment: Cedrici men Type: BLOOD SPECIMEN Ordering Facility: [facility] Address: [address] [place] [address] Performed By: #### 2 4323-8, LIPNF #### [facility] CLIA [id number] [address] [place] [address] [place] HbA1c (Bld)on 08-05-2023 Average glucose Estimated from glycated hemoglobin (Bld) [Mass/Vol] 82 mg/dL Normal [facility] Comment on above: Order Comment: Ankur men Type: BLOOD SPECIMEN Ordering Facility: [facility] Address: [address] [place] [address] Result Comment: eAG: (Estimated average glucose) is a calculated value from HgbA1c and is welding equipment sales representative of the average blood glucose level in the last 2-3 month period. Performed By: #### 5 5454-3 #### [facility] CLIA [id number] [address] [place] [address] [place] HbA1c (Bld) [Mass fraction] 4.5 % Normal 4.3-5.6 [facility] Comment on above: Order Comment: Ankur men Type: BLOOD SPECIMEN Ordering Facility: [facility] Address: [address] [place] [address] Result Comment: Amer ican Diabetes Association guidelines indicate that patients with HgbA1c in the range 5.7-6.4% are at increased risk for development of diabetes, and intervention by lifestyle modification may be beneficial. HgbA1c greater or equal to 6.5% is considered diagnostic of diabetes. Performed By: #### 5 5454-3 #### [facility] CLIA [id number] [address] [place] [address] OF [place] LIPID PANEL, NONFASTINGon Cholesterol [Mass/Vol] 150 mg/dL Normal <200 [facility] Comment on above: Order Comment: Speci men Type: BLOOD SPECIMEN Ordering Facility: [facility] Address: [address] [place] [address] Result Comment: <200 mg/dL, Desirable 200-239 mg/dL, Borderline high >239 mg/dL, High Performed By: #### 2 4323-8, LIPNF #### [facility] CLIA [id number] [address] [place] [address] [place] HDL CHOLESTEROL, NF 50 mg/dL Normal >39 [facility] Comment on above: Order Comment: Speci men Type: BLOOD SPECIMEN Ordering Facility: [facility] Address: [address] [place] [address] Result Comment: 40-5 9 mg/dL, Acceptable >59 mg/dL, High: Negative risk factor for coronary heart disease <40 mg/dL, Low: Positive risk factor for coronary heart disease Performed By: #### 2 4323-8, LIPNF #### [facility] CLIA [id number] [address] [place] [address] [place] LDL CHOLESTEROL, NF 80 mg/dL Normal <100 [facility] Comment on above: Order Comment: Speci men Type: BLOOD SPECIMEN Ordering Facility: [facility] Address: [address] [place] [address] Result Comment: <100 mg/dL, Optimal 100-129 mg/dL, Near optimal/above optimal 130-159 mg/dL, Borderline high 160-189 mg/dL, High >189 mg/dL, Very high Secondary prevention optimal LDL Cholesterol levels are recommended to be < 70 mg/dL Performed By: #### 2 4323-8, LIPNF #### [facility] CLIA [id number] [address] [place] [address] [place] LDL/HDL RATIO, NF 1.60 mg/dL Normal <2.54 [facility] Comment on above: Order Comment: Speci men Type: BLOOD SPECIMEN Ordering Facility: [facility] Address: [address] [place] [address] Result Comment: August martin: 1. National Cholesterol Education Program ATP III Guideline At-A-Glance Quick Desk Reference: National Heart, Lung, and Blood Johnson. National Institutes of Health. 2001: NIH Publication No. 01-3305. 2. An International Atherosclerosis Society position paper: global recommendations for the management of dyslipidemia: executive summary, Atherosclerosis. 2014: 232(2):410-413. Performed By: #### 2 4323-8, LIPNF #### [facility] CLIA [id number] [address] [place] [address] [place] NON HDL CHOL, NF 100 mg/dL Normal <130 [facility] Comment on above: Order Comment: Speci men Type: BLOOD SPECIMEN Ordering Facility: [facility] Address: [address] [place] [address] Result Comment: <130 mg/dL, Optimal 130-159 mg/dL, Near optimal/above optimal 160-189 mg/dL, Borderline high 190-219 mg/dL, High >219 mg/dL, Very high Secondary prevention optimal non HDL Cholesterol levels are recommended to be <100 mg/dL Performed By: #### 2 4323-8, LIPNF #### [facility] CLIA [id number] [address] [place] [address] [place] T CHOL/HDL RATIO NF 3.00 mg/dL Normal <5.10 [facility] Comment on above: Order Comment: Speci men Type: BLOOD SPECIMEN Ordering Facility: [facility] Address: [address] [place] [address] Performed By: #### 2 4323-8, LIPNF #### [facility] CLIA [id number] [address] [place] [address] [place] TRIGLYCERIDES, NF 102 mg/dL Normal <150 [facility] Comment on above: Order Comment: Speci men Type: BLOOD SPECIMEN Ordering Facility: [facility] Address: [address] [place] [address] Result Comment: <150 mg/dL, Normal 150-199 mg/dL, Borderline high 200-499 mg/dL, High >499 mg/dL, Very high Performed By: #### 2 4323-8, LIPNF #### [facility] CLIA [id number] [address] [place] [address] [place] VLDL CHOLESTEROL, NF 20 mg/dL Normal <30 [facility] Comment on above: Order Comment: Speci men Type: BLOOD SPECIMEN Ordering Facility: [facility] Address: [address] [place] [address] Performed By: #### 2 4323-8, LIPNF #### [facility] CLIA [id number] [address] [place] [address] [place] [facility] Prostate specific Ag [Mass/Vol] 0.55 ng/mL Normal <2.60 [facility] Comment on above: Order Comment: Speci men Type: BLOOD SPECIMEN Ordering Facility: [facility] Address: [address] [place] [address] Result Comment: Tota l PSA test methodology used is the Electrochemiluminescence Immunoassay by [employer]. Total PSA values by differing methodologies cannot be interchanged. Performed By: #### L IPNF, 66559-4 #### [facility] CLIA [id number] [address] [place] [address] [place] Urinalysis complete panel (U )on 08-05-2023 Bacteria LM.HPF (Urine sed) [#/Area] Negative Normal Negative [facility] Comment on above: Order Comment: Speci men Type: URINE SPECIMEN Ordering Facility: [facility] Address: [address] [place] [address] Performed By: #### 2 4356-8 #### [facility] CLIA [id number] [address] [place] [address] [place] Bilirubin Ql (U) Negative Normal Negative [facility] Comment on above: Order Comment: Speci men Type: URINE SPECIMEN Ordering Facility: [facility] Address: [address] [place] [address] Performed By: #### 2 4356-8 #### [facility] CLIA [id number] [address] [place] [address] [place] Clarity (Unsp spec) Clear Normal Clear [facility] Comment on above: Order Comment: Speci men Type: URINE SPECIMEN Ordering Facility: [facility] Address: [address] [place] [address] Performed By: #### 2 4356-8 #### [facility] CLIA [id number] [address] [place] [address] [place] Color (U) Dark Yellow Abnormal Yellow [facility] Comment on above: Order Comment: Speci men Type: URINE SPECIMEN Ordering Facility: [facility] Address: [address] [place] [address] Performed By: #### 2 4356-8 #### [facility] CLIA [id number] [address] [place] [address] [place] Epithelial cells LM.HPF (Urine sed) [#/Area] None Seen Normal [facility] Comment on above: Order Comment: Speci men Type: URINE SPECIMEN Ordering Facility: [facility] Address: [address] [place] [address] Performed By: #### 2 4356-8 #### [facility] CLIA [id number] [address] [place] [address] [place] Glucose Test strip (U) [Mass/Vol] Negative Normal Negative [facility] Comment on above: Order Comment: Speci men Type: URINE SPECIMEN Ordering Facility: [facility] Address: [address] [place] [address] Performed By: #### 2 4356-8 #### [facility] CLIA [id number] [address] [place] [address] [place] Hemoglobin Ql (U) Negative Normal Negative [facility] Comment on above: Order Comment: Speci men Type: URINE SPECIMEN Ordering Facility: [facility] Address: [address] [place] [address] Performed By: #### 2 4356-8 #### [facility] CLIA [id number] [address] [place] [address] [place] Hyaline casts (Urine sed) [#/Area] 0 /[LPF] Normal 0 /LPF [facility] Comment on above: Order Comment: Speci men Type: URINE SPECIMEN Ordering Facility: [facility] Address: [address] [place] [address] Performed By: #### 2 4356-8 #### [facility] CLIA [id number] [address] [place] [address] [place] Ketones Ql (U) Negative Normal Negative [facility] Comment on above: Order Comment: Speci men Type: URINE SPECIMEN Ordering Facility: [facility] Address: [address] [place] [address] Performed By: #### 2 4356-8 #### [facility] CLIA [id number] [address] [place] [address] [place] Leukocyte esterase Test strip Ql (U) Negative Normal Negative [facility] Comment on above: Order Comment: Speci men Type: URINE SPECIMEN Ordering Facility: [facility] Address: [address] [place] [address] Performed By: #### 2 4356-8 #### [facility] CLIA [id number] [address] [place] [address] [place] Nitrite Ql (U) Negative Normal Negative [facility] Comment on above: Order Comment: Speci men Type: URINE SPECIMEN Ordering Facility: [facility] Address: [address] [place] [address] Performed By: #### 2 4356-8 #### [facility] CLIA [id number] [address] [place] [address] [place] pH (U) 7.0 [pH] Normal <8.5 [facility] Comment on above: Order Comment: Speci men Type: URINE SPECIMEN Ordering Facility: [facility] Address: [address] [place] [address] Performed By: #### 2 4356-8 #### [facility] CLIA [id number] [address] [place] [address] [place] Protein (U) [Mass/Vol] Negative Normal Negative [facility] Comment on above: Order Comment: Speci men Type: URINE SPECIMEN Ordering Facility: [facility] Address: [address] [place] [address] Performed By: #### 2 4356-8 #### [facility] CLIA [id number] [address] [place] [address] [place] RBC LM.HPF (Urine sed) [#/Area] 0-2 /HPF Normal 0-2 /HPF [facility] Comment on above: Order Comment: Speci men Type: URINE SPECIMEN Ordering Facility: [facility] Address: [address] [place] [address] Performed By: #### 2 4356-8 #### [facility] CLIA [id number] [address] [place] [address] [place] Specific gravity (U) [Rel density] 1.016 Normal 1.005-1.030 [facility] Comment on above: Order Comment: Speci men Type: URINE SPECIMEN Ordering Facility: [facility] Address: [address] [place] [address] Performed By: #### 2 4356-8 #### [facility] CLIA [id number] [address] [place] [address] [place] Urobilinogen Ql (U) 4.0 EU/dL Abnormal 0.2-1.0 EU/dL [facility] Comment on above: Order Comment: Speci men Type: URINE SPECIMEN Ordering Facility: [facility] Address: [address] [place] [address] Performed By: #### 2 4356-8 #### [facility] CLIA [id number] [address] [place] [address] [place] WBC LM.HPF (Urine sed) [#/Area] 0-5 /HPF Normal 0-5 /HPF [facility] Comment on above: Order Comment: Speci men Type: URINE SPECIMEN Ordering Facility: [facility] Address: [address] [place] [address] Performed By: #### 2 4356-8 #### [facility] CLIA [id number] [address] [place] [address] [place] MRI BRAIN WO/W IVCONon 09-13 Absolute lymphocyte countOrd ered By: Dr. Zee on 08-02-2022 Lymphocytes Auto (Unsp spec) [#/Vol] 0.95 10*3/uL 0.83-4.51 [facility] Basophil percentageOrdered B y: Dr. Zee on 08-02-2022 Basophil percentage 0 SEEN /hpf 0-5 [facility] Basophils/100 WBC (Bld) 0.5 % 0-1 [facility] Bilirubin [Mass/Vol] 0.90 mg/dL 0.20-1.00 [facility] Comment on above: For patients on eltr ombopag therapy, use of Dimension [place] TBIL is not recommended. Chloride [Moles/Vol] 89 mmol/L 98-107 [facility] Eosinophils/100 WBC (Bld) 5.4 % 0-5 [facility] Glucose [Mass/Vol] 92 mg/dL 74-106 [facility] Neutrophils (Bld) [#/Vol] 2.4 10*3/uL 2.0-7.7 [facility] Neutrophils/100 WBC (Bld) 59.1 % 47-70 [facility] Potassium [Moles/Vol] 3.8 mmol/L 3.5-5.1 [facility] Protein [Mass/Vol] 7.3 g/dL 6.4-8.2 [facility] Sodium [Moles/Vol] 123 mmol/L 136-145 [facility] WBC (Bld) [#/Vol] 4.1 10*3/uL 4.4-11.0 [facility] Bilirubin Test strip Ql (U)O rdered By: Dr. Zee on 08-02-2022 Bilirubin Ql (U) Negative Negative [facility] Blood erythrocytes count (nu mber/volume)Ordered By: Dr. Zee on 08-02-2022 RBC (Bld) [#/Vol] 4.23 10*6/uL 4.6-6.2 [facility] Blood hemoglobin measurement (mass/volume)Ordered By: Dr. Zee on 08-02-2022 Hemoglobin (Bld) [Mass/Vol] 13.4 g/dL 13.0-16.5 [facility] Blood lymphocytes/100 leukoc ytesOrdered By: Dr. Zee on 08-02-2022 Lymphocytes/100 WBC (Bld) 23.3 % 19-41 [facility] Blood monocytes/100 leukocyt esOrdered By: Dr. Zee on 08-02-2022 Monocytes/100 WBC (Bld) 11.5 % 0-10 [facility] Blood platelet mean volumeOr dered By: Dr. Zee on 08-02-2022 Platelet mean volume (Bld) [Entitic vol] 9.2 fL 6.2-12.0 [facility] Determination of erythrocyte mean corpuscular volume (MCV)Ordered By: Dr. Zee on 08-02-2022 MCV (RBC) [Entitic vol] 87.7 fL 80-94 [facility] Hematocrit Auto (Bld) [Volum e fraction]Ordered By: Dr. Zee on 08-02-2022 Hematocrit (Bld) [Volume fraction] 37.1 % 40-54 [facility] Ketones Test strip Ql (U)Ord ered By: Dr. Zee on 08-02-2022 Ketones Ql (U) Negative Negative [facility] Laboratory - Chemistry and C hemistry - challengeOrdered By: Dr. Zee on 08-02-2022 ALP [Catalytic activity/Vol] 98 U/L 45-117 [facility] ALT [Catalytic activity/Vol] 24 U/L 16-61 [facility] CO2 [Moles/Vol] 26.0 mmol/L 21.0-32.0 [facility] Globulin (S) [Mass/Vol] 3.5 g/dL 2.2-4.2 [facility] Urea nitrogen/Creatinine [Mass ratio] 14.2 mg/mg 10-20 [facility] - Hematology and Cell countsOrdered By: Dr. Zee on 08-02-2022 Erythrocyte distribution width (RBC) [Entitic vol] 36.3 fL 35.1-43.9 [facility] Erythrocyte distribution width (RBC) [Ratio] 11.3 % 11.6-14.6 [facility] Immature granulocytes/100 WBC (Bld) 0.200 % 0.0-0.9 [facility] Comment on above: IG% - Immature Granu locytes (promyelocytes, myelocytes and metamyelocytes) > 1% indicates that a LEFT SHIFT is Present. MCH (RBC) [Entitic mass] 31.7 pg 27.0-32.0 [facility] Nucleated RBC/100 WBC (Bld) [Ratio] 0 % 0-5 [facility] MCHC Auto (RBC) [Mass/Vol]Or dered By: Dr. Zee on 08-02-2022 MCHC (RBC) [Mass/Vol] 36.1 g/dL 32-36 [facility] Mucus LM Ql (Urine sed)Order ed By: Dr. Zee on 08-02-2022 Mucus Ql (Urine sed) 0 SEEN /hpf [facility] Nitrite Test strip Ql (U)Ord ered By: Dr. Zee on 08-02-2022 Nitrite Ql (U) Negative Negative [facility] No Panel InformationOrdered By: Dr. Zee on 08-02-2022 Estimated Creatinine Clearance Calc 98.19 ml/min [facility] Estimated GFR (MDRD) Amer 121 mL/min >60 [facility] Comment on above: GFR Calc Estimated GFR (MDRD) Non-Af Amer 100 mL/min >60 [facility] Comment on above: Non- GFR Calc Troponin I High Sensitivity 5 pg/mL 3.0-78.0 [facility] Comment on above: Please Note: [place] t Units and Gender Specific Reference Ranges. For more information see Policy Stat Procedure [place] High Sensitivity Troponin (TNIH) and attachments. Platelets bldOrdered By: Dr. Zee on 08-02-2022 Platelets (Bld) [#/Vol] 168 10*3/uL 150-450 [facility] Protein Test strip Ql (U)Ord ered By: Dr. Zee on 08-02-2022 Protein Ql (U) Negative Negative [facility] Serum or plasma albumin bennett urement (mass/volume)Ordered By: Dr. Zee on 08-02-2022 Albumin [Mass/Vol] 3.8 g/dL 3.2-5.0 [facility] Serum or plasma albumin/glob ulin mass ratioOrdered By: Dr. Zee on 08-02-2022 Albumin/Globulin [Mass ratio] 1.1 {ratio} 0.9-2.4 [facility] Serum or plasma calcium bennett urement (mass/volume)Ordered By: Dr. Zee on 08-02-2022 Calcium [Mass/Vol] 9.2 mg/dL 8.5-10.1 [facility] Serum or plasma creatinine m easurement (mass/volume)Ordered By: Dr. Zee on 08-02-2022 Creatinine [Mass/Vol] 0.85 mg/dL 0.70-1.30 [facility] Comment on above: The validity of the calculated GFR & GFRAA in patients over 70 years has not been determined. Clinical correlation is essential. Serum or plasma urea nitroge n measurement (mass/volume)Ordered By: Dr. Zee on 08-02-2022 Urea nitrogen [Mass/Vol] 12 mg/dL 7-18 [facility] Squamous epithelial cells de tection in urine sediment by light microscopyOrdered By: Dr. Zee on 08-02-2022 Epithelial cells.squamous LM Ql (Urine sed) 0 SEEN /hpf 0-5 [facility] Thin prep Papanicolaou smear with manual screeningOrdered By: Dr. Zee on 08-02-2022 Thin prep Papanicolaou smear with manual screening 21 U/L 15-37 [facility] Thin prep Papanicolaou smear with manual screening 8 5-15 [facility] Urine blood detectionOrdered By: Dr. Zee on 08-02-2022 RBC Ql (U) Negative Negative [facility] RBC Ql (U) 0 SEEN /hpf 0-5 [facility] Urine clarityOrdered By: Dr. Zee on 08-02-2022 Clarity (U) Clear Clear [facility] Urine color determinationOrd ered By: Dr. Zee on 08-02-2022 Color (U) Yellow Yellow [facility] Urine glucose detectionOrder ed By: Dr. Zee on 08-02-2022 Glucose Ql (U) Normal mg/dl Normal [facility] Urine leukocyte esterase det ection by dipstickOrdered By: Dr. Zee on 08-02-2022 Leukocyte esterase Test strip Ql (U) Negative Negative [facility] Urine pHOrdered By: Dr. Errol cuevas on 08-02-2022 pH (U) 7.0 [pH] 5.0 - 8.0 [facility] Urine sediment bacteria coun t by microscopy (number/high power field)Ordered By: Dr. Zee on 08-02-2022 Bacteria LM.HPF (Urine sed) [#/Area] 0 /[HPF] None Seen [facility] Urine specific gravity measu rementOrdered By: Dr. Zee on 08-02-2022 Specific gravity (U) [Rel density] 1.010 1.002-1.030 [facility] Urobilinogen Auto test strip Ql (U)Ordered By: Dr. Zee on 08-02-2022 Urobilinogen Ql (U) Normal mg/dl Normal [facility] Vital Signs Date Time Vital Sign Value Performing Clinician Facility 07-22-2024 17:12-0400 Body temperature 98 [degF] Dr. Yanick Sky MD Work Phone: [facility] 07-22-2024 17:12-0400 Diastolic blood pressure 71 mm[Hg] Dr. Yanick Sky MD Work Phone: [facility] 07-22-2024 17:12-0400 Heart rate 77 /min Dr. Yanick Sky MD Work Phone: [facility] 07-22-2024 17:12-0400 Respiratory rate 19 /min Dr. Yanick Sky MD Work Phone: [facility] 07-22-2024 17:12-0400 SaO2% (BldA) [Mass fraction] 97 % Dr. Yanick Sky MD Work Phone: [facility] 07-22-2024 17:12-0400 Systolic blood pressure 140 mm[Hg] Dr. Yanick Sky MD Work Phone: [facility] 07-22-2024 14:02-0400 Body height 175.[address] Yanick Sky MD Work Phone: [facility] 07-22-2024 14:02-0400 Body mass index (BMI) [Ratio] 25.9 kg/m2 Dr. Yanick Sky MD Work Phone: [facility] 07-22-2024 14:02-0400 Body weight 79.[address] Yanick Sky MD Work Phone: [facility] 05-01-2024 14:39-0500 Diastolic blood pressure 84 mm[Hg] Yanick Sky MD Work Phone: 05-01-2024 14:39-0500 Systolic blood pressure 134 mm[Hg] Yanick Sky MD Work Phone: 05-01-2024 14:12-0500 Body mass index (BMI) [Ratio] 29.13 kg/m2 Yanick Sky MD Work Phone: 05-01-2024 14:12-0500 Body weight 84.37 kg Yanick Sky MD Work Phone: 05-01-2024 14:12-0500 Heart rate 68 /min Yanick Sky MD Work Phone: 05-01-2024 14:12-0500 Respiratory rate 16 /min Yanick Sky MD Work Phone: 03-12-2024 12:19-0500 Body mass index (BMI) [Ratio] 28.8 kg/m2 Meche FREIRE Work Phone: 03-12-2024 12:19-0500 Body temperature 97.5 [degF] Krislyn Aberegg PA Work Phone: 03-12-2024 12:19-0500 Body weight 83.4 kg Krislyn Aberegg PA Work Phone: 03-12-2024 12:19-0500 Diastolic blood pressure 66 mm[Hg] Krislyn Aberegg PA Work Phone: 03-12-2024 12:19-0500 Heart rate 72 /min Krislyn Aberegg PA Work Phone: 03-12-2024 12:19-0500 Respiratory rate 16 /min Krislyn Aberegg PA Work Phone: 03-12-2024 12:19-0500 SaO2% (BldA) [Mass fraction] 97 % Krislyn Aberegg PA Work Phone: 03-12-2024 12:19-0500 Systolic blood pressure 108 mm[Hg] Krislyn Aberegg PA Work Phone: 07-26-2023 17:10-0400 Diastolic blood pressure 82 mm[Hg] Yanick Sky MD Work Phone: 07-26-2023 17:10-0400 Systolic blood pressure 128 mm[Hg] Yanick Sky MD Work Phone: 07-26-2023 16:51-0400 Body height 170.2 cm Yanick Sky MD Work Phone: 07-26-2023 16:51-0400 Body mass index (BMI) [Ratio] 28.35 kg/m2 Yanick Sky MD Work Phone: 07-26-2023 16:51-0400 Body weight 82.1 kg Yanick Sky MD Work Phone: 07-26-2023 16:51-0400 Heart rate 64 /min Yanick Sky MD Work Phone: 07-26-2023 16:51-0400 Respiratory rate 14 /min Yanick Sky MD Work Phone: 01-25-2023 17:50-0500 Diastolic blood pressure 98 mm[Hg] Yanick Sky MD Work Phone: 01-25-2023 17:50-0500 Systolic blood pressure 162 mm[Hg] Yanick Sky MD Work Phone: 01-25-2023 17:31-0500 Body weight 82.56 kg Yanick Sky MD Work Phone: 01-25-2023 17:31-0500 Heart rate 74 /min Yanick Sky MD Work Phone: 01-25-2023 17:31-0500 Respiratory rate 16 /min Yanick Sky MD Work Phone: 09-07-2022 17:14-0400 Diastolic blood pressure 74 mm[Hg] Yanick Sky MD Work Phone: 09-07-2022 17:14-0400 Systolic blood pressure 118 mm[Hg] Yanick Sky MD Work Phone: 09-07-2022 16:42-0400 Body weight 82.1 kg Yanick Sky MD Work Phone: 09-07-2022 16:42-0400 Heart rate 72 /min Yanick Sky MD Work Phone: 09-07-2022 16:42-0400 Respiratory rate 14 /min Yanick Sky MD Work Phone: 08-02-2022 18:49-0400 Diastolic blood pressure 90 mm[Hg] [facility] 08-02-2022 18:49-0400 Heart rate 59 /min [facility] 08-02-2022 18:49-0400 Respiratory rate 14 /min [facility] 08-02-2022 18:49-0400 SaO2% (BldA) [Mass fraction] 97 % [facility] 08-02-2022 18:49-0400 Systolic blood pressure 155 mm[Hg] [facility] 08-02-2022 16:13-0400 Body height 175.26 cm [facility] 08-02-2022 16:13-0400 Body mass index (BMI) [Ratio] 26.6 kg/m2 [facility] 08-02-2022 16:13-0400 Body temperature 97.6 [degF] [facility] 08-02-2022 16:13-0400 Body weight 81.82 kg [facility] 10-22-2021 16:04-0400 Body height 172.7 cm Karo Recinos MD Work Phone: 10-22-2021 16:04-0400 Body temperature 98.1 [degF] Karo Recinos MD Work Phone: 10-22-2021 16:04-0400 Body weight 84.37 kg Karo Recinos MD Work Phone: 10-22-2021 16:04-0400 Diastolic blood pressure 80 mm[Hg] Karo Recinos MD Work Phone: 10-22-2021 16:04-0400 Heart rate 65 /min Karo Recinos MD Work Phone: 10-22-2021 16:04-0400 SaO2% (BldA) [Mass fraction] 98 % Karo Recinos MD Work Phone: 10-22-2021 16:04-0400 Systolic blood pressure 132 mm[Hg] Karo Recinos MD Work Phone: 10-06-2021 15:36-0400 Body height 172.7 cm Karo Recinos MD Work Phone: 10-06-2021 15:36-0400 Body temperature 98.71 [degF] Karo Recinos MD Work Phone: 10-06-2021 15:36-0400 Body weight 83.01 kg Karo Recinos MD Work Phone: 10-06-2021 15:36-0400 Diastolic blood pressure 87 mm[Hg] Karo Recinos MD Work Phone: 10-06-2021 15:36-0400 Heart rate 65 /min Karo Recinos MD Work Phone: 10-06-2021 15:36-0400 SaO2% (BldA) [Mass fraction] 98 % Karo Recinos MD Work Phone: 10-06-2021 15:36-0400 Systolic blood pressure 159 mm[Hg] Karo Recinos MD Work Phone: 09-17-2021 14:55-0400 Body temperature 98.71 [degF] Karo Recinos MD Work Phone: 09-17-2021 14:55-0400 Body weight 82.74 kg Karo Recinos MD Work Phone: 09-17-2021 14:55-0400 Heart rate 66 /min Karo Recinos MD Work Phone: 09-17-2021 14:55-0400 SaO2% (BldA) [Mass fraction] 96 % Karo Recinos MD Work Phone: 07-06-2021 06:59-0400 Body height 171.5 cm Tosha FREIRE-C Work Phone: 07-06-2021 06:59-0400 Body temperature 97.59 [degF] Tosha De Leon PA-C Work Phone: 07-06-2021 06:59-0400 Body weight 79.83 kg Tosha De Leon PA-C Work Phone: 07-06-2021 06:59-0400 Diastolic blood pressure 86 mm[Hg] Tosha De Leon PA-C Work Phone: 07-06-2021 06:59-0400 Heart rate 56 /min Tosha GREGORYC Work Phone: 07-06-2021 06:59-0400 Respiratory rate 16 /min Tosha FREIRE-Marnie Work Phone: 07-06-2021 06:59-0400 Systolic blood pressure 128 mm[Hg] Tosha De Leon PA-C Work Phone: Encounters Encounter Date Encounter Type Care Provider Facility Start: 08-08-2024 End: 08-08-2024 Telephone encounter Erika Yobany HUDSON Work Phone: [facility] Comment on above: TRIAGE Start: 07-23-2024 End: 08-08-2024 Evaluation and management of inpatient TIKI VERDUZCO Facility:[facility] Start: 07-23-2024 End: 07-23-2024 Telephone encounter Tosha De Leon PA-C Work Phone: [facility] [place] Comment on above: ER F/U; Medication R [facility] Start: 07-23-2024 End: 07-23-2024 Emergency department patient visit YANICK SKY Facility:[facility] Start: 07-22-2024 End: 07-22-2024 Emergency department patient visit Dr. Yanick Sky MD Work Phone: -Emergency Department Work Phone: Start: 05-16-2024 End: 05-17-2024 Refill Yanick Sky MD Work Phone: [facility] Comment on above: Refill Request Start: 05-02-2024 End: 05-02-2024 Follow-up encounter Yanick Sky MD Work Phone: [facility] Start: 05-01-2024 End: 05-01-2024 ambulatory YANICK SKY Facility:[facility] Start: 05-01-2024 End: 05-01-2024 Patient encounter procedure Yanick Sky MD Work Phone: [facility] [place] Comment on above: Essential hypertensi on (Primary Dx); Coronary artery disease due to lipid rich plaque; Gastroesophageal reflux disease without esophagitis; Cholesteatoma of right middle ear; Migraine without aura and without status migrainosus, not intractable; Cerebral salt-wasting syndrome; Smoker; Encounter for immunization; Screening for prostate cancer; Encounter for screening for diabetes mellitus; Medication management Start: 05-01-2024 End: 05-01-2024 ambulatory YANICK SKY Facility:[facility] Start: 04-10-2024 End: 04-15-2024 Telephone encounter Macrina Neal MA [facility] Comment on above: Appointment Start: 03-12-2024 End: 03-12-2024 ambulatory YANICK SKY Facility:[facility] Start: 03-12-2024 End: 03-12-2024 Patient encounter procedure Meche FREIRE Work Phone: [facility] Comment on above: Acute midline low ba ck pain without sciatica (Primary Dx); Fall, initial encounter Start: 03-12-2024 End: 03-12-2024 Subsequent hospital visit by physician Koby [facility] Work Phone: Radiology Comment on above: Acute midline low ba ck pain without sciatica [M54.50] Start: 02-29-2024 End: 02-29-2024 Refill Yanick Sky MD Work Phone: [facility] Comment on above: Refill Request Start: 01-24-2024 End: 01-24-2024 Refill Yanick Sky MD Work Phone: [facility] Comment on above: Refill Request Start: 11-15-2023 End: 11-15-2023 Refill Yanick Sky MD Work Phone: [facility] Comment on above: Refill Request Start: 08-05-2023 Telephone encounter Yanick Sky MD Work Phone: [facility] Comment on above: Results Start: 08-05-2023 End: 08-05-2023 ambulatory YANICK SKY Facility:[facility] Start: 07-26-2023 End: 07-26-2023 Patient encounter procedure Yanick Sky MD Work Phone: [facility] Comment on above: Well adult exam (Leighann orestes Dx); Special screening examination for viral disease; Screening for HIV (human immunodeficiency virus); Essential hypertension; Coronary artery disease due to lipid rich plaque; Migraine without aura and without status migrainosus, not intractable; Gastroesophageal reflux disease without esophagitis; Cholesteatoma of right middle ear; Cerebral salt-wasting syndrome; Smoker; Erectile dysfunction, unspecified erectile dysfunction type; Encounter for screening for diabetes mellitus; Screening for prostate cancer; Inguinal hernia of left side without obstruction or gangrene Start: 07-26-2023 End: 07-26-2023 Patient encounter status Yanick Sky MD Work Phone: Work Phone: Start: 06-21-2023 Refill Yanick gutierrez MD Work Phone: [facility] Comment on above: Refill Request Start: 01-25-2023 End: 01-25-2023 Patient encounter procedure Yanick Sky MD Work Phone: [facility] Comment on above: Essential hypertensi on (Primary Dx); Gastroesophageal reflux disease without esophagitis; Migraine without aura and without status migrainosus, not intractable; Coronary artery disease due to lipid rich plaque; Cholesteatoma of right middle ear; Smoker; Erectile dysfunction, unspecified erectile dysfunction type; Encounter for immunization; Cerebral salt-wasting syndrome Start: 12-01-2022 Telephone encounter Yanick Sky MD Work Phone: [facility] Comment on above: change in pharmacy Start: 11-09-2022 Refill Yanick gutierrez MD Work Phone: [facility] Comment on above: Refill Request Start: 09-13-2022 Telephone encounter Yanick Sky MD Work Phone: [facility] Comment on above: Results Start: 09-13-2022 End: 09-13-2022 Subsequent hospital visit by physician [facility] (I-Stat/1.5t) Work Phone: Radiology Comment on above: Cerebral salt-wastin g syndrome [E87.1] Start: 09-07-2022 End: 09-07-2022 Patient encounter procedure Yanick Sky MD Work Phone: [facility] Comment on above: Essential hypertensi on (Primary Dx); Cerebral salt-wasting syndrome; Hyponatremia Start: 08-03-2022 Chart abstracting Yanick gan MD Work Phone: [facility] Comment on above: ER Discharge Summary Start: 08-03-2022 Telephone encounter Yanick Sky MD Work Phone: [facility] Comment on above: Patient Question Start: 08-02-2022 End: 08-02-2022 [facility] Start: 08-02-2022 Telephone encounter Tos[facility] spann PA-C [facility] Comment on above: Critical Results Results Start: 07-18-2022 Patient encounter status Larry De Leon PA-C Work Phone: Work Phone: Start: 05-11-2022 Refill Yan[facility]ierrez MD [facility] Comment on above: Refill Request Start: 04-12-2022 Refill Yanick gutierrez MD [facility] Comment on above: Refill Request Start: 03-31-2022 Telephone encounter Yanick Sky MD [facility] Comment on above: Blood Pressure Check Start: 03-02-2022 Refill Yanick gutierrez MD [facility] Comment on above: Refill Request Start: 01-04-2022 Refill Yanick gutierrez MD [facility] Comment on above: Refill Request Start: 12-03-2021 Refill Yanick [facility]ierrez MD [facility] Comment on above: Refill Request Start: 10-22-2021 End: 10-22-2021 Patient encounter procedure Karo Recinos MD Work Phone: General Surgery Comment on above: Status post left ing uinal hernia repair (Primary Dx) Start: 10-06-2021 End: 10-06-2021 Patient encounter procedure Karo Recinos MD Work Phone: General Surgery Comment on above: Status post left ing uinal hernia repair (Primary Dx) Start: 09-17-2021 End: 09-17-2021 Patient encounter procedure Karo Recinos MD Work Phone: General Surgery Comment on above: Status post left ing uinal hernia repair (Primary Dx); Postoperative pain Start: 09-03-2021 Telephone encounter Jeff Anne DO Work Phone: Cardiology Comment on above: Forms Start: 08-23-2021 Telephone encounter Karo Nagy MD Work Phone: General Surgery Comment on above: FMLA Paperwork Start: 07-27-2021 Refill Yanick gutierrez MD Work Phone: [facility] [place] Comment on above: Refill Request (SEE RX NOTES) 08-10-2021 HERNIA RE PAIR LODI Start: 07-19-2021 Telephone encounter Yanick Sky MD Work Phone: [facility] Comment on above: Referral Request Start: 07-14-2021 Refill Yanick gutierrez MD Work Phone: [facility] [place] Comment on above: Refill Request Start: 07-09-2021 Telephone encounter Tosha spann PA-C Work Phone: [facility] [place] Comment on above: Results Start: 07-06-2021 Telephone encounter Tosha spann PA-C Work Phone: [facility] [place] Comment on above: Results Start: 07-06-2021 End: 07-06-2021 Patient encounter procedure Tosha De Leon PA-C Work Phone: [facility] [place] Comment on above: Well adult exam ([facility] Dx); Essential hypertension; Migraine without aura and without status migrainosus, not intractable; Gastroesophageal reflux disease without esophagitis; Abnormal stress test; Coronary artery disease due to lipid rich plaque; Impacted cerumen of right ear Start: 07-06-2021 End: 07-06-2021 Patient encounter status Tosha De Leon PA-C Work Phone: [facility] Start: 06-28-2021 Refill Yanick gutierrez MD Work Phone: [facility] [place] Comment on above: Refill Request Start: 06-02-2021 Refill Johnna Alves PSS [facility] [place] Comment on above: Refill Request Start: 08-12-2019 Patient encounter status Johnna ferraro PSS Work Phone: Procedures Date Procedure Procedure Detail Performing Clinician Start: 07-22-2024 CT of head without contrast Dr. Yanick Sky MD Work Phone: Start: 05-01-2024 PFIZER-BIONTECH COVI D-19 VACCINE AGE 12+ YR (COMIRNATY) Yanick Sky MD Work Phone: Start: 05-01-2024 Lipid 1996 panel - S isiah or Plasma Yanick Sky MD Work Phone: Start: 03-12-2024 Radex spine lumbosac ral 2/3 views Meche FREIRE Work Phone: Start: 08-05-2023 Lipid 1996 panel - S isiah or Plasma Yanick Sky MD Work Phone: Start: 01-25-2023 INFLUENZA VACCINE, A GE 6 MO - 64 YR, QUADRIVALENT (AFLURIA, FLULAVAL, FLUZONE) Yanick Sky MD Work Phone: Start: 01-25-2023 PFIZER-BIONTECH COVI D-19 VACCINE (2022- SEASON) AGE 12+ YR Yanick Sky MD Work Phone: Start: 09-13-2022 Mri brain brain stem w/o w/contrast material Yanick Sky MD Work Phone: Start: 07-18-2022 Lipid 1996 panel - S isiah or Plasma Yanick Sky MD Work Phone: Start: 07-06-2021 Adult depression screening assessment Tosha De Loen PA-C Work Phone: Start: 01-18-2019 Colonoscopy Johnna Ricks eal PSS Start: 03-28-2018 Adult depression screening assessment Johnna Alves PSS History of repair of inguinal hernia Status post left inguinal hernia repair Karo Recinos MD Work Phone: History of repair of inguinal hernia Status post left inguinal hernia repair Karo Recinos MD Work Phone: History of repair of inguinal hernia Status post left inguinal hernia repair Karo Recinos MD Work Phone: Plan of Treatment Date Care Activity Detail Author Start: 05-01-2029 Lipid panel Lipid Screening [facility] Start: 08-04-2028 Lipid panel Lipid Screening [facility] Start: 08-04-2028 Prostate specific antigen measurement Prostate Cancer Screening Discussion Start: 11-23-2027 Urine microalbumin profile Start: 08-09-2027 Diabetes Screening Diabetes Screenin [facility] Start: 07-24-2027 Diabetes Screening Diabetes Screenin [facility] Start: 07-19-2027 Lipid 1996 panel - Serum or Plasma Lipid Screening Start: 07-19-2027 Lipid panel Lipid Screening [facility] Start: 07-19-2027 LIPID SCREEN LIPID SCREEN Start: 07-19-2027 PROSTATE CANCER SCREENING DISCUSSION PROSTATE CANCER SCREENING DISCUSSION Start: 07-19-2027 Prostate specific antigen measurement Prostate Cancer Screening Discussion Start: 05-02-2027 Diabetes Screening Diabetes Screenin [facility] Start: 01-24-2027 LIPID SCREEN LIPID SCREEN Start: 08-04-2026 Diabetes Screening Diabetes Screenin g Start: 07-08-2026 LIPID SCREEN LIPID SCREEN Start: 02-21-2026 Diabetes Screening Diabetes Screenin g Start: 11-18-2025 LIPID SCREEN LIPID SCREEN Start: 11-18-2025 PROSTATE CANCER SCREENING DISCUSSION PROSTATE CANCER SCREENING DISCUSSION Start: 09-05-2025 DIABETES [facility]CRE[facility] Start: 09-05-2025 Diabetes Screening Diabetes Screenin g Start: 07-18-2025 DIABETES SCREEN DIABETES SCREEN [facility] Start: 05-01-2025 Annual PCP Team Chronic Disease Visit Annual PCP Team Chronic Disease Visit Start: 05-01-2025 BP Controlled (<130/80) BP Controlled (<130/80) Start: 05-01-2025 Hepatitis B surface antibody level LDL Cholesterol Start: 03-12-2025 BP Controlled (<130/80) BP Controlled (<130/80) Start: 11-08-2024 End: 11-08-2024 Patient encounter procedure 11/08/2024 1:40 PM EDT Office Visit [facility] [place] [address] [place] [address] Yanick Sky MD [address] [place] [id number] Physical [facility] [place] Comment on above: Physical Start: 11-05-2024 End: 11-05-2024 Patient encounter procedure 11/05/2024 4:40 PM EDT Office Visit Neurology [facility] [address] [place] [address] [place] [address] [place] [address] HISTORY OF CHOLESTEOTOMA RESECTION IN 2018 ADMITTED FOR HEADACHE AND NEW MRI FINDINGS. NEEDS A QUICK FOLLOW UP WITH NEUROSURGERY PLEASE AND THANKS Neurology Headache [facility] Comment on above: HISTORY OF CHOLESTEO TOBY RESECTION IN 2018 ADMITTED FOR HEADACHE AND NEW MRI FINDINGS. NEEDS A QUICK FOLLOW UP WITH NEUROSURGERY PLEASE AND THANKS Start: 10-18-2024 End: 01-17-2025 Cobalamin (Vitamin B12) [Mass/volume] in Serum or Plasma VITAMIN B12 Lab Routine Gastroesophageal reflux disease without esophagitis Medication management Expected: 10/18/2024, Expires: 01/17/2025 [facility] Work Phone: Comment on above: Expected: 10/18/2024 , Expires: 01/17/2025 Start: 10-18-2024 End: 01-17-2025 Comprehensive metabolic 2000 panel - Serum or Plasma COMPREHENSIVE METABOLIC PANEL Lab Routine Essential hypertension Cerebral salt-wasting syndrome Expected: 10/18/2024, Expires: 01/17/2025 Comment on above: Expected: 10/18/2024 , Expires: 01/17/2025 Start: 10-18-2024 End: 01-17-2025 Hemoglobin A1c in Blood HEMOGLOBIN A1C Lab Routine Encounter for screening for diabetes mellitus Expected: 10/18/2024, Expires: 01/17/2025 Comment on above: Expected: 10/18/2024 , Expires: 01/17/2025 Start: 10-18-2024 End: 01-17-2025 LIPID PANEL, NONFASTING LIPID PANEL, NONFASTING Lab Routine Essential hypertension Coronary artery disease due to lipid rich plaque Expected: 10/18/2024, Expires: 01/17/2025 Comment on above: Expected: 10/18/2024 , Expires: 01/17/2025 Start: 10-18-2024 End: 01-17-2025 Magnesium [Mass/volume] in Serum or Plasma MAGNESIUM Lab Routine Gastroesophageal reflux disease without esophagitis Medication management Expected: 10/18/2024, Expires: 01/17/2025 Comment on above: Expected: 10/18/2024 , Expires: 01/17/2025 Start: 10-18-2024 End: 01-17-2025 Prostate specific Ag [Mass/volume] in Serum or Plasma PROSTATE-SPECIFIC ANTIGEN DIAGNOSTIC Lab Routine Screening for prostate cancer Expected: 10/18/2024, Expires: 01/17/2025 Comment on above: Expected: 10/18/2024 , Expires: 01/17/2025 Start: 10-18-2024 End: 01-17-2025 Urinalysis complete panel - Urine URINALYSIS, WITH MICROSCOPIC Lab Routine Essential hypertension Expected: 10/18/2024, Expires: 01/17/2025 Comment on above: Expected: 10/18/2024 , Expires: 01/17/2025 Start: 08-15-2024 End: 08-15-2024 Patient encounter procedure 08/15/2024 9:30 AM EDT Office Visit Neurosurgery [address] [address] [place] APRN.SITE ADMINISTRATOR [address] [place] [address] F/up Next available Neurosurgery Comment on above: F/up Next available Start: 08-04-2024 Hepatitis B surface antibody level LDL Cholesterol Start: 07-25-2024 Annual PCP Team Chronic Disease Visit Annual PCP Team Chronic Disease Visit Start: 07-25-2024 Shingrix Vaccine (1 of 2) Shingrix Vaccine (1 of 2) Comment on above: Postponed from 11/20 (Insurance Coverage) Start: 07-24-2024 End: 07-24-2024 Patient encounter procedure 07/24/2024 7:20 AM EDT Office Visit [facility] [place] [address] [place], [place] [id number] Tosha De Leon PA-C [address] [place], [place] [id number] 07/23/24 [facility] ER F/U- Headache/Migrane [facility] [place] Comment on above: 07/23/24 [facility] ER F/U- Headache/Migrane Start: 07-22-2024 [facility] Start: 07-01-2024 Screening for malignant neoplasm of colon Colorectal Cancer Screening Comment on above: Postponed from 11/20 (Insurance Coverage) Start: 04-17-2024 End: 04-17-2024 Patient encounter procedure 04/17/2024 7:00 PM EST Office Visit [facility] [place] [address] [place], [place] [id number] Yanick Sky MD [address] [place] [address] 6 month follow up [facility] [place] Comment on above: 6 month follow up Start: 04-16-2024 DIABETES SCREEN DIABETES SCREEN [facility] Start: 04-10-2024 End: 04-10-2024 Patient encounter procedure 04/10/2024 6:40 PM EST Office Visit [facility] [place] [address] [place] [address] Yanick Sky MD [address] [place] [address] 6 month follow up [facility] [place] Comment on above: 6 month follow up Start: 03-07-2024 End: 03-07-2024 Patient encounter procedure 03/07/2024 1:20 PM EST Office Visit [facility] [place] [address] [place] [address] Yanick Sky MD [address] [place] [address] 6 month follow up [facility] [place] Comment on above: 6 month follow up Start: 02-27-2024 Behavioral Health Screening Behavioral Health Screening Comment on above: Postponed from 02/27 (Declined at this time) Start: 02-24-2024 Annual PCP Team Chronic Disease Visit Annual PCP Team Chronic Disease Visit Start: 02-24-2024 BP Controlled (<130/80) BP Controlled (<130/80) Start: 01-30-2024 End: 01-30-2024 Patient encounter procedure 01/30/2024 7:00 AM EST Office Visit [facility] [place] [address] [place] [address] Tosha De Leon PA-C [address] [place] [address] 6 month follow up [facility] Comment on above: 6 month follow up Start: 01-26-2024 Annual PCP Team Chronic Disease Visit Annual PCP Team Chronic Disease Visit Start: 01-19-2024 Colonoscopy COLONOSCOPY Start: 01-19-2024 COLORECTAL CANCER SCREENING COLORECTAL CANCER SCREENING Start: 01-19-2024 Screening for malignant neoplasm of colon Start: 10-29-2023 Covid-19 Vaccine () Covid-19 Vaccine ( season) Start: 10-29-2023 Influenza vaccination Influenza Vacc ine (#1) Start: 09-08-2023 ANNUAL PCP TEAM CHRONIC DISEASE VISIT ANNUAL PCP TEAM CHRONIC DISEASE VISIT Start: 09-08-2023 BP CONTROLLED (<130/80) BP CONTROLLED (<130/80) Start: 07-26-2023 End: 07-26-2023 Patient encounter procedure 07/26/2023 5:00 PM EDT Office Visit [facility] [place] [address] [facility] [place] [id number] Yanick Sky MD [address] [place], [place] [id number] Physical [facility] [place] Comment on above: Physical Start: 07-26-2023 End: 10-25-2023 Comprehensive metabolic 2000 panel - Serum or Plasma COMPREHENSIVE METABOLIC PANEL Lab Routine Essential hypertension Cerebral salt-wasting syndrome Expected: 07/26/2023, Expires: 10/25/2023 [facility] Work Phone: Comment on above: Expected: 07/26/2023 , Expires: 10/25/2023 Start: 07-26-2023 End: 10-25-2023 Hemoglobin A1c in Blood HEMOGLOBIN A1C Lab Routine Encounter for screening for diabetes mellitus Expected: 07/26/2023, Expires: 10/25/2023 Comment on above: Expected: 07/26/2023 , Expires: 10/25/2023 Start: 07-26-2023 End: 10-25-2023 LIPID PANEL, NONFASTING LIPID PANEL, NONFASTING Lab Routine Essential hypertension Coronary artery disease due to lipid rich plaque Expected: 07/26/2023, Expires: 10/25/2023 Comment on above: Expected: 07/26/2023 , Expires: 10/25/2023 Start: 07-26-2023 End: 10-25-2023 Prostate specific Ag [Mass/volume] in Serum or Plasma PROSTATE-SPECIFIC ANTIGEN DIAGNOSTIC Lab Routine Screening for prostate cancer Expected: 07/26/2023, Expires: 10/25/2023 Comment on above: Expected: 07/26/2023 , Expires: 10/25/2023 Start: 07-26-2023 End: 10-25-2023 Urinalysis complete panel - Urine URINALYSIS, WITH MICROSCOPIC Lab Routine Essential hypertension Expected: 07/26/2023, Expires: 10/25/2023 Comment on above: Expected: 07/26/2023 , Expires: 10/25/2023 Start: 07-19-2023 ANNUAL PCP TEAM CHRONIC DISEASE VISIT ANNUAL PCP TEAM CHRONIC DISEASE VISIT Start: 07-19-2023 HEPATITIS B (1 of 3 - 3-dose series) HEPATITIS B (1 of 3 - 3-dose series) Comment on above: Postponed from 11/20 (Declined at this time) Start: 07-19-2023 Hepatitis B surface antibody level LDL CHOLESTEROL Start: 07-19-2023 Hepatitis B Vaccine (1 of 3 - 19+ 3-dose series) Hepatitis B Vaccine (1 of 3 - 19+ 3-dose series) Comment on above: Postponed from 11/20 (Declined at this time) Start: 07-19-2023 Hepatitis B Vaccine (1 of 3 - 3-dose series) Hepatitis B Vaccine (1 of 3 - 3-dose series) Comment on above: Postponed from 11/20 (Declined at this time) Start: 07-19-2023 HEPATITIS C SCREENING HEPATITIS C [facility] Comment on above: Postponed from 11/20 (Declined at this time) Start: 07-19-2023 Hepatitis C screening Hepatitis C [facility] Comment on above: Postponed from 11/20 (Declined at this time) Start: 07-19-2023 [facility] Comment on above: Postponed from 11/20 (Declined at this time) Start: 07-19-2023 HIV screening [facility] Comment on above: Postponed from 11/20 (Declined at this time) Start: 03-31-2023 BP CONTROLLED (<130/80) BP CONTROLLED (<130/80) Start: 02-27-2023 Behavioral Health Screening Behavioral Health Screening Start: 02-27-2023 Depression Assessment Depression Ass essment Start: 02-26-20[address] [facility] Comment on above: Postponed from 02/27 (Declined at this time) Start: 02-10-2023 ANNUAL PCP TEAM CHRONIC DISEASE VISIT ANNUAL PCP TEAM CHRONIC DISEASE VISIT Start: 01-25-2023 End: 04-26-2023 Basic metabolic 2000 panel - Serum or Plasma BASIC METABOLIC PNL Lab Routine Essential hypertension Cerebral salt-wasting syndrome Expected: 01/25/2023, Expires: 04/26/2023 [facility] Work Phone: Comment on above: Expected: 01/25/2023 , Expires: 04/26/2023 Start: 01-24-2023 Hepatitis B surface antibody level LDL CHOLESTEROL Start: 10-28-2022 Covid-19 Vaccine () Covid-19 Vaccine () Start: 10-28-2022 Influenza vaccination C [facility] Start: 09-07-2022 End: 11-07-2022 Sodium [Moles/volume] in Serum or Plasma SODIUM/NA BLD Lab Routine Hyponatremia Expected: 09/07/2022, Expires: 11/07/2022 [facility] Work Phone: Comment on above: Expected: 09/07/2022 , Expires: 11/07/2022 Start: 08-04-2022 End: 10-04-2022 Sodium [Moles/volume] in Serum or Plasma SODIUM/NA BLD Lab STAT Hyponatremia Expected: 08/04/2022, Expires: 10/04/2022 [facility] Work Phone: Comment on above: Expected: 08/04/2022 , Expires: 10/04/2022 Start: 07-08-2022 Hepatitis B surface antibody level LDL CHOLESTEROL Start: 07-06-2022 Adult depression screening assessment DEPRESSION SCREENING Start: 07-06-2022 ANNUAL PCP TEAM CHRONIC DISEASE VISIT ANNUAL PCP TEAM CHRONIC DISEASE VISIT Start: 07-06-2022 HEPATITIS C SCREENING HEPATITIS C [facility] Comment on above: Postponed from 11/20 (Declined at this time) Start: 07-06-2022 HIV SCREENING HIV SCREENING [facility] Comment on above: Postponed from 11/20 (Declined at this time) Start: 07-06-2022 PNEUMOCOCCAL (2 - PPSV23 if available, else PCV20) PNEUMOCOCCAL (2 - PPSV23 if available, else PCV20) Comment on above: Postponed from 02/07 (Declined at this time) Postponed from 04/04 (Declined at this time) Start: 07-06-2022 PNEUMOCOCCAL (2 - PPSV23 or PCV20) PNEUMOCOCCAL (2 - PPSV23 or PCV20) Comment on above: Postponed from 02/07 (Declined at this time) Start: 07-06-2022 SHINGRIX VACCINE (1 of 2) SHINGRIX VACCINE (1 of 2) Comment on above: Postponed from 11/20 (Declined at this time) Start: 07-06-2022 TWO PNEUMOVAX 5 YEAR S APART PRIOR TO AGE 65 (#1) TWO PNEUMOVAX 5 YEARS APART PRIOR TO AGE 65 (#1) Comment on above: Postponed from 11/20 (Declined at this time) Start: 02-27-2022 DEPRESSION ASSESSMENT DEPRESSION ASS ESSMENT Start: 12-03-2021 ANNUAL PCP TEAM CHRONIC DISEASE VISIT ANNUAL PCP TEAM CHRONIC DISEASE VISIT Start: 11-18-2021 Hepatitis B surface antibody level LDL CHOLESTEROL Start: 10-28-2021 Influenza vaccination INFLUENZA (#1) Start: 09-18-2021 COVID-19 VACCINE (5 - Booster for Pfizer series) COVID-19 VACCINE (5 - Booster for Pfizer series) Start: 09-18-2021 COVID-19 VACCINE (5 - Pfizer series) COVID-19 VACCINE (5 - Pfizer series) Start: 07-06-2021 End: 09-05-2021 HEPATIC FUNCTION PNL HEPATIC FUNCTION PNL Lab Routine Well adult exam Migraine without aura and without status migrainosus, not intractable Essential hypertension Gastroesophageal reflux disease without esophagitis Coronary artery disease due to lipid rich plaque Expected: 07/06/2021, Expires: 09/05/2021 [facility] Work Phone: Comment on above: Expected: 07/06/2021 , Expires: 09/05/2021 Start: 07-06-2021 End: 09-05-2021 LIPID PANEL, NONFASTING LIPID PANEL, NONFASTING Lab Routine Coronary artery disease due to lipid rich plaque Expected: 07/06/2021, Expires: 09/05/2021 [facility] Work Phone: Comment on above: Expected: 07/06/2021 , Expires: 09/05/2021 Start: 06-24-2021 COVID-19 VACCINE (4 - Booster for Pfizer series) COVID-19 VACCINE (4 - Booster for Pfizer series) Start: 02-27-2021 DEPRESSION ASSESSMENT DEPRESSION ASS ESSMENT Start: 03-28-2019 Adult depression screening assessment DEPRESSION SCREENING Start: 02-07-2018 PNEUMOCOCCAL (2 - PPSV23 or PCV20) PNEUMOCOCCAL (2 - PPSV23 or PCV20) Start: 2016 SHINGRIX VACCINE (1 of 2) SHINGRIX VACCINE (1 of 2) Start: 11-21-2011 COLOGUARD (FIT-DNA) COLOGUARD (FIT-D NA) Start: 11-21-[address] COLONOGRAPHY [facility] Start: 11-21-2011 FECAL OCCULT BLOOD FECAL OCCULT BLOO D Start: 11-21-2011 Screening for malignant neoplasm of colon Start: 11-21-2011 SIGMOIDOSCOPY SIGMOIDOSCOPY [facility] Start: 1985 TWO PNEUMOVAX 5 YEAR S APART PRIOR TO AGE 65 (#1) TWO PNEUMOVAX 5 YEARS APART PRIOR TO AGE 65 (#1) Start: 1984 Anxiety Screening Anxiety Screening Start: 1984 BP CONTROLLED (<130/80) BP CONTROLLED (<130/80) Start: 1984 Depression Screening Depression Scre ening Start: 1984 HEPATITIS C SCREENING HEPATITIS C [facility] Start: 1984 HIV SCREENING HIV SCREENING [facility] Start: 1965 HEPATITIS B (1 of 3 - 3-dose series) HEPATITIS B (1 of 3 - 3-dose series) Patient Education [facility] Work Phone: Patient referral [facility] Work Phone: [facility] Immunizations Immunization Date Immunization Notes Care Provider Fa cili 05-01-2024 COVID-19 vaccine, ag e 12+ yr (PFIZER-BIONTECH [facility]) Yanick Sky MD Work Phone: 05-01-2024 influenza, seasonal, injectable Yanick Sky MD Work Phone: 01-25-2023 COVID-19 vaccine, ag e 12+ yr, 2022- season (PFIZER-BIONTECH) Yanick Sky MD Work Phone: 01-25-2023 influenza, injectabl e, quadrivalent, contains preservative Yanick Sky MD Work Phone: 01-25-2023 influenza virus vaccine, unspecified formulation Yanick Sky MD Work Phone: 07-18-2022 pneumococcal (PCV20) vaccine, 20 valent (PREVNAR 20) Tosha De Leon PA-C Work Phone: 01-12-2022 influenza, injectabl e, quadrivalent, contains preservative Yanick Sky MD Work Phone: 01-12-2022 influenza virus vaccine, unspecified formulation Yanick Sky MD Work Phone: 07-24-2021 COVID-19 vaccine, ag e 12+ yr (PFIZER-BIONTECH - PURPLE TOP) Yanick Sky MD Work Phone: 02-23-2021 COVID-19 vaccine, ag e 12+ yr (PFIZER-BIONTECH - PURPLE TOP) Johnna Seal [facility] Work Phone: 11-17-2020 influenza, injectabl e, quadrivalent, contains preservative Johnna Seal [facility] 07-18-2020 COVID-19 vaccine, ag e 12+ yr (PFIZER-BIONTECH - PURPLE TOP) Johnna Seal [facility] Work Phone: 06-27-2020 COVID-19 vaccine, ag e 12+ yr (PFIZER-BIONTECH - PURPLE TOP) Johnna Seal [facility] Work Phone: 04-20-2020 influenza, injectabl e, quadrivalent, contains preservative Johnna Seal [facility] 12-07-2018 influenza, injectabl e, quadrivalent, contains preservative Johnna Seal [facility] 02-26-2018 influenza, injectabl e, quadrivalent, contains preservative Johnna Seal [facility] 11-22-2017 tetanus toxoid, redu bel diphtheria toxoid, and acellular pertussis vaccine, adsorbed Johnna Seal [facility] 02-07-2017 pneumococcal conjuga te vaccine, 13 valent Johnna Seal [facility] 12-30-2016 influenza, injectabl e, quadrivalent, preservative free Johnna Seal [facility] 03-18-2015 influenza, injectabl e, quadrivalent, contains preservative Johnna Seal [facility] Work Phone: 01-29-2014 influenza, seasonal, injectable Johnna Seal [facility] Work Phone: Payers Date Payer Category Payer Private Health Insurance [facility] [id number] 2024 Self-pay 2016 Private Health Insurance [employer] P[employer] [id number] 2016-Present [phone] [address] [place] [id number] [facility] [id number] 2016 Private Health Insurance [id number] [facility] [id number] 2015 Private Health Insurance [facility] [id number] Unknown [id number] Unknown [id number] Social History Date Type Detail Facility Start: 07-06-2021 End: 05-01-2024 Tobacco smoking status NHIS Smokes tobacco daily History of tobacco use Cigarette Smoker C [facility] Start: 04-14-2021 End: 08-03-2024 Alcohol intake Current drinker of alcohol (finding) Start: 04-14-2021 End: 01-30-2024 Alcohol intake Work Phone: Start: 1965 Sex Assigned At Not on file C [facility] Start: 05-30-2021 End: 01-12-2022 Exposure to SARS-CoV-2 (event) Not sure Start: 07-06-2021 History SDOH Alcohol Comment sometimes less Start: 07-06-2021 End: 05-01-2024 Tobacco use and exposure Smokeless tobacco non-user Work Phone: Start: 02-10-2022 Tobacco Comment Last cigarette 02/09/2022 actively trying to quit Start: 08-02-2022 Tobacco smoking stat us IAIS Unknown if ever smoked [facility] Start: 1965 Sex Assigned At Male [facility] Start: 09-07-2022 End: 01-30-2024 Tobacco use panel Work Phone: Adult Depression Screening Assessment 0 Work Phone: Has the electric, [employer], [employer], or water [employer] threatened to shut off services in your home in past 12Mo No (I/We) worried gamaliel er (my/our) food would run out before (I/we) got money to buy more. Never true Medical Equipment Procedure Code Equipment Code Equipment Origin al Text Equipment Identifier Dates Duramatrix Onlay 1x1 - [id number] Start: 04-24-2014 Duraseal 5ml - [id number] Start: 04-24-2014 Spng Abs Hemstat Mtrx Deborah - [id number] Start: 04-24-2014 Duraseal 5ml - [id number] Start: 05-26-2014 Mesh 3dmax Large Polypropylene 6x4in Surgical Nonabsorbable Patch Preform - [id number] Start: 09-09-2021 Comment on above: Description: Bard 3 D Max Mesh knitted P olypropylene Pre-formed Mesh Left Large Functional Status Date Assessment Result Facility 08-08-2024 Are you deaf, or do you have serious difficulty hearing No 08/08/2024 4:15 PM EDT Cuca Alford RN No 08-08-2024 Are you blind, or do you have serious difficulty seeing, even when wearing glasses No 08/08/2024 4:15 PM EDT Cuca Alford, RN No 08-08-2024 Do you have serious difficulty walking or climbing stairs Yes 08/08/2024 4:15 PM EDT Cuca Alford RN Yes 08-08-2024 Do you have difficul ty dressing or bathing Yes 08/08/2024 4:15 PM EDT Cuca Alford, RN Yes 08-08-2024 Because of a physica l, mental, or emotional condition, do you have difficulty doing errands alone such as visiting a physician's office or shopping Yes 08/08/2024 4:15 PM EDT Cuca Alford, RN Yes 12-31-2016 Are you deaf, or do you have serious difficulty hearing No 12/31/2016 5:27 PM EDT Kandy Roberto RN No 12-31-2016 Are you blind, or do you have serious difficulty seeing, even when wearing glasses No 12/31/2016 5:27 PM EDT Kandy Roberto RN No 12-31-2016 Do you have serious difficulty walking or climbing stairs No 12/31/2016 5:27 PM EDT Kandy Roberto RN No 12-31-2016 Do you have difficul ty dressing or bathing No 12/31/2016 5:27 PM EDT Kandy Roberto RN No 12-31-2016 Because of a physica l, mental, or emotional condition, do you have difficulty doing errands alone such as visiting a physician's office or shopping No 12/31/2016 5:27 PM EDT Kandy Roberto RN No Mental Status Date Assessment Result Facility 08-08-2024 Because of a physica l, mental, or emotional condition, do you have serious difficulty concentrating, remembering, or making decisions No 08/08/2024 4:15 PM EDT Cuca Alford RN [facility] 07-22-2024 Cognitive function Level Of Cons ciousness Awake;Alert;Appropriate;Fol lows Commands [facility] Work Phone: 08-02-2022 Cognitive function Level Of Cons ciousness Awake;Alert;Appropriate;Fol lows Commands [facility] Work Phone: 12-31-2016 Because of a physica l, mental, or emotional condition, do you have serious difficulty concentrating, remembering, or making decisions No 12/31/2016 5:27 PM EDT Kandy Roberto RN No Clinical Notes 05-25-2014 to 08-08-2024 Telephone Encounter - Keysha [facility] - 08/08/2024 2:44 PM EDTTelephone Encounter - Keysha [facility] - 08/08/2024 2:44 PM EDTTelephone Encounter - Erika Haywood APRN.CNP - 08/08/2024 2:21 PM EDT Note Date & Type Note Facility 08-08-2024 Telephone encounter Note Patient has been scheduled and confirmed , Sent H5 message. Keysha [facility] August 08, 2024 2:46 PM 08-08-2024 Miscellaneous Notes Patient has been scheduled and confirmed , Sent [employer] message. Keysha [facility] August 08, 2024 2:46 PM F/up Next available [facility]; Epidermoid Erika Haywood APRN.SITE ADMINISTRATOR Patient established with Dr. Shaw. Last seen in 2015. Erika Haywood APRN.SITE ADMINISTRATOR documented in this encounter 08-08-2024 Telephone encounter Note F/up Next available [facility]; Epidermoid Erika Haywood APRN.SITE ADMINISTRATOR Patient established with Dr. Shaw. Last seen in 2015. Erika Haywood APRN.SITE ADMINISTRATOR Work Phone: 08-07-2024 Note [facility] 08-06-2024 Note [facility] 08-06-2024 Note [facility] 08-05-2024 Note [facility] 08-04-2024 Note [facility] 08-04-2024 Note [facility] 08-04-2024 Note [facility] 08-04-2024 Note SARS-COV-2 (AGENT OF COVID-19) RNA: Not detected INFLUENZA A RNA: Not detected INFLUENZA B RNA: Not detected RESPIRATORY SYNCYTIAL VIRUS (RSV) RNA: Not detected [facility] Comment on above: Performed By: #### 9 [id number] ####[facility] [id number] [address] [place] 08-03-2024 Note HNO ID: [id number] Author: ZARA JOHNSON, PhD Service: Psychology Author Type: Psychologist Type: Progress Notes Filed: 08/08/2024 01:26 Note Text: Patient lacks capacity to make medical decisions. Recommend diminished capacity order. [facility] 08-03-2024 Note [facility] 08-02-2024 Note [facility] 08-02-2024 Note [facility] 08-01-2024 Note [facility] 08-01-2024 Note [facility] 07-31-2024 Note [facility] 07-31-2024 Note [facility] 07-31-2024 Note [facility] 07-30-2024 Note [facility] 07-30-2024 Note [facility] 07-29-2024 Note [facility] 07-28-2024 Note [facility] 07-27-2024 Note HNO ID: [id number] Author: MYRIAM PARTIDA, MABEL Service: Nursing Author Type: Registered Nurse Type: Nursing Progress Note Filed: 07/27/2024 23:15 Note Text: Other: BMP reported to Dr Duque. New order to D/C q4 hour BMP and check BMP in the morning. [facility] 07-27-2024 Note [facility] 07-26-2024 Note [facility] 07-25-2024 Note [facility] 07-24-2024 Note [facility] 07-24-2024 Note [facility] 07-24-2024 Note [facility] 07-24-2024 Note HNO ID: [id number] Author: SERGIO CARTER MD Service: Hospital Medicine Author Type: Physician Type: Plan of Care Filed: 07/24/2024 01:11 Note Text: Amlodipine Rx for HTN [facility] 07-23-2024 Telephone encounter Note A FEW DAYS OF HEADACHE. HTN. HX OF MIGRAINE. HX OF CHRONIC HYPONATREMIA. CURRENT SODIUM A BIT WORSE THAN USUAL. REPORTS REDUCED ORAL INTAKE LATELY. Work Phone: 07-23-2024 Miscellaneous Notes A FEW DAYS OF HEADACHE. HTN. HX OF MIGRAINE. HX OF CHRONIC HYPONATREMIA. CURRENT SODIUM A BIT WORSE THAN USUAL. REPORTS REDUCED ORAL INTAKE LATELY. documented in this encounter 07-23-2024 Telephone encounter Note Spoke with pt and notified him of Tosha's message. Pt advises that he is going to go to [facility]. Clare Beltran LPN 07-23-2024 Miscellaneous Notes Spoke with pt and notified him of Tosha's message. Pt advises that he is going to go to [facility]. Clare Beltran LPN Agree with going to [facility] if severe. I cannot advise on medication at this time as I have not seen him and haven't seen ER report yet to review what was already done. Patient calling said he is still having severe migraine headache, effecting his vision, asking if any pain medication he can take for this. Aware ER follow up appt is scheduled for tomorrow with Tosha FREIRE at 720 am. Advised if pain that severe would need to go to ER for evaluation. He said [facility] did not really do anything for him, advised [facility] or [facility] are [facility] facilities. Patient called to report that he was examined at [facility] ER early this morning for migraine headache. Patient requested same day appointment, no availability for ER follow up with PCP dyad. Patient reports still experiencing a significant headache and is wanting to know if he can be seen sooner or have medication sent to pharmacy today to help with the pain. He reports being unable to perform daily activities or eat due to the pain. Please contact patient to advise on plan of care. documented in this encounter 07-23-2024 Telephone encounter Note Agree with going to [facility] if severe. I cannot advise on medication at this time as I have not seen him and haven't seen ER report yet to review what was already done. 07-23-2024 Telephone encounter Note Patient calling said he is still having severe migraine headache, effecting his vision, asking if any pain medication he can take for this. Aware ER follow up appt is scheduled for tomorrow with Tosha FREIRE at 720 am. Advised if pain that severe would need to go to ER for evaluation. He said [facility] did not really do anything for him, advised [facility] or [facility] facilities. 07-23-2024 Telephone encounter Note Patient called to report that he was examined at [facility] ER early this morning for migraine headache. Patient requested same day appointment, no availability for ER follow up with PCP dyad. Patient reports still experiencing a significant headache and is wanting to know if he can be seen sooner or have medication sent to pharmacy today to help with the pain. He reports being unable to perform daily activities or eat due to the pain. Please contact patient to advise on plan of care. 07-22-2024 Radiology Diagnostic study note [facility] Imaging Services [address] [place] [address] Brain/Head without Contrast MR#: [id number] Acct: [id number] Name: ANDRA GARCÍA Rep #: [id number] : 1965 M 58 From: Susy Pizano MD PCP: Dr. Yanick Sky MD Status: REG ER Study:Brain/Head without Contrast Date of Exa m: 07/22/24 Exam# [id number] Ordering Dr: Julian Garcia DO EXAM: BRAIN/HEAD WITHOUT CONTRAST CLINICAL HISTORY: 58 y/o M with PAIN. COMPARISON: None. TECHNIQUE: Routine CT imaging of the head without IV contrast. Additional multiplanar reformats were obtained. Dose reduction techniques were used including intermediate exposure control (AEC),iterative reconstruction technique, and/or mA and/or KV dose adjustments based on patient's size. FINDINGS: Visualization is significantly limited by streak artifact from right eyelid weight. Prior right pterional craniotomy and surgical resection of the right skull base. The ventricles and subarachnoid spaces are normal for patient age. 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 Patchy supratentorial white matter hypodensities. The parsons-white matter interfaces are otherwise grossly maintained. No large intracranial hemorrhage or herniation. Prior FESS. Mild mucosal thickening of the right maxillary sinus. The visualized paranasal sinuses and mastoids are otherwise unremarkable. No depressed skull fractures are identified. CT/Brain/Head without Contrast IMPRESSION: No acute intracranial finding. Reading Location: [facility] CC: Dr. Julian Garcia DO; Dr. Yanick Sky MD ~ Interior Design Principal: Signed [facility] 05-16-2024 Telephone encounter Note Prescription Refill Information The patient has been identified by name and date of : Yes Caregiver verified no other encounters exist for this prescription request: Yes Caregiver confirmed with patient/requestor that no other refills are due, in the near future, with this provider at this time: Yes The last office visit in the department: 05/01/24 Does the patient have a future office visit with this provider/department: Yes Requested Prescriptions Pending Prescriptions Disp Refills metoprolol tartrate, short acting, (LOPRESSOR) 100 mg tablet 360 tablet 1 Sig: Take 2 tablets by mouth two times a day. sildenafil (VIAGRA) 100 mg tablet 12 tablet 3 Sig: Take 1/2 to 1 tab as need. Max of 100 mg in 24 hrs. Johnna Mendoza May 16, 2024 4:07 PM 05-16-2024 Miscellaneous Notes Prescription Refill Information The patient has been identified by name and date of : Yes Caregiver verified no other encounters exist for this prescription request: Yes Caregiver confirmed with patient/requestor that no other refills are due, in the near future, with this provider at this time: Yes The last office visit in the department: 05/01/24 Does the patient have a future office visit with this provider/department: Yes Requested Prescriptions Pending Prescriptions Disp Refills metoprolol tartrate, short acting, (LOPRESSOR) 100 mg tablet 360 tablet 1 Sig: Take 2 tablets by mouth two times a day. sildenafil (VIAGRA) 100 mg tablet 12 tablet 3 Sig: Take 1/2 to 1 tab as need. Max of 100 mg in 24 hrs. Johnna Mendoza May 16, 2024 4:07 PM documented in this encounter 05-02-2024 Telephone encounter Note The following approved medication requests have been transmitted electronically. Requested Prescriptions Signed Prescriptions Disp Refills atorvastatin (LIPITOR) 20 mg tablet 30 tablet 5 Sig: Take 1 tablet by mouth daily at bedtime. For cholesterol. Yanick Sky MD 05-02-2024 Miscellaneous Notes The following approved medication requests have been transmitted electronically. Requested Prescriptions Signed Prescriptions Disp Refills atorvastatin (LIPITOR) 20 mg tablet 30 tablet 5 Sig: Take 1 tablet by mouth daily at bedtime. For cholesterol. Yanick Sky MD Pt notified of results and instructions. Pt verbalizes understanding. Pt is agreeable to take lipitor. [facility] Let patient know his lipid panel shows good Trigs and HDL. His bad Chol the LDL is elevated at 105. With Hx of coronary artery disease the goal would be to get this below 70. Being on the lipitor would help this and reduce the risk of a cardiovascular event. I ok getting back on it I will send in a script. His electrolyte panel was ok and his sodium was ok at 133. Cont what he is doing t get the increased sodium in his diet. documented in this encounter 05-02-2024 Telephone encounter Note Pt notified of results and instructions. Pt verbalizes understanding. Pt is agreeable to take lipitor. Send to [facility]. Clare Beltran LPN 05-02-2024 Telephone encounter Note Let patient know his lipid panel shows good Trigs and HDL. His bad Chol the LDL is elevated at 105. With Hx of coronary artery disease the goal would be to get this below 70. Being on the lipitor would help this and reduce the risk of a cardiovascular event. I ok getting back on it I will send in a script. His electrolyte panel was ok and his sodium was ok at 133. Cont what he is doing t get the increased sodium in his diet. 05-01-2024 Instructions Yanick Sky MD - 05/01/2024 2:50 PM EST Please get labs and urine test done on or after 10/18/2024 prior to your next visit. documented in this encounter 05-01-2024 History of Presen t illness Narrative Chief Complaint Patient presents with: F/U 6 months HPI Katarina García is a 58 year old male who presents here today for 6 month follow up. Patient with hx of mild CAD, HTN, Smoker, Migraines, and those as below. Patient ran out of the Lipitor and salt tablets and decided he did not want to stay on them so he stopped them. He is aware that the Lipitor would be beneficial with his CAD. Has been drinking power aid zero to get more sodium in his diet. Still smoking. Past medical history, appointments, medications, allergies reviewed. Previous Medical History PAST MEDICAL HISTORY Diagnosis Date Acute recurrent pansinusitis 12/30/2016 Bacterial vs. Viral - chronic problem since tumor resection. Treating with ceftriaxone/azithromycin. 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 Consistent with pericarditis Echo normal /ED ekg had changes - probably lead reversal - new EKG on 12-30 showed no change 06-06-14. ESR 4 - trop and YOLA negative Smoker 11/22/2017 Started at age 20 up to 1.5 PPD as of 10/2017 smokes 3/4 PPD Well adult exam 11/22/2017 last done: 08/12/2019 Previous Surgical History PAST SURGICAL HISTORY Procedure Laterality Date COLONOSCOPY FLX DX W/COLLJ SPEC WHEN PFRMD 01/18/2019 Colonoscopy INGUINAL HERNIA REPAIR HX Left 09/09/2021 LEFT HEART CATH,PERCUTANEOUS 03/2021 OTOL FACIAL PALSY PANEL_*FL 2007 PAST SURGICAL HISTORY OF 2007 right-sided subtemporal approach for subtotal resection of the right-sided petrous epidermoid SINUS SURGERY HX 04/24/2014 excise petrous and clival tumor (epidermoid cyst) Family History FAMILY HISTORY Problem Relation Age of Onset Ischemic Heart Disease Mother Diabetes Father Colon Cancer Sister 50 Hypertension Brother Stroke Brother Cancer Paternal Grandfather ?? type Alzheimer's Disease No Family History Breast Cancer No Family History Prostate Cancer No Family History Ovarian cancer No Family History Hyperlipidemia No Family History Kidney Disease No Family History Seizures No Family History Thyroid No Family History Patient Allergies ALLERGIES Allergen Reactions Maxzide [Triamteren* Other: See Comments Low sodium Current Medications Current Outpatient Medications on File Prior to Visit Medication Sig doxazosin (CARDURA) 1 mg tablet Take one tab a day for a week then go to taking two a day. (Patient not taking: Reported on 03/12/2024) sildenafil (VIAGRA) 100 mg tablet Take 1/2 to 1 tab as need. Max of 100 mg in 24 hrs. metoprolol tartrate, short acting, (LOPRESSOR) 100 mg tablet Take 2 tablets by mouth two times a day. metoprolol tartrate, short acting, (LOPRESSOR) 100 mg tablet Take 2 tablets by mouth two times a day. atorvastatin (LIPITOR) 20 mg tablet Take 1 tablet by mouth daily at bedtime. For cholesterol. (Patient not taking: Reported on 03/12/2024) lisinopril (ZESTRIL) 40 mg tablet Take 1 tablet by mouth two times a day. spironolactone (ALDACTONE) 50 mg tablet Take 1 tablet by mouth two times a day. sodium chloride 1 gram tab Take 1 tablet by mouth two times a day. (Patient not taking: Reported on 03/12/2024) No current facility-administered medications on file prior to visit. Social History Social History Tobacco Use Smoking status: Every Day Current packs/day: 0.50 Average packs/day: 0.5 packs/day for 22.0 years (11.0 ttl pk-yrs) Types: Cigarettes Smokeless tobacco: Never Tobacco comments: Last cigarette 02/09/2022 actively trying to quit Vaping Use Vaping status: Never Used Substance Use Topics Alcohol use: Yes Alcohol/week: 12.0 standard drinks of alcohol Types: 12 Cans of Beer (12oz) per week Comment: sometimes less Drug use: No Review of Symptoms REVIEW OF SYSTEMS GENERAL: No weight loss, malaise or fevers NECK: Negative for lumps, goiter, pain and significant neck swelling RESPIRATORY: Negative for cough, hemoptysis, wheezing, COPD, dyspnea or shortness of breath CARDIOVASCULAR: Negative for chest pain, leg swelling, hypertension, CHF or palpitations GI: No nausea, vomiting, or diarrhea and No frequent heartburn or reflux symptoms NEURO: No history of increased headaches (have been less), syncope, paralysis, seizures or tremors EXAM: BP 140/96 Pulse 68 Resp 16 Wt 84.4 kg (186 lb) BMI 29.13 kg/m BP 134/84 Pulse 68 Resp 16 Wt 84.4 kg (186 lb) BMI 29.13 kg/m Last 5 Encounter Wt Readings: Date: Wt: 05/01/2024 84.4 kg (186 lb) 03/12/2024 83.4 kg (183 lb 13.8 oz) 07/26/2023 82.1 kg (181 lb) 02/23/2023 80.7 kg (178 lb) 01/25/2023 82.6 kg (182 lb) General Appearance: Well appearing, alert, in no acute distress, well-hydrated, well nourished.. Neck: Supple, no adenopathy; thyroid symmetric, normal size, no bruits. Lungs: Lungs clear to auscultation. No wheezing, rhonchi, rales.. Heart: RRR without murmur, gallop, or rubs. No ectopy. Abdomen: Normal abdominal exam, Abdomen soft, non-tender. Bowel sounds normal. No masses, organomegaly. Peripheral Pulses: Normal. Ext: no edema. Health Maintenance List Depression Screening Never done Anxiety Screening Never done Influenza Vaccine(1) due on 10/29/2023 Covid-19 Vaccine( season) due on 10/29/2023 Colorectal Cancer Screening due on 01/19/2024 Shingrix Vaccine(1 of 2) due on 07/25/2024 Annual PCP Team Chronic Disease Visit due on 07/25/2024 LDL Cholesterol due on 08/04/2024 BP Controlled (<130/80) due on 03/12/2025 Diabetes Screening due on 08/04/2026 DTaP,Tdap,Td Vaccine(2 - Td or Tdap) due on 11/23/2027 Lipid Screening due on 08/04/2028 Prostate Cancer Screening Discussion due on 08/04/2028 Pneumococcal Vaccine: 50+ Completed Hepatitis B Vaccine Discontinued Hepatitis C Screening Discontinued HIV Screening Discontinued Data reviewed A/P ASSESSMENT/PLAN: 1. Essential hypertension - ICD9: 401.9, ICD10: I10 (primary diagnosis) - Controlled - Continue current medications - Recommend home blood pressure monitoring, to bring results to next visit - Encouraged sodium restriction, DASH or Mediterranean diet - Recommend regular aerobic exercise 2. Coronary artery disease due to lipid rich plaque - ICD9: 414.00, 414.3, ICD10: I25.10, I25.83 - discussed about the benefit of being on the statin and patient declined. - will await labs 3. Gastroesophageal reflux disease without esophagitis - ICD9: 530.81, ICD10: K21.9 - controlled with diet. Cont Omeprazole 20 mg prn 4. Cholesteatoma of right middle ear - ICD9: 385.32, ICD10: H71.91 - clinically stable will monitor 5. Migraine without aura and without status migrainosus, not intractable - ICD9: 346.10, ICD10: G43.009 - stable no changes. 6. Cerebral salt-wasting syndrome - ICD9: 593.9, ICD10: E87.1 - will await CMP to see if he needs to get back on the salt tabs - patient does try to get more salt in his diet. . 7. Smoker - ICD9: 305.1, ICD10: F17.200 - Cessation encouraged. - Counseling was given focusing on the harmful effects of this addiction especially given the patient's medical condition(s) which will be worsened because of the chemicals in tobacco. 8. Encounter for immunization - ICD9: V03.89, ICD10: Z23 - INFLUENZA VACCINE, AGE 6MO-64YR, TRIVALENT (AFLURIA, FLULAVAL, FLUVIRIN, FLUZONE): given - [employer] COVID-19 VACCINE AGE 12+ YR ([place]): given F/u 6 months WAE check CMP, lipid, UA,A1c, PSA, B12 and Mg prior. Yanick Sky MD documented in this encounter 05-01-2024 Note HNO ID: [id number] Author: YANICK SKY MD Service: ? Author Type: Physician Type: Progress Notes Filed: 05/01/2024 16:22 Note Text: Chief Complaint Patient presents with: F/U 6 months HPI Katarina García is a 58 year old male who presents here today for 6 month follow up. Patient with hx of mild CAD, HTN, Smoker, Migraines, and those as below. Patient ran out of the Lipitor and salt tablets and decided he did not want to stay on them so he stopped them. He is aware that the Lipitor would be beneficial with his CAD. Has been drinking power aid zero to get more sodium in his diet. Still smoking. Past medical history, appointments, medications, allergies reviewed. Previous Medical History PAST MEDICAL HISTORY Diagnosis Date Acute recurrent pansinusitis 12/30/2016 Bacterial vs. Viral - chronic problem since tumor resection. Treating with ceftriaxone/azithromycin. 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 Consistent with pericarditis Echo normal /ED ekg had changes - probably lead reversal - new EKG on 12-30 showed no change 06-06-14. ESR 4 - trop and YOLA negative Smoker 11/22/2017 Started at age 20 up to 1.5 PPD as of 10/2017 smokes 3/4 PPD Well adult exam 11/22/2017 last done: 08/12/2019 Previous Surgical History PAST SURGICAL HISTORY Procedure Laterality Date COLONOSCOPY FLX DX W/COLLJ SPEC WHEN PFRMD 01/18/2019 Colonoscopy INGUINAL HERNIA REPAIR HX Left 09/09/2021 LEFT HEART CATH,PERCUTANEOUS 03/2021 OTOL FACIAL PALSY PANEL_*FL 2007 PAST SURGICAL HISTORY OF 2007 right-sided subtemporal approach for subtotal resection of the right-sided petrous epidermoid SINUS SURGERY HX 04/24/2014 excise petrous and clival tumor (epidermoid cyst) Family History FAMILY HISTORY Problem Relation Age of Onset Ischemic Heart Disease Mother Diabetes Father Colon Cancer Sister 50 Hypertension Brother Stroke Brother Cancer Paternal Grandfather ?? type Alzheimer's Disease No Family History Breast Cancer No Family History Prostate Cancer No Family History Ovarian cancer No Family History Hyperlipidemia No Family History Kidney Disease No Family History Seizures No Family History Thyroid No Family History Patient Allergies ALLERGIES Allergen Reactions Maxzide [Triamteren* Other: See Comments Low sodium Current Medications Current Outpatient Medications on File Prior to Visit Medication Sig doxazosin (CARDURA) 1 mg tablet Take one tab a day for a week then go to taking two a day. (Patient not taking: Reported on 03/12/2024) sildenafil (VIAGRA) 100 mg tablet Take 1/2 to 1 tab as need. Max of 100 mg in 24 hrs. metoprolol tartrate, short acting, (LOPRESSOR) 100 mg tablet Take 2 tablets by mouth two times a day. metoprolol tartrate, short acting, (LOPRESSOR) 100 mg tablet Take 2 tablets by mouth two times a day. atorvastatin (LIPITOR) 20 mg tablet Take 1 tablet by mouth daily at bedtime. For cholesterol. (Patient not taking: Reported on 03/12/2024) lisinopril (ZESTRIL) 40 mg tablet Take 1 tablet by mouth two times a day. spironolactone (ALDACTONE) 50 mg tablet Take 1 tablet by mouth two times a day. sodium chloride 1 gram tab Take 1 tablet by mouth two times a day. (Patient not taking: Reported on 03/12/2024) No current facility-administered medications on file prior to visit. Social History Social History Tobacco Use Smoking status: Every Day Current packs/day: 0.50 Average packs/day: 0.5 packs/day for 22.0 years (11.0 ttl pk-yrs) Types: Cigarettes Smokeless tobacco: Never Tobacco comments: Last cigarette 02/09/2022 actively trying to quit Vaping Use Vaping status: Never Used Substance Use Topics Alcohol use: Yes Alcohol/week: 12.0 standard drinks of alcohol Types: 12 Cans of Beer (12oz) per week Comment: sometimes less Drug use: No Review of Symptoms REVIEW OF SYSTEMS GENERAL: No weight l (more content not included)... [facility] 04-15-2024 Telephone encounter Note Patient rescheduled. Macrina Neal MA 04-15-2024 Miscellaneous Notes Patient rescheduled. Macrina Neal MA Provider out ill. L/m patient needs rescheduled. Macrina Neal MA documented in this encounter 04-10-2024 Telephone encounter Note Provider out ill. L/m patient needs rescheduled. Macrina Neal MA 03-12-2024 Instructions Meche Zhao PA - 03/12/2024 12:55 PM EST You may take methocarbamol (muscle relaxer) 4 times daily as needed for muscle spasming/pain. Do not drive while taking this medication as it may cause drowsiness. Take prednisone as prescribed. Do not take Aleve, Motrin, ibuprofen or other NSAIDs while taking this medication. You may take Tylenol with it. Ice the back 3 times daily for no more than 20 minutes at a time. Follow-up with PCP next week if symptoms are not improved. Go to the ER if you develop new/worsening or severe pain, fever, inability to ambulate, numbness of the legs, numbness in the groin/buttocks region, loss of bowel or bladder function, inability to urinate. documented in this encounter 03-12-2024 History of Presen t illness Narrative Radiology Service Progress Note PATIENT NAME: Katarina García DATE OF SERVICE: March 12, 2024 TIME: 12:28 PM PATIENT IDENTITY VERIFICATION COMPLETED USING TWO (2) IDENTIFIERS: Name and Date of confirmed by patient verbally. FALL SCREENING: Has the patient had 2 falls in the last year or 1 fall with injury or currently using an Ambulatory Assistive Device (Walker, Cane, Wheelchair, Crutches, etc.)? No PATIENT GENDER DATA: Assigned male at PATIENT RELEVANT IMPLANT DATA REVIEWED: Yes PATIENT PRESENTS WITH AN IMPLANTABLE OR ATTACHED SLATE ROOFER: No RADIOLOGY DEPARTMENT: General X-ray: Exam(s) Completed: Spine X-Ray(s): Lumbar AP / LAT / L5-S1 PERIPHERAL IV DATA: Not applicable SIGNED BY: RT Sweta(R) March 12, 2024 12:28 PM documented in this encounter 03-12-2024 Note HNO ID: [id number] Author: TODD MILLER RT(R) Service: ? Author Type: [employer] Type: Progress Notes Filed: 03/12/2024 12:44 Note Text: Radiology Service Progress Note PATIENT NAME: Katarina García DATE OF SERVICE: March 12, 2024 TIME: 12:28 PM PATIENT IDENTITY VERIFICATION COMPLETED USING TWO (2) IDENTIFIERS: Name and Date of confirmed by patient verbally. FALL SCREENING: Has the patient had 2 falls in the last year or 1 fall with injury or currently using an Ambulatory Assistive Device (Walker, Cane, Wheelchair, Crutches, etc.)? No PATIENT GENDER DATA: Assigned male at PATIENT RELEVANT IMPLANT DATA REVIEWED: Yes PATIENT PRESENTS WITH AN IMPLANTABLE OR ATTACHED SLATE ROOFER: No RADIOLOGY DEPARTMENT: General X-ray: Exam(s) Completed: Spine X-Ray(s): Lumbar AP / LAT / L5-S1 PERIPHERAL IV DATA: Not applicable SIGNED BY: RT Sweta(R) March 12, 2024 12:28 PM [facility] 03-12-2024 Note HNO ID: [id number] Author: MECHE ZHAO PA Service: ? Author Type: Physician [employer] Type: Progress Notes Filed: 03/12/2024 13:00 Note Text: This note was created using Terrajouleriter. Subjective Katarina García is a 58 year old male. HPI 58-year-old male presents for low back pain. Patient states that he slipped on ice on his stairs and fell about a week ago. He hit his low back on his stairs. He states that he has been having pain since then, but it has gotten more tight and worsened over the past few days. Pain is mainly in the mid low back and on the right side. No numbness or tingling in the legs. No pain radiating to legs. No loss of bowel or bladder function. No fevers. Patient does have history of broken T12 back in the 90s. No history of surgery on the back. No other complaint. Has taken Tylenol for symptoms with minimal improvement. Patient did not hit his head or lose consciousness with the fall. PAST MEDICAL HISTORY Diagnosis Date Acute recurrent pansinusitis 12/30/2016 Bacterial vs. Viral - chronic problem since tumor resection. Treating with ceftriaxone/azithromycin. 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 Gastroesophageal reflux disease without esophagitis 03/18/2015 History of intraventricular hemorrhage 05/25/2014 Hydrocephalus (HCC) 05/25/2014 Intraventricular hemorrhage (HCC) 05/25/2014 Left inguinal hernia 10/02/2012 Meningitis 05/25/2014 Migraine without aura and without status migrainosus, not intractable 03/18/2015 Neoplasm of brain causing mass effect on adjacent structures ([facility]) 09/23/2013 Epidermoid cyst, removed 03/2014 Neoplasm of brain causing mass effect on adjacent structures ([facility]) 09/23/2013 Epidermoid cyst, removed 03/2014 Pericarditis 12/30/2016 Patient's chest pain resolves with lying down. Consistent with pericarditis Echo normal /ED ekg had changes - probably lead reversal - new EKG on 12-30 showed no change 06-06-14. ESR 4 - trop and YOLA negative Smoker 11/22/2017 Started at age 20 up to 1.5 PPD as of 10/2017 smokes 3/4 PPD Well adult exam 11/22/2017 last done: 08/12/2019 PAST SURGICAL HISTORY Procedure Laterality Date COLONOSCOPY FLX DX W/COLLJ SPEC WHEN PFRMD 01/18/2019 Colonoscopy INGUINAL HERNIA REPAIR HX Left 09/09/2021 LEFT HEART CATH,PERCUTANEOUS 03/2021 OTOL FACIAL PALSY PANEL_*FL 2007 PAST SURGICAL HISTORY OF 2007 right-sided subtemporal approach for subtotal resection of the right-sided petrous epidermoid SINUS SURGERY HX 04/24/2014 excise petrous and clival tumor (epidermoid cyst) ALLERGIES Maxzide [Triamterene-Hydrochlorothiazid] MEDICATIONS sildenafil (VIAGRA) 100 mg tablet Take 1/2 to 1 tab as need. Max of 100 mg in 24 hrs. metoprolol tartrate, short acting, (LOPRESSOR) 100 mg tablet Take 2 tablets by mouth two times a day. metoprolol tartrate, short acting, (LOPRESSOR) 100 mg tablet Take 2 tablets by mouth two times a day. lisinopril (ZESTRIL) 40 mg tablet Take 1 tablet by mouth two times a day. spironolactone (ALDACTONE) 50 mg tablet Take 1 tablet by mouth two times a day. doxazosin (CARDURA) 1 mg tablet Take one tab a day for a week then go to taking two a day. (Patient not taking: Reported on 03/12/2024) atorvastatin (LIPITOR) 20 mg tablet Take 1 tablet by mouth daily at bedtime. For cholesterol. (Patient not taking: Reported on 03/12/2024) sodium chloride 1 gram tab Take 1 tablet by mouth two times a day. (Patient not taking: Reported on 03/12/2024) FAMILY HISTORY Problem Relation Age of Onset Ischemic Heart Disease Mother Diabetes Father Colon Cancer Sister 50 Hypertension Brother Stroke Brother Cancer Paternal Grandfather ?? type Alzheimer's Disease No Family History Breast Cancer No Family History Prostate Cancer No Family History Ovarian cancer No Family History Hyperlipidemia No Family History Kidney Disease No Family History Seizures No Family History Thyroid No Family History Social History Tobacco Use Smoking status: Every Day Current packs/day: 0.50 Average packs/day: 0.5 packs/day for 22.0 years (11.0 ttl pk-yrs) Types: Cigarettes Smokeless tobacco: Never Tobacco comments: Last cigarette 02/09/2022 actively trying to quit Vaping Use Vaping status: Never Used Substance Use Topics Alcohol use: Yes Alcohol/week: 12.0 standard drinks of alcohol Types: 12 Cans of Beer (12oz) per week Comment: sometimes less Drug use: No Review of Systems Constitutional: Negative for chills and fever. HENT: Negative for congestion and sore thr (more content not included)... [facility] 03-12-2024 History of Presen t illness Narrative This note was created using Terrajouleriter. Subjective Katarina García is a 58 year old male. HPI 58-year-old male presents for low back pain. Patient states that he slipped on ice on his stairs and fell about a week ago. He hit his low back on his stairs. He states that he has been having pain since then, but it has gotten more tight and worsened over the past few days. Pain is mainly in the mid low back and on the right side. No numbness or tingling in the legs. No pain radiating to legs. No loss of bowel or bladder function. No fevers. Patient does have history of broken T12 back in the 90s. No history of surgery on the back. No other complaint. Has taken Tylenol for symptoms with minimal improvement. Patient did not hit his head or lose consciousness with the fall. PAST MEDICAL HISTORY Diagnosis Date Acute recurrent pansinusitis 12/30/2016 Bacterial vs. Viral - chronic problem since tumor resection. Treating with ceftriaxone/azithromycin. 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 Consistent with pericarditis Echo normal /ED ekg had changes - probably lead reversal - new EKG on 12-30 showed no change 06-06-14. ESR 4 - trop and YOLA negative Smoker 11/22/2017 Started at age 20 up to 1.5 PPD as of 10/2017 smokes 3/4 PPD Well adult exam 11/22/2017 last done: 08/12/2019 PAST SURGICAL HISTORY Procedure Laterality Date COLONOSCOPY FLX DX W/COLLJ SPEC WHEN PFRMD 01/18/2019 Colonoscopy INGUINAL HERNIA REPAIR HX Left 09/09/2021 LEFT HEART CATH,PERCUTANEOUS 03/2021 OTOL FACIAL PALSY PANEL_*FL 2007 PAST SURGICAL HISTORY OF 2007 right-sided subtemporal approach for subtotal resection of the right-sided petrous epidermoid SINUS SURGERY HX 04/24/2014 excise petrous and clival tumor (epidermoid cyst) ALLERGIES Maxzide [Triamterene-Hydrochlorothiazid] MEDICATIONS sildenafil (VIAGRA) 100 mg tablet Take 1/2 to 1 tab as need. Max of 100 mg in 24 hrs. metoprolol tartrate, short acting, (LOPRESSOR) 100 mg tablet Take 2 tablets by mouth two times a day. metoprolol tartrate, short acting, (LOPRESSOR) 100 mg tablet Take 2 tablets by mouth two times a day. lisinopril (ZESTRIL) 40 mg tablet Take 1 tablet by mouth two times a day. spironolactone (ALDACTONE) 50 mg tablet Take 1 tablet by mouth two times a day. doxazosin (CARDURA) 1 mg tablet Take one tab a day for a week then go to taking two a day. (Patient not taking: Reported on 03/12/2024) atorvastatin (LIPITOR) 20 mg tablet Take 1 tablet by mouth daily at bedtime. For cholesterol. (Patient not taking: Reported on 03/12/2024) sodium chloride 1 gram tab Take 1 tablet by mouth two times a day. (Patient not taking: Reported on 03/12/2024) FAMILY HISTORY Problem Relation Age of Onset Ischemic Heart Disease Mother Diabetes Father Colon Cancer Sister 50 Hypertension Brother Stroke Brother Cancer Paternal Grandfather ?? type Alzheimer's Disease No Family History Breast Cancer No Family History Prostate Cancer No Family History Ovarian cancer No Family History Hyperlipidemia No Family History Kidney Disease No Family History Seizures No Family History Thyroid No Family History Social History Tobacco Use Smoking status: Every Day Current packs/day: 0.50 Average packs/day: 0.5 packs/day for 22.0 years (11.0 ttl pk-yrs) Types: Cigarettes Smokeless tobacco: Never Tobacco comments: Last cigarette 02/09/2022 actively trying to quit Vaping Use Vaping status: Never Used Substance Use Topics Alcohol use: Yes Alcohol/week: 12.0 standard drinks of alcohol Types: 12 Cans of Beer (12oz) per week Comment: sometimes less Drug use: No Review of Systems Constitutional: Negative for chills and fever. HENT: Negative for congestion and sore throat. Respiratory: Negative for cough and shortness of breath. Gastrointestinal: Negative for diarrhea and vomiting. Musculoskeletal: Positive for back pain. Objective BP 108/66 Pulse 72 Temp 36.4 C (97.5 F) Resp 16 Wt 83.4 kg (183 lb 13.8 oz) SpO2 97% BMI 28.80 kg/m Physical Exam Vitals and nursing note reviewed. Constitutional: General: He is not in acute distress. Appearance: Normal appearance. He is not toxic-appearing. Cardiovascular: Rate and Rhythm: Normal rate and regular rhythm. Pulmonary: Effort: Pulmonary effort is normal. Breath sounds: Normal breath sounds. Musculoskeletal: Lumbar back: Tenderness and bony tenderness present. Decreased range of motion. Negative right straight leg raise test and negative left straight leg raise test. Comments: Decreased ROM lumbar spine due to pain. Midline tenderness over L1-L2. Right-sided lumbar paraspinal muscle tenderness. Negative seated straight leg raise. Normal sensation lower extremities. Able to ambulate. Skin: General: Skin is warm and dry. Neurological: Mental Status: He is alert. Assessment and Plan ASSESSMENT/PLAN: 1. Acute midline low back pain without sciatica - ICD9: 724.2, ICD10: M54.50 (primary diagnosis) - XR LUMBAR GENERAL 3V AP/LAT/[id number] stable wedge compression deformity at T12 vertebral barter E with marked narrowing T11 # T12 and T12-L1 disc spaces. Degenerative narrowing L1-L2 displaced with mild retrolisthesis. Bony defect right iliac wing suggestive of remote bony harvesting. -Fracture of T12 appears unchanged. -No new fracture seen. -Recommend rest, ice, Tylenol. Rx prednisone, Rx Robaxin. Advised not to drive while taking Robaxin. -Follow-up with PCP for persistent symptoms 2. Fall, initial encounter - ICD9: E888.9, ICD10: W19.XXXA - XR LUMBAR GENERAL 3V AP/LAT/L5-S1 -See above Diagnosis and treatment plan were discussed and questions were answered to the patient's satisfaction. Pt acknowledged understanding of concepts and follow up plan. Specific signs and symptoms that would indicate the need for higher level of care were discussed in detail warranting prompt ER evaluation.\ TANI Rowe documented in this encounter 02-29-2024 Telephone encounter Note Prescription Refill Information The patient has been identified by name and date of : Yes Caregiver verified no other encounters exist for this prescription request: Yes Caregiver confirmed with patient/requestor that no other refills are due, in the near future, with this provider at this time: Yes The last office visit in the department: 06-29-23 Does the patient have a future office visit with this provider/department: Yes Requested Prescriptions Pending Prescriptions Disp Refills doxazosin (CARDURA) 1 mg tablet 60 tablet 5 Sig: Take one tab a day for a week then go to taking two a day. sildenafil (VIAGRA) 100 mg tablet 12 tablet 3 Sig: Take 1/2 to 1 tab as need. Max of 100 mg in 24 hrs. Socorro Zamora February 29, 2024 9:28 AM 02-29-2024 Miscellaneous Notes Prescription Refill Information The patient has been identified by name and date of : Yes Caregiver verified no other encounters exist for this prescription request: Yes Caregiver confirmed with patient/requestor that no other refills are due, in the near future, with this provider at this time: Yes The last office visit in the department: 06-29-23 Does the patient have a future office visit with this provider/department: Yes Requested Prescriptions Pending Prescriptions Disp Refills doxazosin (CARDURA) 1 mg tablet 60 tablet 5 Sig: Take one tab a day for a week then go to taking two a day. sildenafil (VIAGRA) 100 mg tablet 12 tablet 3 Sig: Take 1/2 to 1 tab as need. Max of 100 mg in 24 hrs. Socorro Zamora February 29, 2024 9:28 AM documented in this encounter 01-24-2024 Telephone encounter Note The following approved medication requests have been transmitted electronically. Requested Prescriptions Signed Prescriptions Disp Refills metoprolol tartrate, short acting, (LOPRESSOR) 100 mg tablet 360 tablet 1 Sig: Take 2 tablets by mouth two times a day. Authorizing Provider: YANICK SKY metoprolol tartrate, short acting, (LOPRESSOR) 100 mg tablet 28 tablet 0 Sig: Take 2 tablets by mouth two times a day. Authorizing Provider: YANICK SKY MD 01-24-2024 Miscellaneous Notes The following approved medication requests have been transmitted electronically. Requested Prescriptions Signed Prescriptions Disp Refills metoprolol tartrate, short acting, (LOPRESSOR) 100 mg tablet 360 tablet 1 Sig: Take 2 tablets by mouth two times a day. Authorizing Provider: YANICK SKY metoprolol tartrate, short acting, (LOPRESSOR) 100 mg tablet 28 tablet 0 Sig: Take 2 tablets by mouth two times a day. Authorizing Provider: YANICK SKY MD Patient reports he had a in the family, and is in [place], [place] for the . Reports he will run out of metoprolol while he is in [place] and asking pcp to send 7 day short supply to [facility] in [place], [place]. Pended short supply. Patient reports he is going to run out of his routine metoprolol Rx on Sat, and still needs a new Rx sent to [facility] in [place]. Pended Rx. Last ov with pcp: 07-26-23 Next ov with PA: 01-30-24 documented in this encounter 01-24-2024 Telephone encounter Note Patient reports he had a in the family, and is in [place], [place] for the . Reports he will run out of metoprolol while he is in [place] and asking pcp to send 7 day short supply to [facility] in [place], [place]. Pended short supply. Patient reports he is going to run out of his routine metoprolol Rx on Sat, and still needs a new Rx sent to [facility] in [place]. Pended Rx. Last ov with pcp: 07-26-23 Next ov with PA: 01-30-24 11-15-2023 Telephone encounter Note The following approved medication requests have been transmitted electronically. Requested Prescriptions Signed Prescriptions Disp Refills sildenafil (VIAGRA) 100 mg tablet 12 tablet 3 Sig: Take 1/2 to 1 tab as need. Max of 100 mg in 24 hrs. Authorizing Provider: YANICK SKY MD 11-15-2023 Miscellaneous Notes The following approved medication requests have been transmitted electronically. Requested Prescriptions Signed Prescriptions Disp Refills sildenafil (VIAGRA) 100 mg tablet 12 tablet 3 Sig: Take 1/2 to 1 tab as need. Max of 100 mg in 24 hrs. Authorizing Provider: YANICK SKY MD Prescription Refill Information The patient has been identified by name and date of : Yes Caregiver verified no other encounters exist for this prescription request: Yes Caregiver confirmed with patient/requestor that no other refills are due, in the near future, with this provider at this time: Yes The last office visit in the department: 07/26/23 Does the patient have a future office visit with this provider/department: Yes Requested Prescriptions Pending Prescriptions Disp Refills sildenafil (VIAGRA) 100 mg tablet 12 tablet 3 Sig: Take 1/2 to 1 tab as need. Max of 100 mg in 24 hrs. Clare Beltran LPN November 15, 2023 2:15 PM Prescription Refill Information The patient has been identified by name and date of : Yes Caregiver verified no other encounters exist for this prescription request: Yes Caregiver confirmed with patient/requestor that no other refills are due, in the near future, with this provider at this time: Yes The last office visit in the department: 07/26/23 Does the patient have a future office visit with this provider/department: Yes Requested Prescriptions Pending Prescriptions Disp Refills sildenafil (VIAGRA) 100 mg tablet 12 tablet 3 Sig: Take 1/2 to 1 tab as need. Max of 100 mg in 24 hrs. Jie Altamirano [facility] November 15, 2023 1:39 PM documented in this encounter 11-15-2023 Telephone encounter Note Prescription Refill Information The patient has been identified by name and date of : Yes Caregiver verified no other encounters exist for this prescription request: Yes Caregiver confirmed with patient/requestor that no other refills are due, in the near future, with this provider at this time: Yes The last office visit in the department: 07/26/23 Does the patient have a future office visit with this provider/department: Yes Requested Prescriptions Pending Prescriptions Disp Refills sildenafil (VIAGRA) 100 mg tablet 12 tablet 3 Sig: Take 1/2 to 1 tab as need. Max of 100 mg in 24 hrs. Clare Beltran LPN November 15, 2023 2:15 PM 11-15-2023 Telephone encounter Note Prescription Refill Information The patient has been identified by name and date of : Yes Caregiver verified no other encounters exist for this prescription request: Yes Caregiver confirmed with patient/requestor that no other refills are due, in the near future, with this provider at this time: Yes The last office visit in the department: 07/26/23 Does the patient have a future office visit with this provider/department: Yes Requested Prescriptions Pending Prescriptions Disp Refills sildenafil (VIAGRA) 100 mg tablet 12 tablet 3 Sig: Take 1/2 to 1 tab as need. Max of 100 mg in 24 hrs. Jie Altamirano Pss November 15, 2023 1:39 PM 08-07-2023 Telephone encounter Note Patient notified of results and provider's instructions. Patient verbalizes understanding. Natalie Guzman RN 08-07-2023 Miscellaneous Notes Patient notified of results and provider's instructions. Patient verbalizes understanding. Natalie Guzman RN Left message for patient to contact office. Macrina Neal MA Let patient know his UA, lipid panel, blood sugar screen and prostate lab were all ok. His electrolyte panel was ok and his sodium is improved and almost back to normal. Continue the sodium tabs twice a day. documented in this encounter 08-07-2023 Telephone encounter Note Left message for patient to contact office. Macrina Neal MA 08-05-2023 Telephone encounter Note Let patient know his UA, lipid panel, blood sugar screen and prostate lab were all ok. His electrolyte panel was ok and his sodium is improved and almost back to normal. Continue the sodium tabs twice a day. 07-26-2023 Instructions Yanick Sky MD - 07/26/2023 5:07 PM EDT If you are considering getting the shingrix vaccine for the prevention of shingles then check with your insurance to see if covered and if you can get it at your doctors office. documented in this encounter 07-26-2023 History of Presen t illness Narrative Chief Complaint Patient presents with: Physical HPI Katarina García is a 57 year old male who presents here today for Physical. Patient with hx of mild CAD, HTN, Smoker, Migraines, and those as below. Patient has been doing ok. Past medical history, appointments, medications, allergies reviewed. Previous Medical History PAST MEDICAL HISTORY Diagnosis Date Acute recurrent pansinusitis 12/30/2016 Bacterial vs. Viral - chronic problem since tumor resection. Treating with ceftriaxone/azithromycin. 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 Consistent with pericarditis Echo normal /ED ekg had changes - probably lead reversal - new EKG on 12-30 showed no change 06-06-14. ESR 4 - trop and YOLA negative Smoker 11/22/2017 Started at age 20 up to 1.5 PPD as of 10/2017 smokes 3/4 PPD Well adult exam 11/22/2017 last done: 08/12/2019 Previous Surgical History PAST SURGICAL HISTORY Procedure Laterality Date COLONOSCOPY FLX DX W/COLLJ SPEC WHEN PFRMD 01/18/2019 Colonoscopy INGUINAL HERNIA REPAIR HX Left 09/09/2021 LEFT HEART CATH,PERCUTANEOUS 03/2021 OTOL FACIAL PALSY PANEL_*FL 2007 PAST SURGICAL HISTORY OF 2007 right-sided subtemporal approach for subtotal resection of the right-sided petrous epidermoid SINUS SURGERY HX 04/24/2014 excise petrous and clival tumor (epidermoid cyst) Family History FAMILY HISTORY Problem Relation Age of Onset Cancer Paternal Grandfather Diabetes Father Ischemic Heart Disease Mother Patient Allergies ALLERGIES Allergen Reactions Maxzide [Triamteren* Other: See Comments Low sodium Current Medications Current Outpatient Medications on File Prior to Visit Medication Sig metoprolol tartrate, short acting, (LOPRESSOR) 100 mg tablet Take 2 tablets by mouth two times a day. sodium chloride 1 gram tab Take 1 tablet by mouth two times a day. sildenafil (VIAGRA) 100 mg tablet Take 1/2 to 1 tab as need. Max of 100 mg in 24 hrs. spironolactone (ALDACTONE) 50 mg tablet Take 1 tablet by mouth two times a day. lisinopril (ZESTRIL) 40 mg tablet Take 1 tablet by mouth two times a day. atorvastatin (LIPITOR) 20 mg tablet Take 1 tablet by mouth daily at bedtime. For cholesterol. doxazosin (CARDURA) 1 mg tablet Take one tab a day for a week then go to taking two a day. No current facility-administered medications on file prior to visit. Social History Social History Tobacco Use Smoking status: Every Day Packs/day: 0.50 Years: 22.00 Additional pack years: 0.00 Total pack years: 11.00 Types: Cigarettes Smokeless tobacco: Never Tobacco comments: Last cigarette 02/09/2022 actively trying to quit Vaping Use Vaping Use: Never used Substance Use Topics Alcohol use: Yes Alcohol/week: 12.0 standard drinks of alcohol Types: 12 Cans of Beer (12oz) per week Comment: sometimes less Drug use: No Review of Symptoms REVIEW OF SYSTEMS GENERAL: No weight loss, malaise or fevers HEENT: Negative for frequent or significant headaches, No changes in hearing or vision, no nose bleeds or other nasal problems NECK: Negative for lumps, goiter, pain and significant neck swelling RESPIRATORY: Negative for cough, hemoptysis, wheezing, COPD, dyspnea or shortness of breath CARDIOVASCULAR: Negative for chest pain, leg swelling, hypertension, CHF or palpitations GI: No nausea, vomiting, or diarrhea, No heartburn or reflux symptoms, and no blood : No history of dysuria, frequency or incontinence MUSCULOSKELETAL: Negative for joint pain or swelling, back pain or muscle pain SKIN: Negative for lesions, rash, and itching PSYCH: Negative for sleep disturbance, mood disorder and recent psychosocial stressors HEMATOLOGY/LYMPHOLOGY: Negative for prolonged bleeding, bruising easily or swollen nodes ENDOCRINE: Negative for cold or heat intolerance, polyuria, polydipsia and goiter NEURO: No history of headaches, syncope, paralysis, seizures or tremors EXAM: BP 156/100 (BP Site: Left Arm, BP Position: Sitting, BP Cuff Size: Regular Adult) Pulse 64 Resp 14 Ht 170.2 cm (5' 7) Wt 82.1 kg (181 lb) BMI 28.35 kg/m BP 128/82 Pulse 64 Resp 14 Ht 170.2 cm (5' 7) Wt 82.1 kg (181 lb) BMI 28.35 kg/m Last 5 Encounter Wt Readings: Date: Wt: 07/26/2023 82.1 kg (181 lb) 02/23/2023 80.7 kg (178 lb) 01/25/2023 82.6 kg (182 lb) 09/07/2022 82.1 kg (181 lb) 08/08/2022 82.6 kg (182 lb) General Appearance: Well appearing, alert, in no acute distress, well-hydrated, well nourished. and Overweight. Skin: Skin color, texture, turgor normal, no suspicious rashes or lesions. Head: Normocephalic, no masses, lesions, tenderness or abnormalities. Eyes: Anicteric sclera. Pupils are equally round and reactive to light. Extraocular movements are intact. . Ears: External ears normal, canals clear. Nose/Sinuses: Nares normal, septum midline, mucosa normal, no drainage or sinus tenderness. Oropharynx: Lips, mucosa, and tongue normal, teeth and gums normal, oropharynx normal. Neck: Supple, no adenopathy; thyroid symmetric, normal size, no bruits. Lungs: Lungs clear to auscultation. No wheezing, rhonchi, rales.. Heart: RRR without murmur, gallop, or rubs. No ectopy. Abdomen: Normal abdominal exam, Abdomen soft, non-tender. Bowel sounds normal. No masses, organomegaly. Extremities: No deformities, edema, skin discoloration, Good capillary refill. . Musculoskeletal: Muscular strength intact, No joint swelling, deformity, or tenderness. Peripheral Pulses: Normal. Neurologic: Gait normal. Reflexes normal and symmetric. Sensation to light touch and crainal nerves 2-12 intact.. Genitalia: Normal, Penis normal. No urethral discharge. Scrotum normal to palpation. Has recurrent hernia on the left. Rectal: declined. . Health Maintenance List Hepatitis C Screening Never done HIV Screening Never done Hepatitis B Vaccine(1 of 3 - 19+ 3-dose series) Never done Shingrix Vaccine(1 of 2) Never done Behavioral Health Screening Never done LDL Cholesterol due on 07/19/2023 Colorectal Cancer Screening due on 01/19/2024 Annual PCP Team Chronic Disease Visit due on 02/24/2024 BP Controlled (<130/80) due on 02/24/2024 Diabetes Screening due on 02/21/2026 Lipid Screening due on 07/19/2027 Prostate Cancer Screening Discussion due on 07/19/2027 DTaP,Tdap,Td Vaccine(2 - Td or Tdap) due on 11/23/2027 Influenza Vaccine Completed Covid-19 Vaccine Completed Pneumococcal Vaccine Completed Data reviewed A/P ASSESSMENT/PLAN: 1. Well adult exam - ICD9: V70.0, ICD10: Z00.00 (primary diagnosis) - Counseled on healthy diet and regular exercise - Discussed need for and benefit of weight loss. BMI 28.35 kg/(m^2) - advised on shingrix. 2. Essential hypertension - ICD9: 401.9, ICD10: I10 - Controlled - Continue current medications - Recommend home blood pressure monitoring, to bring results to next visit - Encouraged sodium restriction, DASH or Mediterranean diet - Recommend regular aerobic exercise - Discussed need for and benefit of weight loss. BMI 28.35 kg/(m^2) - COMPREHENSIVE METABOLIC PANEL - URINALYSIS, WITH MICROSCOPIC - LIPID PANEL, NONFASTING 3. Coronary artery disease due to lipid rich plaque - ICD9: 414.00, 414.3, ICD10: I25.10, I25.83 - clinically doing well. check - LIPID PANEL, NONFASTING 6. Migraine without aura and without status migrainosus, not intractable - ICD9: 346.10, ICD10: G43.009 - no issues will monitor. - has not had in several years. 7. Gastroesophageal reflux disease without esophagitis - ICD9: 530.81, ICD10: K21.9 - managed with diet. 8. Cholesteatoma of right middle ear - ICD9: 385.32, ICD10: H71.91 - has been stable. No changes. 9. Cerebral salt-wasting syndrome - ICD9: 593.9, ICD10: E87.1 - cont salt tabs Check - COMPREHENSIVE METABOLIC PANEL 10. Smoker - ICD9: 305.1, ICD10: F17.200 - Cessation encouraged. - Counseling was given focusing on the harmful effects of this addiction especially given the patient's medical condition(s) which will be worsened because of the chemicals in tobacco. 11. Erectile dysfunction, unspecified erectile dysfunction type - ICD9: 607.84, ICD10: N52.9 - cont Viagra prn. 12. Encounter for screening for diabetes mellitus - ICD9: V77.1, ICD10: Z13.1 Check - HEMOGLOBIN A1C 13. Screening for prostate cancer - ICD9: V76.44, ICD10: Z12.5 Check - PROSTATE-SPECIFIC ANTIGEN DIAGNOSTIC 14. Inguinal hernia of left side without obstruction or gangrene - ICD9: 550.90, ICD10: K40.90 - CONSULT TO GENERAL SURGERY: Dr. Frias Requested Prescriptions Signed Prescriptions Disp Refills atorvastatin (LIPITOR) 20 mg tablet 30 tablet 5 Sig: Take 1 tablet by mouth daily at bedtime. For cholesterol. doxazosin (CARDURA) 1 mg tablet 60 tablet 5 Sig: Take one tab a day for a week then go to taking two a day. lisinopril (ZESTRIL) 40 mg tablet 180 tablet 1 Sig: Take 1 tablet by mouth two times a day. spironolactone (ALDACTONE) 50 mg tablet 60 tablet 5 Sig: Take 1 tablet by mouth two times a day. sodium chloride 1 gram tab 60 tablet 5 Sig: Take 1 tablet by mouth two times a day. F/u in 6 months routine Yanick Sky MD documented in this encounter 06-21-2023 Telephone encounter Note GIA 02/23/23 NOV 07/26/23 06-21-2023 Miscellaneous Notes GIA 02/23/23 NOV 07/26/23 Patient has been identified by name and date of : Yes Requested Prescriptions Pending Prescriptions Disp Refills metoprolol tartrate, short acting, (LOPRESSOR) 100 mg tablet 360 tablet 1 Sig: Take 2 tablets by mouth two times a day. RX INSTRUCTIONS: Patient aware RX will be sent to pharmacy. No need to notify patient. Jie Zamora documented in this encounter 06-21-2023 Telephone encounter Note Patient has been identified by name and date of : Yes Requested Prescriptions Pending Prescriptions Disp Refills metoprolol tartrate, short acting, (LOPRESSOR) 100 mg tablet 360 tablet 1 Sig: Take 2 tablets by mouth two times a day. RX INSTRUCTIONS: Patient aware RX will be sent to pharmacy. No need to notify patient. Jie Zamora 01-25-2023 Instructions Yanick Sky MD - 01/25/2023 5:59 PM EST Please get none fating lab in the next week documented in this encounter 01-25-2023 History of Presen t illness Narrative Chief Complaint Patient presents with: F/U 6 months HPI Katarina García is a 57 year old male who presents here today for 6 month follow up. Patient with hx of mild CAD, HTN, Smoker, Migraines, and those as below. After last appt a MRI was ordered and there was suspicion of recurrence of his cholesteatoma. Patient was referred to ENT but still needs an appt set up. Any new concerns today? None A recent ER/hospital visit? None It appears back in October patient was scheduled to OTOL several appointment were cancelled. Did patient ever see anyone? no Office visit - follow up on HTN 09/07/2022 At last appt hs Maxzide was stopped and started on Aldactone to improve BP control and because it was felt his low sodium may of been from the HCTZ. Patient gets MRI next Monday. Office visit - Er follow up 08/08/2022 Patient was see in [facility] for abnormal labs. Patient has a Hx of a cholesteatoma on the right and had surgery for removal in the past. After surgery he did have salt wasting syndrome but this did resolve. Patient had a recent lab on 07/18/2022 that showed a Na of 128, on repeat on 08/01/2022 it was 118 and he was sent to local ER. Patient present to ER with no symptoms and w/u showed a sodium of 123 and cardiac w/u was normal. Patient's repeat sodium on 08/04/2022 was 122. Patient has noted that his balance has been off some. No increased headache. No syncope or seizures. He did not start the salt tabs as encouraged last Monday but has been adding some salt to his diet and he has been drinking sugar free power aid 2-3 times a day. BP in ER was 155/90ny recent ER/hospital visits? Past medical history, appointments, medications, allergies reviewed. Previous Medical History PAST MEDICAL HISTORY Diagnosis Date Acute recurrent pansinusitis 12/30/2016 Bacterial vs. Viral - chronic problem since tumor resection. Treating with ceftriaxone/azithromycin. 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 Consistent with pericarditis Echo normal /ED ekg had changes - probably lead reversal - new EKG on 12-30 showed no change 06-06-14. ESR 4 - trop and YOLA negative Smoker 11/22/2017 Started at age 20 up to 1.5 PPD as of 10/2017 smokes 3/4 PPD Well adult exam 11/22/2017 last done: 08/12/2019 Previous Surgical History PAST SURGICAL HISTORY Procedure Laterality Date COLONOSCOPY FLX DX W/COLLJ SPEC WHEN PFRMD 01/18/2019 Colonoscopy INGUINAL HERNIA REPAIR HX Left 09/09/2021 LEFT HEART CATH,PERCUTANEOUS 03/2021 OTOL FACIAL PALSY PANEL_*FL 2007 PAST SURGICAL HISTORY OF 2007 right-sided subtemporal approach for subtotal resection of the right-sided petrous epidermoid SINUS SURGERY HX 04/24/2014 excise petrous and clival tumor (epidermoid cyst) Family History FAMILY HISTORY Problem Relation Age of Onset Cancer Paternal Grandfather Diabetes Father Ischemic Heart Disease Mother Patient Allergies ALLERGIES Allergen Reactions Maxzide [Triamteren* Other: See Comments Low sodium Current Medications Current Outpatient Medications on File Prior to Visit Medication Sig metoprolol tartrate, short acting, (LOPRESSOR) 100 mg tablet Take 2 tablets by mouth two times a day. sildenafil (VIAGRA) 100 mg tablet Take 1/2 to 1 tab as need. Max of 100 mg in 24 hrs. spironolactone (ALDACTONE) 50 mg tablet Take 1 tablet by mouth twice daily. lisinopril (ZESTRIL) 40 mg tablet Take 1 tablet by mouth twice daily. atorvastatin (LIPITOR) 20 mg tablet Take 1 tablet by mouth daily at bedtime. For cholesterol. No current facility-administered medications on file prior to visit. Social History Social History Tobacco Use Smoking status: Every Day Packs/day: 0.50 Years: 22.00 Additional pack years: 0.00 Total pack years: 11.00 Types: Cigarettes Smokeless tobacco: Never Tobacco comments: Last cigarette 02/09/2022 actively trying to quit Vaping Use Vaping Use: Never used Substance Use Topics Alcohol use: Yes Alcohol/week: 12.0 standard drinks of alcohol Types: 12 Cans of Beer (12oz) per week Comment: sometimes less Drug use: No Review of Symptoms REVIEW OF SYSTEMS GENERAL: No weight loss, malaise or fevers NECK: Negative for lumps, goiter, pain and significant neck swelling RESPIRATORY: Negative for cough, hemoptysis, wheezing, COPD, dyspnea or shortness of breath CARDIOVASCULAR: Negative for chest pain, leg swelling, hypertension, CHF or palpitations GI: No nausea, vomiting, or diarrhea and No heartburn or reflux symptoms NEURO: No history of frequent headaches, syncope, paralysis, seizures or tremors EXAM: BP 164/94 (BP Site: Right Arm, BP Position: Sitting, BP Cuff Size: Regular Adult) Pulse 74 Resp 16 Wt 82.6 kg (182 lb) BMI 28.23 kg/m BP 162/98 Pulse 74 Resp 16 Wt 82.6 kg (182 lb) BMI 28.23 kg/m Last 3 Encounter Wt Readings: Date: Wt: 01/25/2023 82.6 kg (182 lb) 09/07/2022 82.1 kg (181 lb) 08/08/2022 82.6 kg (182 lb) General Appearance: Well appearing, alert, in no acute distress, well-hydrated, well nourished. and Overweight. Neck: Supple, no adenopathy; thyroid symmetric, normal size, no bruits. Lungs: Lungs clear to auscultation. No wheezing, rhonchi, rales.. Heart: RRR without murmur, gallop, or rubs. No ectopy. Abdomen: Normal abdominal exam, Abdomen soft, non-tender. Bowel sounds normal. No masses, organomegaly. Extremities: No deformities, edema, skin discoloration, Good capillary refill. . Peripheral Pulses: Normal. Neurologic: Gait normal.Sensation grossly intact.. Health Maintenance List Shingrix Vaccine(1 of 2) Never done Depression Assessment due on 02/27/2022 Influenza Vaccine(1) due on 10/28/2022 Covid-19 Vaccine( season) due on 10/28/2022 Hepatitis B Vaccine(1 of 3 - 3-dose series) due on 07/19/2023 Hepatitis C Screening due on 07/19/2023 HIV Screening due on 07/19/2023 LDL Cholesterol due on 07/19/2023 Annual PCP Team Chronic Disease Visit due on 09/08/2023 BP Controlled (<130/80) due on 09/08/2023 Colorectal Cancer Screening due on 01/19/2024 Diabetes Screening due on 09/05/2025 Lipid Screening due on 07/19/2027 Prostate Cancer Screening Discussion due on 07/19/2027 DTaP,Tdap,Td Vaccine(2 - Td or Tdap) due on 11/23/2027 Pneumococcal Vaccine Completed Data reviewed Component Latest Ref Rng & Units 07/18/2022 09/05/2022 WBC 3.70 - 11.00 k/uL 3.98 RBC 4.20 - 6.00 m/uL 4.14 (L) Hemoglobin 13.0 - 17.0 g/dL 13.3 Hematocrit 39.0 - 51.0 % 37.6 (L) MCV 80.0 - 100.0 fL 90.8 MCH 26.0 - 34.0 pg 32.1 MCHC 30.5 - 36.0 g/dL 35.4 RDW-CV 11.5 - 15.0 % 11.3 (L) Platelet Count 150 - 400 k/uL 190 MPV 9.0 - 12.7 fL 9.6 Neut% % 54.5 Abs Neut (ANC) 1.45 - 7.50 k/uL 2.17 Lymph% % 24.1 Abs Lymph 1.00 - 4.00 k/uL 0.96 (L) [place]% % 10.3 Abs [place] <0.87 k/uL 0.41 Eosin% % 9.5 Abs Eosin <0.46 k/uL 0.38 Baso% % 1.3 Abs Baso <0.11 k/uL 0.05 Immature Gran % % 0.3 IMMATURE GRANS (ABS) <0.10 k/uL <0.03 NRBC /100 WBC 0.0 Absolute nRBC <0.01 k/uL <0.01 DTYPE Auto Protein, Total 6.3 - 8.0 g/dL 6.9 Albumin 3.9 - 4.9 g/dL 4.5 Calcium 8.5 - 10.2 mg/dL 10.1 9.3 Bilirubin, Total 0.2 - 1.3 mg/dL 0.4 Alkaline Phosphatase 38 - 113 U/L 96 AST 14 - 40 U/L 29 ALT 10 - 54 U/L 17 Glucose 74 - 99 mg/dL 90 91 BUN 9 - 24 mg/dL 8 (L) 16 Creatinine 0.73 - 1.22 mg/dL 0.78 0.90 Sodium 136 - 144 mmol/L 128 (L) 129 (L) Potassium 3.7 - 5.1 mmol/L 4.4 4.8 Chloride 97 - 105 mmol/L 92 (L) 95 (L) CO2 22 - 30 mmol/L 26 24 Anion Gap 9 - 18 mmol/L 10 10 eGFR >=60 mL/min/1.73m 105 101 Total Cholesterol, Nonfasting <200 mg/dL 146 Triglycerides, Nonfasting <150 mg/dL 163 (H) HDL Cholesterol, Nonfasting >39 mg/dL 52 LDL Cholesterol, Nonfasting <100 mg/dL 61 Non HDL Cholesterol, Nonfasting <130 mg/dL 94 VLDL Cholesterol, Nonfasting <30 mg/dL 33 (H) Total Chol/HDL Ratio, Nonfasting <5.10 mg/dL 2.81 LDL/HDL Ratio, Nonfasting <2.54 mg/dL 1.17 Hemoglobin A1C 4.3 - 5.6 % 4.8 Estimated Average Glucose mg/dL 91 A/P ASSESSMENT/PLAN: 1. Essential hypertension - ICD9: 401.9, ICD10: I10 (primary diagnosis) - Uncontrolled - Continue current medications - Start Cardura 1 mg a day for a week then 2 mg a day. - Recommend home blood pressure monitoring, to bring results to next visit - Encouraged sodium restriction, DASH or Mediterranean diet - Recommend regular aerobic exercise - LISINOPRIL 40 MG TABLET Check - BASIC METABOLIC PNL 2. Gastroesophageal reflux disease without esophagitis - ICD9: 530.81, ICD10: K21.9 - controlled with life style changes. 3. Migraine without aura and without status migrainosus, not intractable - ICD9: 346.10, ICD10: G43.009 - stable and no issues. 4. Coronary artery disease due to lipid rich plaque - ICD9: 414.00, 414.3, ICD10: I25.10, I25.83 - clinically stable no changes. 5. Cholesteatoma of right middle ear - ICD9: 385.32, ICD10: H71.91 - needs to see ENT 6. Smoker - ICD9: 305.1, ICD10: F17.200 - Cessation encouraged. - Counseling was given focusing on the harmful effects of this addiction especially given the patient's medical condition(s) which will be worsened because of the chemicals in tobacco. 7. Erectile dysfunction, unspecified erectile dysfunction type - ICD9: 607.84, ICD10: N52.9 Cont prn - SILDENAFIL 100 MG TABLET 8. Encounter for immunization - ICD9: V03.89, ICD10: Z23 - INFLUENZA VACCINE, AGE 6 MO - 64 YR, QUADRIVALENT (AFLURIA, FLULAVAL, FLUZONE): given - [employer] COVID-19 VACCINE (2022- SEASON) AGE 12+ YR: given 9. Cerebral salt-wasting syndrome - ICD9: 593.9, ICD10: E87.1 Check - BASIC METABOLIC PNL Requested Prescriptions Signed Prescriptions Disp Refills sildenafil (VIAGRA) 100 mg tablet 12 tablet 3 Sig: Take 1/2 to 1 tab as need. Max of 100 mg in 24 hrs. spironolactone (ALDACTONE) 50 mg tablet 60 tablet 5 Sig: Take 1 tablet by mouth two times a day. lisinopril (ZESTRIL) 40 mg tablet 180 tablet 1 Sig: Take 1 tablet by mouth two times a day. atorvastatin (LIPITOR) 20 mg tablet 30 tablet 5 Sig: Take 1 tablet by mouth daily at bedtime. For cholesterol. doxazosin (CARDURA) 1 mg tablet 60 tablet 5 Sig: Take one tab a day for a week then go to taking two a day. F/y 4 weeks HTN check F/y 6 months complete PE Yanick Sky MD documented in this encounter 12-01-2022 Miscellaneous Notes Pt notified rx has been sent. Clare Beltran LPN The following approved medication requests have been transmitted electronically. Requested Prescriptions Signed Prescriptions Disp Refills metoprolol tartrate, short acting, (LOPRESSOR) 100 mg tablet 360 tablet 1 Sig: Take 2 tablets by mouth two times a day. Authorizing Provider: TOSHA DE LEON PA-C Patient last visit with PCP 09/07/22 Follow up appointment scheduled 01/25/23 Altagracia Zarate Ma Patient asking to have a new prescription sent to [facility]. Current pharmacy has not given patient his medication yet. Patient asking for the change in pharmacy for medication metoprolol tartrate, short acting, (LOPRESSOR) 100 mg tablet documented in this encounter 11-09-2022 Miscellaneous Notes The following approved medication requests have been transmitted electronically. Requested Prescriptions Signed Prescriptions Disp Refills sildenafil (VIAGRA) 100 mg tablet 12 tablet 3 Sig: Take 1/2 to 1 tab as need. Max of 100 mg in 24 hrs. Authorizing Provider: YANICK SKY MD [facility] 09/07/22 LIN NOV 01/25/23 LIN Patient has been identified by name and date of : Yes Last office visit in this department: 12/11/2015 RX INSTRUCTIONS: Patient aware RX will be sent to pharmacy. No need to notify patient. Patient phones requesting refills as follows: Requested Prescriptions Pending Prescriptions Disp Refills sildenafil (VIAGRA) 100 mg tablet 12 tablet 3 Sig: Take 1/2 to 1 tab as need. Max of 100 mg in 24 hrs. Please review and advise. Samantha Kelsey documented in this encounter 09-14-2022 Miscellaneous Notes Scheduled Spoke with pt and information listed below given. Pt verbalizes understanding. Pt transferred to schedulers to see where ENT is booking to and he will need to check with his employer. Kristin SIDDIQI Left message for patient to contact office. Macrina Neal MA Let patient know that MRI shows his cholesteatoma may have returned. I have placed a consult to See ENT at [facility]. documented in this encounter 09-13-2022 History of Presen t illness Narrative Radiology Service Progress Note DATE OF SERVICE: September 13, 2022 TIME: 2:13 PM PATIENT IDENTITY VERIFICATION COMPLETED USING TWO (2) STANDARD IDENTIFIERS: Name and Date of confirmed by patient verbally. FALL SCREENING: Has the patient had 2 falls in the last year or 1 fall with injury or currently using an Ambulatory Assistive Device (Walker, Cane, Wheelchair, Crutches, etc.)? No PATIENT GENDER DATA: Male PATIENT RELEVANT IMPLANT DATA REVIEWED: Yes ALLERGIES: Reviewed and unchanged CONTRAST ALLERGY: NO. EXAM: MRI - CONTRAST TYPE: GROUP II PERIPHERAL IV DATA: Ambulatory: A peripheral IV was started in the Right forearm with a Angio cath: 24 gauge. RADIOLOGY DEPARTMENT: MR; Exam(s) Completed: Head: IAC/CPA SIGNATURE: RT Meggan(R) PATIENT NAME: Katarina García DATE: September 13, 2022 TIME: 2:13 PM documented in this encounter 09-07-2022 Instructions Yanick Sky MD - 09/07/2022 5:17 PM EDT Come to lab and get sodium level checked on or after 09/21/2022 documented in this encounter 09-07-2022 History of Presen t illness Narrative Chief Complaint Patient presents with: Follow Up HPI Katarina García is a 56 year old male who presents here today for follow up on HTN. Office visit - follow up on HTN At last appt hs Maxzide was stopped and started on Aldactone to improve BP control and because it was felt his low sodium may of been from the HCTZ. Patient gets MRI next Monday. Office visit - Er follow up 08/08/2022 Patient was see in [facility] for abnormal labs. Patient has a Hx of a cholesteatoma on the right and had surgery for removal in the past. After surgery he did have salt wasting syndrome but this did resolve. Patient had a recent lab on 07/18/2022 that showed a Na of 128, on repeat on 08/01/2022 it was 118 and he was sent to local ER. Patient present to ER with no symptoms and w/u showed a sodium of 123 and cardiac w/u was normal. Patient's repeat sodium on 08/04/2022 was 122. Patient has noted that his balance has been off some. No increased headache. No syncope or seizures. He did not start the salt tabs as encouraged last Monday but has been adding some salt to his diet and he has been drinking sugar free power aid 2-3 times a day. BP in ER was 155/90 Office visit - physical 07/18/2022 Patient with hx of mild CAD, HTN, Smoker, Migraines, and those as below. Past medical history, appointments, medications, allergies reviewed. Previous Medical History PAST MEDICAL HISTORY Diagnosis Date Acute recurrent pansinusitis 12/30/2016 Bacterial vs. Viral - chronic problem since tumor resection. Treating with ceftriaxone/azithromycin. 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 Consistent with pericarditis Echo normal /ED ekg had changes - probably lead reversal - new EKG on 12-30 showed no change 06-06-14. ESR 4 - trop and YOLA negative Smoker 11/22/2017 Started at age 20 up to 1.5 PPD as of 10/2017 smokes 3/4 PPD Well adult exam 11/22/2017 last done: 08/12/2019 Previous Surgical History PAST SURGICAL HISTORY Procedure Laterality Date COLONOSCOPY FLX DX W/COLLJ SPEC WHEN PFRMD 01/18/2019 Colonoscopy INGUINAL HERNIA REPAIR HX Left 09/09/2021 LEFT HEART CATH,PERCUTANEOUS 03/2021 OTOL FACIAL PALSY PANEL_*FL 2007 PAST SURGICAL HISTORY OF 2007 right-sided subtemporal approach for subtotal resection of the right-sided petrous epidermoid SINUS SURGERY HX 04/24/2014 excise petrous and clival tumor (epidermoid cyst) Family History FAMILY HISTORY Problem Relation Age of Onset Cancer Paternal Grandfather Diabetes Father Ischemic Heart Disease Mother Patient Allergies ALLERGIES Allergen Reactions Maxzide [Triamteren* Other: See Comments Low sodium Current Medications Current Outpatient Medications on File Prior to Visit Medication Sig iv contrast (will be provided with radiology test) MRI Brain Inject, intravenously, once for 1 dose.No IV access, insert saline lock prior to beginning of sedation, infusion, injection of imaging exam.Discontinue saline lock post exam. If Pt. has a central line or IVAD, may access for administration according to line specific nursing protocol.Once exam is complete flush line and de-access according to line specific nursing protocol in the MR contrast administration guidelines link spironolactone (ALDACTONE) 50 mg tablet Take 1 tablet by mouth twice daily. lisinopril (ZESTRIL) 40 mg tablet Take 1 tablet by mouth twice daily. metoprolol tartrate, short acting, (LOPRESSOR) 100 mg tablet Take 2 tablets by mouth twice daily. atorvastatin (LIPITOR) 20 mg tablet Take 1 tablet by mouth daily at bedtime. For cholesterol. sildenafil (VIAGRA) 100 mg tablet Take 1/2 to 1 tab as need. Max of 100 mg in 24 hrs. No current facility-administered medications on file prior to visit. Social History Social History Tobacco Use Smoking status: Every Day Packs/day: 0.50 Years: 22.00 Total pack years: 11.00 Types: Cigarettes Smokeless tobacco: Never Tobacco comments: Last cigarette 02/09/2022 actively trying to quit Vaping Use Vaping Use: Never used Substance Use Topics Alcohol use: Yes Alcohol/week: 30.0 standard drinks of alcohol Types: 12 Cans of Beer (12oz) per week Comment: sometimes less Drug use: No Review of Symptoms REVIEW OF SYSTEMS RESPIRATORY: Negative for wheezing, COPD, dyspnea or shortness of breath CARDIOVASCULAR: Negative for chest pain, leg swelling, hypertension, CHF or palpitations NEURO: No history of headaches, syncope, paralysis, seizures or tremors EXAM: BP 148/92 (BP Site: Right Arm, BP Position: Sitting, BP Cuff Size: Regular Adult) Pulse 72 Resp 14 Wt 82.1 kg (181 lb) BMI 28.08 kg/m At home on a wrist monitor General Appearance: Well appearing, alert, in no acute distress, well-hydrated, well nourished.. Lungs: Lungs clear to auscultation. No wheezing, rhonchi, rales.. Heart: RRR without murmur, gallop, or rubs. No ectopy. Health Maintenance List BP CONTROLLED (<130/80) Never done SHINGRIX VACCINE(1 of 2) Never done COVID-19 VACCINE(5 - [employer] series) due on 09/18/2021 DEPRESSION ASSESSMENT due on 02/27/2022 HEPATITIS B(1 of 3 - 3-dose series) due on 07/19/2023 HEPATITIS C SCREENING due on 07/19/2023 HIV SCREENING due on 07/19/2023 INFLUENZA(1) due on 10/28/2022 LDL CHOLESTEROL due on 07/19/2023 ANNUAL PCP TEAM CHRONIC DISEASE VISIT due on 08/09/2023 COLORECTAL CANCER SCREENING due on 01/19/2024 DIABETES SCREEN due on 09/05/2025 LIPID SCREEN due on 07/19/2027 PROSTATE CANCER SCREENING DISCUSSION due on 07/19/2027 DTAP,TDAP,TD(2 - Td or Tdap) due on 11/23/2027 PNEUMOCOCCAL Completed Data reviewed Component Latest Ref Rng & Units 08/04/2022 08/08/2022 09/05/2022 Glucose 74 - 99 mg/dL 91 BUN 9 - 24 mg/dL 16 Creatinine 0.73 - 1.22 mg/dL 0.90 Sodium 136 - 144 mmol/L 122 (L) 126 (L) 129 (L) Potassium 3.7 - 5.1 mmol/L 4.8 Chloride 97 - 105 mmol/L 95 (L) CO2 22 - 30 mmol/L 24 Anion Gap 9 - 18 mmol/L 10 Calcium 8.5 - 10.2 mg/dL 9.3 eGFR >=60 mL/min/1.73m 101 A/P ASSESSMENT/PLAN: 1. Essential hypertension - ICD9: 401.9, ICD10: I10 (primary diagnosis) - Controlled - Continue current medications - Recommend home blood pressure monitoring, to bring results to next visit - Encouraged sodium restriction, DASH or Mediterranean diet - Recommend regular aerobic exercise 2. Cerebral salt-wasting syndrome - ICD9: 593.9, ICD10: E87.1 - improved sodium with stopping the HCTZ. Patient to add a handful of pretzels to diet once a day. - gets his MRI Tues but feel that this is less likely due to recurrence of cholesteatoma and more of an adverse drug reaction to the Maxzide Recheck sodium in 2 weeks Keep appt in Dec. Yanick Sky MD documented in this encounter 08-04-2022 Miscellaneous Notes Pt advised of Tosha's message and instructions. Pt will come to lab and ER f/u scheduled with Dr Sky for 08/08/22. Pt aware of same. Clare Beltran LPN Repeat sodium level today. He will need a ER follow up next week scheduled. I'm out of the office, so will need scheduled with Dr. Sky Patient calling to ask if he needs ER follow up appointment or just follow up labs? He was referred to [facility] ER yesterday for critical lab result low sodium level. He says he was asymptomatic and sodium level was re checked in ER and was improved. He says he was instructed to increase salt in his diet and discharged home with instructions to follow up with PCP. Mago Pitts, RN documented in this encounter 08-03-2022 History of Presen t illness Narrative Scan on 08/02/2022 6:59 PM by External Provider, ZURDO: Consultation - Emergency Medicine documented in this encounter 06-06-2023 Miscellaneous Notes Pt calls back to ask if he can do something besides go to ER. Went over the health risks of having low sodium and why pt needs to go to ER. Pt was agreeable to go to the ER. Diana Martin LPN Pt returned the call & was notified of urgent result & instructions to go to ED. Pt stated he could not go to ER now, I stressed the importance of having replacements, pt hung up the phone. Jhoana Rowe LPN Left message for pt to call and speak with a Triage Nurse. Advised it was an urgent message. Contacted pt's EC and she is going to text pt at work and have him call Triage Nurse SULEMA. Clare Beltran LPN Let patient know that his sodium level is now 118. This is quite low. I talked with dr. Sky and we need him to go to ER for replacement. Sodium has to be replaced slowly given risks. We will also likely need to take him off the diuretic. So will need office follow up once he gets discharged. Thanks. Tosha De Leon PA-C documented in this encounter 08-02-2022 Miscellaneous Notes Patient s identity has been confirmed by name and birthdate: Yes Call received from Michelle at 255 PM to report a critical value for Sodium with a result of 118. Aware Tosha FREIRE was notified of the result already can see previous phone note in computer and are contacting patient. Erika Fletcher LPN documented in this encounter 08-02-2022 Discharge summary Note Date/Time August 02, 2022 6:05p m [facility] Medical Records Department [address] [place] [address] Emergency Department Summary 08/02/22 MR#: [id number] Acct: [id number] Name: KATARINA GARCÍA JR Rep #:[id number] : 1965 56 From: Adonis Zee DO PCP: Dr. Yanick Sky MD Status:REG ER Location: ED HPI History of Present Illness Chief Complaint: Abn Labs Narrative Narrative: 56-year-old male presenting with low sodium. He states he does not have any symptoms of low sodium. He states he feels well. Reportedly had blood work on an outpatient basis that showed his sodium was 118. He reports that he does noteat a lot of salt. He also states he eats pretty healthy. 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 The patient states his equilibrium has been off for years because he had a tumor at 1 point but there is nothing new today. He is not lightheaded or vertiginous. He is ambulatory. He states he feels well PFSH PFSH Medical History no medical history Allergy/AdvReac Type Severity Reaction Status Date / Time No Known Allergies Allergy Verified 08/02/22 16:14 Social History Smoking Status: Current every day smoker tobacco type: cigarettes ROS ROS ED Constitutional Constitutional ED: Denies chills, fever(s) or sweats Eyes Eyes: Denies blurry vision or change in vision ENT ENT ED: Denies ear pain or sore throat Cardiovascular Cardiovascular: Denies chest pain, palpitations or racing heartbeat Respiratory/Chest Respiratory/Chest: Denies cough, dyspnea or sputum Gastrointestinal Gastrointestinal: Denies abdominal pain, constipation, diarrhea, nausea or vomiting Genitourinary Genitourinary ED: Denies dysuria, hematuria or urinary frequency Musculoskeletal Musculoskeletal: Denies arthralgias, myalgias or neck pain Integumentary Denies abscess, Abrasions or rash Neurologic Neurologic: Denies headache(s), paresthesias or weakness Psychiatric Psychiatric: Denies anxiety, depression, suicidal ideation or suicidal thoughts Endocrine Endocrinology: Denies polydipsia or polyuria EXAM Physical Exam Const Vital Signs: 08/02/22 16:13 08/02/22 16:30 08/02/22 18:49 Temperature 97.6 F L Temperature Source Temporal Pulse Rate 64 59 L Respiratory Rate 18 14 Respiratory Effort Normal Non-Labored Respiratory Pattern Normal Blood Pressure 148/88 H 155/90 H Blood Pressure Mean 108 Pulse Ox 100 97 Oxygen Delivery Method Room Air Positive well nourished General Appearance ED: NAD; Negative for pallor HEENT Reports moist mucous membranes Eyes PERRL and EOMs intact bilaterally General Eye ED: Negative for pale conjunctiva or scleral icterus Chest Wall inspection of chest normal Resp normal respiratory effort and clear to auscultation bilaterally Auscultation: Negative for rales, rhonchi or wheezes Cardio regular rate and regular rhythm GI normal to inspection, nondistended, normoactive bowel sounds Back/Spine no CVA tenderness Neuro oriented x3 and CN's II-XII intact bilaterally Sensorium / Orientation: alert Psych mental status grossly normal Skin no rashes or lesions noted and no wounds General Skin Exam: Negative for jaundice or pallor MDM MDM MDM Narrative Medical decision making narrative: Patient presenting with a sodium of 118. Today's lab work was repeated and his CBC shows a low white blood cell count of 4.1. Hemoglobin 13.4, hematocrit 37.1, platelets 168. Liver function testing is normal. EKG shows a normal sinus rhythm with a ventricular rate of 57 bpm without sign of ischemic change on my interpretation. High-sensitivity troponin is 5. Unction appears to be normal. His sodium is low at 123 but increased since his previous blood work. He tells me he does not have any symptoms and states he does not want to stay int hospital. Discussed with Dr. Huizar who is on-call for Dr. Sky. He said he would have the patient follow-up as an outpatient for repeat lab work. He recommended increasing his salt in his diet. Patient was amenable to this. He is discharged home in stable condition. Impression: 1. Hyponatremia Lab Data Labs: Laboratory Results - last 24 hr 08/02/22 08/02/22 08/02/22 17:20 17:20 18:10 WBC 4.1 L RBC 4.23 L Hgb 13.4 Hct 37.1 L MCV 87.7 MCH 31.7 MCHC 36.1 H RDW Std Deviation 36.3 RDW Coeff of Yocasta 11.3 L Plt Count 168 MPV 9.2 Immature Gran % (Auto) 0.200 Neut % (Auto) 59.1 Lymph % (Auto) 23.3 [place] % (Auto) 11.5 H Eos % (Auto) 5.4 H Baso % (Auto) 0.5 Absolute Neuts (auto) 2.4 Absolute Lymphs (auto) 0.95 Nucleated RBC % 0 Sodium 123 L Potassium 3.8 Chloride 89 L Carbon Dioxide 26.0 Anion Gap 8 BUN 12 Creatinine 0.85 Estim Creat Clear Calc 98.19 Est GFR (MDRD) Af Amer 121 Est GFR (MDRD) Non-Af 100 BUN/Creatinine Ratio 14.2 Glucose 92 Calcium 9.2 Total Bilirubin 0.90 AST 21 ALT 24 Alkaline Phosphatase 98 Troponin I High Sens 5 Total Protein 7.3 Albumin 3.8 Globulin 3.5 Albumin/Globulin Ratio 1.1 Urine Color Yellow Urine Clarity Clear Urine pH 7.0 Ur Specific [place] 1.010 Urine Protein Negative Urine Glucose (UA) Normal Urine Ketones Negative Urine Occult Blood Negative Urine Nitrite Negative Urine Bilirubin Negative Urine Urobilinogen Normal Ur Leukocyte Esterase Negative Urine RBC 0 SEEN Urine WBC 0 SEEN Ur Squamous Epith Cells 0 SEEN Urine Bacteria 0 SEEN Urine Mucus 0 SEEN Discharge Plan Triage Chief Complaint: Abn Labs ED Provider: Adonis Zee Dx/Rx/DC Orders Clinical Impression: Cerebral salt-wasting syndrome, Chronic hyponatremia Instructions: ED Hyponatremia Primary Care Provider: Yanick Sky Referrals: Yanick Sky MD [Primary Care Provider] - Disposition Disposition: Home, Self Care What to do if you have Problems For any increased pain, shortness of breath, bleeding, nausea or vomiting, chestpain, or any unexpected problems, contact your Primary Care Provider. Call [facility] ([phone]) or report to the closest Emergency Room. Call 911 if necessary. 08/02/221852 <Electronically signed by Adonis Zee DO> Cosigner Signature (if applicable): CC: Dr. Yanick Sky MD ~ Signed [facility] Work Phone: [phone] 110-506403-15-2023 Miscellaneous Notes* Telephone Encounter - Bárbara Onofre CT - 05/11/2022 12:54 PM EDT GIA 02/10/22 with DN Appointment scheduled 07/18/22 with RR Please advise. Thank you. VANESSA Jennings * Telephone Encounter - Jie Guerra - 05/11/2022 12:37 PM EDT Patient has been identified by name and date of : Yes Requested Prescriptions Pending Prescriptions Disp Refills triamterene-hydroCHLOROthiazide (MAXZIDE-25MG) 37.5-25 mg per tablet 30 tablet 0 Sig: Take 1 tablet by mouth once daily. RX INSTRUCTIONS: Patient aware RX will be sent to pharmacy. No need to notify patient. Jie Zamora documented in this encounter02-14-2023 Miscellaneous Notes* Telephone Encounter - Socorro Zamora - 04/12/2022 2:55 PM EST Patient has been identified by name and date of : Yes Requested Prescriptions Pending Prescriptions Disp Refills triamterene-hydroCHLOROthiazide (MAXZIDE-25MG) 37.5-25 mg per tablet 30 tablet 0 Sig: Take 1 tablet by mouth once daily. RX INSTRUCTIONS: Patient aware RX will be sent to pharmacy. No need to notify patient. Socorro Zamora documented in this encounter02-02-2023 Miscellaneous Notes* Telephone Encounter - Yanick Sky MD - 03/31/2022 3:52 PM EST BP good no changes needed. * Telephone Encounter - Diana Shafer LPN - 03/31/2022 3:27 PM EST Manual Readin/70 Pulse: 57 Reason for blood pressure check - Other recheck Patient is: Taking medication as prescribed Yes Took medication today Yes If no, date medication last taken N/A Experiencing side effects No BP was good at last appt 02/10/22. No BP medication changes were made at that time. Taking all medications as prescribed. Denies any chest pain, shortness of breath, dizziness, or headaches. Daily caffeine use. Current everyday tobacco use. Alert and oriented. Pt has been identified by name and birthdate: Yes Allergies reviewed: Yes Latex allergy: no. Medication - prescribed and OTC reviewed and updated: Yes Do you need any prescription refills prior to your next visit: No Health Maintenance: Reviewed and not up to date and provider notified Patient advised to continue with current medications and would be contacted if any further instructions after review by PCP. Diana Shafer LPN documented in this encounter01-04-2023 Miscellaneous Notes* Telephone Encounter - Macrina Neal MA - 03/02/2022 12:53 PM EST Patient has been identified by name and date of : Yes Requested Prescriptions Pending Prescriptions Disp Refills sildenafil (VIAGRA) 100 mg tablet 12 tablet 3 Sig: Take 1/2 to 1 tab as need. Max of 100 mg in 24 hrs. RX INSTRUCTIONS: Patient aware RX will be sent to pharmacy. No need to notify patient. Macrina Neal MA Gia: 01/2022 Nov: 06/2022 Last refill; * Telephone Encounter - Kenna Cowart - 03/02/2022 12:06 PM EST Patient has been identified by name and date of : Yes, Provider chika Patient phones for refill(s): Requested Prescriptions Pending Prescriptions Disp Refills sildenafil (VIAGRA) 100 mg tablet 12 tablet 3 Sig: Take 1/2 to 1 tab as need. Max of 100 mg in 24 hrs. Date of last office visit in primary care: 02/10/22 Last 2 Encounter Wt Readings: Date: Wt: 02/10/2022 81.6 kg (180 lb) 01/12/2022 82.1 kg (181 lb) Previous labs/tests for medication: Not applicable Please advise. Thank you. Kenna Cowart documented in this encounter11-08-2022 Miscellaneous Notes* Telephone Encounter - Socorro Sheeba Shaw Pss - 01/04/2022 3:52 PM EST Pharmacy verified in [facility] Patient has been identified by name and date of : Yes Patient aware RX will be sent to pharmacy. No need to notify patient. Patient phones for refill(s): Requested Prescriptions Pending Prescriptions Disp Refills sildenafil (VIAGRA) 100 mg tablet 12 tablet 3 Sig: Take 1/2 to 1 tab as need. Max of 100 mg in 24 hrs. Date of last office visit : 07/06/2021 Date of next office visit : 01/12/2022 Last 2 Encounter Wt Readings: Date: Wt: 10/22/2021 84.4 kg (186 lb) 10/06/2021 83 kg (183 lb) Please advise. Socorro Shaw Pss documented in this encounter10-07-2022 Miscellaneous Notes* Telephone Encounter - Kristin Carlin LPN - 12/03/2021 1:24 PM EDT Patient has been identified by name and date of : Yes Patient phones for refill(s): Requested Prescriptions Pending Prescriptions Disp Refills amLODIPine (NORVASC) 10 mg tablet 30 tablet 5 Sig: Take 1 tablet by mouth once daily. atorvastatin (LIPITOR) 20 mg tablet 30 tablet 5 Sig: Take 1 tablet by mouth daily at bedtime. For cholesterol. Date of last office visit in primary care: 07/06/21 next apt 01/12/22 Last 2 Encounter Wt Readings: Date: Wt: 10/22/2021 84.4 kg (186 lb) 10/06/2021 83 kg (183 lb) Previous labs/tests for medication: Cholesterol: HDL Cholesterol (mg/dL) Date Value 04/28/2015 34 HDL Cholesterol, Nonfasting (mg/dL) Date Value 07/08/2021 63 11/18/2020 65 LDL Cholesterol (mg/dL) Date Value 04/28/2015 96 LDL Cholesterol, Nonfasting (mg/dL) Date Value 07/08/2021 100 11/18/2020 101 ALT (U/L) Date Value 07/08/2021 10 11/18/2020 13 Non HDL Cholesterol, Nonfasting (mg/dL) Date Value 07/08/2021 129 11/18/2020 134 Blood Pressure: BUN (mg/dL) Date Value 04/16/2021 16 Sodium (mmol/L) Date Value 04/16/2021 137 Last 1 Encounter BP Readings: Date: BP: 10/22/2021 132/80 Thank you. Kristin Carlin LPN documented in this encounter08-27-2022 History of Present illness Narrative* Karo Recinos MD - 10/23/2021 4:39 PM EDT FOLLOW UP VISIT NAME: Katarina [facility] NO.: [id number] DATE OF SERVICE: 10/22/2021 : 1965 REFERRING PHYSICIAN: Yanick Sky MD Katairna is s/p left inguinal hernia repair done on 09/09/2021. This was a preperitoneal hernia repair. Patient complains of soreness in the area but less so than last patient encounter. The patient did have a large direct and indirect inguinal hernia sac - 10 cm. VITALS: Blood pressure 132/80, pulse 65, temperature 36.7 C (98.1 F), height 172.7 cm (5' 8), weight 84.4 kg (186 lb), SpO2 98 %. On examination, the patient is nontender in the area. The seroma has greatly decreased in size, only about 2 cm sized remains. No evidence of recurrence of hernia. Assessment IMPRESSION: s/p left inguinal hernia repair with postoperative seroma - resolved PLAN: Patient can return to his PCP for medical care. Follow up with me as needed. If the patient notes any problems or signs of infection/problems, the patient should return to the clinic.. Diagnoses: (Z98.890, Z87.19) Status post left inguinal hernia repair (primary encounter diagnosis) I have confirmed and edited as necessary, the PFSH and ROS obtained by others. Karo Recinos MD documented in this encounter08-10-2022 History of Present illness Narrative* Karo Recinos MD - 10/06/2021 4:25 PM EDT FOLLOW UP VISIT NAME: Katarina [facility] NO.: [id number] DATE OF SERVICE: 10/06/2021 : 1965 REFERRING PHYSICIAN: Yanick Sky MD Katarina is s/p left inguinal hernia repair done on 09/09/2021. This was a preperitoneal hernia repair. Patient complains of soreness in the area but less so than last patient encounter. The patient did have a large direct and indirect inguinal hernia sac - 10 cm. VITALS: Blood pressure 159/87, pulse 65, temperature 37.1 C (98.7 F), height 172.7 cm (5' 8), weight 83 kg (183 lb), SpO2 98 %. On examination, swelling still noted of left inguinal canal, but smaller that last encounter, less tender Assessment IMPRESSION: seroma in the large direct space from previous hernia site PLAN: I told patient that I would recommend continued light duty. I asked if he needed a written work excuse letter and he stated no. I would like to follow up with him in 2 weeks to check on resolution of this seroma. Diagnoses: (Z98.890, Z87.19) Status post left inguinal hernia repair (primary encounter diagnosis) Return to Clinic: The patient is instructed to follow-up with me as above. I have confirmed and edited as necessary, the PFSH and ROS obtained by others. Karo Recinos MD documented in this encounter07-22-2022 History of Present illness Narrative* Karo Recinos MD - 09/17/2021 3:03 PM EDT FOLLOW UP VISIT NAME: Katarina García [facility] NO.: [id number] DATE OF SERVICE: 09/17/2021 : 1965 REFERRING PHYSICIAN: Yanick Sky MD Katarina is s/p left inguinal hernia repair done on 09/09/2021. This was a preperitoneal hernia repair. Patient complains of soreness in the area. VITALS: Pulse 66, temperature 37.1 C (98.7 F), weight 82.7 kg (182 lb 6.4 oz), SpO2 96 %. On examination, wound is well healed. There is swelling along the inguinal canal. The patient did have a large inguinal hernia and this may be a seroma due to the empty space left from the large direct inguinal hernia. Assessment IMPRESSION: status post left inguinal hernia. PLAN: The patient had a large inguinal hernia - the sac was at least 10 cm. The palpable swelling may be seroma due to this. I have prescribed more pain medications for the patient. I will also have him follow up with me in two weeks. Diagnoses: (Z98.890, Z87.19) Status post left inguinal hernia repair (primary encounter diagnosis) (G89.18) Postoperative pain I have confirmed and edited as necessary, the PFSH and ROS obtained by others. Karo Recinos MD documented in this encounter07-08-2022 Miscellaneous Notes* Telephone Encounter - Harriet Reynolds MA - 09/03/2021 2:01 PM EDT [facility]. documented in this encounter06-27-2022 Miscellaneous Notes* Telephone Encounter - Carla Hodge - 08/23/2021 3:55 PM EDT [facility] Paperwork faxed, Confirmation received. Patient Informed and will shredder picker copy tomorrow. Denies any other need or concern at this time. documented in this encounter06-01-2022 Miscellaneous Notes* Telephone Encounter - Yanick Sky MD - 07/28/2021 8:24 AM EDT The following approved medication requests have been transmitted electronically. Signed Prescriptions Disp Refills metoprolol tartrate, short acting, (LOPRESSOR) 100 mg tablet 360 tablet 1 Sig: Take 2 tablets by mouth twice daily. MELINDA: No Authorizing Provider: YANICK SKY MD * Telephone Encounter - Altagracia Zarate Ma - 07/27/2021 3:52 PM EDT Patient last visit with PCP 07/06/21 Follow up appointment scheduled 01/12/22 Altagracia Zarate Ma * Telephone Encounter - Lucy Rojo Pss - 07/27/2021 3:33 PM EDT Patient has been identified by name and date of : Yes Pending Prescriptions Disp Refills METOPROLOL TARTRATE 100 MG TABLET 360 tablet 1 Sig: Take 2 tablets by mouth twice daily. MELINDA: No RX INSTRUCTIONS: I called [facility] and the Pharmacist told me they never received the prescription on 06/02/21. Please re-submit. Patient aware RX will be sent to pharmacy. Please call patient once sent again. Lucy Rojo Pss documented in this encounter05-31-2022 Miscellaneous Notes* Telephone Encounter - Dawn Rainey - 07/27/2021 8:51 AM EDT 08-10-2021 HERNIA REPAIR LODI documented in this encounter05-23-2022 Miscellaneous Notes* Telephone Encounter - Laura Burnett - 07/19/2021 4:26 PM EDT Left msg for patient of scheduled appointment with Dr. Frias on 07/27 Laura Burnett PSS * Telephone Encounter - Tosha De Leon PA-C - 07/19/2021 12:57 PM EDT Consult placed. * Telephone Encounter - Alesia Aquino RN - 07/19/2021 12:15 PM EDT Patient calls to report that he would like to move forward with a referral to Dr. Frias for his left inguinal hernia as discussed at his last OV. Order pended. Alesia Aquino RN documented in this encounter05-18-2022 Miscellaneous Notes* Telephone Encounter - Altagracia Zarate Ma - 07/14/2021 10:06 AM EDT Patient last visit with PCP 07/06/21 Follow up appointment scheduled 01/02/22 Altagracia Zarate Ma * Telephone Encounter - Marina Zamora - 07/14/2021 10:01 AM EDT Patient has been identified by name and date of : Yes Pending Prescriptions Disp Refills SILDENAFIL 100 MG TABLET 12 tablet 3 Sig: Take 1/2 to 1 tab as need. Max of 100 mg in 24 hrs. MELINDA: No RX INSTRUCTIONS: Patient aware RX will be sent to pharmacy. No need to notify patient. Marina Zamora documented in this encounter05-13-2022 Miscellaneous Notes* Telephone Encounter - Clare Beltran LPN - 07/09/2021 11:42 AM EDT Patient notified of results and provider's instructions. Patient verbalizes understanding. Clare Beltran LPN * Telephone Encounter - Tosha De Leon PA-C - 07/09/2021 11:31 AM EDT Let patient know his LDL was 100. Goal with the heart disease is under 70. lipitor will help with this. Other labs are normal. Tosha De Leon PA-C documented in this encounter05-10-2022 Miscellaneous Notes* Telephone Encounter - Tosha De Leon PA-C - 07/06/2021 11:16 AM EDT The following approved medication requests have been transmitted electronically. Signed Prescriptions Disp Refills atorvastatin (LIPITOR) 20 mg tablet 30 tablet 5 Sig: Take 1 tablet by mouth daily at bedtime. For cholesterol. Authorizing Provider: TOSHA DE LEON PA-C * Telephone Encounter - Clare Beltran LPN - 07/06/2021 9:46 AM EDT Pt advised of Tosha's message and instructions. Pt verbalizes understanding. Pt agreeable to start medication. Please send to [facility]. Pt will call back on his lunch break to schedule 6 month f/u with cardiology. Clare Beltran LPN * Telephone Encounter - Tosha De Leon PA-C - 07/06/2021 8:50 AM EDT Let patient know that behavioral health care coordinator got back to me. He does recommend follow up in 6 months to monitor the blockage. Will likely have stress test done occasionally. We prefer patient to continue to see cardio for this. Please set up f/u appointment in approx 6 months with cardio. Also given 50% blockage in artery, I would recommend we start a statin. This helps decrease any lipid build up in arteries and decreases risk for further disease. Would he be willing to start [email or web address]? Tosha De Leon PA-C documented in this encounter05-10-2022 History of Present illness Narrative* Tosha De Leon PA-C - 07/06/2021 7:13 AM EDT Chief Complaint Patient presents with: Physical HPI Katarina García is a 55 year old male who presents here today for physical. Patient with hx of migraines, HTN, smoker, and those as below. Overall patient is doing well. Denies specific concerns today. Still smoking about 1/2 ppd. Had a cardiac cath done in mar. Was told he had small blockage. I am unable to find the documentation on the results or if any f/u is needed. Patient declines any further cp. Last 3 Encounter BP Readings: Date: BP: 07/06/2021 128/86 04/14/2021 178/99 04/14/2021 154/86 Past medical history, appointments, medications, allergies reviewed. Previous Medical History PAST MEDICAL HISTORY Diagnosis Date Acute recurrent pansinusitis 12/30/2016 Bacterial vs. Viral - chronic problem since tumor resection. Treating with ceftriaxone/azithromycin. 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 Consistent with pericarditis Echo normal /ED ekg hadchanges - probably lead reversal - new EKG on 12-30 showed no change 06-06-14. ESR 4 - trop and YOLA negative Smoker 11/22/2017 Started at age 20 up to 1.5 PPD as of 10/2017 smokes 3/4 PPD Well adult exam 11/22/2017 last done: 08/12/2019 Previous Surgical History PAST SURGICAL HISTORY Procedure Laterality Date COLONOSCOPY FLX DX W/COLLJ SPEC WHEN PFRMD 01/18/2019 Colonoscopy OTOL FACIAL PALSY PANEL_*FL 2007 PAST SURGICAL HISTORY OF 2007 right-sided subtemporal approach for subtotal resection of the right-sided petrous epidermoid SINUS SURGERY HX 04/24/14 excise petrous and clival tumor (epidermoid cyst) Family History FAMILY HISTORY Problem Relation Age of Onset Cancer Paternal Grandfather Diabetes Father Ischemic Heart Disease Mother Patient Allergies ALLERGIES No Known Allergies Current Medications Current Outpatient Medications on File Prior to Visit Medication Sig lisinopril (ZESTRIL, PRINIVIL) 40 mg tablet Take 1 tablet by mouth twice daily. metoprolol tartrate, short acting, (LOPRESSOR) 100 mg tablet Take 2 tablets by mouth twice daily. sildenafil (VIAGRA) 100 mg tablet Take 1/2 to 1 tab as need. Max of 100 mg in 24 hrs. amLODIPine (NORVASC) 10 mg tablet Take 1 tablet by mouth once daily. (Patient not taking: Reported on 07/06/2021 ) No current facility-administered medications on file prior to visit. Social History Social History Tobacco Use Smoking status: Current Every Day Smoker Packs/day: 0.75 Years: 22.00 Pack years: 16.50 Types: Cigarettes Smokeless tobacco: Never Used Substance Use Topics Alcohol use: Yes Alcohol/week: 30.0 standard drinks Types: 12 Cans of Beer (12oz) per week Drug use: No Review of Symptoms REVIEW OF SYSTEMS GENERAL: No weight loss, malaise or fevers HEENT: Negative for frequent or significant headaches, No changes in hearing or vision, no nose bleeds or other nasal problems NECK: Negative for lumps, goiter, pain and significant neck swelling RESPIRATORY: Negative for cough, hemoptysis, wheezing, COPD, dyspnea or shortness of breath CARDIOVASCULAR: Negative for chest pain, leg swelling, CHF or palpitations GI: Negative for abdominal discomfort, blood in stools or black stools, change in bowel habit, heart burn, nausea, vomiting : No history of dysuria, frequency or incontinence MUSCULOSKELETAL: Negative for joint pain or swelling, back pain or muscle pain SKIN: Negative for lesions, rash, and itching PSYCH: Negative for sleep disturbance, mood disorder and recent psychosocial stressors HEMATOLOGY/LYMPHOLOGY: Negative for prolonged bleeding, bruising easily or swollen nodes ENDOCRINE: Negative for cold or heat intolerance, polyuria, polydipsia and goiter NEURO: No history of headaches, syncope, paralysis, seizures or tremors EXAM: BP 128/86 (BP Site: Left Arm, BP Position: Sitting, BP Cuff Size: Large Adult) Pulse (!) 56 Temp 36.4 C (97.6 F) Resp 16 Ht 171.5 cm (5' 7.52) Wt 79.8 kg (176 lb) BMI 27.14 kg/m General Appearance: Well appearing, alert, in no acute distress, well-hydrated, well nourished.. Skin: Skin color, texture, turgor normal, no suspicious rashes or lesions. Head: Normocephalic, no masses, lesions, tenderness or abnormalities. Eyes: Anicteric sclera. Pupils are equally round and reactive to light. Extraocular movements are intact. . Ears: Right canal with impacted cerumen, left canal and TM wnl. Nose/Sinuses: Not examined, due to mask. Oropharynx: deferred- mask. Neck: Supple, no adenopathy; thyroid symmetric, normal size, no bruits. Lungs: Lungs clear to auscultation. No wheezing, rhonchi, rales.. Heart: RRR without murmur, gallop, or rubs. No ectopy. Abdomen: Normal abdominal exam, Abdomen soft, non-tender. Bowel sounds normal. No masses, organomegaly. Extremities: No deformities, edema, skin discoloration, clubbing or cyanosis. Good capillary refill. . Peripheral Pulses: Normal. Neurologic: Gait normal. Reflexes normal and symmetric. Sensation grossly intact.. Genitalia: patient declines . Rectal: Deferred exam. Health Maintenance List HEPATITIS C SCREENING Never done HIV SCREENING Never done BP CONTROLLED (<130/80) Never done TWO PNEUMOVAX 5 YEARS APART PRIOR TO AGE 65(1) Never done SHINGRIX VACCINE(1 of 2) Never done DEPRESSION SCREENING due on 03/28/2019 COVID-19 VACCINE(4 - Booster for Pfizer series) due on 06/24/2021 ANNUAL PCP TEAM CHRONIC DISEASE VISIT due on 12/03/2021 COLORECTAL CANCER SCREENING due on 01/19/2024 DIABETES SCREEN due on 04/16/2024 LIPID SCREEN due on 11/18/2025 DTAP,TDAP,TD(2 - Td or Tdap) due on 11/23/2027 ADULT PREVNAR Completed INFLUENZA Completed MENINGOCOCCAL CONJUGATE Aged Out Data reviewed Component Latest Ref Rng & Units 11/18/2020 04/16/2021 Color Yellow Straw (A) Clarity Clear Clear Glucose, Urine Negative mg/dL Negative Bilirubin, Urine Negative Negative Ketones, Urine Negative Negative Specific [place], Ur 1.005 - 1.030 1.010 Hemoglobin/Blood,Ur Negative Negative pH, Urine 5.0 - 8.0 7.0 Protein, Urine Negative Negative Urobilinogen Negative E.U./dL Negative Nitrites Negative Negative Leukest Negative Negative Comment SEE COMMENT Urine Koffi Comment SEE COMMENT WBC, Urine 0 - 5 /HPF 0-5 RBC, Urine 0 - 3 /HPF 0-3 Sperm 0 /HPF Present (A) Protein, Total 6.3 - 8.0 g/dL 6.9 Albumin 3.9 - 4.9 g/dL 4.5 Calcium 8.5 - 10.2 mg/dL 9.7 9.7 Bilirubin, Total 0.2 - 1.3 mg/dL 0.7 Alkaline Phosphatase 38 - 113 U/L 82 AST 14 - 40 U/L 21 Glucose 74 - 99 mg/dL 88 81 BUN 9 - 24 mg/dL 15 16 Creatinine 0.73 - 1.22 mg/dL 1.14 1.18 Sodium 136 - 144 mmol/L 135 (L) 137 Potassium 3.7 - 5.1 mmol/L 4.1 4.2 Chloride 97 - 105 mmol/L 99 98 CO2 22 - 30 mmol/L 22 30 Anion Gap 9 - 18 mmol/L 14 9 ALT 10 - 54 U/L 13 eGFR- >60 >60 eGFR-All Other Races . >60 >60 WBC 3.70 - 11.00 k/uL 5.14 RBC 4.20 - 6.00 m/uL 4.81 Hemoglobin 13.0 - 17.0 g/dL 15.2 Hematocrit 39.0 - 51.0 % 44.8 MCV 80.0 - 100.0 fL 93.1 MCH 26.0 - 34.0 pG 31.6 MCHC 30.5 - 36.0 g/dL 33.9 RDW-CV 11.5 - 15.0 % 11.7 Platelet Count 150 - 400 k/uL 173 MPV 9.0 - 12.7 fL 10.0 Absolute nRBC <0.01 k/uL <0.01 Total Cholesterol, Nonfasting <200 mg/dL 199 Triglycerides, Nonfasting <150 mg/dL 167 (H) HDL Cholesterol, Nonfasting >39 mg/dL 65 LDL Cholesterol, Nonfasting <100 mg/dL 101 (H) Non HDL Cholesterol, Nonfasting <130 mg/dL 134 (H) VLDL Cholesterol, Nonfasting <30 mg/dL 33 (H) Total Chol/HDL Ratio, Nonfasting <5.10 mg/dL 3.06 LDL/HDL Ratio, Nonfasting <2.54 mg/dL 1.55 Hemoglobin A1C 4.3 - 5.6 % 4.6 Estimated Average Glucose mg/dL 85 PSA 0.00 - 2.59 ng/mL 0.51 ASSESSMENT/PLAN: 1. Well adult exam - ICD9: V70.0, ICD10: Z00.00 (primary diagnosis) - Counseled on healthy diet and regular exercise - HEPATIC FUNCTION PNL 2. Essential hypertension - ICD9: 401.9, ICD10: I10 - good control - Continue current medication(s) - Recommended regular aerobic exercise. - Recommend home blood pressure monitoring, to bring results in on next visit - Goal of BP <130/80 - HEPATIC FUNCTION PNL 3. Migraine without aura and without status migrainosus, not intractable - ICD9: 346.10, ICD10: G43.009 stable - HEPATIC FUNCTION PNL 4. Gastroesophageal reflux disease without esophagitis - ICD9: 530.81, ICD10: K21.9 - stable - HEPATIC FUNCTION PNL 5. Abnormal stress test - ICD9: 794.39, ICD10: R94.39 Will check with cardiology on any additional follow up needs. 6. Coronary artery disease due to lipid rich plaque - ICD9: 414.00, 414.3, ICD10: I25.10, I25.83 As #5 - LIPID PANEL, NONFASTING - HEPATIC FUNCTION PNL 7. Impacted cerumen of right ear - ICD9: 380.4, ICD10: H61.21 Patient declines irrigation. F/u routine 6 months. Tosha De Leon PA-C Depression Screening 06/02/2015 02/07/2017 03/28/2018 07/06/2021 PHQ-2 Score 0 0 0 1 PHQ-9 Score 3 - - - Depression screening tool completed and reviewed. Based on score and interview, patient is not at risk for depression. Screening tool discussed with patient, and I recommended no further interventionat this time. documented in this encounter05-02-2022 Miscellaneous Notes* Telephone Encounter - VANESSA Jennings - 06/28/2021 3:14 PM EDT Patient out of medication. GIA 12/03/2020 Appointment scheduled for 07/06/2021 Please advise. Thank you. * Telephone Encounter - Shalonda Rodriguez - 06/28/2021 2:55 PM EDT Rerouting to [place] * Telephone Encounter - Shalonda Rodriguez - 06/28/2021 2:53 PM EDT Patient has been identified by name and date of : Yes Pending Prescriptions Disp Refills AMLODIPINE 10 MG TABLET 30 tablet 5 Sig: Take 1 tablet by mouth once daily. MELINDA: No Patient is completely out of the medication. RX INSTRUCTIONS: Patient aware RX will be sent to pharmacy. No need to notify patient. Shalonda Rodriguez documented in this encounter04-06-2022 Miscellaneous Notes* Telephone Encounter - LEA Connors - 06/02/2021 2:39 PM EDT Patient has been identified by name and date of : Yes Last office visit in this department: 12/03/2020 RX INSTRUCTIONS: Patient aware RX will be sent to pharmacy. No need to notify patient. Patient phones requesting refills as follows: Pending Prescriptions Disp Refills LISINOPRIL 40 MG TABLET 180 tablet 1 Sig: Take 1 tablet by mouth twice daily. MELINDA: No METOPROLOL TARTRATE 100 MG TABLET 360 tablet 1 Sig: Take 2 tablets by mouth twice daily. MELINDA: No Please review and advise. 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 09/23/2013 01/12/2022 Overview: Epidermoid cyst, removed 03/2014 documented as of this encounter (statuses as of 03/31/2022) 03-29-2015 History of Past illness Narrative* Problem Noted Date Resolved Date Hydrocephalus 05/25/2014 01/12/2022 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 09/23/2013 01/12/2022 Overview: Epidermoid cyst, removed 03/2014 documented as of this encounter (statuses as of 04/13/2022) 03-29-2015 History of Past illness Narrative* Problem Noted Date Resolved Date Hydrocephalus 05/25/2014 01/12/2022 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 09/23/2013 01/12/2022 Overview: Epidermoid cyst, removed 03/2014 documented as of this encounter (statuses as of 06/01/2022) [address]29-2015 History of Past illness Narrative* Problem Noted Date Resolved Date Hydrocephalus 05/25/2014 01/12/2022 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 09/23/2013 01/12/2022 Overview: Epidermoid cyst, removed 03/2014 documented as of this encounter (statuses as of 08/03/2022) [address]29-2015 History of Past illness Narrative* Problem Noted Date Resolved Date Hydrocephalus 05/25/2014 01/12/2022 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 09/23/2013 01/12/2022 Overview: Epidermoid cyst, removed 03/2014 documented as of this encounter (statuses as of 08/04/2022) [address]29-2015 History of Past illness Narrative* Problem Noted Date Diagnosed Date Resolved Date Hydrocephalus 05/25/2014 01/12/2022 Neoplasm of brain causing ma ss effect on adjacent structures 09/23/2013 01/12/2022 Overview: Epidermoid cyst, removed 03/2014 documented as of this encounter (statuses as of 09/08/2022) [place] [id number] History of Past illness Narrative* Problem Noted Date Diagnosed Date Resolved Date Hydrocephalus 05/25/2014 01/12/2022 Neoplasm of brain causing ma ss effect on adjacent structures 09/23/2013 01/12/2022 Overview: Epidermoid cyst, removed 03/2014 documented as of this encounter (statuses as of 09/14/2022) [place] [id number] History of Past illness Narrative* Problem Noted Date Diagnosed Date Resolved Date Hydrocephalus 05/25/2014 01/12/2022 Neoplasm of brain causing ma ss effect on adjacent structures 09/23/2013 01/12/2022 Overview: Epidermoid cyst, removed 03/2014 documented as of this encounter (statuses as of 11/10/2022) 03-29-2015 History of Past illness Narrative* Problem Noted Date Diagnosed Date Resolved Date Hydrocephalus 05/25/2014 01/12/2022 Neoplasm of brain causing ma ss effect on adjacent structures 09/23/2013 01/12/2022 Overview: Epidermoid cyst, removed 03/2014 documented as of this encounter (statuses as of 12/02/2022) 03-29-2015 History of Past illness Narrative* Problem Noted Date Diagnosed Date Resolved Date Hydrocephalus 05/25/2014 01/12/2022 Neoplasm of brain causing ma ss effect on adjacent structures 09/23/2013 01/12/2022 Overview: Epidermoid cyst, removed 03/2014 documented as of this encounter (statuses as of 01/01/2023) 03-29-2015 History of Past illness Narrative* Problem Noted Date Diagnosed Date Resolved Date Hydrocephalus 05/25/2014 01/12/2022 Neoplasm of brain causing ma ss effect on adjacent structures 09/23/2013 01/12/2022 Overview: Epidermoid cyst, removed 03/2014 documented as of this encounter (statuses as of 01/27/2023) 03-29-2015 History of Past illness Narrative* Problem Noted Date Diagnosed Date Resolved Date Hydrocephalus 05/25/2014 01/12/2022 Neoplasm of brain causing ma ss effect on adjacent structures 09/23/2013 01/12/2022 Overview: Epidermoid cyst, removed 03/2014 documented as of this encounter (statuses as of 05/10/2023) Evaluation note* Diagnosis Essential hypertension Unspecified essential [facility] Well adult exam- Primary Routine general medical examination at a health care facility Essential hypertension Unspecified essential hypertension Migraine without aura and without status migrainosus, not intractable Migraine without aura, without mention of intractable migraine without mention of status migrainosus Gastroesophageal reflux disease without esophagitis Esophageal reflux Abnormal stress test Other nonspecific abnormal cardiovascular system function study Coronary artery disease due to lipid rich plaque Impacted cerumen of right ear Impacted cerumen [facility] Diagnosis Coronary artery disease due to lipid rich plaque [facility]* Diagnosis Erectile dysfunction, unspecified erectile dysfunction type documented in this encounter [facility] note* Diagnosis Left inguinal hernia- Primary Inguinal hernia without mention of obstruction or gangrene, unilateral or unspecified, (not specified as recurrent) documented in this encounter [facility] note* Diagnosis Essential hypertension Unspecified essential hypertension Left inguinal hernia Inguinal hernia without mention of obstruction or gangrene, unilateral or unspecified, (not specified as recurrent) [facility]* Diagnosis Status post left inguinal hernia repair- Primary Other postprocedural status Postoperative pain Other acute postoperative pain [facility]* Diagnosis Status post left inguinal hernia repair- Primary Other postprocedural status documented in this encounter [facility] note* Diagnosis Status post left inguinal hernia repair- Primary Other postprocedural status [facility]* Diagnosis Erectile dysfunction, unspecified erectile dysfunction type documented in this encounter [facility] note* Diagnosis Erectile dysfunction, unspecified erectile dysfunction type [facility]* Diagnosis Essential hypertension Unspecified essential hypertension documented in this encounter [facility] noteNo assessment information availableWChildren[facility] Work Phone: Evaluation note* Diagnosis Hyponatremia- Primary Hyposmolality and/or hyponatremia documented in this encounter [facility] note* Diagnosis Essential hypertension- Primary Unspecified essential hypertension 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 Hyponatremia Hyposmolality and/or hyponatremia documented in this encounter [facility] note* Diagnosis Cholesteatoma of right ear- Primary Cholesteatoma, unspecified [facility]* Diagnosis Erectile dysfunction, unspecified erectile dysfunction type documented in this encounter [facility] note* Diagnosis Essential hypertension Unspecified essential hypertension [facility]* Diagnosis 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 Cholesteatoma of right middle ear Balance problems Other symptoms involving nervous and musculoskeletal systems [facility]* Diagnosis Essential hypertension- Primary Unspecified essential hypertension Gastroesophageal reflux disease without esophagitis Esophageal reflux Migraine without aura and without status migrainosus, not intractable Migraine without aura, without mention of intractable migraine without mention of status migrainosus Coronary artery disease due to lipid rich plaque Cholesteatoma of right middle ear Smoker Tobacco use disorder Erectile dysfunction, unspecified erectile dysfunction type Encounter for immunization Need for other specified prophylactic vaccination against single bacterial disease 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 [facility] Diagnosis Essential hypertension Unspecified essential hypertension [facility]* Diagnosis Essential hypertension Unspecified essential hypertension [facility]* Diagnosis Well adult exam- Primary Routine general medical examination at a health care facility Special screening examination for viral disease Special screening examination for unspecified viral disease Screening for HIV (human immunodeficiency virus) Special screening examination for other specified viral diseases Essential hypertension Unspecified essential hypertension Coronary artery disease due to lipid rich plaque Migraine without aura and without status migrainosus, not intractable Migraine without aura, without mention of intractable migraine without mention of status migrainosus Gastroesophageal reflux disease without esophagitis Esophageal reflux Cholesteatoma of right middle ear 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 Smoker Tobacco use disorder Erectile dysfunction, unspecified erectile dysfunction type Encounter for screening for diabetes mellitus Screening for diabetes mellitus Screening for prostate cancer Special screening for malignant neoplasm of prostate Inguinal hernia of left side without obstruction or gangrene [facility]* Diagnosis Erectile dysfunction, unspecified erectile dysfunction type [facility]* Diagnosis Essential hypertension Unspecified essential hypertension [facility]* Diagnosis Erectile dysfunction, unspecified erectile dysfunction type [facility]* Diagnosis Acute midline low back pain without sciatica- Primary Fall, initial encounter Acute midline low back pain without sciatica Fall, initial encounter documented in this encounter Evaluation note* Diagnosis Acute midline low back pain without sciatica Fall, initial encounter documented in this encounter Evaluation note* Diagnosis Essential hypertension- Primary Unspecified essential hypertension Coronary artery disease due to lipid rich plaque Gastroesophageal reflux disease without esophagitis Esophageal reflux Cholesteatoma of right middle ear Migraine without aura and without status migrainosus, not intractable Migraine without aura, without mention of intractable migraine without mention of status migrainosus 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 Smoker Tobacco use disorder Encounter for immunization Need for other specified prophylactic vaccination against single bacterial disease Screening for prostate cancer Special screening for malignant neoplasm of prostate Encounter for screening for diabetes mellitus Screening for diabetes mellitus Medication management Encounter for long-term (current) use of other medications documented in this encounter Evaluation note* Diagnosis Essential hypertension Unspecified essential hypertension Erectile dysfunction, unspecified erectile dysfunction type documented in this encounter [facility] for referral (narrative)* Diagnostic Procedure Only (Urgent) - Closed Specialty Diagnoses / Procedures Referred By Contac t Referred To Contact XR IMAGING Diagnoses Acute midline low back pain without sciatica Fall, initial encounter Procedures XR LUMBAR GENERAL 3V AP/LAT/L5-S1 RADEX SPINE LUMBOSACRAL 2/3 VIEWS Meche Zhao PA [address] [place] [address] [place] [address] Referral ID Status Reason Start Date Expiration Date V isits Requested Visits Authorized [id number] Closed Auto-Generate d Referral 03/12/2024 04/11/2025 1 1 [facility] for referral (narrative)* Diagnostic Procedure Only (Urgent) - Closed Specialty Diagnoses / Procedures Referred By Contac t Referred To Contact XR IMAGING Diagnoses Acute midline low back pain without sciatica Fall, initial encounter Procedures XR LUMBAR GENERAL 3V AP/LAT/L5-S1 RADEX SPINE LUMBOSACRAL 2/3 VIEWS Meche Zhao PA [address] [place] [address] [place] [address] Referral ID Status Reason Start Date Expiration Date V isits Requested Visits Authorized [id number] Closed Auto-Generate d Referral 03/12/2024 04/11/2025 [facility]No reason for referral information availableWChildren's [facility] Work Phone: Reason for visit Narrative* Diagnostic Procedure Only (Urgent) - Closed Specialty Diagnoses / Procedures Referred By Contac t Referred To Contact XR IMAGING Diagnoses Acute midline low back pain without sciatica Fall, initial encounter Procedures XR LUMBAR GENERAL 3V AP/LAT/L5-S1 RADEX SPINE LUMBOSACRAL 2/3 VIEWS Meche Zhao, PA [address] [place] [address] [place] [address] Referral ID Status Reason Start Date Expiration Date V isits Requested Visits Authorized [id number] Closed Auto-Generate d Referral 03/12/2024 04/11/2025 1 1 Advance Directives No Advanced Directives Records FoundDocuments on File Type Date Recorded Patient Conservation Worker Expl anation Advance Directive(s) 03/22/2007 Date Activated Date Inactivated Comments 07/23/2024 8:56 PM Question Answer Comments Full Code Order Discussed With: Patient Documents on File Type Date Recorded Patient Conservation Worker Expl anation Advance Directive(s) 04/19/2021 12:32 PM Advance Directive(s) 04/16/2021 12:13 PM Advance Directive(s) 01/18/2019 8:09 AM Advance Directive(s) 12/30/2016 5:13 AM Advance Directive(s) 03/22/2007 12:00 AM Documents on File Type Date Recorded Patient Conservation Worker Expl anation Advance Directive(s) 04/19/2021 12:32 PM Advance Directive(s) 04/16/2021 12:13 PM Advance Directive(s) 01/18/2019 8:09 AM Advance Directive(s) 12/30/2016 5:13 AM Advance Directive(s) 03/22/2007 12:00 AM Documents on File Type Date Recorded Patient Conservation Worker Expl anation Advance Directive(s) 09/09/2021 8:22 AM Advance Directive(s) 04/19/2021 12:32 PM Advance Directive(s) 04/16/2021 12:13 PM Advance Directive(s) 01/18/2019 8:09 AM Advance Directive(s) 12/30/2016 5:13 AM Advance Directive(s) 03/22/2007 12:00 AM Advance Directive Response Recorded Date/ Time Living Will No August 02, 2022 4 :31pm Power of Technical Support Analyst No August 02, 2022 4:31pm Documents on File Type Date Recorded Patient Conservation Worker Expl anation Advance Directive(s) 03/22/2007 Advance Directive Response Recorded Date/ Time Do you have a Healthcare Power of Technical Support Analyst? No July 22, 2024 2:25pm Date Activated Date Inactivated Comments 07/23/2024 8:56 PM 08/08/2024 7:34 PM Reason for Referral Specialty Diagnoses / Procedures Referred By Contac t Referred To Contact Cardiology Diagnoses Coronary artery disease due to lipid rich plaque Procedures CONSULT TO CARDIOLOGY OFFICE/OUTPATIENT [facility] 60-74 MINUTES Tosha De Leon PA-C [address] [place] [address] Referral ID Status Reason Start Date Expiration Date Visits Requested Visits Authorized [id number] Authorized PCP Requested Referral 07/06/2021 07/06/2022 1 1 Specialty Diagnoses / Procedures Referred By Contac t Referred To Contact General Surgery Diagnoses Left inguinal hernia Procedures CONSULT TO GENERAL SURGERY OFFICE/OUTPATIENT [facility] 60-74 MINUTES Tosha De Leon PA-C [address] [place] [address] Referral ID Status Reason Start Date Expiration Date Visits Requested Visits Authorized [id number] Authorized PCP Requested Referral 07/19/2021 07/19/2022 1 1 Specialty Diagnoses / Procedures Referred By Contac t Referred To Contact Ent - Otolaryngology Diagnoses Cholesteatoma of right ear Procedures CONSULT TO ENT OFFICE/OUTPATIENT [facility] 60-74 MINUTES Yanick Sky MD [address] [place] [address] Referral ID Status Reason Start Date Expiration Date Visits Requested Visits Authorized [id number] Authorized PCP Requested Referral 09/13/2022 09/13/2023 1 1 Specialty Diagnoses / Procedures Referred By Contac t Referred To Contact MR IMAGING Diagnoses Cerebral salt-wasting syndrome Cholesteatoma of right middle ear Balance problems Procedures MRI BRAIN WO/W IVCON MRI BRAIN BRAIN STEM W/O W/CONTRAST MATERIAL Yanick Sky MD [address] [place] [address] [place] [address] Referral ID Status Reason Start Date Expiration Date V isits Requested Visits Authorized [id number] Closed Auto-Generate d Referral 09/08/2022 02/26/2023 1 1 Specialty Diagnoses / Procedures Referred By Freda tenorio Referred To Contact General Surgery Diagnoses Inguinal hernia of left side without obstruction or gangrene Procedures CONSULT TO GENERAL SURGERY OFFICE/OUTPATIENT [facility] 60 MINUTES Yanick Sky MD [address] [place] [address] Referral ID Status Reason Start Date Expiration Date Visits Requested Visits Authorized [id number] Authorized PCP Requested Referral 07/26/2023 07/25/2024 1 1 Chief Complaint and Reason for Visit Chief Complaint LOW SODIUM Chief Complaint Admit Date MARY July 22, 2024 2:02p m Summary Purpose Family History No Family History Records FoundNo Family History Records FoundNo Family History Records FoundNo Family History Records Found Additional Source Comments Source Comments (unrecognize d section and content) In the event this informatio n is protected by the Federal Confidentiality of Alcohol and Drug Abuse Patient Records regulations: The Federal rules restrict any use of the information to criminally investigate or prosecute any alcohol or drug abuse patient.In the event this information is protected by the Federal Confidentiality of Alcohol and Drug Abuse Patient Records regulations: The Federal rules restrict any use of the information to criminally investigate or prosecute any alcohol or drug abuse patient.In the event this information is protected by the Federal Confidentiality of Alcohol and Drug Abuse Patient Records regulations: The Federal rules restrict any use of the information to criminally investigate or prosecute any alcohol or drug abuse patient.In the event this information is protected by the Federal Confidentiality of Alcohol and Drug Abuse Patient Records regulations: The Federal rules restrict any use of the information to criminally investigate or prosecute any alcohol or drug abuse patient.In the event this information is protected by the Federal Confidentiality of Alcohol and Drug Abuse Patient Records regulations: The Federal rules restrict any use of the information to criminally investigate or prosecute any alcohol or drug abuse patient.In the event this information is protected by the Federal Confidentiality of Alcohol and Drug Abuse Patient Records regulations: The Federal rules restrict any use of the information to criminally investigate or prosecute any alcohol or drug abuse patient.In the event this information is protected by the Federal Confidentiality of Alcohol and Drug Abuse Patient Records regulations: The Federal rules restrict any use of the information to criminally investigate or prosecute any alcohol or drug abuse patient.In the event this information is protected by the Federal Confidentiality of Alcohol and Drug Abuse Patient Records regulations: The Federal rules restrict any use of the information to criminally investigate or prosecute any alcohol or drug abuse patient.In the event this information is protected by the Federal Confidentiality of Alcohol and Drug Abuse Patient Records regulations: The Federal rules restrict any use of the information to criminally investigate or prosecute any alcohol or drug abuse patient.In the event this information is protected by the Federal Confidentiality of Alcohol and Drug Abuse Patient Records regulations: The Federal rules restrict any use of the information to criminally investigate or prosecute any alcohol or drug abuse patient.In the event this information is protected by the Federal Confidentiality of Alcohol and Drug Abuse Patient Records regulations: The Federal rules restrict any use of the information to criminally investigate or prosecute any alcohol or drug abuse patient.In the event this information is protected by the Federal Confidentiality of Alcohol and Drug Abuse Patient Records regulations: The Federal rules restrict any use of the information to criminally investigate or prosecute any alcohol or drug abuse patient.In the event this information is protected by the Federal Confidentiality of Alcohol and Drug Abuse Patient Records regulations: The Federal rules restrict any use of the information to criminally investigate or prosecute any alcohol or drug abuse patient.In the event this information is protected by the Federal Confidentiality of Alcohol and Drug Abuse Patient Records regulations: The Federal rules restrict any use of the information to criminally investigate or prosecute any alcohol or drug abuse patient.In the event this information is protected by the Federal Confidentiality of Alcohol and Drug Abuse Patient Records regulations: The Federal rules restrict any use of the information to criminally investigate or prosecute any alcohol or drug abuse patient.In the event this information is protected by the Federal Confidentiality of Alcohol and Drug Abuse Patient Records regulations: The Federal rules restrict any use of the information to criminally investigate or prosecute any alcohol or drug abuse patient.In the event this information is protected by the Federal Confidentiality of Alcohol and Drug Abuse Patient Records regulations: The Federal rules restrict any use of the information to criminally investigate or prosecute any alcohol or drug abuse patient.In the event this information is protected by the Federal Confidentiality of Alcohol and Drug Abuse Patient Records regulations: The Federal rules restrict any use of the information to criminally investigate or prosecute any alcohol or drug abuse patient.In the event this information is protected by the Federal Confidentiality of Alcohol and Drug Abuse Patient Records regulations: The Federal rules restrict any use of the information to criminally investigate or prosecute any alcohol or drug abuse patient.In the event this information is protected by the Federal Confidentiality of Alcohol and Drug Abuse Patient Records regulations: The Federal rules restrict any use of the information to criminally investigate or prosecute any alcohol or drug abuse patient.In the event this information is protected by the Federal Confidentiality of Alcohol and Drug Abuse Patient Records regulations: The Federal rules restrict any use of the information to criminally investigate or prosecute any alcohol or drug abuse patient.In the event this information is protected by the Federal Confidentiality of Alcohol and Drug Abuse Patient Records regulations: The Federal rules restrict any use of the information to criminally investigate or prosecute any alcohol or drug abuse patient.In the event this information is protected by the Federal Confidentiality of Alcohol and Drug Abuse Patient Records regulations: The Federal rules restrict any use of the information to criminally investigate or prosecute any alcohol or drug abuse patient.In the event this information is protected by the Federal Confidentiality of Alcohol and Drug Abuse Patient Records regulations: The Federal rules restrict any use of the information to criminally investigate or prosecute any alcohol or drug abuse patient.In the event this information is protected by the Federal Confidentiality of Alcohol and Drug Abuse Patient Records regulations: The Federal rules restrict any use of the information to criminally investigate or prosecute any alcohol or drug abuse patient.In the event this information is protected by the Federal Confidentiality of Alcohol and Drug Abuse Patient Records regulations: The Federal rules restrict any use of the information to criminally investigate or prosecute any alcohol or drug abuse patient.In the event this information is protected by the Federal Confidentiality of Alcohol and Drug Abuse Patient Records regulations: The Federal rules restrict any use of the information to criminally investigate or prosecute any alcohol or drug abuse patient.In the event this information is protected by the Federal Confidentiality of Alcohol and Drug Abuse Patient Records regulations: The Federal rules restrict any use of the information to criminally investigate or prosecute any alcohol or drug abuse patient.In the event this information is protected by the Federal Confidentiality of Alcohol and Drug Abuse Patient Records regulations: The Federal rules restrict any use of the information to criminally investigate or prosecute any alcohol or drug abuse patient.In the event this information is protected by the Federal Confidentiality of Alcohol and Drug Abuse Patient Records regulations: The Federal rules restrict any use of the information to criminally investigate or prosecute any alcohol or drug abuse patient.In the event this information is protected by the Federal Confidentiality of Alcohol and Drug Abuse Patient Records regulations: The Federal rules restrict any use of the information to criminally investigate or prosecute any alcohol or drug abuse patient.In the event this information is protected by the Federal Confidentiality of Alcohol and Drug Abuse Patient Records regulations: The Federal rules restrict any use of the information to criminally investigate or prosecute any alcohol or drug abuse patient.In the event this information is protected by the Federal Confidentiality of Alcohol and Drug Abuse Patient Records regulations: The Federal rules restrict any use of the information to criminally investigate or prosecute any alcohol or drug abuse patient.In the event this information is protected by the Federal Confidentiality of Alcohol and Drug Abuse Patient Records regulations: The Federal rules restrict any use of the information to criminally investigate or prosecute any alcohol or drug abuse patient.In the event this information is protected by the Federal Confidentiality of Alcohol and Drug Abuse Patient Records regulations: The Federal rules restrict any use of the information to criminally investigate or prosecute any alcohol or drug abuse patient.In the event this information is protected by the Federal Confidentiality of Alcohol and Drug Abuse Patient Records regulations: The Federal rules restrict any use of the information to criminally investigate or prosecute any alcohol or drug abuse patient.In the event this information is protected by the Federal Confidentiality of Alcohol and Drug Abuse Patient Records regulations: The Federal rules restrict any use of the information to criminally investigate or prosecute any alcohol or drug abuse patient.In the event this information is protected by the Federal Confidentiality of Alcohol and Drug Abuse Patient Records regulations: The Federal rules restrict any use of the information to criminally investigate or prosecute any alcohol or drug abuse patient.In the event this information is protected by the Federal Confidentiality of Alcohol and Drug Abuse Patient Records regulations: The Federal rules restrict any use of the information to criminally investigate or prosecute any alcohol or drug abuse patient.In the event this information is protected by the Federal Confidentiality of Alcohol and Drug Abuse Patient Records regulations: The Federal rules restrict any use of the information to criminally investigate or prosecute any alcohol or drug abuse patient.In the event this information is protected by the Federal Confidentiality of Alcohol and Drug Abuse Patient Records regulations: The Federal rules restrict any use of the information to criminally investigate or prosecute any alcohol or drug abuse patient.In the event this information is protected by the Federal Confidentiality of Alcohol and Drug Abuse Patient Records regulations: The Federal rules restrict any use of the information to criminally investigate or prosecute any alcohol or drug abuse patient.In the event this information is protected by the Federal Confidentiality of Alcohol and Drug Abuse Patient Records regulations: The Federal rules restrict any use of the information to criminally investigate or prosecute any alcohol or drug abuse patient.In the event this information is protected by the Federal Confidentiality of Alcohol and Drug Abuse Patient Records regulations: The Federal rules restrict any use of the information to criminally investigate or prosecute any alcohol or drug abuse patient.In the event this information is protected by the Federal Confidentiality of Alcohol and Drug Abuse Patient Records regulations: The Federal rules restrict any use of the information to criminally investigate or prosecute any alcohol or drug abuse patient. Reason for Visit (unrecogniz ed section and content) Reason Onset Date Comments Refill Request 06/02/2021 Reason Onset Date Comments Refill Request 06/28/2021 Reason Comments Physical Reason Comments Results Reason Comments Results Reason Onset Date Comments Refill Request 07/14/2021 Reason Comments Referral Request Reason Onset Date Comments Refill Request 07/27/2021 SEE RX NOTES Reason Comments FMLA Paperwork Reason Comments 08-10-2021 HERNIA REPAIR LODI Reason Comments Post Op Follow Up left inguinal hernia repair Reason Comments Post Op Left Inguinal Hernia repair 09/09/2021 Reason Comments Follow Up Seroma 2 week Reason Onset Date Comments Refill Request 12/03/2021 Reason Onset Date Comments Refill Request 01/04/2022 Reason Onset Date Comments Refill Request 03/02/2022 Reason Comments Blood Pressure Check Reason Onset Date Comments Refill Request 04/12/2022 Reason Comments Forms Reason Comments Critical Results Reason Comments ER Discharge Summary Reason Comments Patient Question Reason Comments Follow Up Reason Onset Date Comments Refill Request 11/09/2022 Reason Comments change in pharmacy Specialty Diagnoses / Procedures Referred By Freda t Referred To Contact MR IMAGING Diagnoses Cerebral salt-wasting syndrome Cholesteatoma of right middle ear Balance problems Procedures MRI BRAIN WO/W IVCON MRI BRAIN BRAIN STEM W/O W/CONTRAST MATERIAL Yanick Sky MD [address] [place] [address] [place] [id number] Referral ID Status Reason Start Date Expiration Date V isits Requested Visits Authorized [id number] Closed Auto-Generate d Referral 09/08/2022 02/26/2023 1 1 Reason Comments F/U 6 months Reason Onset Date Comments Refill Request 05/11/2022 Reason Onset Date Comments Refill Request 06/21/2023 Reason Comments Physical Reason Onset Date Comments Refill Request 11/15/2023 Reason Onset Date Comments Refill Request 01/24/2024 Reason Onset Date Comments Refill Request 02/29/2024 Reason Comments Back Pain right lower and acro ss mid back area x 1 week, stiffness, did slip on ice Reason Comments Appointment Reason Onset Date Comments Refill Request 05/16/2024 Reason Comments ER F/U Medication Request Reason Comments Reason Comments [facility]AGE Care Teams (unrecognized sec tion and content) Spd Tech Relationship Specialty Start Date End Date Yanick Sky MD [facility] [place] [address] PCP - General Family Practice 12/30/16 Spd Tech Relationship Specialty Start Date End Date Yanick Sky MD [address] [place] [address], [place] [address] PCP - General Family Practice 12/30/16 Spd Tech Relationship Specialty Start Date End Date Yanick Sky MD [address] [place] [address], [place] [address] PCP - General Family Practice 12/30/16 Spd Tech Relationship Specialty Start Date End Date Yanick Sky MD [address] [place] [address], [place] [address] PCP - General Family Practice 12/30/16 Spd Tech Relationship Specialty Start Date End Date Yanick Sky MD [address] [place] [address], [place] [address] PCP - General Family Practice 12/30/16 Spd Tech Relationship Specialty Start Date End Date Yanick Sky MD [address] [place] [address], [place] [address] PCP - General Family Practice 12/30/16 Spd Tech Relationship Specialty Start Date End Date Yanick Sky MD [address] [place] [address], [place] [address] PCP - General Family Practice 12/30/16 Spd Tech Relationship Specialty Start Date End Date Yanick Sky MD [address] [place] [address], [place] [address] PCP - General Family Practice 12/30/16 Spd Tech Relationship Specialty Start Date End Date Yanick Sky MD [address] [place] [address] PCP - General Family Practice 12/30/16 Spd Tech Relationship Specialty Start Date End Date Yanick Sky MD [address] [place] [address] PCP - General Family Medicine 12/30/16 Spd Tech Relationship Specialty Start Date End Date Yanick Sky MD [address] [place] [address] PCP - General Family Medicine 12/30/16 Spd Tech Relationship Specialty Start Date End Date Yanick Sky MD [address] [place] [address] PCP - General Family Medicine 12/30/16 Spd Tech Relationship Specialty Start Date End Date Yanick Sky MD [address] [place] [address] PCP - General Family Medicine 12/30/16 Spd Tech Relationship Specialty Start Date End Date Yanick Sky MD [address] [place] [id number] PCP - General Family Medicine 12/30/16 Team Status: Active Member Role Status Dates Dr. Yanick Sky MD Family Provider Active Dr. Yanick Sky MD Primary Care Provider Active Team Status: Inactive Member Role Status Dates Dr. Yanick Sky MD Primary Care Provider Active Dr. Adonis Zee DO Emergency Provider Active Spd Tech Relationship Specialty Start Date End Date Yanick Sky MD [facility] [place] [address] PCP - General Family Medicine 12/30/16 Spd Tech Relationship Specialty Start Date End Date Yanick Sky MD [address] [place] [address] PCP - General Family Medicine 12/30/16 Spd Tech Relationship Specialty Start Date End Date Yanick Sky MD [address] [facility] [place] [address] PCP - General Family Medicine 12/30/16 Spd Tech Relationship Specialty Start Date End Date Yanick Sky MD [address] [place] [address] PCP - General Family Medicine 12/30/16 Spd Tech Relationship Specialty Start Date End Date Yanick Sky MD [address] [place] [address] PCP - General Family Medicine 12/30/16 Spd Tech Relationship Specialty Start Date End Date Yanick Sky MD [address] [place] [address] PCP - General Family Medicine 12/30/16 Spd Tech Relationship Specialty Start Date End Date Yanick Sky MD [address] [place] [address] PCP - General Family Medicine 12/30/16 Spd Tech Relationship Specialty Start Date End Date Yanick Sky MD [address] [place] [address] PCP - General Family Medicine 12/30/16 Spd Tech Relationship Specialty Start Date End Date Yanick Sky MD [address] [place] [address] PCP - General Family Medicine 12/30/16 Spd Tech Relationship Specialty Start Date End Date Yanick Sky MD [address] [place] [address] PCP - General Family Medicine 12/30/16 Spd Tech Relationship Specialty Start Date End Date Yanick Sky MD [address] [place] [address] PCP - General Family Medicine 12/30/16 Spd Tech Relationship Specialty Start Date End Date Yanick Sky MD [address] [place] [address] PCP - General Family Medicine 12/30/16 Spd Tech Relationship Specialty Start Date End Date Yanick Sky MD [address] [place] [address] PCP - General Family Medicine 12/30/16 Sobia Stone, ADELINA.SITE ADMINISTRATOR [address] [place] [address] [employer]eling Crew Supervisor Family Medicine 02/03/24 Tsoha De Leon PA-C [address] [place] [address] [employer] Supervisor Family Medicine 02/03/24 Spd Tech Relationship Specialty Start Date End Date Yanick Sky MD [address] [place] [address] PCP - General Family Medicine 12/30/16 Sobia Stone APRN.SITE ADMINISTRATOR [address] [place] [address] [employer] Supervisor Family Medicine 02/03/24 Tosha De Leon PA-C [address] [place] [address] [employer] Supervisor Family Medicine 02/03/24 Spd Tech Relationship Specialty Start Date End Date Yanick Sky MD [address] [place] [address] PCP - General Family Medicine 12/30/16 Sobia Stone APRN.SITE ADMINISTRATOR [address] [place] [address] [employer] Supervisor Family Medicine 02/03/24 Tosha De Leon PA-C [address] [place] [address] [employer] Supervisor Family Medicine 02/03/24 Spd Tech Relationship Specialty Start Date End Date Yanick Sky MD [address] [place] [address] PCP - General Family Medicine 12/30/16 Sobia Stone APRN.SITE ADMINISTRATOR [address] [place] [address] [employer]eling Crew Supervisor Family Medicine 02/03/24 Tosha De Leon PA-C [address] [place] [address] [employer] Supervisor Family Medicine 02/03/24 Spd Tech Relationship Specialty Start Date End Date Yanick Sky MD [address] [place] [address] PCP - General Family Medicine 12/30/16 Sobia Stone, FINANCIAL SALES PROFESSIONAL.SITE ADMINISTRATOR [address] [place] [address] [facility] 02/03/24 Tosha De Leon PA-C [address] [place] [address] [facility] 02/03/24 Spd Tech Relationship Specialty Start Date End Date Yanick Sky MD [address] [place] [address] PCP - General Family Medicine 12/30/16 Sobia Stone, FINANCIAL SALES PROFESSIONAL.SITE ADMINISTRATOR [address] [place] [address] [facility] 02/03/24 Tosha De Leon PA-C [address] [place] [address] [facility] 02/03/24 Spd Tech Relationship Specialty Start Date End Date Yanick Sky MD [address] [place] [address] PCP - General Family Medicine 12/30/16 Sobia Stone, FINANCIAL SALES PROFESSIONAL.SITE ADMINISTRATOR [address] [place] [address] [facility] 02/03/24 Tosha De Leon PA-C [address] [place] [address] [facility] 02/03/24 Team Status: Active Member Role Status Dates Dr. Yanick Sky MD Primary Care Provider Active Team Status: Inactive Member Role Status Dates Dr. Yanick Sky MD Primary Care Provider Active Start: July 22, 2024 End: July 22, 2024 Dr. Julian Garcia DO Emergency Provider Active Start: July 22, 2024 End: July 22, 2024 Spd Tech Relationship Specialty Start Date End Date Yanick Sky MD [address] [place], [place] [address] PCP - General Family [facility] 06/03/24 Tosha De Leon PA-C [address] [place], [place] [address] [facility] 02/[facility]/24 Spd Tech Relationship Specialty Start Date End Date Yanick Sky MD [address] [place], [place] [address] PCP - General [facility] Medicine 06/03/24 Tosha De Leon PA-C [address] [place], [place] [address] [facility] 02/03/24 Spd Tech Relationship Specialty Start Date End Date Yanick Sky MD [address] [place], [place] [address] PCP - [facility] Medicine 06/03/24 Sobia Stone APRN.CNP [address] [place], [place] [id number] [facility] 07/29/24 Tosha De Leon PA-C [address] [place], [place] [id number] [facility] 07/29/24 Goals (unrecognized section and content) Goals may be documented in a n alternate sectionGoals may be documented in an alternate section (unrecognized sect ion and content) No Status Records FoundNo Status Records FoundNo Status Records FoundNo Status Records Found INFORMATION SOURCE (unrecogn ized section and content) DATE CREATED AUTHOR 07/26/2024 [facility] DATE CREATED AUTHOR AUTHOR'S ORGANIZ ATION 07/26/2024 [facility] DATE CREATED AUTHOR AUTHOR'S ORGANIZ ATION 07/26/2024 [facility] DATE CREATED AUTHOR AUTHOR'S ORGANIZ ATION 08/09/2024 [facility] FOR RECORDS PERTAINING TO PATIENTS WHO ARE OR HAVE BEEN ENROLLED IN A CHEMICAL DEPENDENCY/SUBSTANCEABUSE PROGRAM, SOME INFORMATION MAY BE OMITTED. This clinical summary was aggregated from multiple sources. Caution should be exercised in using it in the provision of clinical care. This summary normalizes information from multiple sources, and as a consequence, information in this document may materially change the coding, format and clinical context of patient data. In addition, data may be omitted in some cases. CLINICAL DECISIONS SHOULD BE BASED ON THE PRIMARY CLINICAL RECORDS. [facility] provides no warranty or guarantee of the accuracy or completeness of information in this document.
[2024-08-10 21:57] LABS: Mucous, Urine 0 SEEN /hpf (<or=2+); Red Blood Cells-Urine 0 SEEN /hpf (0-5); Squamous Epithelial Cells - UA 0 SEEN /hpf (0-5)
[2024-08-10 21:58] LABS: Color, Urine Yellow (Yellow); Glucose, Dipstick Normal (Normal); Ketone-Dipstick Negative (Negative); Leukocyte Esterase-Dipstick Negative /ul (Negative); Nitrite-Dipstick Negative (Negative); Occult Blood-Urine Negative /ul (Negative); Protein-Dipstick 15 mg/dl (Negative); Specific Gravity, Urine 1.015 (1.002-1.030); Urine Bilirubin Dipstick Negative (Negative); Urine Clarity Sl. Cloudy (Clear); Urine Urobilinogen 8 mg/dl (Normal)
[2024-08-10 22:00] VITALS: BP 160/88; PULSE 104; RESP 17; O2SAT 98
[2024-08-10 22:29] LABS: Amorphous Sediment 2+; Bacteria 2+ /hpf (None Seen); White Blood Cells 0-5 SEEN /hpf (0-5)
[2024-08-10 22:36] LABS: Erythrocyte Sedimentation Rate 46 mm/hr (0-20)
[2024-08-10 22:59] LABS: Procalcitonin 0.06 ng/mL (<=0.10); Thyroid Stim Hormone (TSH) 0.907 uIU/mL (0.300-4.200); Uric Acid 3.5 mg/dL (3.5-7.2)
[2024-08-10 23:22] LABS: Allen Test Positive; Base Excess 2 mmol/L (-2 to +2); Bicarbonate 25.7 mmol/L (22-26); Blood Gas Specimen Type ART; Mode Not entered; O2 Delivery Device Room Air; PO2 92 mmHG (75-100); SITE Not entered; SO2 98 % (95-99); Total Carbon Dioxide 27 mmol/L; pH 7.47 (7.35-7.45)
[2024-08-10 23:27] LABS: Urine Sodium 101 mmol/L (Not Establ.)
[2024-08-10 23:31] LABS: Osmolality, Serum 261 mOsm/KG (275-295)
[2024-08-10 23:31] LABS: Osmolality, Urine 527 mOsm/KG
[2024-08-11 00:39] LABS: Reflex Lactate? Y
[2024-08-11 01:02] VITALS: BP 167/138; PULSE 86; RESP 20; O2SAT 98
[2024-08-11] MEDS: Lorazepam 2 MG/ML WCH Syringe IV (01:20)
[2024-08-11 02:00] VITALS: BP 168/105; PULSE 88; RESP 20; O2SAT 100
[2024-08-11 03:14] LABS: Lactic Acid < 1.0 mmol/L (0.0-2.0)
--- NOTE | 2024-08-11 03:57 | ED.RN ---
this RN called Significant other, Erika, for consent to transfer. left message to call back.
[2024-08-11 05:00] VITALS: BP 169/104; PULSE 99; RESP 22; TEMP 36.5; O2SAT 100
== END 2024-08-11 05:28 | disposition short-term general hospital (02) ==
PROVIDERS: Internal Medicine; Emergency Provider Emergency Medicine; PCP Family Medicine; Visit Provider Emergency Medicine
DX: S02.2XXA Fracture of nasal bones, initial encounter for closed fracture (principal); C71.6 Malignant neoplasm of cerebellum; W19.XXXA Unspecified fall, initial encounter; E87.1 Hypo-osmolality and hyponatremia; R50.9 Fever, unspecified; I10 Essential (primary) hypertension; F17.210 Nicotine dependence, cigarettes, uncomplicated; R29.6 Repeated falls; R40.4 Transient alteration of awareness; Z79.899 Other long term (current) drug therapy
CPT/HCPCS: 36415; 36600; 51702; 70450; 71045; 80053; 81001; 82533; 82803; 83605; 83930; 83935; 84145; 84300; 84443; 84550; 85025; 85610; 85652; 85730; 86140; 87040; 87086; 87631; 93005; 96361; 96374; 96376; 99285; A4216